=== PATIENT | female | born 1945 ===

== ENCOUNTER 2020-10-16 16:05 | Outpatient (REF) | payer MEDICARE, SELFPAY ==
--- NOTE | ~2020-10-16 | MM_ITS ---
EXAMINATION: MM SCREENING DIGITAL BREAST TOMOSYNTHESIS, BILATERAL CLINICAL INFORMATION: Screening. Asymptomatic. The lifetime risk of breast cancer based on the Tyrer-Cuzick Model is 1%. COMPARISON: Mammography: The 07/13/2019, 06/05/2018, 05/30/2017 TECHNIQUE: Digital breast tomosynthesis is performed in both the craniocaudal and mediolateral oblique views along with computer-aided detection (CAD). Synthesized 2D images are generated from the tomosynthesis. FINDINGS: The breasts are heterogeneously dense, which may obscure small masses (ACR BI-RADS breast composition Category c). Breast tissue composition borders on average fibroglandular. There is no developing density or interval mass or architectural abnormality. There are scattered bilateral predominantly vascular calcifications. The axilla and skin contours are unremarkable. No significant changes. MM/MM tomosynthesis screening BI IMPRESSION: No mammographic evidence of malignancy. ASSESSMENT: BI-RADS 2: Benign RECOMMENDATION: Routine annual mammography screening. This patient's information was entered into a reminder system with a target due date for their next mammogram.
== END 2020-10-16 16:06 | disposition home or self-care (01) ==
LOC: HO.MAMMO 16:05
PROVIDERS: Visit Provider Nurse Practitioner Family
DX: Z12.31 Encounter for screening mammogram for malignant neoplasm of breast (principal)
CPT/HCPCS: 77063; 77067

== ENCOUNTER → 2020-11-07 10:36 | Outpatient (BNVA) | payer MEDICARE, SELFPAY | PROVIDERS: PCP Nurse Practitioner Family; Referring Provider Nurse Practitioner Family; Visit Provider Internal Medicine Endocrinology, Diabetes & Metabolism | DX: Z13.89 Encounter for screening for other disorder (principal) | CPT/HCPCS: Q3014 ==

== ENCOUNTER 2020-11-10 09:46 | Outpatient (REF) | payer MEDICARE, SELFPAY ==
[2020-11-10 12:07] LABS: Thyroid Stimulating Hormone 1.78 uIU/mL (0.32-4.0); Vitamin D 25-OH Total 81.7 ng/mL (>30)
[2020-11-10 12:11] LABS: Alanine Aminotransferase 19 U/L (0-31); Albumin Level 4.2 g/dL (3.5-5.0); Alkaline Phosphatase 113 U/L (39-117); Anion Gap 13 (12-20); Aspartate Amino Transferase 26 U/L (5-31); Bilirubin Total 0.6 mg/dL (0.0-1.0); Blood Urea Nitrogen 7 mg/dL (9-16); Calcium 9.5 mg/dL (8.4-10.2); Carbon Dioxide 30 mmol/L (22-29); Chloride 103 mmol/L (96-108); Estimated Glomerular Filt Rate > 60; Glucose Fasting 91 mg/dL (60-99); Phosphorus 4.1 mg/dL (2.7-4.5); Potassium 4.8 mmol/L (3.3-5.1); Sodium 141 mmol/L (135-145); Total Protein 8.1 g/dL (6.5-8.0)
[2020-11-11 13:57] LABS: Calcium (PTHI) 9.6 mg/dL (8.6-10.4); PTHI 27 pg/mL (14-64)
[2020-11-13 19:36] LABS: VITAMIN D (1,25 OH) D3 61 pg/mL; Vit D (1,25-Dihydroxy) Total 61 pg/mL (18-72); Vitamin D (1,25 OH) D2 <8 pg/mL
== END 2020-11-10 09:47 | disposition home or self-care (01) ==
LOC: HO.LAB 09:46
PROVIDERS: PCP Nurse Practitioner Family; Visit Provider Internal Medicine Endocrinology, Diabetes & Metabolism
DX: E83.52 Hypercalcemia (principal); M81.0 Age-related osteoporosis without current pathological fracture
CPT/HCPCS: 36415; 80053; 82306; 82652; 83970; 84100; 84443

== ENCOUNTER 2020-11-11 | Outpatient (REF) | payer MEDICARE, SELFPAY ==
[2020-11-17 07:09] LABS: N-Telopeptide 27
[2020-11-17 07:10] LABS: NTXCreaRU 69
== END 2020-11-11 00:01 | disposition home or self-care (01) ==
LOC: HO.LNP
PROVIDERS: Visit Provider Internal Medicine Endocrinology, Diabetes & Metabolism
DX: M81.0 Age-related osteoporosis without current pathological fracture (principal)
CPT/HCPCS: 82523

== ENCOUNTER 2020-12-02 10:55 | Outpatient (REF) | payer MEDICARE, SELFPAY | END 2020-12-02 10:56 | disposition home or self-care (01) | LOC: HO.MDS 10:55 | PROVIDERS: Visit Provider Internal Medicine Endocrinology, Diabetes & Metabolism | DX: M81.0 Age-related osteoporosis without current pathological fracture (principal) | CPT/HCPCS: 96365; J3489 ==

== ENCOUNTER → 2021-02-11 11:20 | Outpatient (BNVA) | payer MEDICARE, SELFPAY | PROVIDERS: Visit Provider Internal Medicine Endocrinology, Diabetes & Metabolism | DX: M81.0 Age-related osteoporosis without current pathological fracture (principal) | CPT/HCPCS: 99212 ==

== ENCOUNTER 2021-02-12 09:46 | Outpatient (REF) | payer MEDICARE, SELFPAY ==
[2021-02-12 11:23] LABS: Calcium 8.9 mg/dL (8.4-10.2)
[2021-02-12 11:49] LABS: Vitamin D 25-OH Total 57.9 ng/mL (>30)
[2021-02-13 15:57] LABS: Calcium (PTHI) 9.2 mg/dL (8.6-10.4); PTHI 40 pg/mL (14-64)
== END 2021-02-12 09:47 | disposition home or self-care (01) ==
LOC: HO.LAB 09:46
PROVIDERS: PCP Nurse Practitioner Family; Visit Provider Internal Medicine Endocrinology, Diabetes & Metabolism
DX: M81.0 Age-related osteoporosis without current pathological fracture (principal)
CPT/HCPCS: 36415; 82040; 82306; 82310; 83970

== ENCOUNTER 2021-02-13 13:00 | Outpatient (REF) | payer MEDICARE, SELFPAY ==
[2021-02-18 16:22] LABS: N-Telopeptide 27 (see note); NTXCreaRU 111 mg/dL (20-275)
== END 2021-02-13 13:01 | disposition home or self-care (01) ==
LOC: HO.LNP 13:00
PROVIDERS: Visit Provider Internal Medicine Endocrinology, Diabetes & Metabolism
DX: M81.0 Age-related osteoporosis without current pathological fracture (principal)
CPT/HCPCS: 82523

== ENCOUNTER → 2021-02-24 12:52 | Outpatient (BNV) | payer MEDICARE, SELFPAY | PROVIDERS: Visit Provider Internal Medicine | DX: D47.2 Monoclonal gammopathy (principal) | CPT/HCPCS: 99213; 99214 ==

== ENCOUNTER 2021-03-03 10:44 | Outpatient (REF) | payer MEDICARE, SELFPAY ==
--- NOTE | ~2021-03-03 | MM_ITS ---
EXAMINATION: BONE DENSITOMETRY CLINICAL INDICATION: Age-related osteoporosis without current pathological fracture. COMPARISON: Previous BD dated 04/06/2019 and baseline BD dated 07/19/2006. TECHNIQUE: Using a [employer] DXA System (software version: 13.1) manufactured by [employer], dual-energy x-ray absorptiometry was performed of the lumbar spine and right hip. The images are of good technical quality. Summary results are attached. FINDINGS: AP SPINE L1-L4: Current: BMD 0.835 g/cm2, Z-score -1.3, T-score -2.9, osteoporosis, 2.2% decrease from previous, 34.0% increase from baseline (<5% change is not significant). Prior: BMD 0.854 g/cm2. Baseline: BMD 0.623 g/cm2. RIGHT FEMUR, NECK: Current: BMD 0.672 g/cm2, Z-score -0.7, T-score -2.6, osteoporosis. Prior: BMD 0.673 g/cm2. Baseline: BMD 0.676 g/cm2. RIGHT FEMUR, TOTAL: Current: BMD 0.712 g/cm2, Z-score -0.6, T-score -2.3, osteopenia, 2.1% decrease from previous, 4.4% increase from baseline (<5% change is not significant). Prior: BMD 0.727 g/cm2. Baseline: BMD 0.682 g/cm2. IDENTIFIED RISK FACTORS: Osteoporosis, history of fracture (adult), menopause. HISTORY OF FRACTURE: Femur/hip, wrist. MEDICATIONS: Calcium supplements or multivitamin, vitamin D. MM/XR DEXA axial skeleton IMPRESSION: 1. DIAGNOSIS: Severe osteoporosis based on the lowest T-score value of -2.9 in the lumbar spine and fracture history applying World Health Organization criteria. 2. 10-YEAR FRACTURE RISK PREDICTION, FRAX: Major osteoporotic fracture (clinical spine, forearm, hip or shoulder) 16.5%. Hip fracture 5.2%. 3. Treatment Recommendations: NOF guidelines recommend consideration for treatment in postmenopausal women and men age 50 and older presenting with the following: -A hip or vertebral (clinical or morphometric) fracture. -T-score less than or equal to -2.5 at the femoral neck or spine after appropriate evaluation to exclude secondary causes. -Low bone mass at the hip or spine and a 10-year fracture probability by FRAX of greater than or equal to 3% for hip fracture or greater than or equal to 20% for major osteoporotic fracture based on the [place] adapted WHO algorithm. 4. Other Recommendations: All treatment decisions require clinical judgment and consideration of individual patient factors, including patient preferences, comorbidities, previous drug use, risk factors not captured in the FRAX model (e.g. frailty, falls, vitamin D deficiency, increased bone turnover, interval significant decline in bone density) and possible under or overestimation of fracture risk by FRAX. Additional medical evaluation for secondary cause of low bone mineral density may be appropriate. FUTURE SCAN RECOMMENDATION: People with diagnosed cases of osteoporosis or at high risk for fracture should have regular bone mineral density tests. For patients eligible for Medicare, routine testing is allowed once every 2 years. The testing frequency can be increased to one year for patients who have rapidly progressing disease, those who are receiving or discontinuing medical therapy to restore bone mass, or have additional risk factors.
== END 2021-03-03 10:45 | disposition home or self-care (01) ==
LOC: HO.MAMMO 10:44
PROVIDERS: Visit Provider Internal Medicine Endocrinology, Diabetes & Metabolism
DX: Z13.820 Encounter for screening for osteoporosis (principal); M81.0 Age-related osteoporosis without current pathological fracture; Z78.0 Asymptomatic menopausal state; Z87.81 Personal history of (healed) traumatic fracture; Z79.899 Other long term (current) drug therapy
CPT/HCPCS: 77080

== ENCOUNTER → 2021-05-27 09:00 | Outpatient (BNVA) | payer MEDICARE, SELFPAY | PROVIDERS: PCP Registered Nurse Community Health; Visit Provider Orthopaedic Surgery | DX: M67.432 Ganglion, left wrist (principal) | CPT/HCPCS: 20612; 99202 ==

== ENCOUNTER 2021-06-03 10:42 | Outpatient (REF) | payer MEDICARE, SELFPAY ==
[2021-06-03 12:45] LABS: Alanine Aminotransferase 19 U/L (0-31); Albumin Level 4.2 g/dL (3.5-5.0); Alkaline Phosphatase 113 U/L (39-117); Anion Gap 11 (12-20); Aspartate Amino Transferase 25 U/L (5-31); Bilirubin Total 0.2 mg/dL (0.0-1.0); Blood Urea Nitrogen 5 mg/dL (9-16); Calcium 9.6 mg/dL (8.4-10.2); Carbon Dioxide 28 mmol/L (22-29); Chloride 104 mmol/L (96-108); Estimated Glomerular Filt Rate > 60; Glucose Random 83 mg/dL (60-115); Phosphorus 3.3 mg/dL (2.7-4.5); Potassium 4.3 mmol/L (3.3-5.1); Sodium 139 mmol/L (135-145); Total Protein 7.9 g/dL (6.5-8.0)
[2021-06-03 13:06] LABS: Free T4 (Free Thyroxine) 0.83 ng/dL (0.71-1.85); Thyroid Stimulating Hormone 2.15 uIU/mL (0.32-4.0); Vitamin D 25-OH Total 54.7 ng/mL (>30)
[2021-06-05 12:31] LABS: Calcium (PTHI) 9.4 mg/dL (8.6-10.4); PTHI 29 pg/mL (14-64)
[2021-06-08 10:31] LABS: Alkaline Phosphatase Bone 12.1 mcg/L (see note)
[2021-06-08 16:41] LABS: N-Telopeptide 32 (see note); NTXCreaRU 96 mg/dL (20-275)
== END 2021-06-03 10:43 | disposition home or self-care (01) ==
LOC: HO.LAB 10:42
PROVIDERS: PCP Registered Nurse Community Health; Visit Provider Internal Medicine
DX: M81.0 Age-related osteoporosis without current pathological fracture (principal); E55.9 Vitamin D deficiency, unspecified; E04.9 Nontoxic goiter, unspecified
CPT/HCPCS: 36415; 80053; 82306; 82523; 83970; 84075; 84100; 84439; 84443; 99212

== ENCOUNTER 2021-10-07 13:56 | Outpatient (REF) | payer MEDICARE, SELFPAY ==
--- NOTE | ~2021-10-07 | US_ITS ---
EXAMINATION: US THYROID CLINICAL INFORMATION: Goiter with vitamin D deficiency. COMPARISON: None TECHNIQUE: Linear transducer chapa-scale and color Doppler examination with attention to the region of the thyroid. FINDINGS: Due to the heterogeneous appearance of the gland, it is difficult to differentiate nodules with defined borders. SIZE: Measurements of the thyroid lobes and nodules are given in sagittal, anteroposterior and transverse dimensions respectively. Right Thyroid Lobe: 5.7 x 2.7 x 2.3 cm, volume 18 mL. Parenchyma: The gland echotexture is heterogeneous. Thyroid vascularity is increased. Left Thyroid Lobe: 7.2 x 2.9 x 3.1 cm, volume 34 mL. Parenchyma: The gland echotexture is heterogeneous. Thyroid vascularity is increased. Isthmus: 0.3 cm in maximum AP dimension. Estimated total number of nodules greater than or equal to 1 cm: 5. Ward Supervisor nodules are described as follows: 1. Location: Right upper. Size: 1.5 x 0.9 x 0.9 cm, volume 0.6 mL. Nodule characteristics: Composition: Solid (2). Echogenicity: Isoechoic (1). Shape: Wider than tall (0). Margins: Circumscribed. Echogenic Foci: None (0). ACR TI-RADS total points: 3. ACR TI-RADS category: 3. 2. Location: Right lower. Size: 2.8 x 2.1 x 2.0 cm, volume 6.2 mL. Nodule characteristics: Composition: Solid/almost completely solid (2). Echogenicity: Undetermined (1). Shape: Wider than tall (0). Margins: Extrathyroidal extension (3). Echogenic Foci: None (0). ACR TI-RADS total points: 6. ACR TI-RADS category: 4. 3. Location: Left mid to upper. Size: 3.0 x 2.9 x 2.9 cm, volume 13.4 mL. Nodule characteristics: Composition: Solid (2). Echogenicity: Undetermined (1). Shape: Wider than tall (0). Margins: Extrathyroidal extension (3). Echogenic Foci: None (0). ACR TI-RADS total points: 6. ACR TI-RADS category: 4. 4. Location: Left lower. Size: 3.0 x 2.0 x 3.1 cm, volume 9.9 mL. Nodule characteristics: Composition: Solid (2). Echogenicity: Isoechoic (1). Shape: Wider than tall (0). Margins: Extrathyroidal extension (3). Echogenic Foci: None (0). ACR TI-RADS total points: 6. ACR TI-RADS category: 4. 5. Location: Right lower pole. Size: 1.2 x 0.8 x 0.8 cm, volume 0.4 mL. Composition: Solid (2). Echogenicity: Isoechoic (1). Shape: Wider than tall (0). Margins: Smooth (0). Echogenic Foci: None (0). ACR TI-RADS total points: 3. ACR TI-RADS category: 3. NODES: No lymphadenopathy is seen in the tissue surrounding the thyroid gland. US/US thyroid IMPRESSION: Multinodular goiter with hypervascularity. One right-sided and 2 left-sided TI-RAD category 4 nodules which are greater than 1.5 cm in maximum dimension and for which fine-needle aspiration biopsy is recommended. ACR TI-RADS RECOMMENDATION REFERENCE: Ultrasound-guided fine-needle aspiration, followup ultrasound, no further follow up. * TR1 (0 point) and TR 2 (2 points): No FNA or follow up * TR3 (3 points): FNA if more than or equal to 2.5 cm in maximum dimension, followup ultrasound in 1, 3 and 5 years if 1.5 to 2.4 cm in maximum dimension. * TR4 (4-6 points): FNA if more than or equal to 1.5 cm in maximum dimension, followup ultrasound in 1, 2, 3 and 5 years if 1 to 1.4 cm in maximum dimension. * TR5 (more than or equal to 7 points): FNA if more than or equal to 1 cm in maximum dimension, followup ultrasound every year for 5 years if 0.5 to 0.9 cm in maximum dimension. * TR3, TR4 or TR5 nodules that are below the size threshold for follow up receive no follow up.
== END 2021-10-07 13:57 | disposition home or self-care (01) ==
LOC: HO.US 13:56
PROVIDERS: PCP Registered Nurse Community Health; Visit Provider Internal Medicine
DX: E04.9 Nontoxic goiter, unspecified (principal); E55.9 Vitamin D deficiency, unspecified
CPT/HCPCS: 76536

== ENCOUNTER 2021-10-19 09:30 | Outpatient (REF) | payer MEDICARE, SELFPAY ==
[2021-10-19 11:55] LABS: Alanine Aminotransferase 12 U/L (0-31); Alkaline Phosphatase 98 U/L (39-117); Anion Gap 13 (12-20); Aspartate Amino Transferase 21 U/L (5-31); Bilirubin Total 0.4 mg/dL (0.0-1.0); Blood Urea Nitrogen 9 mg/dL (9-16); Calcium 9.5 mg/dL (8.4-10.2); Carbon Dioxide 23 mmol/L (22-29); Chloride 107 mmol/L (96-108); Estimated Glomerular Filt Rate > 60; Glucose Random 93 mg/dL (60-115); Phosphorus 2.8 mg/dL (2.7-4.5); Potassium 4.3 mmol/L (3.3-5.1); Sodium 139 mmol/L (135-145); Total Protein 7.7 g/dL (6.5-8.0)
[2021-10-19 12:20] LABS: Thyroid Stimulating Hormone 1.07 uIU/mL (0.32-4.0); Vitamin D 25-OH Total 51.5 ng/mL (>30)
[2021-10-20 12:07] LABS: Calcium (PTHI) 9.5 mg/dL (8.6-10.4); PTHI 25 pg/mL (14-64)
== END 2021-10-19 09:31 | disposition home or self-care (01) ==
LOC: HO.LAB 09:30
PROVIDERS: PCP Registered Nurse Community Health; Visit Provider Internal Medicine
DX: M18.0 Bilateral primary osteoarthritis of first carpometacarpal joints (principal); D47.2 Monoclonal gammopathy; E55.9 Vitamin D deficiency, unspecified; E04.2 Nontoxic multinodular goiter; Z79.899 Other long term (current) drug therapy
CPT/HCPCS: 36415; 80053; 82306; 83970; 84100; 84439; 84443; 99212

== ENCOUNTER 2021-11-10 11:10 | Outpatient (REF) | payer MEDICARE, SELFPAY ==
--- NOTE | ~2021-11-10 | MM_ITS ---
EXAMINATION: MM SCREENING DIGITAL BREAST TOMOSYNTHESIS, BILATERAL CLINICAL INFORMATION: Screening. Asymptomatic. The lifetime risk of breast cancer based on the Tyrer-Cuzick Model is 1%. COMPARISON: Mammography: 10/16/2020, 07/13/2019, 06/05/2018 TECHNIQUE: Digital breast tomosynthesis is performed in both the craniocaudal and mediolateral oblique views along with computer-aided detection (CAD). Synthesized 2D images are generated from the tomosynthesis. FINDINGS: The breasts are heterogeneously dense, which may obscure small masses (ACR BI-RADS breast composition Category c). Parenchymal pattern is similar to prior studies and there is no developing density or interval mass or architectural abnormality. Scattered bilateral predominantly vascular calcifications are again seen. There are scattered punctate round calcifications and some digital processing artifact from vascular calcifications anterior right breast. The axilla and skin contours are unremarkable. There are no significant changes. MM/MM tomosynthesis screening BI IMPRESSION: No mammographic evidence of malignancy. ASSESSMENT: BI-RADS 2: Benign RECOMMENDATION: Routine annual mammography screening. This patient's information was entered into a reminder system with a target due date for their next mammogram.
== END 2021-11-10 11:11 | disposition home or self-care (01) ==
LOC: HO.MAMMO 11:10
PROVIDERS: Visit Provider Registered Nurse Community Health
DX: Z12.31 Encounter for screening mammogram for malignant neoplasm of breast (principal)
CPT/HCPCS: 77063; 77067

== ENCOUNTER 2022-04-15 09:53 | Outpatient (REF) | payer MEDICARE, SELFPAY ==
--- NOTE | 2022-04-15 10:38 | PM.OP ---
Brief Operative Note Date of Service: 04/15/22 Pre-op diagnosis: Multinodular Thyroid Procedure: This is doctor Lorna Rose. This is an ultrasound-guided fine-needle aspiration report. Date of Examination: Indication: Multinodular Thyroid Porcedure: Procedure was explained to the patient. Alternatives, the risk and benefits were discussed. Written consent was obtained. A time-out was also obtained. After sterile preparation, fine-needle aspiration of a left mid pole 1.4 cm thyroid nodule was performed using direct ultrasound guidance to confirm accurate needle placement. Three aspirations were made using 27 gauge needles. Samples were submitted for cytology. One pass was dedicated for [employer] sequencing production honing machine operator testing. Our attention was then turned to another nodule. Fine-needle aspiration of a left mid pole 3.4 cm thyroid nodule was performed using direct ultrasound guidance to confirm accurate needle placement. Three aspirations were made using 27 gauge needles. Samples were submitted for cytology. One pass was dedicated for [employer] sequencing production honing machine operator testing. Our attention was then turned to the right lobe. Fine-needle aspiration of a right mid pole 1.7 cm thyroid nodule was performed using direct ultrasound guidance to confirm accurate needle placement. Four aspirations were made using 27 gauge needles. Samples were submitted for cytology. One pass was dedicated for [employer] sequencing production honing machine operator testing. The patient tolerated the procedure well. Aftercare instructions were provided. Impression: Uncomplicated fine needle aspiration biopsy of a left mid pole 1.4 cm thyroid nodule, left mid pole 3.4 cm thyroid nodule and a right mid pole 1.7 cm thyroid nodule under ultrasound guidance. Surgeon: Lorna Rose, DO Was an Automatic Pinsetter Adjuster used for this Procedure?: No Estimated blood loss (mL): 0
== END 2022-04-15 09:54 | disposition home or self-care (01) ==
LOC: HO.US 09:53
PROVIDERS: Visit Provider Internal Medicine
DX: E04.2 Nontoxic multinodular goiter (principal)
CPT/HCPCS: 10005; 10006; 88172; 88173; 88177; 88305

== ENCOUNTER 2022-04-28 10:14 | Outpatient (REF) | payer OTHER, SELFPAY ==
[2022-04-28 12:44] LABS: Alanine Aminotransferase 21 U/L (0-31); Albumin Level 4.1 g/dL (3.5-5.0); Alkaline Phosphatase 124 U/L (39-117); Anion Gap 15 (12-20); Aspartate Amino Transferase 23 U/L (5-31); Bilirubin Total 0.6 mg/dL (0.0-1.0); Blood Urea Nitrogen 6 mg/dL (9-16); Calcium 9.4 mg/dL (8.4-10.2); Carbon Dioxide 25 mmol/L (22-29); Chloride 103 mmol/L (96-108); Estimated Glomerular Filt Rate > 60; Glucose Random 100 mg/dL (60-115); Phosphorus 3.6 mg/dL (2.7-4.5); Sodium 139 mmol/L (135-145); Total Protein 7.9 g/dL (6.5-8.0)
[2022-04-28 12:53] LABS: Free T4 (Free Thyroxine) 0.97 ng/dL (0.71-1.85); Thyroid Stimulating Hormone 1.39 uIU/mL (0.32-4.0); Vitamin D 25-OH Total 49.4 ng/mL (>30)
[2022-04-29 13:26] LABS: Calcium (PTHI) 9.3 mg/dL (8.6-10.4); PTHI 33 pg/mL (16-77)
[2022-05-02 14:02] LABS: Alkaline Phosphatase Bone 14.4 mcg/L (see note)
[2022-05-03 20:32] LABS: N-Telopeptide 24 (see note); NTXCreaRU 131 mg/dL (20-275)
== END 2022-04-28 10:15 | disposition home or self-care (01) ==
LOC: HO.LAB 10:14
PROVIDERS: PCP Registered Nurse Community Health; Visit Provider Internal Medicine
DX: M81.0 Age-related osteoporosis without current pathological fracture (principal); E55.9 Vitamin D deficiency, unspecified
CPT/HCPCS: 36415; 80053; 82306; 82523; 83970; 84075; 84100; 84439; 84443

== ENCOUNTER → 2022-05-03 09:26 | Outpatient (BNVA) | payer OTHER, SELFPAY | PROVIDERS: PCP Registered Nurse Community Health; Visit Provider Internal Medicine | DX: E04.2 Nontoxic multinodular goiter (principal); E55.9 Vitamin D deficiency, unspecified; M81.0 Age-related osteoporosis without current pathological fracture; Z79.899 Other long term (current) drug therapy | CPT/HCPCS: 99212 ==

== ENCOUNTER 2022-05-12 06:56 | Outpatient (REF) | payer OTHER, SELFPAY ==
[2022-05-12 07:40] LABS: Blood Urea Nitrogen 6 mg/dL (9-16); Estimated Glomerular Filt Rate > 60
== END 2022-05-12 06:57 | disposition home or self-care (01) ==
LOC: HO.MDS 06:56
PROVIDERS: Visit Provider Internal Medicine
DX: M81.0 Age-related osteoporosis without current pathological fracture (principal)
CPT/HCPCS: 36415; 82565; 84520; 96365; J3489

== ENCOUNTER 2023-01-19 11:28 | Outpatient (REF) | payer OTHER, SELFPAY ==
--- NOTE | ~2023-01-19 | MM_ITS ---
EXAMINATION: MM SCREENING DIGITAL BREAST TOMOSYNTHESIS, BILATERAL CLINICAL INFORMATION: Screening. Asymptomatic. The lifetime risk of breast cancer based on the Tyrer-Cuzick Model is 2.4%. COMPARISON: Mammography: November 10, 2021 and studies dating back to May 24, 2016 TECHNIQUE: Digital breast tomosynthesis is performed in both the craniocaudal and mediolateral oblique views along with computer-aided detection (CAD). Synthesized 2D images are generated from the tomosynthesis. FINDINGS: The breasts are heterogeneously dense, which may obscure small masses (ACR BI-RADS breast composition Category c). There are no significant masses, abnormal calcifications, or other abnormalities. MM/MM tomosynthesis screening BI IMPRESSION: No significant changes from prior exam. ASSESSMENT: BI-RADS 1: Negative RECOMMENDATION: Routine annual mammography screening. This patient's information was entered into a reminder system with a target due date for their next mammogram.
== END 2023-01-19 11:29 | disposition home or self-care (01) ==
LOC: HO.MAMMO 11:28
PROVIDERS: Visit Provider Registered Nurse
DX: Z12.31 Encounter for screening mammogram for malignant neoplasm of breast (principal)
CPT/HCPCS: 77063; 77067

== ENCOUNTER 2023-03-17 08:43 | Emergency (ER) | payer OTHER, SELFPAY ==
--- NOTE | ~2023-03-17 | XR_ITS ---
EXAMINATION: XR CHEST CLINICAL INFORMATION: Chest pain COMPARISON: June 02, 2012 TECHNIQUE: AP portable view of the chest was obtained. FINDINGS: There is a region of parenchymal disease seen in the left lower lung retrocardiac region which may be on basis of atelectasis or pneumonitis. No pneumothorax or significant pleural effusion. Prominent but without significant change from previous examination. No evidence of pulmonary edema. XR/XR chest 1V IMPRESSION: Left lower lung disease.
--- NOTE | ~2023-03-17 | CT_ITS ---
Examination: CT brain without contrast. CT abdomen and pelvis with IV contrast. CLINICAL INDICATION: AMS. Nausea and vomiting. COMPARISON: CT brain 02/19/2020 TECHNIQUE: 5 mm thin axial and reformatted 2 minutes in sagittal and coronal images of brain were obtained without contrast. Subsequently axial 5 mm thin and reformatted 3 mm thin sagittal and coronal images of abdomen and pelvis were obtained. DLP [id number]. : This CT examination was performed using dose optimization technique as appropriate, variously including the following: Automated exposure control Adjustment of MA and/or KV according to patient size(this includes techniques or standardized protocols for targeted exams where dose is matched to indication/reason for exam; extremities or head. Use of iterative reconstruction techniques. FINDINGS: Brain: There is no acute intra-axial, extra-axial bleed, masses or midline shift. There is no acute infarction in evolution or edema. The chapa to white matter difference is maintained normal. No abnormality seen in the posterior fossa. The lateral ventricles are symmetrical in size but moderately enlarged. There is mild periventricular hypodensity in both several hemispheres without mass effect. There is mild prominence of cortical sulci. Bone windows reveal no calvarial abnormality. There is no scalp soft tissue abnormality. Bilateral paranasal sinuses and mastoid air cells are well-aerated. Abdomen and pelvis: Lung bases: There is bibasilar atelectatic changes and/or scarring. Heart size is normal. There is a small hiatal hernia. Liver, ducts and gallbladder: The liver is normal size, contour and density. There is significant intrahepatic ductal dilatation extending to the head of the pancreas. No focal mass or intraluminal radiopaque calculi seen. The gallbladder is unremarkable. The CBD is dilated proximally and distally. Spleen: Unremarkable. Pancreas: There is mild fatty infiltration of pancreas. The CBD is dilated throughout its length. The distal CBD measures 1 cm. The pancreatic duct is not dilated. There is a cystic lesion in head of of the pancreas measuring 8 x 6 mm on axial slice 29/7. The pancreatic duct is minimally prominent Adrenal glands: Unremarkable. Kidneys and ureter: Both kidney nephrograms are symmetrical in size and configuration without radiopaque renal calculi or hydronephrosis. There is a 1.2 cm cyst upper/mid pole right kidney. No perinephric stranding seen. Lymphovascular structures: The abdominal aorta is normal caliber. No abnormal size retroperitoneal lymph nodes seen. GI tract: There is moderate stool scattered stool seen in the colon. The small bowel loops. No cystic mild mural thickening involving the ascending colon and cecum. The ileocecal junction is unremarkable. Appendix is not seen. The small bowel loops are normal caliber. The stomach is nondistended. There is nonspecific mesenteric haziness in the left mid quadrant without any visible abnormal lymph nodes. No abnormal size lymph nodes seen in the leidy hepatis or the retroperitoneum. Abdominal wall: Unremarkable. Pelvis: The bladder is mildly distended and appears unremarkable. The uterus is anteverted with multiple calcifications vascular or small fibroids no adnexal free fluid seen. Osseous structures: There is old healed fractures involving the pubic bones. There are 3 nails traversing the left femoral neck for an old healed fracture. No aggressive lytic or sclerotic process seen. Degenerative disc changes lumbar spine with sparing of L5-S1 disc level. CT/CT abdomen pelvis w IV con IMPRESSION: Moderate intrahepatic and common bile duct dilatation. There is a cystic lesion in the head of the pancreas. There are is no intraluminal gallstone of CBD stone seen. Recommend MRCP and MR pancreas with and without contrast. Nonspecific mesenteritis midabdomen. No abnormal lymph nodes seen. Nonspecific mural thickening involving ascending colon and the cecum with moderate stool in the descending and sigmoid colon. No acute intracranial process seen.
[2023-03-17 08:59] VITALS: BP 120/72; BP 127/61; PULSE 69; PULSE 72; RESP 14; TEMP 36.5; O2SAT 95; O2SAT 96; BMI 24.7
--- NOTE | 2023-03-17 09:03 | PC.NURSE ---
pt triage completed, able to complete without storage solutions architect present, waiting for storage solutions architect to arrive so able to speak with pt.
--- NOTE | 2023-03-17 09:42 | ED_ITS ---
HPI - Abdominal Pain General Chief Complaint: Abdominal Pain Stated Complaint: nausea, vomiting Time Seen by Provider: 03/17/23 08:49 History of Present Illness HPI narrative: Patient is a 77-year-old female presents today with having nausea vomiting pain diffuse over the entire abdomen. Also has a history having spinning sensation worse with movement. Patient claims that it was very abrupt in onset today it is worse with movement. There is no focal weakness. She is from home. Related Data Home Medications Medication Instructions Recorded Confirmed aspirin 81 mg tablet,delayed 81 mg PO DAILY 11/07/20 01/13/23 release ferrous fumarate 324 mg (106 mg 324 mg PO DAILY 11/07/20 01/13/23 iron) tablet levothyroxine 75 mcg tablet 75 mcg PO DAILY 11/07/20 01/13/23 multivitamin 1 tab PO DAILY 11/07/20 01/13/23 pantoprazole 40 mg tablet,delayed 40 mg PO DAILY 11/07/20 01/13/23 release rosuvastatin 5 mg tablet 5 mg PO DAILY 11/07/20 01/13/23 sennosides 8.6 mg tablet 17.2 mg PO DAILY 11/07/20 07/19/22 polyethylene glycol 3350 17 gram 17 g PO DAILY 02/24/21 01/13/23 oral powder packet (Miralax) Previous Rx's Medication Instructions Recorded calcium citrate 200 mg (950 mg) 400 mg PO DAILY 90 days #180 tabs 08/16/22 tablet meclizine 25 mg chewable tablet 25 mg PO TID spinning #14 tabs 03/17/23 (Antivert) Allergies Allergy/AdvReac Type Severity Reaction Status Date / Time No Known Allergies Allergy Mild NONE Verified 03/17/23 08:59 Review of Systems Review of Systems Positive nausea vomiting. Positive spinning Yes all other systems are reviewed and are negative PMFSH Past Medical History Attestation statement: The following information was validated with the patient. Medical History Goiter Multinodular thyroid Osteoporosis Serum calcium elevated Vitamin D deficiency Surgical History History of surgery on arm Hx of biopsy Hx of fracture of hip Hx of tubal ligation Family History Family History Father No problems noted. Mother No problems noted. Social History Social History Household Members: None Housing: Apartment Alcohol intake: never Patient Tobacco Use Status: Never used Tobacco Smoked in Last 30 Days: No Use of substances other than those prescribed or required for medical reasons: No Advance Directives: No Advance Directives Information Provided: Yes Current occupational status: disabled Physical Exam ED Vital Signs: Vital Signs - 24 hr 03/17/23 08:59 03/17/23 11:08 03/17/23 12:00 Temperature 97.7 F 97.6 F 97.7 F Pulse Rate 69 65 77 Respiratory Rate 14 16 Blood Pressure 127/61 107/42 L 116/57 L Pulse Oximetry 95 93 97 Oxygen Delivery Method Room Air Room Air Room Air 03/17/23 13:24 Temperature Pulse Rate 71 Respiratory Rate 14 Blood Pressure 121/62 Pulse Oximetry 96 Oxygen Delivery Method Room Air BMI result Body Mass Index 24.7 Appearance: Alert. Oriented X3. No acute distress. Eyes: Pupils equal, round and reactive to light. ENT: Pharynx normal. Neck: Normal inspection. Neck supple. No lymph nodes noted. No crepitus CVS: Normal heart rate and rhythm. Pulses normal. Normal S1 and S2 Respiratory: No respiratory distress. Breath sounds normal. No Wheezing. No rales Abdomen: Soft and nontender. No rigidity. No distention. good BS x4 Skin: Skin warm and dry. Normal skin color. Normal skin turgor. Extremities: No lower extremity edema. Neurovascular intact to all extremities. No Lacerations. No Rash Neuro: Oriented X 3. No motor deficit. No sensory deficit. Moving all extermities. No slurred speech Medical Decision Making Medical Decision Making MDM Narrative: Patient has been in station that was very abrupt in onset. Associated with nausea vomiting epigastric pain. CT scan of the head was grossly negative. Symptom with extreme. Symptom improved with Antivert. CT scan of the abdomen pelvis was done for the abdominal pain. It was positive for a possible mass in the pancreas. This finding was relayed to patient through a yard foreman. Patient will need follow-up on an outpatient basis. She states understanding. She was given IV fluid here in the emergency department with good results. Her hemoglobin is 4.7 which is approximately baseline. Her kidney functions are normal. Her troponin is normal. Patient's urine is grossly negative for any acute evidence of infection. Differential Diagnosis Differential Diagnoses: The differential diagnosis associated with the presentation includes Peripheral vertigo, urinary tract infection, electrolyte disturbance, anemia, intracranial mass, Admission/Observation Consideration of admission/observation: Escalation of care including admission/observation considered Lab Data MDM Lab Attestation statement: I reviewed the patient's lab results. 03/17/23 10:04 03/17/23 10:04 Labs: Lab Results 03/17/23 03/17/23 03/17/23 Range/Units 10:04 10:04 10:04 WBC 8.1 (4.8-10.8) X10*3/uL RBC 3.97 L (4.20-5.50) X10*6/uL Hgb 12.7 (12.0-16.0) g/dl Hct 38.1 (37.0-47.0) % MCV 96.0 (80.0-98.0) fL MCH 32.0 (27.0-33.0) pg MCHC 33.3 (31.0-35.0) g/dl RDW 11.9 (11.0-16.0) % Plt Count 284 (160-400) X10*3/uL MPV 9.8 (9.4-12.3) fL Immature Gran % (Auto) 0.2 (0.0-0.4) % Neut % (Auto) 82.1 H (45-73) % Lymph % (Auto) 14.1 L (20-40) % [place] % (Auto) 2.8 (2-11) % Eos % (Auto) 0.4 (0-4) % Baso % (Auto) 0.4 (0-2) % Lymph # (Auto) 1.2 (1.2-4.9) X10*3/uL [place] # (Auto) 0.2 (0.1-1.2) X10*3/uL Eos # (Auto) 0.0 (0.0-0.4) X10*3/uL Baso # (Auto) 0.0 (0.0-0.2) X10*3/uL Abs Immat Gran (auto) 0.02 (0.00-0.03) X10*3/uL Absolute Neuts (auto) 6.7 (2.0-8.3) x10*3/uL Absolute Nucleated RBC 0.000 (0.0-0.012) X10*3/uL Nucleated RBC % (auto) 0.0 (0.0-0.2) /100WBC Sodium 138 (135-145) mmol/L Potassium 3.9 (3.3-5.1) mmol/L Chloride 104 (96-108) mmol/L Carbon Dioxide 25 (22-29) mmol/L Anion Gap 13 (12-20) BUN 7 L (9-16) mg/dL Creatinine 0.65 (0.5-1.4) mg/dL Estim Creat Clear Calc 60.5 Estimated GFR > 60 Random Glucose 133 H (60-115) mg/dL Calcium 9.7 (8.4-10.2) mg/dL Total Bilirubin 0.5 (0.0-1.0) mg/dL Direct Bilirubin 0.2 (0.0-0.5) mg/dL AST 22 (5-31) U/L ALT 13 (0-31) U/L Alkaline Phosphatase 102 (39-117) U/L Troponin I High Sens < 2.7 (<3.5-17.0) ng/L Total Protein 7.7 (6.5-8.0) g/dL Albumin 3.9 (3.5-5.0) g/dL Lipase 27 (8-78) U/L Urine Color Urine Appearance Urine pH (5.0-9.0) Ur Specific [place] (1.005-1.025) Urine Protein (Neg-Trace) mg/dL Urine Glucose (UA) (Negative) mg/dL Urine Ketones (Negative) mg/dL Urine Blood (Negative) Urine Nitrite (Negative) Ur Leukocyte Esterase (Negative) Urine RBC (0-2) /HPF Urine WBC (0-5) /HPF Ur Squamous Epith Cells (0-2) /HPF Urine Bacteria (None Seen) Hyaline Casts (0-2) /LPF 03/17/23 Range/Units 13:55 WBC (4.8-10.8) X10*3/uL RBC (4.20-5.50) X10*6/uL Hgb (12.0-16.0) g/dl Hct (37.0-47.0) % MCV (80.0-98.0) fL MCH (27.0-33.0) pg MCHC (31.0-35.0) g/dl RDW (11.0-16.0) % Plt Count (160-400) X10*3/uL MPV (9.4-12.3) fL Immature Gran % (Auto) (0.0-0.4) % Neut % (Auto) (45-73) % Lymph % (Auto) (20-40) % [place] % (Auto) (2-11) % Eos % (Auto) (0-4) % Baso % (Auto) (0-2) % Lymph # (Auto) (1.2-4.9) X10*3/uL [place] # (Auto) (0.1-1.2) X10*3/uL Eos # (Auto) (0.0-0.4) X10*3/uL Baso # (Auto) (0.0-0.2) X10*3/uL Abs Immat Gran (auto) (0.00-0.03) X10*3/uL Absolute Neuts (auto) (2.0-8.3) x10*3/uL Absolute Nucleated RBC (0.0-0.012) X10*3/uL Nucleated RBC % (auto) (0.0-0.2) /100WBC Sodium (135-145) mmol/L Potassium (3.3-5.1) mmol/L Chloride (96-108) mmol/L Carbon Dioxide (22-29) mmol/L Anion Gap (12-20) BUN (9-16) mg/dL Creatinine (0.5-1.4) mg/dL Estim Creat Clear Calc Estimated GFR Random Glucose (60-115) mg/dL Calcium (8.4-10.2) mg/dL Total Bilirubin (0.0-1.0) mg/dL Direct Bilirubin (0.0-0.5) mg/dL AST (5-31) U/L ALT (0-31) U/L Alkaline Phosphatase (39-117) U/L Troponin I High Sens (<3.5-17.0) ng/L Total Protein (6.5-8.0) g/dL Albumin (3.5-5.0) g/dL Lipase (8-78) U/L Urine Color Yellow Urine Appearance Clear Urine pH 8.0 (5.0-9.0) Ur Specific [place] 1.025 (1.005-1.025) Urine Protein Negative (Neg-Trace) mg/dL Urine Glucose (UA) Negative (Negative) mg/dL Urine Ketones Negative (Negative) mg/dL Urine Blood Negative (Negative) Urine Nitrite Negative (Negative) Ur Leukocyte Esterase Trace H (Negative) Urine RBC 0-2 (0-2) /HPF Urine WBC 0-5 (0-5) /HPF Ur Squamous Epith Cells 0-2 (0-2) /HPF Urine Bacteria None Seen (None Seen) Hyaline Casts 0-2 (0-2) /LPF Independent Interpretation I performed an independent interpretation of an: CT Scan Interpretation: CT scan of the head was grossly negative for any acute evidence of bleeding Radiology Impression Discussion of test interpretation with radiology: I have reviewed the radiologist's reading. Radiologist Impression: In the there is a mass noted in the head of the pancreas. External Record Review External record reviewed: Inpatient record Medications Administered Discontinued Medications Generic Name Dose Route Start Last Admin Trade Name Freq PRN Reason Stop Dose Admin Sodium Chloride 1,000 mls @ 999 mls/hr 03/17/23 09:45 03/17/23 11:31 Ns IV 03/17/23 10:45 Infused .Q1H1M KT Infusion Sodium Chloride 1,000 mls @ 999 mls/hr 03/17/23 09:45 03/17/23 10:45 Ns IV 03/17/23 10:45 999 mls/hr .Q1H1M KT Administration Iohexol 100 ml 03/17/23 12:19 03/17/23 12:20 Iohexol 350 Mg/Ml 100 Ml Infus..Btl IV 03/17/23 12:20 85 ml ONCE ONE Administration Meclizine HCl 25 mg 03/17/23 09:42 03/17/23 10:41 Meclizine Hcl 25 Mg Tablet PO 03/17/23 09:43 25 mg ONCE ONE Administration Ondansetron HCl 4 mg 03/17/23 09:40 03/17/23 10:41 Ondansetron Hcl 4 Mg/2 Ml Vial IVPUSH 03/17/23 09:41 4 mg ONCE ONE Administration Discharge Plan Discharge Clinical Impression: Vertigo Patient Disposition: Home, Self-Care Instructions: Vertigo (DC) Additional Instructions: Moderate intrahepatic and common bile duct dilatation. There is a cystic lesion in the head of the pancreas. There are is no intraluminal gallstone of CBD stone seen. Recommend MRCP and MR pancreas with and without contrast. ? Prescriptions: New meclizine [Antivert] 25 mg tablet,chewable 25 mg PO TID Qty: 14 0RF No Action calcium citrate 200 mg (950 mg) tablet 400 mg PO DAILY 90 Days Qty: 180 11RF polyethylene glycol 3350 [Miralax] 17 gram Powder In Packet 17 g PO DAILY ferrous fumarate 324 mg (106 mg iron) tablet 324 mg PO DAILY rosuvastatin 5 mg tablet 5 mg PO DAILY pantoprazole 40 mg tablet,delayed release (DR/EC) 40 mg PO DAILY levothyroxine 75 mcg tablet 75 mcg PO DAILY sennosides 8.6 mg tablet 17.2 mg PO DAILY aspirin 81 mg tablet,delayed release (DR/EC) 81 mg PO DAILY multivitamin Tablet 1 tab PO DAILY Referrals: [facility] [Provider Group] - 03/21/23
[2023-03-17 10:12] LABS: MANUAL DIFF FLAG NO
[2023-03-17 10:19] LABS: Basophils Percent Auto 0.4 % (0-2); Eosinophils Percent Auto 0.4 % (0-4); Hematocrit 38.1 % (37.0-47.0); Hemoglobin 12.7 g/dl (12.0-16.0); Imm Gran Abs Auto 0.02 X10*3/uL (0.00-0.03); Imm Gran Pct Auto 0.2 % (0.0-0.4); Lymphocytes Absolute Auto 1.2 X10*3/uL (1.2-4.9); Lymphocytes Percent Auto 14.1 % (20-40); Mean Corpuscular HGB Conc 33.3 g/dl (31.0-35.0); Mean Platelet Volume 9.8 fL (9.4-12.3); Monocytes Absolute Auto 0.2 X10*3/uL (0.1-1.2); Monocytes Percent Auto 2.8 % (2-11); Neutrophils Absolute Auto 6.7 x10*3/uL (2.0-8.3); Neutrophils Percent Auto 82.1 % (45-73); Platelet Count 284 X10*3/uL (160-400); Red Blood Count 3.97 X10*6/uL (4.20-5.50); Red Cell Distribution Width 11.9 % (11.0-16.0); White Blood Count 8.1 X10*3/uL (4.8-10.8)
[2023-03-17] MEDS: 0.9 % Sodium Chloride 1,000 ML 999 ML IV ×2 (10:29→10:45)
[2023-03-17] MEDS: ondansetron HCL 4 MG/2 ML VIAL IVPUSH (10:41)
[2023-03-17] MEDS: Meclizine HCl 25 MG TABLET PO (10:41)
--- NOTE | 2023-03-17 10:43 | PC.NURSE ---
medications and IVF administered per provider order.
[2023-03-17 11:08] VITALS: BP 107/42; PULSE 65; RESP 16; TEMP 36.4; O2SAT 93
[2023-03-17 11:12] LABS: Alanine Aminotransferase 13 U/L (0-31); Albumin Level 3.9 g/dL (3.5-5.0); Alkaline Phosphatase 102 U/L (39-117); Aspartate Amino Transferase 22 U/L (5-31); Bilirubin Direct 0.2 mg/dL (0.0-0.5); Bilirubin Total 0.5 mg/dL (0.0-1.0); Blood Urea Nitrogen 7 mg/dL (9-16); Calcium 9.7 mg/dL (8.4-10.2); Carbon Dioxide 25 mmol/L (22-29); Chloride 104 mmol/L (96-108); Creatinine Clr Calc Pharmacy 60.5; Estimated Glomerular Filt Rate > 60; Glucose Random 133 mg/dL (60-115); Lipase 27 U/L (8-78); Potassium 3.9 mmol/L (3.3-5.1); Sodium 138 mmol/L (135-145); Total Protein 7.7 g/dL (6.5-8.0); Troponin-I High Sensitivity < 2.7 ng/L (<3.5-17.0)
--- NOTE | 2023-03-17 11:15 | MHC.EDTECH ---
In to do Pts vitals, and Pt still unable to provide urine sample at this time.
[2023-03-17 11:28] LABS: Anion Gap 13 (12-20)
[2023-03-17 12:00] VITALS: BP 116/57; PULSE 77; TEMP 36.5; O2SAT 97
[2023-03-17] MEDS: iohexoL 350 MG/ML 100 ML INFUS..BTL IV (12:20)
--- NOTE | 2023-03-17 12:25 | PC.NURSE ---
pt just came back from xray, IVF back up and running, pt on the vitals monitor showing stable vitals, pt states the pain in her abdomen is still at a constant 4/10, pt also states that she still feels nauseous but has not thrown up since this morning, still need urine sample to send to lab, let patient know that if she needed to get up to go to the bathroom to use the call glover and we can come in and assist her.
[2023-03-17 13:24] VITALS: BP 121/62; PULSE 71; RESP 14; O2SAT 96
[2023-03-17 14:06] LABS: Appearance Urine Clear; Color Urine Yellow; Glucose Urine UA Negative (Negative); Leukocyte Esterase Urine Trace (Negative); Nitrite Urine Negative (Negative); Specific Gravity - Urine 1.025 (1.005-1.025); UMIC TRIGGER UACC YES; Urine Blood Negative (Negative); Urine Ketones Negative (Negative); Urine Protein Negative (Neg-Trace)
[2023-03-17 14:09] LABS: Bacteria Urine None Seen (None Seen); Hyaline Casts Urine 0-2 /LPF (0-2); RBC Urine 0-2 /HPF (0-2); Squamous Epithelial Cell Urine 0-2 /HPF (0-2); WBC Urine 0-5 /HPF (0-5)
[2023-03-17 15:21] VITALS: BP 129/58; PULSE 67; RESP 16; TEMP 36.8; O2SAT 97
== END 2023-03-17 15:33 | disposition home or self-care (01) ==
PROVIDERS: Emergency Provider Emergency Medicine Emergency Medical Services
DX: R42 Dizziness and giddiness (principal); R11.2 Nausea with vomiting, unspecified; R10.2 Pelvic and perineal pain; R51.9 Headache, unspecified; R07.89 Other chest pain; R41.82 Altered mental status, unspecified; Z79.899 Other long term (current) drug therapy
CPT/HCPCS: 36415; 70450; 71045; 74177; 80048; 80076; 81001; 83690; 84484; 85025; 96361; 96374; 99284; 99285; J2405; Q9967

== ENCOUNTER 2023-03-28 09:32 | Outpatient (REF) | payer OTHER, SELFPAY ==
[2023-03-28 10:46] LABS: Alanine Aminotransferase 14 U/L (0-31); Albumin Level 3.8 g/dL (3.5-5.0); Alkaline Phosphatase 87 U/L (39-117); Anion Gap 11 (12-20); Aspartate Amino Transferase 21 U/L (5-31); Bilirubin Total 0.4 mg/dL (0.0-1.0); Blood Urea Nitrogen 8 mg/dL (9-16); Calcium 9.1 mg/dL (8.4-10.2); Carbon Dioxide 26 mmol/L (22-29); Chloride 108 mmol/L (96-108); Estimated Glomerular Filt Rate > 60; Glucose Random 105 mg/dL (60-115); Phosphorus 2.6 mg/dL (2.7-4.5); Potassium 3.6 mmol/L (3.3-5.1); Sodium 141 mmol/L (135-145); Total Protein 7.7 g/dL (6.5-8.0)
[2023-03-28 11:01] LABS: Free T4 (Free Thyroxine) 0.85 ng/dL (0.71-1.85); Thyroid Stimulating Hormone 1.05 uIU/mL (0.32-4.0); Vitamin D 25-OH Total 40.6 ng/mL (>30)
[2023-03-30 18:58] LABS: PTHI 32 pg/mL (16-77)
== END 2023-03-28 09:33 | disposition home or self-care (01) ==
LOC: HO.LAB 09:32
PROVIDERS: PCP General Practice; Visit Provider Internal Medicine
DX: E04.2 Nontoxic multinodular goiter (principal); M81.0 Age-related osteoporosis without current pathological fracture; E55.9 Vitamin D deficiency, unspecified
CPT/HCPCS: 36415; 80053; 82306; 83970; 84100; 84439; 84443

== ENCOUNTER 2023-03-28 15:45 | Outpatient (REF) | payer OTHER, SELFPAY ==
--- NOTE | ~2023-03-28 | MR_ITS ---
EXAMINATION: MR ABDOMEN WITHOUT AND WITH CONTRAST CLINICAL INFORMATION: Cystic lesion in the pancreas. COMPARISON: CT abdomen pelvis 03/17/2023 TECHNIQUE: MRI of the abdomen before and after the IV administration of 6.5 mL of Gadavist was obtained using routine sequences. FINDINGS: LUNG BASES: The visualized lung bases are unremarkable. KIDNEYS AND URETERS: Bosniak 1 benign-appearing right renal cysts no imaging follow-up recommended. GALLBLADDER: Status post cholecystectomy. LIVER AND BILIARY TREE: Common bile duct is dilated to 1.8 cm in maximal dimension and then focally tapers to 0.8 cm at the level of the cystic pancreatic lesion. There is moderate intrahepatic biliary duct dilatation. PANCREAS: A 1.2 cm cystic lesion in the pancreatic head abutting the focal tapering of the common bile duct. No solid enhancing components or pancreatic duct dilatation. SPLEEN: Unremarkable ADRENAL GLANDS: Unremarkable GASTROINTESTINAL TRACT: Unremarkable. LYMPH NODES: No lymphadenopathy. VASCULAR: Unremarkable ABDOMINAL WALL: Unremarkable. OSSEOUS STRUCTURES: Focus of T2 hyperintensity in the T12 vertebral body which saturates out on fat suppressed sequences suggesting focal fat. MR/MR abdomen wo/w con IMPRESSION: A 1.2 cm cystic lesion in the pancreatic head abutting the common bile duct after which one differential consideration could include IPMN, with moderate proximal extrahepatic and intrahepatic biliary duct dilatation. No solid enhancing components or pancreatic duct dilatation. Given the findings suggestive of biliary obstruction recommend GI referral for consideration of endoscopic ultrasound and fine-needle aspiration and consider surgical consultation. The report will be called to the ordering clinician by a [facility] Butt Trimmer.
== END 2023-03-28 15:46 | disposition home or self-care (01) ==
LOC: HO.MRI 15:45
PROVIDERS: Absent Provider General Practice; PCP General Practice; Visit Provider General Practice
DX: K86.2 Cyst of pancreas (principal)
CPT/HCPCS: 74183; A9585

== ENCOUNTER 2023-03-29 10:38 | Outpatient (REF) | payer OTHER, SELFPAY ==
[2023-04-05 15:28] LABS: N-Telopeptide 28 (see note); NTXCreaRU 71 mg/dL (20-275)
== END 2023-03-29 10:39 | disposition home or self-care (01) ==
LOC: HO.LAB 10:38
PROVIDERS: PCP General Practice; Visit Provider Internal Medicine
DX: M81.0 Age-related osteoporosis without current pathological fracture (principal)
CPT/HCPCS: 36415; 82523; 82565

== ENCOUNTER 2023-04-06 09:54 | Outpatient (AMB) | payer OTHER, SELFPAY ==
--- NOTE | 2023-04-06 09:55 | A.OFFVIS_ITS ---
Intake Intake Visit Reasons: F/U Osteoporosis and thyroid nodules Allergies No Known Allergies Allergy (Mild, Verified 04/06/23 10:19) NONE Medication List - Last Reconciled 04/06/23 by Lorna Rose, DO aspirin 81 mg PO DAILY calcium citrate 400 mg (2 x 200 mg (950 mg)) PO DAILY 90 days ferrous fumarate 324 mg PO DAILY levothyroxine 75 mcg PO DAILY meclizine (Antivert) 25 mg PO TID multivitamin 1 tab PO DAILY pantoprazole 40 mg PO DAILY polyethylene glycol 3350 (Miralax) 17 grams PO DAILY rosuvastatin 5 mg PO DAILY sennosides 17.2 mg PO DAILY HPI HPI Comments History of Present Illness Details 77 YO Female with PMHx Osteoporosis and MGUS who is seen in F/U today. She was previously followed by Dr. Mariscal. 1) Osteoporosis: Received treatment in the past with Reclast, from 06/15/2015 to Present. Tolerated treatment well without complication. She has received 6 doses so far, with her last 12/03/2020. Previous doses were 06/2015, 06/2016, 08/2017, 09/2018, 09/2019 and 11/2020. No history of pathologic fracture or ONJ. Has 1-2 servings of dietary calcium per day. Takes Calcium supplement 200 mg daily. Takes 1000 IU of Vitamin D daily. Uses PPI daily. Denies ever using anticoagulant, antiepileptic or glucocorticoid medication. Does no significant weight bearing exercise. Fracture history: Had a fragility fracture of her L hip in 2010. Also a traumatic fracture of her Wrist in 1989. Height loss: Has lost 2 inches. 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 Menses always regular. . Did not breastfeed. Menopause was age 43. Denies history of Kidney stones: Has a full set of dentures. Has not seen the dentist in many years. 2) Multinodular Thyroid: She underwent FNA biopsy of 3 thyroid nodules 04/15/2022 by me. LMP 1.4 cm thyroid nodule with cytology atypia of undetermined significance (bethesda category III). LMP 3.4 cm thyroid nodule with cytology suspicious for follicular neoplasm (bethesda category IV), and RMP 1.7 cm thyroid nodule which was benign. Affirma benign. She opted for routine surveillance. DXA dated 03/03/2021: FINDINGS: AP SPINE L1-L4: Current: BMD 0.835 g/cm2, Z-score -1.3, T-score -2.9, osteoporosis, 2.2% decrease from previous, 34.0% increase from baseline (<5% change is not significant). Prior: BMD 0.854 g/cm2. Baseline: BMD 0.623 g/cm2. RIGHT FEMUR, NECK: Current: BMD 0.672 g/cm2, Z-score -0.7, T-score -2.6, osteoporosis. Prior: BMD 0.673 g/cm2. Baseline: BMD 0.676 g/cm2. RIGHT FEMUR, TOTAL: Current: BMD 0.712 g/cm2, Z-score -0.6, T-score -2.3, osteopenia, 2.1% decrease from previous, 4.4% increase from baseline (<5% change is not significant). Prior: BMD 0.727 g/cm2. Baseline: BMD 0.682 g/cm2. Thyroid US: 10/07/2021 Right Thyroid Lobe: 5.7 x 2.7 x 2.3 cm, volume 18 mL. Parenchyma: The gland echotexture is heterogeneous. Thyroid vascularity is increased. Left Thyroid Lobe: 7.2 x 2.9 x 3.1 cm, volume 34 mL. Parenchyma: The gland echotexture is heterogeneous. Thyroid vascularity is increased. Isthmus: 0.3 cm in maximum AP dimension. Estimated total number of nodules greater than or equal to 1 cm: 5. Maint Mechanic nodules are described as follows: 1. Location: Right upper. ?? ? Size: 1.5 x 0.9 x 0.9 cm, volume 0.6 mL. ?? ? Nodule characteristics: ?? ? Composition: Solid (2). ?? ? Echogenicity: Isoechoic (1). ?? ? Shape: Wider than tall (0). ?? ? Margins: Circumscribed. ?? ? Echogenic Foci: None (0). ?? ? ACR TI-RADS total points: 3. ?? ? ACR TI-RADS category: 3. 2. Location: Right lower. ?? ? Size: 2.8 x 2.1 x 2.0 cm, volume 6.2 mL. ?? ? Nodule characteristics: ?? ? Composition: Solid/almost completely solid (2). ?? ? Echogenicity: Undetermined (1). ?? ? Shape: Wider than tall (0). ?? ? Margins: Extrathyroidal extension (3). ?? ? Echogenic Foci: None (0). ?? ? ACR TI-RADS total points: 6. ?? ? ACR TI-RADS category: 4. 3. Location: Left mid to upper. ?? ? Size: 3.0 x 2.9 x 2.9 cm, volume 13.4 mL. ?? ? Nodule characteristics: ?? ? Composition: Solid (2). ?? ? Echogenicity: Undetermined (1). ?? ? Shape: Wider than tall (0). ?? ? Margins: Extrathyroidal extension (3). ?? ? Echogenic Foci: None (0). ?? ? ACR TI-RADS total points: 6. ?? ? ACR TI-RADS category: 4. 4. Location: Left lower. ?? ? Size: 3.0 x 2.0 x 3.1 cm, volume 9.9 mL. ?? ? Nodule characteristics: ?? ? Composition: Solid (2). ?? ? Echogenicity: Isoechoic (1). ?? ? Shape: Wider than tall (0). ?? ? Margins: Extrathyroidal extension (3). ?? ? Echogenic Foci: None (0). ?? ? ACR TI-RADS total points: 6. ?? ? ACR TI-RADS category: 4. 5. Location: Right lower pole. ?? ? Size: 1.2 x 0.8 x 0.8 cm, volume 0.4 mL. ?? ? Composition: Solid (2). ?? ? Echogenicity: Isoechoic (1). ?? ? Shape: Wider than tall (0). ?? ? Margins: Smooth (0). ?? ? Echogenic Foci: None (0). ?? ? ACR TI-RADS total points: 3. ?? ? ACR TI-RADS category: 3. NODES: No lymphadenopathy is seen in the tissue surrounding the thyroid gland. Labs: Laboratory Tests 04/28/22 04/28/22 10:36 10:36 Sodium 139 Potassium 4.0 Creatinine 0.68 Estimated GFR > 60 Alkaline Phosphata se 124 H D Alk Phos Bone Spec ific 14.4 Total Protein 7.9 Albumin 4.1 25-OH Vitamin D To fede 49.4 TSH 1.39 Free T4 0.97 PTH Intact 33 Calcium (PTH Intac t) 9.3 PFSH Medical History Goiter Multinodular thyroid Osteoporosis Serum calcium elevated Vitamin D deficiency Surgical History History of surgery on arm Hx of biopsy Hx of fracture of hip Hx of tubal ligation Family History Father No problems noted. Mother No problems noted. Social History Household Members: None Housing: Apartment Alcohol intake: never Patient Tobacco Use Status: Never used Tobacco Current occupational status: disabled Assessment & Plan Assessment & Plan (1) Osteoporosis: Code(s): M81.0 - Age-related osteoporosis without current pathological fracture Qualifiers: Osteoporosis type: age-related Presence of current pathological fracture: without current pathological fracture Qualified Code(s): M81.0 - Age- related osteoporosis without current pathological fracture Plan: Patient with a history of Osteoporosis. She is tolerating Reclast well. Will continue for a full 10 years, until 2015, and then will take drug holiday. I am unsure when her last dose was and have asked my nurse to check on this. She will be due for her next 1 year from her last. Labs normal at this time. Will check DXA now. She will then F/U in 2 months time to review. We have reviewed fall prevention. All of her questions were answered. She is in agreement with this plan of care. I spent 10 minutes in reviewing the record, seeing the patient and documenting in the medical record, including 5 minutes on the phone with the Patient. (2) Vitamin D deficiency: Code(s): E55.9 - Vitamin D deficiency, unspecified Plan: Vitamin D at goal. No changes. (3) Multinodular thyroid: Code(s): E04.2 - Nontoxic multinodular goiter Plan: Patient with a NTMNG. Kendal LMP 1.4 cm nodule cytology was atypia of undetermined significance, with her LMP 3.4 cm thyroid nodule suspicious for a follicular neoplasm. Affirma benign. She opted for routine surveillance and refused thyroidectomy. Plan for now is to repeat her thyroid US. Orders: Orders US thyroid Today E04.2 - Nontoxic multinodular goiter XR DEXA appendicular skeleton Today M81.0 - Age-related osteoporosis without current pathological fracture XR DEXA axial skeleton Today M81.0 - Age-related osteoporosis without current pathological fracture Telehealth Telehealth Location of provider rendering services: practice address Location of patient: address on file Patient Identification confirmed using: Name, : Yes Telehealth method: voice only Patient verbally consented to treatment: Yes Patient verbally consented to billing insurance company: Yes Patient informed of any privacy concerns related to visit: Yes Coding Level of Care Code Tele Est Pt Level 2 (14878) Diagnoses Osteoporosis M81.0 Osteoporosis type: age-related Presence of current pathological fracture: without current pathological fracture Vitamin D deficiency E55.9 Multinodular thyroid E04.2
== END 2023-04-06 10:26 | disposition home or self-care (01) ==
LOC: HO.ENCR 09:54
PROVIDERS: PCP General Practice; Visit Provider Internal Medicine
DX: M81.0 Age-related osteoporosis without current pathological fracture (principal); E55.9 Vitamin D deficiency, unspecified; E04.2 Nontoxic multinodular goiter
CPT/HCPCS: 99442

== ENCOUNTER → 2023-04-06 09:54 | Outpatient (BNVA) | payer OTHER, SELFPAY | PROVIDERS: PCP General Practice; Visit Provider Internal Medicine ==

== ENCOUNTER 2023-04-14 10:16 | Outpatient (REF) | payer OTHER, SELFPAY ==
--- NOTE | ~2023-04-14 | MM_ITS ---
EXAMINATION: BONE DENSITOMETRY CLINICAL INDICATION: Osteoporosis. COMPARISON: Previous BD dated 03/03/2021 and baseline BD dated 07/19/2006. TECHNIQUE: Using a [employer] DXA System (software version: 13.1) manufactured by [employer], dual-energy x-ray absorptiometry was performed of the lumbar spine, right hip, and right forearm radius 33%. The images are of good technical quality. Summary results are attached. FINDINGS: RIGHT FEMUR, NECK: Current: BMD 0.587 g/cm2, Z-score -1.1, T-score -3.2, osteoporosis. Prior: BMD 0.672 g/cm2. Baseline: BMD 0.676 g/cm2. RIGHT FEMUR, TOTAL: Current: BMD 0.533 g/cm2, Z-score -1.8, T-score -3.8, osteoporosis, 25.1% decrease from previous, 21.8% decrease from baseline (<5% change is not significant). Prior: BMD 0.712 g/cm2. Baseline: BMD 0.682 g/cm2. AP SPINE L1-L4: Current: BMD 0.825 g/cm2, Z-score -1.2, T-score -3.0, osteoporosis, 1.2% decrease from previous, 32.4% increase from baseline (<5% change is not significant). Prior: BMD 0.835 g/cm2. Baseline: BMD 0.623 g/cm2. RIGHT FOREARM RADIUS 33%: BMD 0.546 g/cm2, Z-score -1.1, T-score -3.8, osteoporosis. IDENTIFIED RISK FACTORS: Menopause, height loss, history of fracture (adult), osteoporosis, recurrent falls. HISTORY OF FRACTURE: Femur/hip, wrist. MEDICATIONS: Calcium, vitamin D, bisphosphonate. MM/XR DEXA appendicular skeleton IMPRESSION: 1. DIAGNOSIS: Severe osteoporosis based on the lowest T-score value of -3.8 in the total femur and forearm radius 33% and history of fracture of the femur/hip, wrist applying World Health Organization criteria. 2. 10-YEAR FRACTURE RISK PREDICTION, FRAX: According to the guidelines, FRAX calculation should only be performed on patients in the osteopenia bone density category. Therefore, FRAX was not performed on this patient. 3. Treatment Recommendations: NOF guidelines recommend consideration for treatment in postmenopausal women and men age 50 and older presenting with the following: -A hip or vertebral (clinical or morphometric) fracture. -T-score less than or equal to -2.5 at the femoral neck or spine after appropriate evaluation to exclude secondary causes. -Low bone mass at the hip or spine and a 10-year fracture probability by FRAX of greater than or equal to 3% for hip fracture or greater than or equal to 20% for major osteoporotic fracture based on the [place] adapted WHO algorithm. 4. Other Recommendations: All treatment decisions require clinical judgment and consideration of individual patient factors, including patient preferences, comorbidities, previous drug use, risk factors not captured in the FRAX model (e.g. frailty, falls, vitamin D deficiency, increased bone turnover, interval significant decline in bone density) and possible under or overestimation of fracture risk by FRAX. Additional medical evaluation for secondary cause of low bone mineral density may be appropriate. FUTURE SCAN RECOMMENDATION: People with diagnosed cases of osteoporosis or at high risk for fracture should have regular bone mineral density tests. For patients eligible for Medicare, routine testing is allowed once every 2 years. The testing frequency can be increased to one year for patients who have rapidly progressing disease, those who are receiving or discontinuing medical therapy to restore bone mass, or have additional risk factors.
== END 2023-04-14 10:17 | disposition home or self-care (01) ==
LOC: HO.MAMMO 10:16
PROVIDERS: Visit Provider Internal Medicine
DX: Z13.820 Encounter for screening for osteoporosis (principal); Z78.0 Asymptomatic menopausal state; M81.0 Age-related osteoporosis without current pathological fracture
CPT/HCPCS: 77081

== ENCOUNTER → 2023-04-14 10:30 | Outpatient (BNV) | payer OTHER, SELFPAY | PROVIDERS: Visit Provider Radiology Diagnostic Radiology | DX: M81.0 Age-related osteoporosis without current pathological fracture (principal) | CPT/HCPCS: 77080; 77081 ==

== ENCOUNTER 2023-04-19 09:18 | Outpatient (REF) | payer OTHER, SELFPAY ==
--- NOTE | ~2023-04-19 | US_ITS ---
EXAMINATION: US THYROID CLINICAL INFORMATION: Nontoxic multinodular goiter. COMPARISON: Ultrasound soft tissue head/neck thyroid dated 10/07/2021. TECHNIQUE: Linear transducer grayscale and color Doppler examination with attention to the region of the thyroid. FINDINGS: SIZE: Measurements of the thyroid lobes and nodules are given in sagittal, anteroposterior and transverse dimensions respectively. Right Thyroid Lobe: 5.8 x 2.4 x 2.2 cm, volume 16.2 mL. Previously 5.7 x 2.7 x 2.3 cm, volume 18.0 mL. Parenchyma: The gland echotexture is heterogeneous. Thyroid vascularity is increased. Left Thyroid Lobe: 6.7 x 3.2 x 2.8 cm, volume 31.3 mL. Previously 7.2 x 2.9 x 3.1 cm, volume 34.0 mL. Parenchyma: The gland echotexture is heterogeneous. Thyroid vascularity is increased. Isthmus: 0.47 cm in maximum AP dimension. Previously 0.30 cm. Estimated total number of nodules greater than or equal to 1 cm: 4. Compliance Attorney nodules are described as follows: 1. Location: Right mid inferior. Size: 3.3 x 1.9 x 2.3 cm, volume 7.8 mL. Previously: 2.8 x 2.1 x 2.0 cm, volume 6.2 mL. Nodule characteristics: Composition: Solid/almost completely solid (2). Echogenicity: Cannot be determined (1). Shape: Not taller than wide (0). Margins: Smooth (0). Echogenic Foci: None (0). ACR TI-RADS total points: 3 Previous: 6 ACR TI-RADS category: 3 Previous: 4 2. Location: Right superior. Size: 1.4 x 0.80 x 1.1 cm, volume 0.64 mL. Previously: 1.5 x 0.90 x 0.90 cm, volume 0.62 mL. Nodule characteristics: Composition: Solid (2). Echogenicity: Hyperechoic (1). Shape: Not taller than wide (0). Margins: Smooth (0). Echogenic Foci: None (0). ACR TI-RADS total points: 3 Previous: 3 ACR TI-RADS category: 3 Previous: 3 3. Location: Left mid. Size: 1.2 x 1.1 x 1.3 cm, volume 0.84 mL. Previously: 3.0 x 2.9 x 2.9 cm, volume 13.4 mL. Nodule characteristics: Composition: Solid (2). Echogenicity: Hypoechoic (2). Shape: Not taller than wide (0). Margins: Smooth (0). Echogenic Foci: Punctate echogenic foci (3). ACR TI-RADS total points: 7 Previous: 6 ACR TI-RADS category: 5 Previous: 4 4. Location: Left mid. Size: 2.5 x 1.6 x 2.2 cm, volume 4.5 mL. Previously: 2.0 x 2.0 x 3.1 cm, volume 9.9 mL. Nodule characteristics: Composition: Solid (2). Echogenicity: Hyperechoic (1). Shape: Not taller than wide (0). Margins: Smooth (0). Echogenic Foci: None (0). ACR TI-RADS total points: 3 Previous: 6 ACR TI-RADS category: 3 Previous: 4 NODES: No lymphadenopathy is seen in the tissue surrounding the thyroid gland. US/US thyroid IMPRESSION: Multinodular thyroid gland. Evaluation of thyroid nodules was difficult as it was difficult to determine precise margins of thyroid nodules due to extreme heterogeneity of the thyroid gland. Differences in measurements could be related to differences in technical factors. Continued annual surveillance is recommended.. ACR TI-RADS RECOMMENDATION REFERENCE: Ultrasound-guided fine-needle aspiration, follow up ultrasound, no further followup. * TR1 (0 point) and TR2 (2 points): No FNA or followup * TR3 (3 points): FNA if more than or equal to 2.5 cm in maximum dimension, follow up ultrasound in 1, 3 and 5 years if 1.5 to 2.4 cm in maximum dimension. * TR4 (4-6 points): FNA if more than or equal to 1.5 cm in maximum dimension, follow up ultrasound in 1, 2, 3 and 5 years if 1 to 1.4 cm in maximum dimension. * TR5 (more than or equal to 7 points): FNA if more than or equal to 1 cm in maximum dimension, follow up ultrasound every year for 5 years if 0.5 to 0.9 cm in maximum dimension. * TR3, TR4 or TR5 nodules that are below the size threshold for follow up receive no followup.
== END 2023-04-19 09:19 | disposition home or self-care (01) ==
LOC: HO.US 09:18
PROVIDERS: Visit Provider Internal Medicine
DX: E04.2 Nontoxic multinodular goiter (principal)
CPT/HCPCS: 76536

== ENCOUNTER 2023-05-02 10:31 | Outpatient (AMB) | payer OTHER, SELFPAY ==
--- NOTE | 2023-05-02 10:31 | MHC.OFFVIS ---
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: No Allergies No Known Allergies Allergy (Mild, Verified 05/02/23 11:36) NONE Medication List - Last Reconciled 05/02/23 by Lorna Rose, alprazolam (Xanax) 0.5 mg PO BEDTIME PRN aspirin 81 mg PO DAILY calcium citrate 400 mg (2 x 200 mg (950 mg)) PO DAILY 90 days ferrous fumarate 324 mg PO DAILY levothyroxine 75 mcg PO DAILY meclizine (Antivert) 25 mg PO TID multivitamin 1 tab PO DAILY pantoprazole 40 mg PO DAILY polyethylene glycol 3350 (Miralax) 17 grams PO DAILY rosuvastatin 5 mg PO DAILY sennosides 17.2 mg PO DAILY HPI HPI Comments History of Present Illness Details 77 YO Female with PMHx Osteoporosis and MGUS who is seen in F/U today. She was previously followed by Dr. Mariscal. 1) Osteoporosis: Received treatment in the past with Reclast, from 06/15/2015 to Present. Tolerated treatment well without complication. First dose 06/2015. No history of pathologic fracture or ONJ. Has 1-2 servings of dietary calcium per day. Takes Calcium supplement 400 mg daily. Takes 1000 IU of Vitamin D daily. Uses PPI daily. Denies ever using anticoagulant, antiepileptic or glucocorticoid medication. Does no significant weight bearing exercise. Fracture history: Had a fragility fracture of her L hip in 2010. Also a traumatic fracture of her Wrist in 1989. Height loss: Has lost 2 inches. 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 Menses always regular. . Did not breastfeed. Menopause was age 43. Denies history of Kidney stones: Has a full set of dentures. Has not seen the dentist in many years. 2) Multinodular Thyroid: She underwent FNA biopsy of 3 thyroid nodules 04/15/2022 by me. LMP 1.4 cm thyroid nodule with cytology atypia of undetermined significance (bethesda category III). LMP 3.4 cm thyroid nodule with cytology suspicious for follicular neoplasm (bethesda category IV), and RMP 1.7 cm thyroid nodule which was benign. Affirma benign. She opted for routine surveillance. DXA: 04/14/2023 FINDINGS: RIGHT FEMUR, NECK: Current: BMD 0.587 g/cm2, Z-score -1.1, T-score -3.2, osteoporosis. Prior: BMD 0.672 g/cm2. Baseline: BMD 0.676 g/cm2. RIGHT FEMUR, TOTAL: Current: BMD 0.533 g/cm2, Z-score -1.8, T-score -3.8, osteoporosis, 25.1% decrease from previous, 21.8% decrease from baseline (<5% change is not significant). Prior: BMD 0.712 g/cm2. Baseline: BMD 0.682 g/cm2. AP SPINE L1-L4: Current: BMD 0.825 g/cm2, Z-score -1.2, T-score -3.0, osteoporosis, 1.2% decrease from previous, 32.4% increase from baseline (<5% change is not significant). Prior: BMD 0.835 g/cm2. Baseline: BMD 0.623 g/cm2. RIGHT FOREARM RADIUS 33%: BMD 0.546 g/cm2, Z-score -1.1, T-score -3.8, osteoporosis. Thyroid US: 04/19/2023 Right Thyroid Lobe: 5.8 x 2.4 x 2.2 cm, volume 16.2 mL. Previously 5.7 x 2.7 x 2.3 cm, volume 18.0 mL. Parenchyma: The gland echotexture is heterogeneous. Thyroid vascularity is increased. Left Thyroid Lobe: 6.7 x 3.2 x 2.8 cm, volume 31.3 mL. Previously 7.2 x 2.9 x 3.1 cm, volume 34.0 mL. Parenchyma: The gland echotexture is heterogeneous. Thyroid vascularity is increased. Isthmus: 0.47 cm in maximum AP dimension. Previously 0.30 cm. Estimated total number of nodules greater than or equal to 1 cm: 4. Reliability Specialist nodules are described as follows: 1.? Location: Right mid inferior. ?? ? Size: 3.3 x 1.9 x 2.3 cm, volume 7.8 mL. ?? ? Previously: 2.8 x 2.1 x 2.0 cm, volume 6.2 mL. ?? ? Nodule characteristics: ?? ? Composition: Solid/almost completely solid (2). ?? ? Echogenicity: Cannot be determined (1). ?? ? Shape: Not taller than wide (0). ?? ? Margins: Smooth (0). ?? ? Echogenic Foci: None (0).? ACR TI-RADS total points: 3 Previous: 6 ?? ? ACR TI-RADS category: 3 Previous: 4 ? 2.? Location: Right superior. ?? ? Size: 1.4 x 0.80 x 1.1 cm, volume 0.64 mL. ?? ? Previously: 1.5 x 0.90 x 0.90 cm, volume 0.62 mL. ?? ? Nodule characteristics: ?? ? Composition: Solid (2). ?? ? Echogenicity: Hyperechoic (1). ?? ? Shape: Not taller than wide (0). ?? ? Margins: Smooth (0). ?? ? Echogenic Foci: None (0).? ACR TI-RADS total points: 3 Previous: 3 ?? ? ACR TI-RADS category: 3 Previous: 3 ?? ? 3.? Location: Left mid. ?? ? Size: 1.2 x 1.1 x 1.3 cm, volume 0.84 mL. ?? ? Previously: 3.0 x 2.9 x 2.9 cm, volume 13.4 mL. ?? ? Nodule characteristics: ?? ? Composition: Solid (2). ?? ? Echogenicity: Hypoechoic (2). ?? ? Shape: Not taller than wide (0). ?? ? Margins: Smooth (0). ?? ? Echogenic Foci: Punctate echogenic foci (3).? ACR TI-RADS total points: 7 Previous: 6 ?? ? ACR TI-RADS category: 5 Previous: 4 ? 4.? Location: Left mid. ?? ? Size: 2.5 x 1.6 x 2.2 cm, volume 4.5 mL. ?? ? Previously: 2.0 x 2.0 x 3.1 cm, volume 9.9 mL. ?? ? Nodule characteristics: ?? ? Composition: Solid (2). ?? ? Echogenicity: Hyperechoic (1). ?? ? Shape: Not taller than wide (0). ?? ? Margins: Smooth (0). ?? ? Echogenic Foci: None (0).? ACR TI-RADS total points: 3 Previous: 6 ?? ? ACR TI-RADS category: 3 Previous: 4 ? NODES: No lymphadenopathy is seen in the tissue surrounding the thyroid gland. Labs: Laboratory Tests 03/28/23 03/28/23 03/29/23 09:51 09:51 14:11 Creatinine 0.64 Estimated GFR > 60 Albumin 3.8 N-Telopeptide X-li nked 28 25-OH Vitamin D To fede 40.6 TSH 1.05 PTH Intact 32 Calcium (PTH Intac t) 9.0 [facility] Medical History Goiter Multinodular thyroid Osteoporosis Serum calcium elevated Vitamin D deficiency Surgical History History of surgery on arm Hx of biopsy Hx of fracture of hip Hx of tubal ligation Family History Father No problems noted. Mother No problems noted. Social History Household Members: None Housing: Apartment Alcohol intake: never Patient Tobacco Use Status: Never used Tobacco Current occupational status: disabled Assessment & Plan Assessment & Plan (1) Osteoporosis: Code(s): M81.0 - Age-related osteoporosis without current pathological fracture Qualifiers: Osteoporosis type: age-related Presence of current pathological fracture: without current pathological fracture Qualified Code(s): M81.0 - Age-related osteoporosis without current pathological fracture Plan: Patient with a history of Osteoporosis. She is tolerating Reclast well. Will continue for a full 10 years, until 2024, and then will take drug holiday. She is due 05/16/2023 and is scheduled for this. DXA was stable at the spine but showed a significant decline at the hip. I do suspect this is due to placement and was erroneously reported as a decline, as her NTX remains low. Plan for now is to continue to optimize calcium, Vitamin D. We will continue to recommend fall precautions. I do not feel she is a good candidate for evenity given the ASCVD risk. She has only been taking her Calcium once daily. I advised her to increase this to twice daily. Will attempt to repeat a BMD in 1 additional year to reassess. We have reviewed fall prevention. All of her questions were answered. She is in agreement with this plan of care. I spent 20 minutes in reviewing the record, seeing the patient and documenting in the medical record, including 5 minutes on the phone with the Patient. (2) Vitamin D deficiency: Code(s): E55.9 - Vitamin D deficiency, unspecified Plan: Vitamin D at goal. No changes. (3) Multinodular thyroid: Code(s): E04.2 - Nontoxic multinodular goiter Plan: Patient with a NTMNG. Kendal LMP 1.4 cm nodule cytology was atypia of undetermined significance, with her LMP 3.4 cm thyroid nodule suspicious for a follicular neoplasm. Affirma benign. She opted for routine surveillance and refused thyroidectomy. Repeat thyroid US unchanged from prior. Will continue with surveillance yearly. Telehealth Telehealth Location of provider rendering services: practice address Location of patient: address on file Patient Identification confirmed using: Name, : Yes Telehealth method: voice only Patient verbally consented to treatment: Yes Patient verbally consented to billing insurance company: Yes Patient informed of any privacy concerns related to visit: Yes Coding Level of Care Code Tele Est Pt Level 3 (77027) Diagnoses Osteoporosis M81.0 Osteoporosis type: age-related Presence of current pathological fracture: without current pathological fracture Vitamin D deficiency E55.9 Multinodular thyroid E04.2
--- OUTSIDE RECORDS SUMMARY | 2023-05-02 10:32 | XMS_ITS ---
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 Name Role Phone Curtis Ocasio Chaz Unavailable PROBLEMS Type Condition ICD9-CM Code UJR55-PJ Code Onset Dates Condition Status SNOMED Code Problem Gastroesophageal reflux disease without esophagitis K21.9 Active [id number] 5 ALLERGIES No Known Allergies ENCOUNTERS Encounter Location Date Diagnosis [facility] [address] [place] [phone] Apr, [facility] [address] [place] [phone] Apr, [facility] [address] [place] [phone] Jun, [facility] [address] [place] [phone] Jun, Gastroesophageal reflux disease without esophagitis K21.9 [facility] [address] [place] [phone] Jun, Gastroesophageal reflux disease without esophagitis K21.9 [facility] [address] [place] [phone] Nov, Gastroesophageal reflux disease without esophagitis K21.9 [facility] [address] [place] [address] [place] [phone] Jun, [facility] [address] [place] [phone] Jun, Gastroesophageal reflux disease without esophagitis K21.9 [facility] [address] [place] [phone] May, [facility] [address] [place] [phone] Apr, Gastroesophageal reflux disease without esophagitis K21.9 [facility] [address] [place] [id number] January, Gastroesophageal reflux disease without esophagitis K21.9 [facility] [address] [place] [id number] January, [facility] [address] [place] [phone] Oct, Gastroesophageal reflux disease without esophagitis K21.9 IMMUNIZATIONS Vaccine Route Administration Date Status Influenza Unknown Jun 23, 2021 Administered Influenza Unknown Jun 06, 2019 Administered SOCIAL HISTORY Qualifiers Date Never Smoker REASON FOR REFERRAL FUNCTIONAL STATUS PLAN OF CARE Activity Details VITAL SIGNS Weight 146.5 lbs 2022-06-07 Weight 159 lbs 2020-06-20 Weight 148 lbs 2017-10-26 Height 60 in 2022-06-07 Height 60 in 2020-06-20 Height 60 in 2017-10-26 BMI 28.61 kg/m2 2022-06-07 BMI 31.05 kg/m2 2020-06-20 BMI 28.90 kg/m2 2017-10-26 Heart Rate 72 /min 2017-10-26 Temperature 98.0 degrees Fahrenheit Temperature 97.3 degrees Fahrenheit Blood pressure systolic 000 mm Hg Blood pressure diastolic 00 mm Hg 2022-06 MEDICATIONS Medication Instructions Dosage Frequency Start Date End Date Duration Status Aspir-81 81 MG Orally Once a day 1 tablet 24h Active Ranitidine HCl 150 MG Orally Once a day 1 capsule at bedtime 24h Not-Bernabe g Senna 8.6 MG Orally Once a day 2 tablets at bedtime as needed 24h Active Calcium 100 MG Orally Twice a day 1 tablet with meals 12h Active Rosuvastatin Calcium 5 MG Orally Once a day 1 tablet 24h Active Multi Vitamin/Minerals - Orally QD 1 24h Active Levothyroxine Sodium 75 MCG Orally Once a day 1 tablet on an empty stomach in the morning 24h Active Aleve Active Pantoprazole Sodium 40 MG Orally Once a day 1 tablet 24h January, 30 days Active PROCEDURES Procedure Date Ordered Result Body Site TOBACCO NON-USER Jun 20, 2020 BP NOT ASSESS PATIENT NOT ELIGIBLE Jun 20, 2020 DOC RSN FOR NOT SCREEN/REC F/U HBP Jun 07, 2022 Pt scrn tbco id as non user Jun 07, 2022 PRES/ABSN URINE INCON ASSESS Jun 20, 2020 DOC MEDS VERIFIED W/PT OR RE Jun 07, 2022 SUPPLIES, CLINICAL STAFF GARTH Bacon DURING INFECTIOUS DISEASE PANDEMIC Jun 20, 2020 RESULTS Name Result Date Reference Range GI BIOPSY 2018-01-13 G.I. BIOPSY REASON FOR VISIT MRI, [facility] PCP office, ov recall, Patient presents today for gerd, refill request on pantoprazole, Refill: Pantoprazole , ov recall, patient presents today for F/U GERD , Refill , r/frequest pantoprazole, refill request/pantoprazole, GERD, PATIENT PRESENTS TODAY FOR REFLUX Insurance Providers Health Insurance Type Health Plan Insurance Address Health Plan Insurance Phone Health Plan Insurance Name Health Plan Coverage Dates Member ID Patient Relationship to Subscriber Patient Address Patient Phone Patient Name Patient Date of Subscriber ID Subscriber Name Subscriber Date of Group No [employer] [address] [facility] [id number] [employer] self SIVA AYALA [id number]
== END 2023-05-02 12:47 | disposition home or self-care (01) ==
LOC: HO.ENCR 10:31
PROVIDERS: PCP General Practice; Visit Provider Internal Medicine
DX: M81.0 Age-related osteoporosis without current pathological fracture (principal); E55.9 Vitamin D deficiency, unspecified; E04.2 Nontoxic multinodular goiter
CPT/HCPCS: 99441

== ENCOUNTER → 2023-05-02 10:31 | Outpatient (BNVA) | payer OTHER, SELFPAY | PROVIDERS: PCP General Practice; Visit Provider Internal Medicine ==

== ENCOUNTER 2023-05-12 10:13 | Outpatient (REF) | payer OTHER, SELFPAY ==
[2023-05-12 12:14] LABS: Calcium 9.3 mg/dL (8.4-10.2); Estimated Glomerular Filt Rate > 60
[2023-05-12 12:31] LABS: Vitamin D 25-OH Total 52.2 ng/mL (>30)
[2023-05-20 01:33] LABS: N-Telopeptide 24 (see note); NTXCreaRU 106 mg/dL (20-275)
== END 2023-05-12 10:14 | disposition home or self-care (01) ==
LOC: HO.LAB 10:13
PROVIDERS: Visit Provider Internal Medicine
DX: M81.0 Age-related osteoporosis without current pathological fracture (principal)
CPT/HCPCS: 36415; 82306; 82310; 82523; 82565

== ENCOUNTER 2023-05-16 10:10 | Outpatient (REF) | payer OTHER, SELFPAY ==
[2023-05-16 11:25] LABS: Blood Urea Nitrogen 10 mg/dL (9-16); Estimated Glomerular Filt Rate > 60
== END 2023-05-16 10:11 | disposition home or self-care (01) ==
LOC: HO.MDS 10:10
PROVIDERS: Visit Provider Internal Medicine
DX: M81.0 Age-related osteoporosis without current pathological fracture (principal)
CPT/HCPCS: 36415; 82565; 84520; 96374; J3489

== ENCOUNTER 2023-05-30 11:36 | Outpatient (REF) | payer OTHER, SELFPAY ==
--- NOTE | ~2023-05-30 | XR_ITS ---
EXAMINATION: XR ABDOMEN KUB CLINICAL INDICATION: Unexplained weight loss. Symptoms began more history for [place] speaker but she didn't give When she noticed her weight loss. COMPARISON: CT abdomen and pelvis 03/17/2023 TECHNIQUE: 2 AP views of the abdomen. FINDINGS: Nonobstructive bowel gas pattern. Large amount of stool in the colon. Advanced degenerative changes in the imaged thoracolumbar spine. 3 nails traversing the left femoral neck fracture. XR/XR KUB IMPRESSION: Nonobstructive bowel gas pattern. Large amount of stool in the colon.
[2023-05-30 13:01] LABS: MANUAL DIFF FLAG NO
[2023-05-30 13:14] LABS: Basophils Percent Auto 0.3 % (0-2); Eosinophils Absolute Auto 0.1 X10*3/uL (0.0-0.4); Eosinophils Percent Auto 1.2 % (0-4); Hematocrit 38.4 % (37.0-47.0); Hemoglobin 12.7 g/dl (12.0-16.0); Imm Gran Abs Auto 0.02 X10*3/uL (0.00-0.03); Imm Gran Pct Auto 0.3 % (0.0-0.4); Lymphocytes Absolute Auto 2.3 X10*3/uL (1.2-4.9); Lymphocytes Percent Auto 34.5 % (20-40); Mean Corpuscular HGB Conc 33.1 g/dl (31.0-35.0); Mean Corpuscular Hemoglobin 31.5 pg (27.0-33.0); Mean Corpuscular Volume 95.3 fL (80.0-98.0); Monocytes Absolute Auto 0.3 X10*3/uL (0.1-1.2); Monocytes Percent Auto 4.2 % (2-11); Neutrophils Absolute Auto 3.9 x10*3/uL (2.0-8.3); Neutrophils Percent Auto 59.5 % (45-73); Platelet Count 324 X10*3/uL (160-400); Red Blood Count 4.03 X10*6/uL (4.20-5.50); Red Cell Distribution Width 12.2 % (11.0-16.0); White Blood Count 6.6 X10*3/uL (4.8-10.8)
[2023-05-30 13:41] LABS: Lactate Dehydrogenase 272 U/L (122-220); Lipase 40 U/L (8-78)
== END 2023-05-30 11:37 | disposition home or self-care (01) ==
LOC: HO.HHCL 11:36
PROVIDERS: Visit Provider General Practice
DX: R63.4 Abnormal weight loss (principal); Z13.89 Encounter for screening for other disorder
CPT/HCPCS: 36415; 74018; 83615; 83690; 85025

== ENCOUNTER 2023-06-08 09:08 | Outpatient (REF) | payer OTHER, SELFPAY ==
[2023-06-10 11:33] LABS: PES - Abn Protein Band 1 0.5 g/dL (NONE DETECTED); Prot Elec - Albumin 4.1 g/dL (3.8-4.8); Prot Elec - Alpha1 0.3 g/dL (0.2-0.3); Prot Elec - Alpha2 0.7 g/dL (0.5-0.9); Prot Elec - Beta 1 0.4 g/dL (0.4-0.6); Prot Elec - Beta 2 0.5 g/dL (0.2-0.5); Prot Elec - Gamma 1.8 g/dL (0.8-1.7); Prot Elec - Total Protein 7.7 g/dL (6.1-8.1)
[2023-06-13 09:59] LABS: IgA 309 mg/dL (70-320); IgG 2002 mg/dL (600-1540); IgM 186 mg/dL (50-300)
== END 2023-06-08 09:09 | disposition home or self-care (01) ==
LOC: HO.HHCL 09:08
PROVIDERS: Visit Provider General Practice
DX: D47.2 Monoclonal gammopathy (principal)
CPT/HCPCS: 36415; 82784; 84165; 86334

== ENCOUNTER 2023-08-26 09:14 | Outpatient (REF) | payer OTHER, SELFPAY ==
[2023-08-26 10:19] LABS: Hematocrit 39.3 % (37.0-47.0); Hemoglobin 12.8 g/dl (12.0-16.0); Mean Corpuscular HGB Conc 32.6 g/dl (31.0-35.0); Mean Corpuscular Hemoglobin 31.7 pg (27.0-33.0); Mean Corpuscular Volume 97.3 fL (80.0-98.0); Mean Platelet Volume 10.2 fL (9.4-12.3); Platelet Count 279 X10*3/uL (160-400); Red Blood Count 4.04 X10*6/uL (4.20-5.50); Red Cell Distribution Width 12.4 % (11.0-16.0); White Blood Count 6.5 X10*3/uL (4.8-10.8)
[2023-08-26 10:45] LABS: Alanine Aminotransferase 14 U/L (0-31); Albumin Level 4.1 g/dL (3.5-5.0); Alkaline Phosphatase 103 U/L (39-117); Aspartate Amino Transferase 25 U/L (5-31); Bilirubin Direct 0.2 mg/dL (0.0-0.5); Bilirubin Total 0.4 mg/dL (0.0-1.0); Blood Urea Nitrogen 10 mg/dL (9-16); Estimated Glomerular Filt Rate > 60; Lipase 53 U/L (8-78); Total Protein 8.1 g/dL (6.5-8.0)
== END 2023-08-26 09:15 | disposition home or self-care (01) ==
LOC: HO.LAB 09:14
PROVIDERS: PCP General Practice; Visit Provider Internal Medicine Gastroenterology
DX: K86.2 Cyst of pancreas (principal)
CPT/HCPCS: 36415; 80076; 82565; 83690; 84520; 85027

== ENCOUNTER 2023-09-01 09:57 | Outpatient (AMB) | payer OTHER, SELFPAY ==
[2023-09-01 10:01] VITALS: BP 102/60; PULSE 71; BMI 31.0
--- NOTE | 2023-09-01 10:01 | MHC.OFFVIS ---
Intake Vital Signs 09/01/23 10:01 Height 4 ft 9 in Weight 143 lb 1.28 oz BMI 31.0 BP 102/60 Blood Pressure Location Lt brachial Position Sitting Pulse 71 Pulse Source Pulse Oximeter Intake Visit Reasons: Osteoporosis-LVM Intake Note: Patient present today for Osteoporosis follow up visit. 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 Name: [facility] medical staff Information Interpreted: non-clinical & clinical Accompanied by: Grand Child Allergies No Known Allergies Allergy (Mild, Verified 09/01/23 10:06) NONE Medication List - Last Reconciled 09/01/23 by Dat Palacios MD alprazolam (Xanax) 0.5 mg PO BEDTIME PRN aspirin 81 mg PO DAILY ferrous fumarate 324 mg PO DAILY levothyroxine 75 mcg PO DAILY meclizine (Antivert) 25 mg PO TID multivitamin 1 tab PO DAILY pantoprazole 40 mg PO DAILY polyethylene glycol 3350 (Miralax) 17 grams PO DAILY rosuvastatin 5 mg PO DAILY sennosides 17.2 mg PO DAILY HPI HPI Comments History of Present Illness Details 77 YO Female with PMHx Osteoporosis and MGUS who is seen in F/U today. She was previously followed by Dr. Mariscal.. Patient last saw Dr. Moser on 05/02/2023 1) Osteoporosis: Received treatment in the past with Reclast, from 06/15/2015 to Present. Tolerated treatment well without complication. First dose 06/2015.. Last dose 05/2023 No history of pathologic fracture or ONJ. Has 1-2 servings of dietary calcium per day. Takes Calcium supplement 400 mg daily. Takes 1000 IU of Vitamin D daily. Uses PPI daily. Denies ever using anticoagulant, antiepileptic or glucocorticoid medication. Does no significant weight bearing exercise. Fracture history: Had a fragility fracture of her L hip in 2010. Also a traumatic fracture of her Wrist in 1989. Height loss: Has lost 2 inches. 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 Menses always regular. . Did not breastfeed. Menopause was age 43. Denies history of Kidney stones: Has a full set of dentures. Has not seen the dentist in many years. 2) Multinodular Thyroid: She underwent FNA biopsy of 3 thyroid nodules 04/15/2022 by me. LMP 1.4 cm thyroid nodule with cytology atypia of undetermined significance (bethesda category III). LMP 3.4 cm thyroid nodule with cytology suspicious for follicular neoplasm (bethesda category IV), and RMP 1.7 cm thyroid nodule which was benign. Affirma benign. She opted for routine surveillance. DXA: 04/14/2023 FINDINGS: RIGHT FEMUR, NECK: Current: BMD 0.587 g/cm2, Z-score -1.1, T-score -3.2, osteoporosis. Prior: BMD 0.672 g/cm2. Baseline: BMD 0.676 g/cm2. RIGHT FEMUR, TOTAL: Current: BMD 0.533 g/cm2, Z-score -1.8, T-score -3.8, osteoporosis, 25.1% decrease from previous, 21.8% decrease from baseline (<5% change is not significant). Prior: BMD 0.712 g/cm2. Baseline: BMD 0.682 g/cm2. AP SPINE L1-L4: Current: BMD 0.825 g/cm2, Z-score -1.2, T-score -3.0, osteoporosis, 1.2% decrease from previous, 32.4% increase from baseline (<5% change is not significant). Prior: BMD 0.835 g/cm2. Baseline: BMD 0.623 g/cm2. RIGHT FOREARM RADIUS 33%: BMD 0.546 g/cm2, Z-score -1.1, T-score -3.8, osteoporosis. Thyroid US: 04/19/2023 Right Thyroid Lobe: 5.8 x 2.4 x 2.2 cm, volume 16.2 mL. Previously 5.7 x 2.7 x 2.3 cm, volume 18.0 mL. Parenchyma: The gland echotexture is heterogeneous. Thyroid vascularity is increased. Left Thyroid Lobe: 6.7 x 3.2 x 2.8 cm, volume 31.3 mL. Previously 7.2 x 2.9 x 3.1 cm, volume 34.0 mL. Parenchyma: The gland echotexture is heterogeneous. Thyroid vascularity is increased. Isthmus: 0.47 cm in maximum AP dimension. Previously 0.30 cm. Estimated total number of nodules greater than or equal to 1 cm: 4. 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 Location: Right mid inferior. ?? ? Size: 3.3 x 1.9 x 2.3 cm, volume 7.8 mL. ?? ? Previously: 2.8 x 2.1 x 2.0 cm, volume 6.2 mL. ?? ? Nodule characteristics: ?? ? Composition: Solid/almost completely solid (2). ?? ? Echogenicity: Cannot be determined (1). ?? ? Shape: Not taller than wide (0). ?? ? Margins: Smooth (0). ?? ? Echogenic Foci: None (0).? ACR TI-RADS total points: 3 Previous: 6 ?? ? ACR TI-RADS category: 3 Previous: 4 ? 2.? Location: Right superior. ?? ? Size: 1.4 x 0.80 x 1.1 cm, volume 0.64 mL. ?? ? Previously: 1.5 x 0.90 x 0.90 cm, volume 0.62 mL. ?? ? Nodule characteristics: ?? ? Composition: Solid (2). ?? ? Echogenicity: Hyperechoic (1). ?? ? Shape: Not taller than wide (0). ?? ? Margins: Smooth (0). ?? ? Echogenic Foci: None (0).? ACR TI-RADS total points: 3 Previous: 3 ?? ? ACR TI-RADS category: 3 Previous: 3 ?? ? 3.? Location: Left mid. ?? ? Size: 1.2 x 1.1 x 1.3 cm, volume 0.84 mL. ?? ? Previously: 3.0 x 2.9 x 2.9 cm, volume 13.4 mL. ?? ? Nodule characteristics: ?? ? Composition: Solid (2). ?? ? Echogenicity: Hypoechoic (2). ?? ? Shape: Not taller than wide (0). ?? ? Margins: Smooth (0). ?? ? Echogenic Foci: Punctate echogenic foci (3).? ACR TI-RADS total points: 7 Previous: 6 ?? ? ACR TI-RADS category: 5 Previous: 4 ? 4.? Location: Left mid. ?? ? Size: 2.5 x 1.6 x 2.2 cm, volume 4.5 mL. ?? ? Previously: 2.0 x 2.0 x 3.1 cm, volume 9.9 mL. ?? ? Nodule characteristics: ?? ? Composition: Solid (2). ?? ? Echogenicity: Hyperechoic (1). ?? ? Shape: Not taller than wide (0). ?? ? Margins: Smooth (0). ?? ? Echogenic Foci: None (0).? ACR TI-RADS total points: 3 Previous: 6 ?? ? ACR TI-RADS category: 3 Previous: 4 ? NODES: No lymphadenopathy is seen in the tissue surrounding the thyroid gland. Labs: Laboratory Tests 03/28/23 03/28/23 03/29/23 09:51 09:51 14:11 Creatinine 0.64 Estimated GFR > 60 Albumin 3.8 N-Telopeptide X-li nked 28 25-OH Vitamin D To fede 40.6 TSH 1.05 PTH Intact 32 Calcium (PTH Intac t) 9.0 No fx since last visit . No compressive sx PFSH Medical History Goiter Multinodular thyroid Osteoporosis Serum calcium elevated Vitamin D deficiency Surgical History History of surgery on arm Hx of biopsy Hx of fracture of hip Hx of tubal ligation Family History Father No problems noted. Mother No problems noted. Social History Household Members: None Housing: Apartment Alcohol intake: never Patient Tobacco Use Status: Never used Tobacco Current occupational status: disabled Physical Exam Vital Signs: Last Vital Signs Pulse 71 09/01/23 10:01 BP 102/60 09/01/23 10:01 BMI result Body Mass Index 31.0 Const Other: Thyroid gland is normal in size weighs about 15 g . Feels nodular to palpation Assessment & Plan Assessment & Plan (1) Osteoporosis: Code(s): M81.0 - Age-related osteoporosis without current pathological fracture Qualifiers: Osteoporosis type: age-related Presence of current pathological fracture: without current pathological fracture Qualified Code(s): M81.0 - Age-related osteoporosis without current pathological fracture Plan: This 78-year-old female with a history of severe osteoporosis in the setting of MGUS previous fragility fracture of the hip in 2010 received 8 years Reclast therapy. Otherwise secondary workup has been negative for Will discuss with patient possibility of continuing Reclast for another 2 years versus switching to Prolia which may have more of a positive affect on bone density. This can be further discussed at a follow-up appointment in 7 months as decision the transition to Prolia would not be until 05/2024. I will check a urinary NTX and this is elevated, could consider transitioning to Prolia sooner (2) Multinodular thyroid: Code(s): E04.2 - Nontoxic multinodular goiter Plan: She underwent FNA biopsy of 3 thyroid nodules 04/15/2022 by me. LMP 1.4 cm thyroid nodule with cytology atypia of undetermined significance (bethesda category III). LMP 3.4 cm thyroid nodule with cytology suspicious for follicular neoplasm (bethesda category IV), and RMP 1.7 cm thyroid nodule which was benign. Affirma benign.. Recent ultrasound shows stability in the size of the nodule Orders: Orders Collagen Crosslinks NTX Today M81.0 - Age-related osteoporosis without current pathological fracture Coding Level of Care Code Est Pt Level 3 (28574) Diagnoses Age-related osteoporosis without current pathological fracture M81.0 Osteoporosis type: age-related Presence of current pathological fracture: without current pathological fracture Multinodular thyroid E04.2
== END 2023-09-01 10:31 | disposition home or self-care (01) ==
PROVIDERS: PCP General Practice; Visit Provider Internal Medicine Endocrinology, Diabetes & Metabolism
DX: M81.0 Age-related osteoporosis without current pathological fracture (principal); E04.2 Nontoxic multinodular goiter
CPT/HCPCS: 99213

== ENCOUNTER → 2023-09-01 09:57 | Outpatient (BNVA) | payer OTHER, SELFPAY | PROVIDERS: PCP General Practice; Visit Provider Internal Medicine Endocrinology, Diabetes & Metabolism | DX: M81.0 Age-related osteoporosis without current pathological fracture (principal); E04.2 Nontoxic multinodular goiter | CPT/HCPCS: 99212 ==

== ENCOUNTER 2023-09-01 10:35 | Outpatient (REF) | payer OTHER, SELFPAY ==
[2023-09-07 20:09] LABS: N-Telopeptide 17 (see note); NTXCreaRU 132 mg/dL (20-275)
== END 2023-09-01 10:36 | disposition home or self-care (01) ==
LOC: HO.10HDL 10:35
PROVIDERS: Visit Provider Internal Medicine Endocrinology, Diabetes & Metabolism
DX: M81.0 Age-related osteoporosis without current pathological fracture (principal)
CPT/HCPCS: 82523

== ENCOUNTER 2023-09-28 09:20 | Outpatient (REF) | payer OTHER, SELFPAY ==
--- NOTE | ~2023-09-28 | MR_ITS ---
EXAMINATION: MR ABDOMEN WITHOUT AND WITH CONTRAST CLINICAL INFORMATION: Pancreatic cyst. COMPARISON: Abdominal MRI 03/28/2023. TECHNIQUE: MR abdomen was performed without and with use of 6 mL intravenous Gadavist gadolinium contrast. Postcontrast images are performed in multiphase dynamic sequences. Imaging was performed in 3 planes. FINDINGS: LUNG BASES: The visualized lung bases are unremarkable. LIVER, GALLBLADDER, AND BILIARY TREE: The liver is normal in size, morphology and signal. No liver lesion. Cholecystectomy. Unchanged weukqwwp-rb-ipgxrs intrahepatic and extrahepatic biliary ductal dilatation. The common bile duct measures up to 1.8 cm in diameter with focal tapering adjacent to the pancreatic cyst where it measures 0.6 cm in diameter. This is similar to prior. PANCREAS: Redemonstration of lobulated multiseptated T2 bright cystic-appearing lesion in the pancreatic head measuring 1.6 x 1.1 cm (image 26 series 10) previously 1.5 x 1.1 cm on 03/28/2023 when measured in a similar fashion. On postcontrast images, there is no suspicious enhancement. The main pancreatic duct is in close proximity to this observation, though definite connection cannot be established. There is no main pancreatic ductal dilatation. There are no peripancreatic inflammatory changes. SPLEEN: Normal. ADRENAL GLANDS: Normal. KIDNEYS AND URETERS: The kidneys are normal in size, shape, and enhance symmetrically. No hydronephrosis. No perinephric fat stranding. There is a 1.3 cm T2 bright simple-appearing Bosniak 1 cyst in the anterior aspect of the right kidney for which no imaging followup is recommended. GASTROINTESTINAL TRACT: No bowel obstruction or ascites. ABDOMINAL WALL: No significant hernia is appreciated. LYMPH NODES: No lymphadenopathy. VASCULAR: Unremarkable. OSSEOUS STRUCTURES: Again noted vertebral body hemangioma T12. Degenerative changes of the spine. No acute or aggressive-appearing osseous findings. ADDITIONAL FINDINGS: Nonspecific gastric distention. MR/MR abdomen wo/w con IMPRESSION: No significant change compared to 03/28/2023 with redemonstration of a 1.6 cm multiseptated T2 bright cystic-appearing lesion in the head of the pancreas. Unchanged mrnixpqi-oo-iuurgs biliary ductal dilatation with some degree of luminal narrowing of the common bile duct adjacent to the cystic lesion. If not previously obtained, evaluation with EUS is advised. Alternatively, close attention on followup with imaging at 6-12 months is recommended.
[2023-09-28] MEDS: gadobutroL 7.5 ML VIAL IVPUSH (10:43)
== END 2023-09-28 09:21 | disposition home or self-care (01) ==
LOC: HO.MRI 09:20
PROVIDERS: PCP General Practice; Visit Provider Internal Medicine Gastroenterology
DX: K86.2 Cyst of pancreas (principal)
CPT/HCPCS: 74183; A9585

== ENCOUNTER 2024-02-28 09:59 | Outpatient (REF) | payer OTHER, SELFPAY | END 2024-02-28 10:00 | disposition home or self-care (01) | LOC: HO.MAMMO 09:59 | PROVIDERS: PCP General Practice; Visit Provider General Practice | DX: Z12.31 Encounter for screening mammogram for malignant neoplasm of breast (principal) | CPT/HCPCS: 77063; 77067 ==

== ENCOUNTER → 2024-02-28 10:15 | Outpatient (BNV) | payer OTHER, SELFPAY | PROVIDERS: PCP General Practice; Visit Provider Radiology Diagnostic Radiology | DX: Z12.31 Encounter for screening mammogram for malignant neoplasm of breast (principal) | CPT/HCPCS: 77063; 77067 ==

== ENCOUNTER 2024-03-28 08:49 | Outpatient (AMB) | payer OTHER, SELFPAY ==
--- NOTE | 2024-03-28 08:55 | MHC.OFFVIS ---
Vital Signs 03/28/24 08:56 Height 5 ft 1 in Weight 148 lb 5.938 oz BMI 28.0 BP 114/62 Blood Pressure Location Lt brachial Position Sitting Pulse 75 Pulse Source Pulse Oximeter Intake Visit Reasons: Osteoporosis-confirmed Intake Note: Patient present today for Osteoporosis office visit. Traffic Operations Manager Required: Yes Traffic Operations Manager Language: Metal Bending Machine Operator Services: Traffic Operations Manager Present Traffic Operations Manager Name: Kevin Information Interpreted: non-clinical & clinical Accompanied by: Grand Child Allergies No Known Allergies Allergy (Mild, Verified 03/28/24 08:59) NONE HPI Comments Details: 78 YO Female with PMHx Osteoporosis and MGUS who is seen in F/U today. She was previously followed by Dr. Mariscal.. 1) Osteoporosis: Received treatment in the past with Reclast, from 06/15/2015 to Present. Tolerated treatment well without complication. First dose 06/2015.. Last dose 05/2023 No history of pathologic fracture or ONJ. Has 1-2 servings of dietary calcium per day. Takes Calcium supplement 400 mg daily. Takes 1000 IU of Vitamin D daily. Uses PPI daily. Denies ever using anticoagulant, antiepileptic or glucocorticoid medication. Does no significant weight bearing exercise. Fracture history: Had a fragility fracture of her L hip in 2010. Also a traumatic fracture of her Wrist in 1989. Height loss: Has lost 2 inches. PHLEBOTOMY SUPPORT TECH history: Menarche was age 14. Menses always regular. . Did not breastfeed. Menopause was age 43. Denies history of Kidney stones: Has a full set of dentures. Has not seen the dentist in many years. 2) Multinodular Thyroid: She underwent FNA biopsy of 3 thyroid nodules 04/15/2022 by me. LMP 1.4 cm thyroid nodule with cytology atypia of undetermined significance (bethesda category III). LMP 3.4 cm thyroid nodule with cytology suspicious for follicular neoplasm (bethesda category IV), and RMP 1.7 cm thyroid nodule which was benign. Affirma benign. She opted for routine surveillance. DXA: 04/14/2023 FINDINGS: RIGHT FEMUR, NECK: Current: BMD 0.587 g/cm2, Z-score -1.1, T-score -3.2, osteoporosis. Prior: BMD 0.672 g/cm2. Baseline: BMD 0.676 g/cm2. RIGHT FEMUR, TOTAL: Current: BMD 0.533 g/cm2, Z-score -1.8, T-score -3.8, osteoporosis, 25.1% decrease from previous, 21.8% decrease from baseline (<5% change is not significant). Prior: BMD 0.712 g/cm2. Baseline: BMD 0.682 g/cm2. AP SPINE L1-L4: Current: BMD 0.825 g/cm2, Z-score -1.2, T-score -3.0, osteoporosis, 1.2% decrease from previous, 32.4% increase from baseline (<5% change is not significant). Prior: BMD 0.835 g/cm2. Baseline: BMD 0.623 g/cm2. RIGHT FOREARM RADIUS 33%: BMD 0.546 g/cm2, Z-score -1.1, T-score -3.8, osteoporosis. Thyroid US: 04/19/2023 Right Thyroid Lobe: 5.8 x 2.4 x 2.2 cm, volume 16.2 mL. Previously 5.7 x 2.7 x 2.3 cm, volume 18.0 mL. Parenchyma: The gland echotexture is heterogeneous. Thyroid vascularity is increased. Left Thyroid Lobe: 6.7 x 3.2 x 2.8 cm, volume 31.3 mL. Previously 7.2 x 2.9 x 3.1 cm, volume 34.0 mL. Parenchyma: The gland echotexture is heterogeneous. Thyroid vascularity is increased. Isthmus: 0.47 cm in maximum AP dimension. Previously 0.30 cm. Estimated total number of nodules greater than or equal to 1 cm: 4. Bench Boring Machine Operator nodules are described as follows: 1.? Location: Right mid inferior. ?? ? Size: 3.3 x 1.9 x 2.3 cm, volume 7.8 mL. ?? ? Previously: 2.8 x 2.1 x 2.0 cm, volume 6.2 mL. ?? ? Nodule characteristics: ?? ? Composition: Solid/almost completely solid (2). ?? ? Echogenicity: Cannot be determined (1). ?? ? Shape: Not taller than wide (0). ?? ? Margins: Smooth (0). ?? ? Echogenic Foci: None (0).? ACR TI-RADS total points: 3 Previous: 6 ?? ? ACR TI-RADS category: 3 Previous: 4 ? 2.? Location: Right superior. ?? ? Size: 1.4 x 0.80 x 1.1 cm, volume 0.64 mL. ?? ? Previously: 1.5 x 0.90 x 0.90 cm, volume 0.62 mL. ?? ? Nodule characteristics: ?? ? Composition: Solid (2). ?? ? Echogenicity: Hyperechoic (1). ?? ? Shape: Not taller than wide (0). ?? ? Margins: Smooth (0). ?? ? Echogenic Foci: None (0).? ACR TI-RADS total points: 3 Previous: 3 ?? ? ACR TI-RADS category: 3 Previous: 3 ?? ? 3.? Location: Left mid. ?? ? Size: 1.2 x 1.1 x 1.3 cm, volume 0.84 mL. ?? ? Previously: 3.0 x 2.9 x 2.9 cm, volume 13.4 mL. ?? ? Nodule characteristics: ?? ? Composition: Solid (2). ?? ? Echogenicity: Hypoechoic (2). ?? ? Shape: Not taller than wide (0). ?? ? Margins: Smooth (0). ?? ? Echogenic Foci: Punctate echogenic foci (3).? ACR TI-RADS total points: 7 Previous: 6 ?? ? ACR TI-RADS category: 5 Previous: 4 ? 4.? Location: Left mid. ?? ? Size: 2.5 x 1.6 x 2.2 cm, volume 4.5 mL. ?? ? Previously: 2.0 x 2.0 x 3.1 cm, volume 9.9 mL. ?? ? Nodule characteristics: ?? ? Composition: Solid (2). ?? ? Echogenicity: Hyperechoic (1). ?? ? Shape: Not taller than wide (0). ?? ? Margins: Smooth (0). ?? ? Echogenic Foci: None (0).? ACR TI-RADS total points: 3 Previous: 6 ?? ? ACR TI-RADS category: 3 Previous: 4 ? NODES: No lymphadenopathy is seen in the tissue surrounding the thyroid gland. Labs: Laboratory Tests 03/28/23 03/28/23 03/29/23 09:51 09:51 14:11 Creatinine 0.64 Estimated GFR > 60 Albumin 3.8 N-Telopeptide X-linked 28 25-OH Vitamin D Total 40.6 TSH 1.05 PTH Intact 32 Calcium (PTH Intact) 9.0 No fx since last visit . No compressive sx . No back pain PFSH Medical History Goiter Multinodular thyroid Osteoporosis Serum calcium elevated Vitamin D deficiency Surgical History Hx of biopsy History of surgery on arm Hx of fracture of hip Hx of tubal ligation Family History Father No problems noted. Mother No problems noted. Social History Household Members: None Housing: Apartment Alcohol intake: never Patient Tobacco Use Status: Never used Tobacco Current occupational status: disabled Physical Exam Const Other: Thyroid gland is normal in size weighs about 15 g . Feels nodular to palpation Assessment & Plan Assessment & Plan (1) Osteoporosis: Code(s): M81.0 - Age-related osteoporosis without current pathological fracture Category: Medical Qualifiers: Osteoporosis type: age-related Presence of current pathological fracture: without current pathological fracture Qualified Code(s): M81.0 - Age-related osteoporosis without current pathological fracture Plan: This 78-year-old female with a history of severe osteoporosis in the setting of MGUS previous fragility fracture of the hip in 2010 received 8 years Reclast therapy. Otherwise secondary workup has been negative except for MGUS for which she is followed by Hematology. Urine NTX remains suppressed but bone density shows moderate to severe osteoporosis. Will talk to patient about switching to Prolia 60 mg q.6 months in attempt to potentially increase bone density a protect against fracture (2) Multinodular thyroid: Code(s): E04.2 - Nontoxic multinodular goiter Category: Medical Plan: She underwent FNA biopsy of 3 thyroid nodules 04/15/2022 by me. LMP 1.4 cm thyroid nodule with cytology atypia of undetermined significance (bethesda category III). LMP 3.4 cm thyroid nodule with cytology suspicious for follicular neoplasm (bethesda category IV), and RMP 1.7 cm thyroid nodule which was benign. Affirma benign.. Recent ultrasound shows stability in the size of the nodule Coding Level of Care Code Est Pt Level 3 (21458) Diagnoses Age-related osteoporosis without current pathological fracture M81.0 Osteoporosis type: age-related Presence of current pathological fracture: without current pathological fracture Multinodular thyroid E04.2
[2024-03-28 08:56] VITALS: BP 114/62; PULSE 75; BMI 28.0
== END 2024-03-28 09:22 | disposition home or self-care (01) ==
PROVIDERS: PCP General Practice; Visit Provider Internal Medicine Endocrinology, Diabetes & Metabolism
DX: M81.0 Age-related osteoporosis without current pathological fracture (principal); E04.2 Nontoxic multinodular goiter
CPT/HCPCS: 99213

== ENCOUNTER → 2024-03-28 08:49 | Outpatient (BNVA) | payer OTHER, SELFPAY | PROVIDERS: PCP General Practice; Visit Provider Internal Medicine Endocrinology, Diabetes & Metabolism | DX: M81.0 Age-related osteoporosis without current pathological fracture (principal); E04.2 Nontoxic multinodular goiter | CPT/HCPCS: 99212 ==

== ENCOUNTER 2024-05-08 09:36 | Outpatient (REF) | payer OTHER, SELFPAY ==
[2024-05-08 10:58] LABS: Albumin Level 4.1 g/dL (3.5-5.0); Anion Gap 10 (12-20); Blood Urea Nitrogen 8 mg/dL (9-16); Calcium 9.5 mg/dL (8.4-10.2); Carbon Dioxide 28 mmol/L (22-29); Chloride 107 mmol/L (96-108); Estimated Glomerular Filt Rate > 60; Glucose Random 96 mg/dL (60-115); Potassium 4.3 mmol/L (3.3-5.1); Sodium 141 mmol/L (135-145)
== END 2024-05-08 09:37 | disposition home or self-care (01) ==
LOC: HO.LAB 09:36
PROVIDERS: PCP General Practice; Visit Provider Internal Medicine Endocrinology, Diabetes & Metabolism
DX: M81.0 Age-related osteoporosis without current pathological fracture (principal)
CPT/HCPCS: 36415; 80048; 82040

== ENCOUNTER 2024-05-12 13:54 | Emergency (ER) | payer OTHER, SELFPAY ==
--- NOTE | ~2024-05-12 | CT_ITS ---
EXAMINATION: CT HEAD WITHOUT CONTRAST CT CERVICAL SPINE WITHOUT CONTRAST CLINICAL INFORMATION: Fall. Pain. COMPARISON: CT head from 03/17/2023. Thyroid ultrasound from 10/07/2021. TECHNIQUE: Contiguous axial imaging was performed from the skull base to vertex without intravenous administration of contrast. Contiguous axial imaging was performed from the upper chest through the skull base without intravenous administration of contrast. Coronal and sagittal reformats were obtained at the acquisition workstation. This CT examination was performed using dose optimization techniques as appropriate, variously including the following: *Automated exposure control. *Adjustment of mA and/or kV according to patient size (this includes techniques or standardized protocols for targeted exams where dose is matched to indication/reason for exam; i.e. extremities or head). *Use of iterative reconstruction technique. DLP: 882 mGy-cm FINDINGS: Head: There is no evidence of acute intracranial hemorrhage or edematous territorial infarction. Clark-white matter differentiation is preserved. Scattered and partially confluent hypoattenuation in the periventricular and deep white matter are consistent with moderate microangiopathy. Proportional prominence of the ventricles and sulcal spaces without evidence of obstructive hydrocephalus. Moderate expansion of the sella turcica with partial flattening of the pituitary gland. No abnormal mass effect or midline shift. No extra-axial fluid collections. Calcific atherosclerotic disease of the intracranial internal carotid and vertebral arteries. No hyperdense vessel sign. No acute soft tissue or osseous abnormalities. Mild mucosal thickening of the paranasal sinuses. The mastoid air cells and middle ear cavities are clear. Mild to moderate degenerative arthropathy of the temporomandibular joints. Bilateral lens extractions. Cervical Spine: The atlantooccipital and atlantoaxial articulations remain well aligned. Advanced degenerative arthropathy at the atlantodental articulation. Reversal of the normal cervical lordosis. Moderate degenerative step waggoner anterolisthesis of C4-C6. No evidence of acute fracture or subluxation. Degenerative appearing loss of C4-C6 vertebral body heights. The remaining vertebral body heights are maintained. Moderate degenerative disc disease from C4-C7. Facet and uncovertebral joint arthropathy leads to osseous encroachment on the neural foramina from C3-C6. There is no prevertebral soft tissue swelling. Moderate heterogeneous enlargement of the left greater than right thyroid lobes (previously biopsied). The remaining cervical soft tissues are within normal limits. The lung apices demonstrate no abnormalities. CT/CT cervical spine wo IV con IMPRESSION: 1. No evidence of acute intracranial hemorrhage or edematous territorial infarction. Moderate underlying microangiopathy and generalized cerebral volume loss. 2. No evidence of acute fracture or traumatic subluxation of the cervical spine. Advanced multilevel degenerative spondyloarthropathy of the cervical spine. 3. Moderate heterogeneous enlargement of the left greater than right thyroid lobes (previously biopsied). Recommend correlation with findings on prior thyroid ultrasound and biopsy results. Electronically signed by: Fidel Altman DO 05/12/2024 03:29 PM EDT
--- NOTE | ~2024-05-12 | XR_ITS ---
EXAMINATION: XR KNEE, RIGHT CLINICAL INFORMATION: Pain, injury COMPARISON: None available. TECHNIQUE: Four views of the right knee. FINDINGS: Alignment is anatomic. Severe lateral compartment arthritis, joint space loss, sclerosis and cysts. Small marginal spurring in the medial compartment. Patellar marginal spurring. No visible acute fracture or dislocation. Possible small suprapatellar effusion. XR/XR knee RT 4V IMPRESSION: No radiographic evidence of acute fracture. Arthritis. Severe lateral compartment arthritis. Small effusion. Electronically signed by: Felix Alaniz MD 05/12/2024 04:10 PM EDT
[2024-05-12 14:00] VITALS: BP 182/94; PULSE 122; O2SAT 100
[2024-05-12 14:02] VITALS: BP 153/62; PULSE 86; RESP 19; TEMP 36.6; O2SAT 97; BMI 29.3
--- NOTE | 2024-05-12 14:27 | ED.FALL ---
HPI - Fall General Chief Complaint: Fall Stated Complaint: FALL, R KNEE PAIN PER EMS Time Seen by Provider: 05/12/24 14:10 Source: patient, EMS, RN notes reviewed and old records reviewed Mode of arrival: EMS Limitations: no limitations History of Present Illness ED Provider: Fe Glover PA-C HPI Narrative: 78-year-old Chinese-speaking female with a history of osteoporosis, MGUS, history of left hip replacement, vitamin-D deficiency, multinodular thyroid who presents to the ER for evaluation of mechanical fall at home that resulted in right knee injury. Patient reports she went to get up out of her recliner, her legs got tangled and she fell onto the ground, hitting her right knee against the ground and then against the coffee table as she rolled. She denies hitting her head or losing consciousness. She denies being on anticoagulation. She denies any headache or neck pain. She was unable to get up on her own after the fall due to pain in the right knee. She was able to call her daughter to come to the home. Daughter was unable to get her up so they called 911. Patient denies any preceding chest pain, lightheadedness or dizziness. No current chest pain or abdominal pain. No other complaints. MD complaint: fall Onset (ago): minute(s) Fall from: chair Fall witnessed: no Place fall occurred: home Loss of consciousness: none Prolonged down time: no Symptoms prior to fall: none Context: tripped/slipped Location of injury - extremities: right: knee Severity: moderate Severity scale (1-10): 5 Quality: aching Associated symptoms (after fall): unable to walk Related Data Home Medications ?Medication ?Instructions ?Recorded ?Confirmed aspirin 81 mg tablet,delayed 81 mg PO DAILY 11/07/20 05/02/23 release ferrous fumarate 324 mg (106 mg 324 mg PO DAILY 11/07/20 05/02/23 iron) tablet levothyroxine 75 mcg tablet 75 mcg PO DAILY 11/07/20 05/02/23 multivitamin 1 tab PO DAILY 11/07/20 05/02/23 pantoprazole 40 mg tablet,delayed 40 mg PO DAILY 11/07/20 05/02/23 release rosuvastatin 5 mg tablet 5 mg PO DAILY 11/07/20 05/02/23 sennosides 8.6 mg tablet 17.2 mg PO DAILY 11/07/20 05/02/23 polyethylene glycol 3350 17 gram 17 g PO DAILY 02/24/21 05/02/23 oral powder packet (Miralax) alprazolam 0.5 mg tablet (Xanax) 0.5 mg PO BEDTIME PRN prn 05/02/23 05/02/23 calcium citrate 200 mg (950 mg) mg 01/16/24 01/16/24 tablet Previous Rx's ?Medication ?Instructions ?Recorded meclizine 25 mg chewable tablet 25 mg PO TID spinning #14 tabs 03/17/23 (Antivert) denosumab 60 mg/mL subcutaneous 60 mg subcut [id number] #1 mL 03/28/24 syringe (Prolia) walker #1 ea 05/12/24 Allergies Allergy/AdvReac Type Severity Reaction Status Date / Time No Known Allergies Allergy Mild NONE Verified 05/12/24 14:05 Review of Systems Review of Systems: Yes all other systems are reviewed and are negative PMFSH Past Medical History Medical History Goiter Multinodular thyroid Osteoporosis Serum calcium elevated Vitamin D deficiency Surgical History Hx of biopsy History of surgery on arm Hx of fracture of hip Hx of tubal ligation Family History Family History Father No problems noted. Mother No problems noted. Social History Social History Household Members: None Housing: Apartment Alcohol intake: never Patient Tobacco Use Status: Never used Tobacco Current occupational status: disabled Physical Exam Vital Signs: Vital Signs: Last Vital Signs Temp 98 F 05/12/24 17:22 Pulse 76 05/12/24 17:22 Resp 17 05/12/24 17:22 BP 132/71 05/12/24 17:22 Pulse Ox 98 05/12/24 17:22 O2 Del Method Room Air 05/12/24 17:22 BMI result Body Mass Index 29.3 Appearance: Alert elderly female sitting up in the stretcher in no distress. Oriented X3. No acute distress. Head: normocephalic, atraumatic. Eyes: Pupils equal, round and reactive to light. ENT: Normal external inspection Neck: Normal inspection. Neck supple. No midline tenderness or step-off deformity. Full range of motion of the neck. CVS: Normal heart rate and rhythm. Pulses normal. Respiratory: No respiratory distress. Breath sounds normal. Abdomen: Soft and nontender. +BS x4 Skin: Skin warm and dry. Normal skin color. Normal skin turgor. No rashes. Extremities: No lower extremity edema. Right knee has a small area of erythema, mild generalized joint swelling with some generalized tenderness. Able to passively flex to approximately 45 degrees until she has pain. Discomfort with both varus and valgus stress. No tenderness of the tibial plateau. Patellar tendon feels intact. Neuro/psych: Oriented X 3. No motor deficit. No sensory deficit. CN II-XII intact. Normal speech and cognition. Medications Administered Discontinued Medications Generic Name Dose Route Start Last Admin Trade Name Freq PRN Reason Stop Dose Admin Acetaminophen 975 mg 05/12/24 15:02 05/12/24 15:16 Acetaminophen 325 Mg Tablet PO 05/12/24 15:03 975 mg ONCE ONE Administration Medical Decision Making Medical Decision Making MDM Narrative: 78-year-old female presents to the ER for evaluation of right knee after a mechanical fall today at home. She hit her right knee on the ground and again on the table resulting in some swelling and discomfort, inability to walk initially. X-ray of the knee today is showing some arthritis. CT scan of her head and neck are unremarkable for acute injury. Patient placed in Rodriguez wrap for compression and support. She was assisted with staff to try to ambulate, she took 2 steps and stated she could not tolerate it. She was given additional pain medication. Her daughter would like to take her home with a walker, they are not interested in short-term rehab or physical therapy evaluation. Stable for discharge home with outpatient follow-up. Differential Diagnosis Differential Diagnoses: The differential diagnosis associated with the presentation includes Knee sprain, knee strain, knee effusion, tibial plateau fracture, ligamentous injury, concussion Admission/Observation Consideration of admission/observation: Escalation of care including admission/observation considered Independent Interpretation I performed an independent interpretation of an: Plain X-Ray and CT Scan Interpretation: X-ray without any acute fractures CT scan without any acute edema or bleed Radiology Impression Discussion of test interpretation with radiology: I have reviewed the radiologist's reading. Radiologist Impression: CT/CT head/brain wo IV con CT cervical spine IMPRESSION: 1. No evidence of acute intracranial hemorrhage or edematous territorial infarction. Moderate underlying microangiopathy and generalized cerebral volume loss. 2. No evidence of acute fracture or traumatic subluxation of the cervical spine. Advanced multilevel degenerative spondyloarthropathy of the cervical spine. 3. Moderate heterogeneous enlargement of the left greater than right thyroid lobes (previously biopsied). Recommend correlation with findings on prior thyroid ultrasound and biopsy results. Independent Historian Clinical information obtained from an independent historian. History obtained from or confirmed by: EMS and Other (Adult daughter at the bedside) External Record Review External record reviewed: Outpatient record, Prior outpatient labs and Prior outpatient radiology Prescription Management I considered prescription management with: Pain Medication Chronic Conditions Patient?s care impacted by: Other (Osteoporosis) Social Determinants Patient?s care significantly limited by Social Determinants of Health including: Problems related to primary support group (Lives home alone) Critical Care Time Critical Care Time Critical Care Time: No Discharge Plan Discharge Clinical Impression: Contusion of knee, Arthritis of knee Patient Disposition: Home, Self-Care Instructions: Contusion in Adults (ED), Knee Pain (ED) Additional Instructions: Your CT scan and x-ray today did not show any acute injuries. Use the provided walker. Rest your knee, elevated when possible, use ice 3 times per day for 20 minutes at a time. Take [id number] Motrin and Tylenol as needed for pain. Recommend following up with orthopedics for further evaluation and treatment of your knee. Name and number below. Call for an appointment. Follow-up with her primary care doctor. If you develop new or worsening symptoms call 911 or come back to the ER for further evaluation. Prescriptions: New (DME) walker Misc See Rx Instructions .ROUTE Qty: 1 0RF Rx Instructions: As directed No Action Prolia 60 mg/mL syringe 60 mg subcut [id number] Qty: 1 5RF Rx Instructions: To be injected in the office polyethylene glycol 3350 [Miralax] 17 gram Powder In Packet 17 g PO DAILY calcium citrate 200 mg (950 mg) Tablet meclizine [Antivert] 25 mg tablet,chewable 25 mg PO TID Qty: 14 0RF ferrous fumarate 324 mg (106 mg iron) tablet 324 mg PO DAILY rosuvastatin 5 mg tablet 5 mg PO DAILY pantoprazole 40 mg tablet,delayed release (DR/EC) 40 mg PO DAILY levothyroxine 75 mcg tablet 75 mcg PO DAILY sennosides 8.6 mg tablet 17.2 mg PO DAILY aspirin 81 mg tablet,delayed release (DR/EC) 81 mg PO DAILY multivitamin Tablet 1 tab PO DAILY alprazolam [Xanax] 0.5 mg tablet 0.5 mg PO BEDTIME PRN (Reason: prn) [place] [facility] [place] [facility] [place] Group] () Jade Richards MD [Primary Care Provider] - Interventions: ED Discharge Assessment Last Done: 05/12/24 17:22 Discharge Date/Time: 05/12/24 17:23 Print Language: Chinese
--- NOTE | 2024-05-12 15:12 | MHC.EDTECH ---
assisted pt onto bedpan. pt cleaned up and readjusted in bed.
[2024-05-12] MEDS: Acetaminophen 325 MG TABLET 975 MG PO (15:16)
[2024-05-12 16:22] VITALS: BP 122/51; PULSE 69; RESP 17; O2SAT 97
[2024-05-12 17:22] VITALS: BP 132/71; PULSE 76; RESP 17; TEMP 36.6; O2SAT 98
== END 2024-05-12 17:23 | disposition home or self-care (01) ==
PROVIDERS: Emergency Provider Emergency Medicine Emergency Medical Services; PCP General Practice
DX: M17.12 Unilateral primary osteoarthritis, left knee (principal); M25.562 Pain in left knee
CPT/HCPCS: 70450; 72125; 73564; 99284

== ENCOUNTER 2024-05-21 10:00 | Outpatient (AMB) | payer OTHER, SELFPAY ==
--- NOTE | 2024-05-21 10:30 | AM.OFFVISNUR ---
Intake Visit Reasons: Prolia #1 Allergies No Known Allergies Allergy (Mild, Verified 05/12/24 14:05) NONE Office Meds Prolia 60 mg/mL subcutaneous syringe Performing Provider: Dat Palacios MD Performing Location: [facility] – [place] Endocrinology Administered by: Jael Rodgers RN on 05/21/24 10:31 Dose Route Admin Location Dispensed Lot Number Expiration Date ND Siderographist 60 mg subcut Right upper extrem 1 mL [id number] 08/04/26 75457-730-75 AMGEN Comments: Office visit interpreted by Esperanza Oliver LMT. Consent form signed, pt tolerated well. Patient observed for 15 minutes following injection without incident. Assessment & Plan Assessment & Plan Orders: Orders AMB Denosumab Injection Practice Supplied Today M81.0 - Age-related osteoporosis without current pathological fracture Medications: New Prolia (denosumab) 60 mg subcut ONCE 1 mL 0RF NS M81.0 - Age-related osteoporosis without current pathological fracture
== END 2024-05-21 10:30 | disposition home or self-care (01) ==
PROVIDERS: PCP General Practice
DX: M81.0 Age-related osteoporosis without current pathological fracture (principal)

== ENCOUNTER → 2024-05-21 10:00 | Outpatient (BNVA) | payer OTHER, SELFPAY | PROVIDERS: PCP General Practice | DX: M81.0 Age-related osteoporosis without current pathological fracture (principal) | CPT/HCPCS: 96372; J0897 ==

== ENCOUNTER 2024-06-08 09:04 | Outpatient (AMB) | payer OTHER, SELFPAY ==
--- NOTE | 2024-06-08 09:06 | A.OFFVIS_ITS ---
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 Hx of a fall a couple weeks ago. Patient states that she is doing a lot better today. She mentions that she is not having any pain or discomfort at the moment. 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 The patient presented to the E D on 05/12/24 status post a mechanical fall when she attempted to get out of her recliner, got her legs tangled, and fell to the ground, hitting her right knee and then against the coffee table as she rolled. X-rays of the right knee were obtained. She was placed in an RONNI wrap for compression and support and provided with a walker. The patient and her daughter deferred short-term rehab or physica l therapy evaluation at that time. She was recommended to rest, ice, and elevation and was advised to take OTC Motrin and Tylenol PRN for pain. While in the office today, the patient reports she is currently not experiencing any pain or difficulty with ambulation. She states she is doing significantly better today. She confirms the history of fall. [facility] Medical History Goiter Multinodular thyroid Osteoporosis Serum calcium elevated Vitamin D deficiency Surgical History Hx of biopsy History of surgery on arm Hx of fracture of hip Hx of tubal ligation Family History Father No problems noted. Mother No problems noted. Social History Household Members: None Housing: Apartment Alcohol intake: never Patient Tobacco Use Status: Never used Tobacco Current occupational status: disabled Review of Systems Const All systems reviewed & are unremarkable except as noted in HPI and below Physical Exam Const General: cooperative and no acute distress Orientation/consciousness: patient oriented x3 Resp Effort & Inspection: normal respiratory effort and able to speak in complete sentences Cardio Peripheral pulses: Peripheral pulses 2+ throughout Skin General skin exam: no rashes or lesions noted Neuro General: patient oriented x3 Extrem Other: Right knee: Normal to inspection. No ecchymosis, erythema, or joint effusion. No tenderness to palpation along the medial or lateral joint lines. Full knee extension and flexion. Crepitus is felt with ROM. NVI. Assessment & Plan Assessment & Plan (1) Osteoarthritis of right knee: Code(s): M17.11 - Unilateral primary osteoarthritis, right knee Category: Medical Plan Ms. Lyons is an 78-year-old female, who is Malawian speaking, presents in the office today, as a new patient for an evaluation of right knee pain. The patient presented to the ED on 05/12/24 status post a mechanical fall when she attempted to get out of her recliner, got her legs tangled, and fell to the ground, hitting her right knee and then against the coffee table as she rolled. X-rays of the right knee were obtained. She was placed in an RONNI wrap for compression and support and provided with a walker. The patient and her daughter deferred short-term rehab or physical therapy evaluation at that time. She was recommended to rest, ice, and elevation and was advised to take OTC Motrin and Tylenol PRN for pain. While in the office today, the patient reports she is currently not experiencing any pain or difficulty with ambulation. She states she is doing significantly better today. She confirms the history of fall. The patient is currently not experiencing any right knee pain, discomfort or difficulty with ambulation. Therefore, Follow-up will be PRN, or sooner if needed. X-rays of the right knee, obtained on 05/12/24, revealed: No radiographic evidence of acute fracture. Arthritis. Severe lateral compartment arthritis. Small effusion. Patient Instructions: Scribed by Rupinder Black medical affairs director, for Ashley Maria PA-C on 06/08/24 at 9:14 am EST. Coding Level of Care Code New Pt Level 3 (59287) Diagnoses Osteoarthritis of right knee M17.11
== END 2024-06-08 09:18 | disposition home or self-care (01) ==
PROVIDERS: PCP General Practice; Visit Provider Physician Assistant
DX: M17.11 Unilateral primary osteoarthritis, right knee (principal); W01.0XXA Fall on same level from slipping, tripping and stumbling without subsequent striking against object, initial encounter
CPT/HCPCS: 99203

== ENCOUNTER → 2024-06-08 09:04 | Outpatient (BNVA) | payer OTHER, SELFPAY | PROVIDERS: PCP General Practice; Visit Provider Physician Assistant | DX: M17.11 Unilateral primary osteoarthritis, right knee (principal); Z91.81 History of falling | CPT/HCPCS: 99202 ==

== ENCOUNTER 2024-09-26 08:37 | Outpatient (AMB) | payer OTHER, SELFPAY ==
--- NOTE | 2024-09-26 08:47 | A.OFFVIS_ITS ---
Vital Signs 09/26/24 08:49 Height 5 ft Weight 148 lb 5.938 oz BMI 29.0 BP 110/58 L Blood Pressure Location Rt brachial Position Sitting Pulse 80 Pulse Source Pulse Oximeter Intake Visit Reasons: Osteoporosis Intake Note: Patient present today for Osteoporosis office visit. Magnetic Doctor Required: Yes Magnetic Doctor Language: Hand Umbrella Tipper Services: Magnetic Doctor Present Magnetic Doctor Name: Na Information Interpreted: non-clinical & clinical Accompanied by: Grand Child Allergies No Known Allergies Allergy (Mild, Verified 09/26/24 08:50) NONE Medication List - Last Reconciled 09/26/24 by Dat Palacios MD alprazolam (Xanax) 0.5 mg PO BEDTIME PRN aspirin 81 mg PO DAILY calcium citrate mg denosumab (Prolia) 60 mg subcut [id number] ferrous fumarate 324 mg PO DAILY levothyroxine 75 mcg PO DAILY meclizine (Antivert) 25 mg PO TID multivitamin 1 tab PO DAILY pantoprazole 40 mg PO DAILY polyethylene glycol 3350 (Miralax) 17 grams PO DAILY rosuvastatin 5 mg PO DAILY sennosides 17.2 mg PO DAILY walker As directed HPI Comments Details: 79 YO Female with PMHx Osteoporosis and MGUS who is seen in F/U today. .. 1) Osteoporosis: Received treatment in the past with Reclast, from 06/15/2015 to Present. Tolerated treatment well without complication. First dose 06/2015.. Last dose 05/2023 No history of pathologic fracture or ONJ. Has 1-2 servings of dietary calcium per day. Takes Calcium supplement 400 mg daily. Takes 1000 IU of Vitamin D daily. Uses PPI daily. Denies ever using anticoagulant, antiepileptic or glucocorticoid medication. Does no significant weight bearing exercise. Fracture history: Had a fragility fracture of her L hip in 2010. Also a traumatic fracture of her Wrist in 1989. Height loss: Has lost 2 inches. 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 Menses always regular. . Did not breastfeed. Menopause was age 43. Denies history of Kidney stones: Has a full set of dentures. Has not seen the dentist in many years. 2) Multinodular Thyroid: She underwent FNA biopsy of 3 thyroid nodules 04/15/2022 by me. LMP 1.4 cm thyroid nodule with cytology atypia of undetermined significance (bethesda category III). LMP 3.4 cm thyroid nodule with cytology suspicious for follicular neoplasm (bethesda category IV), and RMP 1.7 cm thyroid nodule which was benign. Affirma benign. She opted for routine surveillance. DXA: 04/14/2023 FINDINGS: RIGHT FEMUR, NECK: Current: BMD 0.587 g/cm2, Z-score -1.1, T-score -3.2, osteoporosis. Prior: BMD 0.672 g/cm2. Baseline: BMD 0.676 g/cm2. RIGHT FEMUR, TOTAL: Current: BMD 0.533 g/cm2, Z-score -1.8, T-score -3.8, osteoporosis, 25.1% decrease from previous, 21.8% decrease from baseline (<5% change is not significant). Prior: BMD 0.712 g/cm2. Baseline: BMD 0.682 g/cm2. AP SPINE L1-L4: Current: BMD 0.825 g/cm2, Z-score -1.2, T-score -3.0, osteoporosis, 1.2% decrease from previous, 32.4% increase from baseline (<5% change is not significant). Prior: BMD 0.835 g/cm2. Baseline: BMD 0.623 g/cm2. RIGHT FOREARM RADIUS 33%: BMD 0.546 g/cm2, Z-score -1.1, T-score -3.8, osteoporosis. Thyroid US: 04/19/2023 Right Thyroid Lobe: 5.8 x 2.4 x 2.2 cm, volume 16.2 mL. Previously 5.7 x 2.7 x 2.3 cm, volume 18.0 mL. Parenchyma: The gland echotexture is heterogeneous. Thyroid vascularity is increased. Left Thyroid Lobe: 6.7 x 3.2 x 2.8 cm, volume 31.3 mL. Previously 7.2 x 2.9 x 3.1 cm, volume 34.0 mL. Parenchyma: The gland echotexture is heterogeneous. Thyroid vascularity is increased. Isthmus: 0.47 cm in maximum AP dimension. Previously 0.30 cm. Estimated total number of nodules greater than or equal to 1 cm: 4. Logistics Officer nodules are described as follows: 1.? Location: Right mid inferior. ?? ? Size: 3.3 x 1.9 x 2.3 cm, volume 7.8 mL. ?? ? Previously: 2.8 x 2.1 x 2.0 cm, volume 6.2 mL. ?? ? Nodule characteristics: ?? ? Composition: Solid/almost completely solid (2). ?? ? Echogenicity: Cannot be determined (1). ?? ? Shape: Not taller than wide (0). ?? ? Margins: Smooth (0). ?? ? Echogenic Foci: None (0).? ACR TI-RADS total points: 3 Previous: 6 ?? ? ACR TI-RADS category: 3 Previous: 4 ? 2.? Location: Right superior. ?? ? Size: 1.4 x 0.80 x 1.1 cm, volume 0.64 mL. ?? ? Previously: 1.5 x 0.90 x 0.90 cm, volume 0.62 mL. ?? ? Nodule characteristics: ?? ? Composition: Solid (2). ?? ? Echogenicity: Hyperechoic (1). ?? ? Shape: Not taller than wide (0). ?? ? Margins: Smooth (0). ?? ? Echogenic Foci: None (0).? ACR TI-RADS total points: 3 Previous: 3 ?? ? ACR TI-RADS category: 3 Previous: 3 ?? ? 3.? Location: Left mid. ?? ? Size: 1.2 x 1.1 x 1.3 cm, volume 0.84 mL. ?? ? Previously: 3.0 x 2.9 x 2.9 cm, volume 13.4 mL. ?? ? Nodule characteristics: ?? ? Composition: Solid (2). ?? ? Echogenicity: Hypoechoic (2). ?? ? Shape: Not taller than wide (0). ?? ? Margins: Smooth (0). ?? ? Echogenic Foci: Punctate echogenic foci (3).? ACR TI-RADS total points: 7 Previous: 6 ?? ? ACR TI-RADS category: 5 Previous: 4 ? 4.? Location: Left mid. ?? ? Size: 2.5 x 1.6 x 2.2 cm, volume 4.5 mL. ?? ? Previously: 2.0 x 2.0 x 3.1 cm, volume 9.9 mL. ?? ? Nodule characteristics: ?? ? Composition: Solid (2). ?? ? Echogenicity: Hyperechoic (1). ?? ? Shape: Not taller than wide (0). ?? ? Margins: Smooth (0). ?? ? Echogenic Foci: None (0).? ACR TI-RADS total points: 3 Previous: 6 ?? ? ACR TI-RADS category: 3 Previous: 4 ? NODES: No lymphadenopathy is seen in the tissue surrounding the thyroid gland. Labs: Laboratory Tests 03/28/23 03/28/23 03/29/23 09:51 09:51 14:11 Creatinine 0.64 Estimated GFR > 60 Albumin 3.8 N-Telopeptide X-linked 28 25-OH Vitamin D Total 40.6 TSH 1.05 PTH Intact 32 Calcium (PTH Intact) 9.0 No fx since last visit . No compressive sx . No back pain . C/o body aches and no appetite not present before Prolia Currently on Prolia 60 mg q.6 months. Received 1 dose of Prolia so far [facility] Medical History Goiter Multinodular thyroid Osteoporosis Serum calcium elevated Vitamin D deficiency Surgical History Hx of biopsy History of surgery on arm Hx of fracture of hip Hx of tubal ligation Family History Father No problems noted. Mother No problems noted. Social History Household Members: None Housing: Apartment Alcohol intake: never Patient Tobacco Use Status: Never used Tobacco Current occupational status: disabled Physical Exam Vital Signs: Last Vital Signs Pulse 80 09/26/24 08:49 BP 110/58 L 09/26/24 08:49 BMI result Body Mass Index 29.0 Assessment & Plan Assessment & Plan (1) Osteoporosis: Code(s): M81.0 - Age-related osteoporosis without current pathological fracture Category: Medical Qualifiers: Osteoporosis type: age-related Presence of current pathological fracture: without current pathological fracture Qualified Code(s): M81.0 - Age- related osteoporosis without current pathological fracture Plan: This 78-year-old female with a history of severe osteoporosis in the setting of MGUS previous fragility fracture of the hip in 2010 received 8 years Reclast therapy. Otherwise secondary workup has been negative except for MGUS for which she is followed by Hematology. Urine NTX remains suppressed but bone density shows moderate to severe osteoporosis. Currently on Prolia and received 1 dose with complaints of muscle aches and decreased appetite after Prolia injection Plan is to transition the Prolia to Reclast when patient is due for next Prolia injection in 2 months (2) Multinodular thyroid: Code(s): E04.2 - Nontoxic multinodular goiter Category: Medical Plan: She underwent FNA biopsy of 3 thyroid nodules 04/15/2022 by me. LMP 1.4 cm thyroid nodule with cytology atypia of undetermined significance (bethesda category III). LMP 3.4 cm thyroid nodule with cytology suspicious for follicular neoplasm (bethesda category IV), and RMP 1.7 cm thyroid nodule which was benign. Affirma benign.. ultrasound shows stability in the size of the nodule Plan is to check TSH and free T4. Will have patient follow up with Dr. Murray an principal archaeologist in our practice with expertise in thyroid ultrasound Orders: Orders Thyroid Stimulating Hormone Today E04.2 - Nontoxic multinodular goiter Free T4 (Free Thyroxine) Today E04.2 - Nontoxic multinodular goiter Referrals Infusion Center Notification M81.0 - Age-related osteoporosis without current pathological fracture Medications: Discontinued denosumab (Prolia) To be injected in the office Discontinued Reason: Doctor's Order 60 mg subcut [id number] 1 mL 5RF Coding Level of Care Code Est Pt Level 3 (07905) Diagnoses Age-related osteoporosis without current pathological fracture M81.0 Osteoporosis type: age-related Presence of current pathological fracture: without current pathological fracture Multinodular thyroid E04.2
[2024-09-26 08:49] VITALS: BP 110/58; PULSE 80; BMI 29.0
--- OUTSIDE RECORDS SUMMARY | 2024-09-26 08:53 | XMS_ITS | Encounter Summary ---
Author Organization [employer] Address [address] [place] [address] Care Team Providers Care Market Research Lead Name Role Phone Jade Richards MD Primary Care Provider [phone] Reason for Referral * Imaging (STAT) - Closed Specialty Diagnoses / Procedures Referred By Contac t Referred To Contact Radiology Diagnoses Pancreas cyst Procedures MR Abdomen w/ and w/o Contrast MRCP Jade Richards MD [address] [place] [address] Phone: tel: fax: [address] Phone: tel: fax: Referral ID Status Reason Start Date Expiration Date Visits Re quested Visits Authorized [id number] Closed 03/25/2023 03/24/2024 1 1 Encounter Details Date Type Department Care Team (Late st Contact Info) Description 03/25/2023 Orders Only [facility] MEDICINE [address] [place], [place] [phone] Jade Richards MD [address] [place], [place] [phone] Pancreas cyst (Primary Dx) Social History Tobacco Use Types Packs/Day Years Used Date Smoking Tobacco: Never Smokeless Tobacco: Never Alcohol Use Standard Drinks/Week Comments Never 0 (1 standard drink = 0.6 oz pur e alcohol) Depression Answer Date Recorded Patient Health Questionnaire-9 Score 9 02/14/2023 Depression Answer Date Recorded Patient Health Questionnaire-2 Score 4 02/14/2023 Comments Unknown Sex and Gender Information Value Date Recorded Sex Assigned at Female 07/05/2022 10:18 AM EDT Legal Sex Female 10:18 AM EDT Gender Identity Female 07/05/2022 10:18 AM EDT Sexual Orientation Straight 07/05/2022 10 :18 AM EDT documented as of this encounter Plan of Treatment Scheduled Orders Name Type Priority Associated Diagnoses Orde r Schedule MR Abdomen w/ and w/o Contrast MRCP Imaging STAT Pancreas cyst Expected: 03/25/2023, Expires: 03/25/2024 documented as of this encounter Visit Diagnoses Diagnosis Pancreas cyst- Primary Cyst and pseudocyst of pancreas documented in this encounter Additional Health Concerns Assessment Noted Time PHQ-9 Depression Total Score: 9 02/15/20 23 10:23 AM EDT documented as of this encounter Care Teams Market Research Lead Relationship Specialty Start Date End Date Jade Richards MD [address] [place] [id number] PCP - General Family Medicine 05/04/22 documented as of this encounter
--- OUTSIDE RECORDS SUMMARY | 2024-09-26 08:53 | XMS_ITS | Encounter Summary ---
Author Organization [employer] Address [address] [place] [address] Care Team Providers Care Wharf Attendant Name Role Phone Jade Richards MD Primary Care Provider [phone] Reason for Visit * Reason Onset Date Comments Letter Request 08/31/2022 The pt requested a letter for housing, because she would like to have the rugs removed from her apartment. She developed fluid filled bumps on her body, and believes that they are caused by the rugs. I spoke with Nadine, her emergency contact, and asked if the pt has been seen by the accounts receivable executive, and she stated that yes she has. I asked if she could contact the accounts receivable executive, and ask to have the office notes faxed to the [facility] HIM Dept at [phone], and she agreed to do so. Encounter Details Date Type Department Care Team ([facility] Contact Info) Description 08/31/2022 Telephone [facility] MEDICINE [address] [place] [address] Jade Richards MD [address] [place], [place] [phone] Letter Request (The pt requested a letter for housing, because she would like to have the rugs removed from her apartment. She developed fluid filled bumps on her body, and believes that they are caused by the rugs. I spoke with Nadine, her emergency contact, and asked if the pt has been seen by the accounts receivable executive, and she stated that yes she has. I asked if she could contact the accounts receivable executive, and ask to have the office notes faxed to the [facility] HIM Dept at [phone], and she agreed to do so. ) Social History Tobacco Use Types Packs/Day Years Used Date Smoking Tobacco: Never Smokeless Tobacco: Never Alcohol Use Standard Drinks/Week Comments Never 0 (1 standard drink = 0.6 oz pur e alcohol) PHQ-2 Answer Date Recorded Patient Health Questionnaire-2 Score 0 08/27/2022 Comments Unknown Sex and Gender Information Value Date Recorded Sex Assigned at Female 07/05/2022 10:18 AM EDT Legal Sex Female 10:18 AM EDT Gender Identity Female 07/05/2022 10:18 AM EDT Sexual Orientation Straight 07/05/2022 10 :18 AM EDT COVID-19 Exposure Response Date Recorded In the last 10 days, have yo u been in contact with someone who was confirmed or suspected to have Coronavirus/COVID-19? No / Unsure 08/27/2022 1:39 PM EST documented as of this encounter Plan of Treatment Not on file documented as of this encounter Visit Diagnoses Not on filedocumented in this encounter Care Teams Wharf Attendant Relationship Specialty Start Date End Date Jade Richards MD [address] [place] [id number] PCP - General Family Medicine 05/04/22 documented as of this encounter
--- OUTSIDE RECORDS SUMMARY | 2024-09-26 08:53 | XMS_ITS | Encounter Summary ---
Author Organization [employer] Address [address] [place] [address] Care Team Providers Care Infrastructure Design Engineer Name Role Phone Jade Richards MD Primary Care Provider [phone] Encounter Details Date Type Department Care Team (Late st Contact Info) Description 06/20/2023 Abstract [facility] MEDICINE [address] [place], [place] [phone] Jade Richards MD [address] [place] [address] Social History Tobacco Use Types Packs/Day Years Used Date Smoking Tobacco: Never Smokeless Tobacco: Never Alcohol Use Standard Drinks/Week Comments Never 0 (1 standard drink = 0.6 oz pur e alcohol) Depression Answer Date Recorded Patient Health Questionnaire-9 Score 9 02/14/2023 Housing Stability Answer Date Recorded What is your housing situation today? I have allegrazachary carrasco 06/20/[address] you li ve. Do you have problems with any of the following? None of the above 06/20/2023 Food Insecurity Answer Date Recorded Within the past 12 months, y ou worried that your food would run out before you got money to buy more: Never True 06/20/2023 Within the past 12 months,th e food you bought just didn't last and you didn't have enough money to get more: Never True Transportation Answer Date Recorded In the past 12 months, has l ack of transportation kept you from medical appts, meetings, work or from getting things needed for daily living? Yes, it has kept me from medical appointments or getting medications. 06/13/2023 Utilities Answer Date Recorded In the past 12 months, has t he electric, gas, oil or water company threatened to shut off services in your home? No 06/20/2023 Depression Answer Date Recorded Patient Health Questionnaire-2 [...] Diagnoses Not on filedocumented in this encounter Additional Health Concerns Assessment Noted Time PHQ-9 Depression Total Score: 9 02/15/20 23 10:23 AM EDT documented as of this encounter Care Teams Infrastructure Design Engineer Relationship Specialty Start Date End Date Jade Richards MD [address] [place] [address] PCP - General Family Medicine 05/04/22 documented as of this encounter
--- OUTSIDE RECORDS SUMMARY | 2024-09-26 08:53 | XMS_ITS | Encounter Summary ---
Author Organization [employer] Address [address] [place] [address] Care Team Providers Care Police Chief Deputy Name Role Phone Jade Richards MD Primary Care Provider [phone] Encounter Details Date Type Department Care Team (Late st Contact Info) Description 04/08/2023 Orders Only [facility] MEDICINE [address] [place], [place] [phone] Jade Richards MD [address] [place], [place] [phone] Pancreas cyst (Primary Dx) Social History Tobacco [...] documented as of this encounter Care Teams Police Chief Deputy Relationship Specialty Start Date End Date Jade Richards MD [address] [place] [address] PCP - General Family Medicine 05/04/22 documented as of this encounter
--- OUTSIDE RECORDS SUMMARY | 2024-09-26 08:53 | XMS_ITS | Encounter Summary ---
Author Organization [employer] Address [address] [place] [address] Care Team Providers Care Admiralty Lawyer Name Role Phone Jade Richards MD Primary Care Provider [phone] Reason for Visit * Reason Onset Date Comments Letter For Housing 11/23/2022 Encounter Details Date Type Department Care Team ([facility] Contact Info) Description 11/23/2022 Telephone [facility] MEDICINE [address] [place] [address] Jade Richards MD [address] [place] [address] Letter For Housing Social History Tobacco Use Types Packs/Day Years [...] AM EDT documented as of this encounter Miscellaneous Notes * Telephone Encounter - Adam Patrick - 12/23/2022 11:53 AM EDT Tc from pt daughter returning call regarding letter requested on 11/22/2022. Please contact daughter at [phone] * Telephone Encounter - Adam Patrick - 11/23/2022 10:53 AM EDT Tc from Pt requesting status on Letter that was requesting to remove rug from apartment floors. Spinner Iron sees discussion regarding matter on 08/31/2023. Please contact pt at [phone] documented in this encounter Plan of Treatment Not on file documented as of this encounter Visit Diagnoses Not on filedocumented in this encounter Care Teams Admiralty Lawyer Relationship Specialty Start Date End Date Jade Richards MD [address] [place] [id number] PCP - General Family Medicine 05/04/22 documented as of this encounter
--- OUTSIDE RECORDS SUMMARY | 2024-09-26 08:53 | XMS_ITS | Clinical Summary ---
Author Organization [employer] Address [address] [place] [address] Care Team Providers Care Wildland Fire Fighter Specialist Name Role Phone Jade Richards MD Primary Care Provider [phone] Allergies No known active allergies Medications lidocaine (Xylocaine) 5 % ointment APPLY TOPICALLY TO AFFECTED AREA(S) 1-4 TIMES DAILY NEEDED 04/27/20 22 Active pantoprazole (ProtoNix) 40 MG EC tablet TAKE 1 TABLET BY MOUTH EVERY MORNING Active cholecalciferol (Vitamin D-3) 25 MCG tablet TAKE 1 TABLET BY MOUTH EVERYDAY AT NOON 10/02/19 22 Active raNITIdine (Zantac) 150 MG tablet daily. Active fluocinonide (Lidex) 0.05 % ointment 02/08/20 23 Active Meclizine HCl 25 MG chewable tablet 03/17/20 23 Active sucralfate (Carafate) 1 GM/10ML suspension TAKE 10 ML BY MOUTH FOUR TIMES DAILY BEFORE MEALS AND AT BEDTIME 02/29/20 23 Active Ferrous Fumarate 324 (106 Fe) MG tablet TAKE 1 TABLET EVERYDAY AT NOON Active triamcinolone (Kenalog) 0.1 % cream Apply topically if needed in the morning and at bedtime (pain and swelling). 30 g 2 03/22/20 23 Active lidocaine (Lidoderm) 5 % patch Apply 1 patch topically in the morning. Remove & discard patch within 12 hours or as directed by . 30 patch 11 05/30/20 23 Active Multiple Vitamin (Multivitamin) tabletIndications:Healt hcare maintenance TAKE 1 TABLET BY MOUTH EVERYDAY AT NOON 90 tablet 3 09/21/19 24 Active zkykofpu-ruvgjukov-[id number] METHasone (Polydex) 3.5-52355-2.1 ointment ophthalmic ointment A[place] [address] [facility] 4 VECES AL JUSTINO, DESPUES EMPAQUE CALIENTE Y MASAJEAR. LLAME SI LOS SINTOMAS CONTINUAN O EMPEORAN 07/14/20 23 Active calcium citrate (Calcitrate) 950 (200 Ca) MG tabletIndications:Age-r elated osteoporosis without current pathological fracture TAKE 2 TABLETS BY MOUTH ONCE DAILY AT NOON 180 tablet 3 10/26/19 24 Active levothyroxine (Synthroid, Levoxyl) 75 MCG tabletIndications:Acqui red hypothyroidism TAKE 1 TABLET BY MOUTH EVERY MORNING EXCEPTO LOS BELLO 90 tablet 3 12/30/19 24 Active Aspirin Adult Low Strength 81 MG EC tabletIndications:Throm bocytosis, unspecified TAKE 1 TABLET BY MOUTH EVERYDAY AT NOON 90 tablet 3 01/12/20 24 Active rosuvastatin (Crestor) 5 MG tabletIndications:Pure hypercholesterolemia TAKE 1 TABLET BY MOUTH AT BEDTIME 90 tablet 3 01/17/20 24 Active senna (Senokot) 8.6 MG tablet Take 2 tablets (17.2 mg) by mouth at bedtime. 180 tablet 3 06/01/20 24 Active polyethylene glycol, PEG, 3350 (Glycolax) 17 GM/SCOOP powder TAKE 17 GM MIXED IN 8 OUNCES OF WATER ONCE DAILY NEEDED 510 g 08/16/20 24 Active Active Problems Problem Noted Date Diagnosed Date Low back pain of over 3 months duration 06/24/20 23 MGUS (monoclonal gammopathy of unknown significa nce) 06/01/2023 Assessment & Plan (06/01/2023 10:08 AM EDT): Last saw Dr Garduno 01/2023 Plan was to get immunofixation, but this was not done, will re-order SPEP and immunofixation now LDH elevated, rasing possibility of Waldenstrom macroglobulinemia No bone marrow biopsy ever Elevated LDH 06/01/2023 Pancreas cyst 03/19/2023 Assessment & Plan (09/28/2023 7:12 AM EST): MR with possible mucous containing cyst [facility] declined to schedule endoscopic biopsy Plan to obtain Dr Acevedo's notes ([facility]) to coordinate/assess need for further followup Assessment & Plan (04/18/2023 10:00 AM EDT): MR with possible mucous containing cyst She should expect a call from [facility] to schedule endoscopic biopsy Assessment & Plan (03/19/2023 10:57 AM EDT): Seen at ER [facility] visit 03/17/23 Will order MR pancreas with and without Coordinate with GI, Dr Acevedo, for MRCP Current mild episode of jessica r depressive disorder without prior episode 02/15/2023 Assessment & Plan (02/15/2023 11:02 AM EDT): PHQ9 score of 9 without SI/HI Starting Mirtazipine 15mg for mood and appetite stimulation followup in 3 months or sooner as needed Weight loss 02/14/2023 Assessment & Plan (05/31/2023 3:04 PM EDT): Will obtain labs today LDH, CBC, TSH, CMP Continue eating small healthful meals Patient is overweight, not cachectic Assessment & Plan (02/14/2023 1:10 PM EDT): Patient appears to be mildly depressed in clinic. She is dealing with a lot of stressors in her personal life that may be affecting her mood. She is not eating due to lack of appetite. We will try mirtazapine to see if that improves her mood and apetite then follow up in 2 months. Gastroesophageal reflux disease without esophagi tis 03/14/2018 Assessment & Plan (04/18/2023 9:59 AM EDT): Continue Protonix Lifestyle measures to include elevating head of bed, not eating 2 hours before bedtime Continue followup with [facility] Assessment & Plan (03/19/2023 10:58 AM EDT): PPI daily Lifestyle measures to include elevating head of bed, not eating 2 hours before bedtime Continue followup with [facility] Assessment & Plan (08/30/2022 6:20 PM EST): Continue followup with [facility] Acquired hypothyroidism 08/21/2015 Assessment & Plan (08/30/2022 6:21 PM EST): Continue Synthroid 75mcg daily Constipation 08/21/2015 Assessment & Plan (05/31/2023 3:05 PM EDT): Obtain KUB Bowel regimen Assessment & Plan (08/30/2022 6:20 PM EST): Continue Miralax and Senna daily as needed Reports multiple BMs per day Dementia 08/21/2015 Osteoporosis 08/21/2015 Assessment & Plan (09/28/2023 7:12 AM EST): Sees Dr Palacios at [facility] endo Currently on drug holiday from Reclast, will either restart Reclast or start Prolia later in the year Continue Ca/Cit D supplement Assessment & Plan (08/30/2022 6:20 PM EST): Continue annual Reclast infusions per endo Overweight 08/21/2015 Pure hypercholesterolemia 08/21/2015 Thrombocytosis 08/21/2015 Encounters Date Type Department Care Team Description 08/15/2024 Refill [facility] [address] [place] [address] Jade Richards MD from Last 3 Months Immunizations Name Administration Dates Next Due Influenza injectable quadriv alent IIV4 with preservative 08/05/2016 Influenza injectable quadriv alent preservative free 08/27/2022,10/26/2018,06/28/2017 Influenza, High Dose Seasona l, Preservative Free 07/26/2019 Influenza, IIV3, injectable 06/23/2021,1 ,08/19/2014,05/06,05/25/2010 Influenza, Split (incl. festus fied surface antigen) 08/21/2015,07/10/2013,05/18/2012 Pneumococcal Conjugate PCV 13 03/05/2016 Pneumococcal Polysaccharide PPSV23 07/19/2016,,11/19/2008 TD (adult), 2 Lf tetanus tox oid, preservative free, adsorbed 05/18/2006 Tdap 11/15/2012 Zoster, Recombinant 10/08/2019,07/26/2019 Zoster, live 09/17/2013 Social History Tobacco Use Types Packs/Day Years Used Date Smoking Tobacco: Never Smokeless Tobacco: Never Tobacco Cessation:Counseling Given: Not Answered Alcohol Use Standard Drinks/Week Comments Never 0 (1 standard drink = 0.6 oz pur e alcohol) Depression Answer Date Recorded Patient Health Questionnaire-9 Score 9 02/14/2023 Housing Stability Answer Date Recorded What is your housing situation today? I have allegra luna 01/13/[address] you li ve. Do you have problems with any of the following? None of the above 01/13/2024 Food Insecurity Answer Date Recorded Within the past 12 months, y ou worried that your food would run out before you got money to buy more: Never True 01/13/2024 Within the past 12 months,th e food you bought just didn't last and you didn't have enough money to get more: Never True 06/2024 Transportation Answer Date Recorded In the past 12 months, has l ack of transportation kept you from medical appts, meetings, work or from getting things needed for daily living? No 01/13/2024 Utilities Answer Date Recorded In the past 12 months, has t he electric, gas, oil or water company threatened to shut off services in your home? No 01/13/2024 Depression Answer Date Recorded Patient Health Questionnaire-2 Score 4 02/14/2023 Comments Unknown Sex and Gender Information Value Date Recorded Sex Assigned at Female 07/05/2022 10:18 AM EDT Legal Sex Female 10:18 AM EDT Gender Identity Female 07/05/2022 10:18 AM EDT Sexual Orientation Straight 07/05/2022 10 :18 AM EDT Last Filed Vital Signs Vital Sign Reading Time Taken Comments Blood Pressure 121/60 09/26/2023 9:37 AM EST Pulse 65 09/26/2023 9:37 AM EST Temperature 36.1 ??C (97 ??F) 09/26/2023 9:37 AM EST Respiratory Rate 20 09/26/2023 9:37 AM EST Oxygen Saturation 99% 05/30/2023 10:57 AM EDT Inhaled Oxygen Concentration - - Weight 63.5 kg (140 lb) 11/24/2023 1:16 PM EDT Height 144.8 cm (4' 9 ) 11/24/2023 1:16 PM EDT Body Mass Index 30.3 11/24/2023 1:16 PM EDT Plan of Treatment Health Maintenance Due Date Last Done Comments Alcohol/Substance Use Screening 1957 RSV Patients and Patients Aged 60 years or older (1 - 1-dose 75+ series) 2018 DTaP/Tdap/Td Vaccines (2 - Td or Tdap) 11/15/2022 11/15/2012, 05/18/2006 Depression Monitoring (PHQ-9) 08/16/2023 02/14/2023, 02/14/2023 Depression Screening 02/15/2024 02/14/2023, 02/15/20 COVID-19 Vaccine ( season) 2024 Influenza Vaccine (#1) 2024 , 06/23/2021, 07/26/2019, Additional history exists Tobacco Screening 09/26/2024 09/26/2023 SDOH Screening 01/12/2025 01/13/2024 Mammogram 02/27/2025 02/28/2024, 01/03, 01/19/2023, Additional history exists Pneumococcal Vaccine: 65+ Years Completed 07/19/2016, 03/05/2016, 12/13/2009, Additional history exists Zoster Vaccines Completed 10/08/2019, 07/07, 09/17/2013 HIB Vaccines Aged Out No longer eligi ble based on patient's age to complete this topic HPV Vaccines Aged Out No longer eligi ble based on patient's age to complete this topic Hepatitis A Vaccines Aged Out No long er eligible based on patient's age to complete this topic Hepatitis B Vaccines Aged Out No long er eligible based on patient's age to complete this topic IPV Vaccines Aged Out No longer eligi ble based on patient's age to complete this topic Meningococcal Vaccine Aged Out No elfego jordan eligible based on patient's age to complete this topic RSV under 20 months Aged Out No longe r eligible based on patient's age to complete this topic Rotavirus Vaccines Aged Out No longer eligible based on patient's age to complete this topic Procedures Procedure Name Priority Date/Time Associated Diagnosis Comments BI MAMMOGRAM SCREENING TOMOSYNTHESIS BILATERAL Routine 02/28/2024 10:45 AM EDT from Last 3 Months or Most Recently Relevant to Health Maintenance Results * BI Mammogram Screening Tomosynthesis Bilateral (02/28/2024 10:45 AM EDT) Anatomical Region Laterality Modality Breast Bilateral Mammography 02/28/2024 10:4 5 AM EDT Narrative 03/28/2024 11:34 PM EDT ? [facility] ? [address] ?[place] [id number] ? Mammography Report ? Signed ? Patient: Mendrel,Isidra ?MR#: [id number] ?? 198 ? : 1945 ?Acct:[id number] ? Age/Sex: 78 / F ?ADM Date: 02/28/24 ? Loc: HO.MAMMO ? Attending Dr: Jade Richards MD ? Ordering Physician: Jade Richards ?Results: 1Negative ? Date of Service: 02/28/24 ?Follow Up: 1 Year From Orig ?? inal Mammogram ? Procedure(s): MM tomosynthesis screening BI ?? Accession Number(s): [id number] ? cc: Jade Richards ? EXAMINATION: ?? MM SCREENING DIGITAL BREAST TOMOSYNTHESIS, BILATERAL ? CLINICAL INFORMATION: ? Screening. Asymptomatic. ? COMPARISON: ?? Mammography: This study is compared with prior exams dating back to ?? 2018. ? TECHNIQUE: ?? Digital breast tomosynthesis is performed in both the craniocaudal and ?? mediolateral oblique views along with computer-aided detection (CAD). ?? Synthesized 2D images are generated from the tomosynthesis. ? FINDINGS: ?? The breasts are heterogeneously dense, which may obscure small masses ?? (ACR BI-RADS breast composition Category c). ? There are no significant masses, abnormal calcifications, or other ?? abnormalities. ? MM/MM tomosynthesis screening BI ?? IMPRESSION: ?? No mammographic evidence of malignancy. ? ASSESSMENT: ? BI-RADS BI-RADS 1 - Negative ? RECOMMENDATION: ?? Routine annual mammography screening. ? 1 year F/U ? This examination should not preclude the clinical evaluation of a ?? suspicious palpable abnormality. ? This patient's information was entered into a reminder system with a ?? target due date for their next mammogram. ? Dictated By: ?Erin Kohli MD ? Signed By: ?<Electronically signed by Erin Moskos, MD in [place]> ? 03/28/24 2330 ? DD/ 1045 ? TD/TT: ? Insurance Claims Analyst: ? Procedure Note Cristobal, Janet - 03/28/2024 [facility] [address] [place] [address] [place] [address] Mammography Report Signed Patient: Kerri Srinivasan#: [id number] : 3Acct:[id number] Age/Sex: 78 / FADM Date: 02/28/24 Loc: [facility] Attending Dr: Jade Richards MD Ordering Physician: Lida Richardsults: 1Negative Date of Service: 02/28/24Follow Up: 1 Year From Orig inal Mammogram Procedure(s): MM tomosynthesis screening BI Accession Number(s): [id number] cc: Jade Richards EXAMINATION: MM SCREENING DIGITAL BREAST TOMOSYNTHESIS, BILATERAL CLINICAL INFORMATION: Screening. Asymptomatic. COMPARISON: Mammography: This study is compared with prior exams dating back to 2018. TECHNIQUE: Digital breast tomosynthesis is performed in both the craniocaudal and mediolateral oblique views along with computer-aided detection (CAD). Synthesized 2D images are generated from the tomosynthesis. FINDINGS: The breasts are heterogeneously dense, which may obscure small masses (ACR BI-RADS breast composition Category c). There are no significant masses, abnormal calcifications, or other abnormalities. MM/MM tomosynthesis screening BI IMPRESSION: No mammographic evidence of malignancy. ASSESSMENT: BI-RADS BI-RADS 1 - Negative RECOMMENDATION: Routine annual mammography screening. 1 year F/U This examination should not preclude the clinical evaluation of a suspicious palpable abnormality. This patient's information was entered into a reminder system with a target due date for their next mammogram. Dictated By: Erin Kohli MD Signed By: <Electronically signed by Erin Kohli MD in [place]> 03/28/24 2330 DD/ 1045 TD/TT: Insurance Claims Analyst: Jade Richards MD IMG BI PROCEDURES Edited Resul t - Final from Last 3 Months or Most Recently Relevant to Health Maintenance Insurance [address] [place] [address] [facility] Care Teams Wildland Fire Fighter Specialist Relationship Specialty Start Date End Date Jade Richards MD [address] [place] [id number] PCP - General Family Medicine 05/04/22
--- OUTSIDE RECORDS SUMMARY | 2024-09-26 08:53 | XMS_ITS | Encounter Summary ---
Author Organization [email or web address] Address [address] [place] [address] Care Team Providers Care Guillotine Trimmer Name Role Phone Jade Richards MD Primary Care Provider [phone] Encounter Details Date Type Department Care Team (Late st Contact Info) Description 06/28/2023 Abstract [facility] [address] [place], [place] [phone] Jade Richards MD [address] [place] [address] Social History Tobacco Use Types Packs/Day Years [...] documented as of this encounter Care Teams Guillotine Trimmer Relationship Specialty Start Date End Date Jade Richards MD [address] [place] [address] PCP - General Family Medicine 05/04/22 documented as of this encounter
--- OUTSIDE RECORDS SUMMARY | 2024-09-26 08:53 | XMS_ITS | Encounter Summary ---
Author Organization [email or web address] Address [address] [place] [address] Care Team Providers Care Hr Administrative Assistant Name Role Phone Jade Richards MD Primary Care Provider [phone] Reason for Visit * Reason Comments Med Refill Encounter Details Date Type Department Care Team ([facility] st Contact Info) Description 06/01/2024 Refill [facility] [address] [place], [place] [phone] Jade Richards MD [address] [place], [place] [phone] Social History Tobacco Use Types Packs/Day Years Used Date Smoking Tobacco: Never Smokeless Tobacco: Never Alcohol Use Standard Drinks/Week Comments Never 0 (1 standard drink = 0.6 oz pur e alcohol) Depression Answer Date Recorded Patient Health Questionnaire-9 Score 9 02/14/2023 Housing Stability Answer Date Recorded What is your housing situation today? I have allegrazachary carrasco 01/13/[address] you li [...] documented as of this encounter Care Teams Hr Administrative Assistant Relationship Specialty Start Date End Date Jade Richards MD [address] [place] [address] PCP - General Family Medicine 05/04/22 documented as of this encounter
--- OUTSIDE RECORDS SUMMARY | 2024-09-26 08:54 | XMS_ITS | Data Portability ---
Author Organization [employer] [facility] - [facility] Address [address] [place] [phone] Care Team Providers Care Rn Liaison Name Role Phone [facility] Referring Provider [facility] Referring Provider Assessment Encounter Date Assessment Date Assessment LastModified by Organization Details LastModified Time 10/20/2021 10/20/2021 Pat stated had same rash last March resolved with 10 pills of prednisone./co ntinue Benadryl 50 mg qhs- may aLSO TAKE 25 MG every 6 Hrs prn itch- Fever/ SOB/ Facial sts advised to go to the ER- F>u w/ pcp this week [email or web address] Not available 10/21/2021 12:45:56 02/28/2023 02/28/2023 I provided real -time medical direction via phone for this encounter, and was available for additional phone based assistance as needed. I have reviewed and agree with the Assessment and Plan as documented by the Porcelain Enameling Supervisor. Patient given the opportunity to ask questions. [email or web address] Not available 02/28/2023 13:49:00 Plan of Treatment Reminders Order Date Submit Date Provider Last Modified By Organization Details Last Modified Time Details Appointments None recorded. Lab rapid strep group A, throat 2022 023 [email or web address] 0 [facility], [address] [place] [address], [phone], 3 13:47:11 Referral None recorded. Procedures None recorded. Surgeries None recorded. Imaging None recorded. Medication Orders prednisone 20 mg tablet 2021 022 [email or web address] 0 [facility], [address] [facility], [place], [place], [phone], 2 12:46:02 prednisone 10 mg tablet 2021 022 [email or web address] Not available 18:25:22 Carafate 100 mg/mL oral suspension 2022 023 [facility], [address] [facility], [place], [place], [phone], 13:51:27 Patient TargetsNo targets recorded. Patient InstructionsNo instructions recorded. Reason for Referral None Reported. Results Created Date Observation Date Name Description Value Unit Range Abnormal Flag Note LastModifiedBy Organization Detail LastModifiedTime 02/29/2002/28/2023 rapid strep group A, throa t Strep negati ve Not Available Main - [facility] ed [address] [place] [address], [place], [phone], 02/28/2023 13:46:53 Result Notes None recorded. Medical Equipment None Reported. Allergies No known drug allergies Medications Name Sig Start Date Stop Date Status Note LastModified by Organization Details LastModified Time medbox status USE DIRECTED active Not Available Not Available No t Available prednisone 10 mg tablet Take 4 tablets by oral route. 2021 active given to patient- to fill rx tomorrow since evening visit Not Available Not Available Not Available senna 8.6 mg tablet TAKE 2 TABLETS BY MOUTH EVERY DAY AT BEDTIME (TAKE 1 TO 2 TABLETS BY MOUTH AT BEDTIME) active Not Available Not Available No t Available sucralfate 100 mg/mL oral suspension TAKE 10 ML BY MOUTH FOUR TIMES DAILY BEFORE MEALS AND AT BEDTIME active Not Available Not Available No t Available prednisone 20 mg tablet TAKE 2 TABLETS BY MOUTH EVERY DAY WITH MEALS active Not Available Not Available No t Available fluocinoni de 0.05 % topical ointment APPLY TO LEGS TWICE DAILY NEEDED FOR FLARES active Not Available Not Available No t Available aspirin 81 mg tablet,del ayed release TAKE 1 TABLET BY MOUTH EVERYDAY AT NOON active Not Available Not Available No t Available levothyrox ine 75 mcg tablet TAKE 1 TABLET BY MOUTH EVERY MORNING EXCEPTO LOS BELLO active Not Available Not Available No t Available pantoprazo le 40 mg tablet,del ayed release TAKE 1 TABLET BY MOUTH EVERY MORNING active Not Available Not Available No t Available polyethyle ne glycol 3350 17 gram/dose oral powder TAKE 17 GM MIXED IN 8 OUNCES OF WATER ONCE DAILY NEEDED active Not Available Not Available No t Available mirtazapin e 15 mg disintegra ting tablet DISSOLVE 1 TABLET BY MOUTH UNDER THE TONGUE AT BEDTIME active Not Available Not Available No t Available meclizine 25 mg chewable tablet CHEW 1 TABLET THREE TIMES DAILY FOR DIZZINESS active Not Available Not Available No t Available One Daily Multivitam in tablet TAKE 1 TABLET BY MOUTH EVERYDAY AT NOON active Not Available Not Available No t Available calcium 200 mg (as calcium citrate 950 mg) tablet TAKE 2 TABLETS BY MOUTH ONCE DAILY AT NOON active Not Available Not Available No t Available rosuvastat in 5 mg tablet TAKE 1 TABLET BY MOUTH AT BEDTIME active Not Available Not Available No t Available Ferrocite 324 mg (106 mg iron) tablet TAKE 1 TABLET EVERYDAY AT NOON active Not Available Not Available No t Available fluocinoni de 0.1 % topical cream APPLY TWICE A DAY TO ARMS AND LEGS, REDUCE USE SYMPTOMS IMPROVE, STOP WHEN CLEAR active Not Available Not Available No t Available cholecalci ferol (vitamin D3) 25 mcg (1,000 unit) tablet TAKE 1 TABLET BY MOUTH EVERYDAY AT NOON active Not Available Not Available No t Available lidocaine 5 % topical ointment APPLY TOPICALLY TO AFFECTED AREA(S) 1 TO 4 TIMES PER DAY NEEDED active Not Available Not Available No t Available Vitals Date Recorded Body weight Heart rate Respiratory rate Oxygen saturation Oxygen saturation in Arterial blood by Pulse oximetry Body temperature Systolic blood pressure Diastolic blood pressure Provider Name and Address Organization Details Last Updated DateTime 2 07668.8 2 g 92 /min 18 /min 98 % 98 % 98.3 [degF] 143 mm[Hg] 72 mm[Hg] Isabel Valverde MD [address] [place] [address],[address] [place], [phone], [place] - [facility] 2 12:43:07 Date Recorded Respiratory rate Body temperature Oxygen saturation Oxygen saturation in Arterial blood by Pulse oximetry Heart rate Systolic blood pressure Diastolic blood pressure Provider Name and Address Organization Details Last Updated DateTime 3 16 /min 98.5 [degF] 99 % 99 % 65 /min 130 mm[Hg] 70 mm[Hg] Not Available [facility] 3 13:38:53 Social History None recorded. Functional Status None recorded. Mental Status None recorded. Family History Nothing Reported. Medical History No medical history recorded. Gynecological HistoryNo gynecological history recorded. Obstetrics History GPAL:G 0 P 0 0 0 0 Past Encounters Encounter ID Performer Location Encounter Start Date Encounter Closed Date Diagnosis/Indication Diagnosis SNOMED-CT Code Diagnosis ICD10 Code Diagnosis Note [id number] Isabel Valverde MD [facility] - [facility] [address] [place] [phone] 10/20/2021 17:55:44 10/28/2021 16:19:16 Pruritic rash 53809346 L28.2 [id number] Isabel Valverde MD Main - [facility] [address] [place] [id number] 02/28/2023 13:38:51 03/01/2023 11:33:44 Dysphagia 73798407 R13.10 Likely GERD aggravatio n-advised need to take meds as directed- Pantoprazo le(Protoni x) 40 mg EVERY night at bedtime/ Advised need to sleep with upper body elevated/ will trial carafate to coat esophagus/ stomach( am concerned with compliance - Medic reviewed dietary restrictio ns via interprete r- no caffeine/ chocolate/ spicey acidic foods etc note sent to [facility]- to reach out to care team: Pat. needs help from care team/ better medication supervisio n. Advised if develops CP/severe SOB/turnin g blue/uncon trolled n/v or black/bloo dy emesis or stool/ syncope/ hi fever to call 911- she verbalized understand ing of instructio ns to medic with interprete r Health Concerns Section Related Observation LastModified by Organization Detai ls LastModified Time None Recorded Concern Status LastModified by Organization Details LastModified Time None Recorded Advance Directives Directive None Recorded Payers Encounter Date Sequence Insurance Name Policy Number Policy Hernandez Covered Member ID Hernandez Member ID Guarantor Name 10/20/2021 1 [facility] - DOS PRIOR TO 2022 - DUAL ELIGIBLE (MEDICARE REPLACEMENT/ADV ANTAGE - HMO) Isidra Srinivasan [id number] Isidra Srinivasan 02/28/2023 1 [facility] [employer] - DOS ON OR AFTER 2022 - DUAL ELIGIBLE - ASSISTED OPTIONS AND ONE CARE (MEDICARE REPLACEMENT/ADV ANTAGE - HMO) Isidra Srinivasan [id number] Isidra Srinivasan Notes Date Note Type Note Provider Name and Address Organization Details Recorded Time 10/20/2021 text/html per [facility]: Paramed ic Visit SummaryPATIENT IS A 76 YEAR OLD FEMALE WITH A BILATERAL ARM RASH X5 DAYS. PATIENT ALERT, CONFUSED AT BASELINE AND AMBULATORY. PATIENT IN NO ACUTE DISTRESS, AIRWAY PATENT, BREATHING NORMALLY. PATIENT GRAND DAUGHTER STATES THIS IS THE SECOND TIME SHES HAD A RASH LIKE THIS. FIRST TIME WAS BACK IN MARCH. SHE WENT TO THE ER FOR THE RASH, SHE WAS PERSCRIBED PREDNISONE WHICH CLEARED HER RASH. PATIENT HAS BEEN TAKING 25MG OF BENADRYL BEFORE BED TIME X2 NIGHTS NOW WITH NO EFFECT. PATIENT HAS NO KNOWN ALLERGIES. PATIENT ONLY COMPLAINS OF THE RASH BEING ITCHY, PATIENT DOES NO COMPLAIN OF PAIN. SKIN IS NOT BROKEN ON RASH SITES. CONSULTED WITH DR. VALVERDE. PATIENT WAS PERSCRIBED TWO 20 MG OF PREDNISONE ONCE A DAY FOR 5 DAYS. ALONG WITH BENADRYL 25MG EVERY 6 HOURS, AND 50 MG OF BENADRYL RIGHT BEFORE BEDTIME. PATIENT IS TO FOLLOW UP WITH PCP IN 48 HOURS REGARDING RASH S/S. PATIENT TO ALSO FOLLOW UP WITH CARE TEAM AND OR CONTACT 911 FOR ANY RED FLAGS OR EMERGENCIES.?SEG MD: no known cause- no recent new meds/detergents/ skin care products - is localized to arms Isabel Valverde MD [address] [facility], [place], [address], [employer] - [facility] 10/21/2021 12:46:29 02/28/2023 text/html HPI: Patient with history of Dementia and GERD. Recently started on Remeron Solutab at for increased depression and weight loss. Patient now with sore throat and reports burning all the way down to stomach that she is relating to medication. Patient is taking solutab and then going to bed with no fluid intake after tab dissolves. Patient with out fever of earache at time of call. .................... .................... .................... .................... .................... .................... .................... . [facility] Nursing Assessment: Comments: Review request no further information needed to process visit .................... .................... .................... .................... .................... .................... .................... . Porcelain Enameling Supervisor Note From Harsha Jensen: Dispatched to the call address for Patient with history of Dementia and GERD. Recently started on Remeron Solutab at for increased depression and weight loss. Patient now with sore throat and reports burning all the way down to stomach that she is relating to medication. Patient is taking solutab and then going to bed with no fluid intake after tab dissolves. Patient with out fever of earache at time of call. . Pt states it feels like a lump that she can feel go down in her stomach when she eats and causing her pain for several minutes after shes done eating. Pt also compliant of burning sensation from her stomach up to her throat. She states she sleeps laying flat. She states these symptoms started 3 days ago. Pt was found standing in door way, CAOx4, airway open and patent, breathing on labored, able to speak in full sentences, -JVD, -HEENT, skin PWD with good turgor, pupils SAULO, abd soft non tender/distended, inside of mouth normal appearing with wet mucous membranes, Afebrile, -n/v/d, Pt denies CP or SoB. Rapid strept negative. [facility] consulted. Pt advised of foods to avoid that are known to exacerbate GERD, Pt advised to sleep in the seated position. Script called into preferred pharmacy. Red flags discussed. ALL times are approx. .................... .................... .................... .................... .................... .................... .................... . Disposition: Fulfilled [facility] Nursing Assessment: Comments: Review request no further information needed to process visit SEGMD: moe is prescribed Protonix 40 mg qhs- med minder shows patient taking in the am and has only had 2 doses this past week- not taking her statin- is taking her remeron immediately before sleep but then lies flat. Only gets pain with swallowing when eating and at night and it gets better after a few min.( see above) Denied fever/chills/ sweats/ CP/SOB/n/v/d- black or bloody stool via telegraph lineman Isabel Valverde MD [address] [facility],[address], [place], [address], [employer] [facility] 02/28/2023 14:16:16 OBGyn Episode No OBEpisode recorded.
--- OUTSIDE RECORDS SUMMARY | 2024-09-26 08:54 | XMS_ITS | Encounter Summary ---
Author Organization [employer] [facility] Address [address] [place] [address] Care Team Providers Care Dog Groomer Name Role Phone Jade Richards MD Primary Care Provider [phone] Encounter Details Date Type Department Care Team (Late st Contact Info) Description 08/26/2022 Orders Only [facility] [address] [place] [address] Luis F Hyde PharmD ERRONEOUS ENCOUNTER--DISREGARD (Primary Dx) Social History Tobacco Use Types Packs/Day Years Used Date Smoking Tobacco: Never Assessed PHQ-2 Answer Date Recorded Patient Health Questionnaire-2 [...] PM EST documented as of this encounter Progress Notes * Luis F Hyde PharmD - 08/26/2022 2:30 PM EST This encounter was created in error - please disregard. documented in this encounter Plan of Treatment Not on file documented as of this encounter Visit Diagnoses Diagnosis ERRONEOUS ENCOUNTER--DISREGARD- Primary documented in this encounter Care Teams Dog Groomer Relationship Specialty Start Date End Date Jade Richards MD [address] [place] [address] PCP - General Family Medicine 05/04/22 documented as of this encounter
== END 2024-09-26 09:08 | disposition home or self-care (01) ==
PROVIDERS: PCP General Practice; Visit Provider Internal Medicine Endocrinology, Diabetes & Metabolism
DX: M81.0 Age-related osteoporosis without current pathological fracture (principal); E04.2 Nontoxic multinodular goiter
CPT/HCPCS: 99213

== ENCOUNTER 2024-09-26 09:12 | Outpatient (REF) | payer OTHER, SELFPAY ==
--- OUTSIDE RECORDS SUMMARY | 2024-09-26 09:42 | XMS_ITS | Patient Health Record ---
Author Organization [facility] Address [address] [place] [address] Care Team Providers Care Commercial Or Institutional Cleaner Name Role Phone Jade Richards M.D. Primary Care Provider Chaz Godoy Jr Unavailable [phone] ALLERGIES No Known Allergies RESULTS Component Value Reference Range Notes MR abdomen wo/w con Reviewed date:10/06/2023 08:51:38 AM Interpretation: Performing Lab: Notes/Report: [address] [address] Magnetic Resonance Report Signed with Addenda Patient: Isidra Ayala MR#: [id number] : 1945 Acct:[id number] Age/Sex: 78 / F ADM Date: 09/28/23 Loc: HO.MRI Attending Dr: Chaz Acevedo MD Ordering Physician: Chaz Acevedo MD Date of Service: 09/28/23 Procedure(s): MR abdomen wo/w con Accession Number(s): [id number] cc: Chaz Acevedo MD; Jade Richards ADDENDUM As stated in the original report, there is nonspecific gastric distention that could be related with postprandial state, however clinical correlation for gastroparesis and gastric outlet obstruction is recommended. Addendum Dictated By: Korin Manriquez Addendum Signed By: <Electronically signed by Korin Manriquez in OV> 09/29/23 1740 Addendum Cosigned By: DD/ TD/TT: / EXAMINATION: MR ABDOMEN WITHOUT AND WITH CONTRAST CLINICAL INFORMATION: Pancreatic cyst. COMPARISON: Abdominal MRI 03/28/2023. TECHNIQUE: MR abdomen was performed without and with use of 6 mL intravenous Gadavist gadolinium contrast. Postcontrast images are performed in multiphase dynamic sequences. Imaging was performed in 3 planes. FINDINGS: LUNG BASES: The visualized lung bases are unremarkable. LIVER, GALLBLADDER, AND BILIARY TREE: The liver is normal in size, morphology and signal. No liver lesion. Cholecystectomy. Unchanged [id number] intrahepatic and extrahepatic biliary ductal dilatation. The common bile duct measures up to 1.8 cm in diameter with focal tapering adjacent to the pancreatic cyst where it measures 0.6 cm in diameter. This is similar to prior. PANCREAS: Redemonstration of lobulated multiseptated T2 bright cystic-appearing lesion in the pancreatic head measuring 1.6 x 1.1 cm (image 26 series 10) previously 1.5 x 1.1 cm on 03/28/2023 when measured in a similar fashion. On postcontrast images, there is no suspicious enhancement. The main pancreatic duct is in close proximity to this observation, though definite connection cannot be established. There is no main pancreatic ductal dilatation. There are no peripancreatic inflammatory changes. SPLEEN: Normal. ADRENAL GLANDS: Normal. KIDNEYS AND URETERS: The kidneys are normal in size, shape, and enhance symmetrically. No hydronephrosis. No perinephric fat stranding. There is a 1.3 cm T2 bright simple-appearing Bosniak 1 cyst in the anterior aspect of the right kidney for which no imaging followup is recommended. GASTROINTESTINAL TRACT: No bowel obstruction or ascites. ABDOMINAL WALL: No significant hernia is appreciated. LYMPH NODES: No lymphadenopathy. VASCULAR: Unremarkable. OSSEOUS STRUCTURES: Again noted vertebral body hemangioma T12. Degenerative changes of the spine. No acute or aggressive-appearing osseous findings. ADDITIONAL FINDINGS: Nonspecific gastric distention. MR/MR abdomen wo/w con IMPRESSION: No significant change compared to 03/28/2023 with redemonstration of a 1.6 cm multiseptated T2 bright cystic-appearing lesion in the head of the pancreas. Unchanged [id number] biliary ductal dilatation with some degree of luminal narrowing of the common bile duct adjacent to the cystic lesion. If not previously obtained, evaluation with EUS is advised. Alternatively, close attention on followup with imaging at 6-12 months is recommended. Dictated By: Korin Manriquez Signed By: <Electronically signed by Korin Manriquez in OV> 09/29/23 1021 DD/ 1023 TD/TT: Floor Coverer: REASON FOR REFERRAL No Information MEDICATIONS Medication SIG (Take, Route, Frequency, Duration) Notes Start Date End Date Status Levothyroxine Sodium 75 MCG 1 tablet on an empty stomach in the morning Orally Once a day Active Multi Vitamin/Minerals - 1 Orally QD Active Senna 8.6 MG 2 tablets at bedtime as needed Orally Once a day Active Ranitidine HCl 150 MG 1 capsule at bedti me Orally Once a day Not-Taking Rosuvastatin Calcium 5 MG 1 tablet Orall y Once a day Active Aspir-81 81 MG 1 tablet Orally Once a day Active Aleve PRN Active Pantoprazole Sodium 40 MG 1 tablet Orall y Once a day for 30 days 01/19/2018 Active IMMUNIZATIONS Vaccine Route Administration Date Status Comme nts Influenza Unknown 06/06/2019 Administered Influenza Unknown 06/23/2021 Administered Influenza Unknown 07/26/2023 Administered SOCIAL HISTORY Tobacco Use: Social History Observation Description Date Details (start date - stop date) Never Smoker NA - NA Sex Assigned At : Social History Observation Description Sex Assigned At Unknown Tobacco Use/Smoking Question Answer Notes Patient is a nonsmoker Alcohol Screen Question Answer Notes Did you have a drink containing alcohol in the p ast year? No Points 0 Interpretation Negative PROBLEMS Problem Type ICD Code Onset Dates Problem Status W/U Status Risk SNOMED Code Notes Problem Gastroesophageal reflux disease without esophagitis (K21.9) Active confirmed 224829553 Problem Pancreatic cyst (K86.2) Active confirmed 45808251 Encounters Encounter Location Date Provider Diagnosis [facility] [address] [place] [phone] 10/06/2023 Chaz Acevedo Jr PLAN OF TREATMENT Pending Test Test Name Order Date BUN 08/10/2023 CREATININE 08/10/2023 LIVER PROFILE 08/10/2023 LIPASE 08/10/2023 CBC w/o DIFF 08/10/2023 MRI ABD W&WO CONTRAST 08/10/2023 Future Test Test Name Order Date UPPER GI ENDOSCOPY 10/26/2017 Insurance Providers Payer Name Payer Address Payer Phone Subscriber Number Group Number Insured Name Patient Relationship to Insured Coverage Start Date Coverage End Date [facility] [address] Attn Claims [place] [id number] ISIDRA AYALA Self - patient is the insured MEDICAL (GENERAL) HISTORY Medical History History ICD Code elevated cholesterol hypothyroidism thrombocytosis dementia osteoporosis elevated BMI constipation Gastroesophageal reflux dise ase, EGD 01/20, no H. pylori or Dobbs's esophagus Colonoscopy 07/05/11 normal Surgical History Surgery Date(Month/Year) left hip replacement 2010 hand surgery kidney surgery
--- OUTSIDE RECORDS SUMMARY | 2024-09-26 09:42 | XMS_ITS | Clinical Summary ---
Author Organization [employer] Address [address] 7t [place] [address] Care Team Providers Care Clinical Training Specialist Name Role Phone Jade Richards MD Primary Care Provider [phone] Allergies No known active allergies Medications lidocaine [...] NOON 90 tablet 3 09/21/19 24 Active fvxwbhbx-uhqyfzjor-adxZ METHasone (Polydex) 3.5-16447-1.1 ointment ophthalmic ointment APLICA 14 EN EL [...] EST): MR with possible mucous containing cyst [facility] declined to schedule endoscopic biopsy Plan to obtain Dr Acevedo's notes ([facility]) to coordinate/assess need for further followup Assessment & Plan (04/18/2023 10:00 AM EDT): MR with possible mucous containing cyst She should expect a call from [facility] to schedule endoscopic biopsy Assessment & Plan (03/19/2023 10:57 AM EDT): Seen at ER [facility] visit 03/17/23 Will order MR pancreas with [...] 2 hours before bedtime Continue followup with [facility] Assessment & Plan (03/19/2023 10:58 AM EDT): PPI daily Lifestyle measures to include elevating head of bed, not eating 2 hours before bedtime Continue followup with [facility] Assessment & Plan (08/30/2022 6:20 PM EST): Continue followup with [facility] Acquired hypothyroidism 08/21/2015 Assessment & Plan (08/30/2022 6:21 PM EST): Continue Synthroid 75mcg daily Constipation 08/21/2015 Assessment & Plan (05/31/2023 3:05 PM EDT): Obtain KUB Bowel regimen Assessment & Plan (08/30/2022 6:20 PM EST): Continue Miralax and Senna daily as needed Reports multiple BMs per day Dementia 08/21/2015 Osteoporosis 08/21/2015 Assessment & Plan (09/28/2023 7:12 AM EST): Sees Dr Palacios at [facility] endo Currently on drug holiday from Reclast, will either restart Reclast or start Prolia later in the year Continue Ca/Cit D supplement Assessment & Plan (08/30/2022 6:20 PM EST): Continue annual Reclast infusions per endo Overweight 08/21/2015 Pure hypercholesterolemia 08/21/2015 Thrombocytosis 08/21/2015 Encounters Date Type Department Care Team Description 08/15/[address] [facility] [address] [place] [address] Jade Richards MD from Last 3 Months [...] EDT Narrative 03/28/2024 11:34 PM EDT ? [facility] [place] ? [address] ?[place] [address] ? Mammography Report ? Signed ? Patient: Mendrel,Isidra ?MR#: [id number] ?? 198 ? : 1945 ?Acct:[id number] ? Age/Sex: 78 / F ?ADM Date: 02/28/24 ? Loc: HO.MAMMO ? Attending Dr: Jade Richards MD ? Ordering Physician: Jade Richards ?Results: 1Negative ? Date of Service: 02/28/24 ?Follow Up: 1 Year From Orig ?? inal Mammogram ? Procedure(s): MM tomosynthesis screening BI ?? Accession Number(s): [id number] ? cc: Jade Richards ? EXAMINATION: ?? [...] 2330 ? DD/ 1045 ? TD/TT: ? Set Key Driver: ? Procedure Note Cristobal, Janet - 03/28/2024 [facility] [address] [place] [address] [place] [address] Mammography Report Signed Patient: Kerri Sriniavsan#: [id number] : 3Acct:[id number] Age/Sex: 78 / FADM Date: 02/28/24 Loc: CHICHOO Attending Dr: Jade Richards MD Ordering Physician: Lida Richardsults: 1Negative Date of Service: 02/28/24Follow Up: 1 Year From Orig inal Mammogram Procedure(s): MM tomosynthesis screening BI Accession Number(s): [id number] cc: Jade Richards EXAMINATION: MM SCREENING DIGITAL [...] in OV> 03/28/24 2330 DD/ 1045 TD/TT: Set Key Driver: Jade Richards MD IMG BI PROCEDURES Edited Resul t - Final from Last 3 Months or Most Recently Relevant to Health Maintenance Insurance [address] [place] [address] [facility] Care Teams Clinical Training Specialist Relationship Specialty Start Date End Date Jade Richards MD [address] [place] [address] PCP - General Family Medicine 05/04/22
--- OUTSIDE RECORDS SUMMARY | 2024-09-26 09:42 | XMS_ITS ---
Author Organization [facility] Address [address] [place] [address] Care Team Providers Care Drawing Kiln Supervisor Name Role Phone Jade Richards M.D. Primary Care Provider Unava Chaz Browning Jr [phone] Encounters Encounter Location Date Provider Diagnosis [facility] [address] [place] [address] 08/22/2023 Chaz Acevedo Jr PLAN OF TREATMENT No Information
--- OUTSIDE RECORDS SUMMARY | 2024-09-26 09:42 | XMS_ITS | Encounter Summary ---
Author Organization [employer] Address [address] 7[address] [place] [address] Care Team Providers Care Validation Engineer Name Role Phone Jade Richards MD Primary Care Provider [phone] Encounter Details Date Type Department Care Team (Late st Contact Info) Description 06/28/2023 Abstract [facility] [address] [place], [place] [phone] Jade Richards MD [address] [place] [address] Social History Tobacco Use Types Packs/Day Years [...] documented as of this encounter Care Teams Validation Engineer Relationship Specialty Start Date End Date Jade Richards MD [address] [place] [address] PCP - General Family Medicine 05/04/22 documented as of this encounter
--- OUTSIDE RECORDS SUMMARY | 2024-09-26 09:42 | XMS_ITS | Encounter Summary ---
Author Organization [employer] Address [address] [place] [address] Care Team Providers Care Flow Trader Name Role Phone Jade Richards MD Primary Care Provider Reason for Visit * Reason Comments Med Refill Encounter Details Date Type Department Care Team ([facility] st Contact Info) Description 06/01/2024 Refill [facility]INE [address] [place], [place] [phone] Jade Richards MD [address] [place], [place] [phone] Social History Tobacco Use Types Packs/Day Years [...] documented as of this encounter Care Teams Flow Trader Relationship Specialty Start Date End Date Jade Richards MD [address] [place] [address] PCP - General Family Medicine 05/04/22 documented as of this encounter
--- OUTSIDE RECORDS SUMMARY | 2024-09-26 09:42 | XMS_ITS | Encounter Summary ---
Author Organization [employer] Address [address] 7t [place] [address] Care Team Providers Care Exploitation Analyst Name Role Phone Jade Richards MD Primary Care Provider [phone] Encounter Details Date Type Department Care Team (Late st Contact Info) Description 06/20/2023 Abstract [facility] MEDICINE [address] [place], [place] [phone] Jade Richards MD [address] [place] [address] Social History Tobacco Use Types Packs/Day Years [...] documented as of this encounter Care Teams Exploitation Analyst Relationship Specialty Start Date End Date Jade Richards MD [address] [place] [address] PCP - General Family Medicine 05/04/22 documented as of this encounter
--- OUTSIDE RECORDS SUMMARY | 2024-09-26 09:42 | XMS_ITS ---
Author Organization [facility] Address [address] [place] [address] Care Team Providers Care Correctional Manager Name Role Phone Jade Richards M.D. Primary Care Provider Unava Chaz Browning Jr REASON FOR VISIT labs Encounters Encounter Location Date Provider Diagnosis [facility] [address] [place] [address] 09/08/2023 Chaz Acevedo Jr PLAN OF TREATMENT No Information
--- OUTSIDE RECORDS SUMMARY | 2024-09-26 09:42 | XMS_ITS | Encounter Summary ---
Author Organization [employer] Address [address] 7t [place] [address] Care Team Providers Care Assembler For Puller Over Hand Name Role Phone Jade Richards MD Primary Care Provider [phone] Encounter Details Date Type Department Care Team (Late st Contact Info) Description 04/08/2023 Orders Only [facility] MEDICINE [address] [place], [place] [phone] Jade Richards MD [address] [place], [place] [phone] Pancreas cyst (Primary Dx) Social History Tobacco [...] documented as of this encounter Care Teams Assembler For Puller Over Hand Relationship Specialty Start Date End Date Jade Richards MD [address] [place] [address] PCP - General Family Medicine 05/04/22 documented as of this encounter
--- OUTSIDE RECORDS SUMMARY | 2024-09-26 09:42 | XMS_ITS ---
Author Organization [facility] Address [address] [place] [address] Care Team Providers Care Lens Marker Name Role Phone Jade Richards M.D. Primary Care Provider Unava Chaz Browning Jr [phone] REASON FOR VISIT MRI Encounters Encounter Location Date Provider Diagnosis [facility] [address] [place] [address] 10/06/2023 Chaz Acevedo Jr PLAN OF TREATMENT No Information
--- OUTSIDE RECORDS SUMMARY | 2024-09-26 09:43 | XMS_ITS | Encounter Summary ---
Author Organization [employer] Address [address] 7t [place] [address] Care Team Providers Care Credit Front Office Developer Name Role Phone Jade Richards MD Primary Care Provider [phone] Reason for Referral * Imaging (STAT) - Closed Specialty Diagnoses / Procedures Referred By Contac t Referred To Contact Radiology Diagnoses Pancreas cyst Procedures MR Abdomen w/ and w/o Contrast MRCP Jade Richards MD [address] [place] [address] Phone: tel: fax: [address] Phone: tel: fax: Referral ID Status Reason Start Date Expiration Date Visits Re quested Visits Authorized [id number] Closed 03/25/2023 03/24/2024 1 1 Encounter Details Date Type Department Care Team (Late st Contact Info) Description 03/25/2023 Orders Only [facility] [address] [place], [place] [phone] Jade Richards MD [address] [place], [place] [phone] Pancreas cyst (Primary Dx) Social History Tobacco [...] documented as of this encounter Care Teams Credit Front Office Developer Relationship Specialty Start Date End Date Jade Richards MD [address] [place] [address] PCP - General Family Medicine 05/04/22 documented as of this encounter
--- OUTSIDE RECORDS SUMMARY | 2024-09-26 09:43 | XMS_ITS | Encounter Summary ---
Author Organization [employer] Address [address] 7t [place] [address] Care Team Providers Care Relationship Executive Name Role Phone Jade Richards MD Primary Care Provider [phone] Reason for Visit * Reason Onset Date [...] the pt has been seen by the roller helper, and she stated that yes she has. I asked if she could contact the roller helper, and ask to have the office notes faxed to the [facility] HIM Dept at [phone], and she agreed to do so. Encounter Details Date Type Department Care Team ([facility] Contact Info) Description 08/31/2022 Telephone [facility] MEDICINE [address] [place] [address] Jade Richards MD [address] [place], [place] [phone] Letter Request (The pt requested a letter for housing, because she would like to have the rugs removed from her apartment. She developed fluid filled bumps on her body, and believes that they are caused by the rugs. I spoke with Nadine, her emergency contact, and asked if the pt has been seen by the roller helper, and she stated that yes she has. I asked if she could contact the roller helper, and ask to have the office notes faxed to the [facility] HIM Dept at [phone], and she agreed to do so. ) [...] on filedocumented in this encounter Care Teams Relationship Executive Relationship Specialty Start Date End Date Jade Richards MD [address] [place] [address] PCP - General Family Medicine 05/04/22 documented as of this encounter
--- OUTSIDE RECORDS SUMMARY | 2024-09-26 09:43 | XMS_ITS | Encounter Summary ---
Author Organization [employer] [facility] Address [address] 7t [place] [address] Care Team Providers Care Front Desk Auxiliary Name Role Phone Jade Richards MD Primary Care Provider [phone] Encounter Details Date Type Department Care Team (Late st Contact Info) Description 08/26/2022 Orders Only [facility] MEDICINE [address] [place] [address] Luis F Hyde PharmD ERRONEOUS ENCOUNTER--DISREGARD (Primary [...] Primary documented in this encounter Care Teams Front Desk Auxiliary Relationship Specialty Start Date End Date Jade Richards MD [address] [place] [address] PCP - General Family Medicine 05/04/22 documented as of this encounter
--- OUTSIDE RECORDS SUMMARY | 2024-09-26 09:43 | XMS_ITS | Encounter Summary ---
Author Organization [employer] Address [address] 7t [place] [address] Care Team Providers Care Cpr Instructor Name Role Phone Jade Richards MD Primary Care Provider [phone] Reason for Visit * Reason Onset Date Comments Letter For Housing 11/23/2022 Encounter Details Date Type Department Care Team ([facility] Contact Info) Description 11/23/2022 Telephone [facility] MEDICINE 230 [place] [address] Jade Richards MD [address] [place] [address] Letter For Housing Social History Tobacco Use [...] requested on 11/22/2022. Please contact daughter at [phone] * Telephone Encounter - Adam Patrick - 11/23/2022 10:53 AM EDT Tc from Pt requesting status on Letter that was requesting to remove rug from apartment floors. Painter Decorator sees discussion regarding matter on 08/31/2023. Please contact pt at [phone] documented in this encounter Plan of Treatment Not on file documented as of this encounter Visit Diagnoses Not on filedocumented in this encounter Care Teams Cpr Instructor Relationship Specialty Start Date End Date Jade Richards MD [address] [place] [address] PCP - General Family Medicine 05/04/22 documented as of this encounter
[2024-09-26 11:04] LABS: Thyroid Stimulating Hormone 1.92 uIU/mL (0.32-4.0)
== END 2024-09-26 09:13 | disposition home or self-care (01) ==
LOC: HO.10HDL 09:12
PROVIDERS: Visit Provider Internal Medicine Endocrinology, Diabetes & Metabolism
DX: E04.2 Nontoxic multinodular goiter (principal); M81.0 Age-related osteoporosis without current pathological fracture
CPT/HCPCS: 36415; 84439; 84443; 99212

== ENCOUNTER 2024-11-15 09:54 | Outpatient (REF) | payer OTHER, SELFPAY ==
[2024-11-15 11:19] LABS: Anion Gap 10 (12-20); Blood Urea Nitrogen 7 mg/dL (9-16); Calcium 9.3 mg/dL (8.4-10.2); Carbon Dioxide 28 mmol/L (22-29); Chloride 108 mmol/L (96-108); Estimated Glomerular Filt Rate > 60; Glucose Random 100 mg/dL (60-115); Potassium 4.1 mmol/L (3.3-5.1); Sodium 142 mmol/L (135-145)
--- OUTSIDE RECORDS SUMMARY | 2024-11-15 12:12 | XMS_ITS | Encounter Summary ---
Author Organization [employer] Address [address] 7t [place] [address] Care Team Providers Care Bilingual Trainer Name Role Phone Jade Richards MD Primary Care Provider [phone] Reason for Visit * Reason Onset Date Comments Letter For Housing 11/23/2022 Encounter Details Date Type Department Care Team ([facility] Contact Info) Description 11/23/2022 Telephone [facility] MEDICINE 230 [place] [address] Jade Richards MD 230 [place] [address] Letter For Housing Social History Tobacco Use [...] requested on 11/22/2022. Please contact daughter at [phone] * Telephone Encounter - Adam Patrick - 11/23/2022 10:53 AM EDT Tc from Pt requesting status on Letter that was requesting to remove rug from apartment floors. Clay Dry Press Helper sees discussion regarding matter on 08/31/2023. Please contact pt at [phone] documented in this encounter Plan of Treatment Not on file documented as of this encounter Visit Diagnoses Not on filedocumented in this encounter Care Teams Bilingual Trainer Relationship Specialty Start Date End Date Jade Richards MD [address] [place] [address] PCP - General Family Medicine 05/04/22 documented as of this encounter
--- OUTSIDE RECORDS SUMMARY | 2024-11-15 12:12 | XMS_ITS | Encounter Summary ---
Author Organization [employer] [facility] Address [address] 7t [place] [address] Care Team Providers Care High Climber Name Role Phone Jade Richards MD Primary Care Provider [phone] Encounter Details Date Type Department Care Team (Late st Contact Info) Description 08/26/2022 Orders Only [facility] MEDICINE [address] [place] [address] Luis F Hyde PharmD ERRONEOUS ENCOUNTER--DISREGARD (Primary [...] Primary documented in this encounter Care Teams High Climber Relationship Specialty Start Date End Date Jade Richards MD [address] [place] [address] PCP - General Family Medicine 05/04/22 documented as of this encounter
--- OUTSIDE RECORDS SUMMARY | 2024-11-15 12:12 | XMS_ITS ---
Author Organization [facility] Address [address] [place] [address] Care Team Providers Care Ed Teacher Name Role Phone Maurice Serrano, Jade Primary Care Provider Chaz Godoy Jr [phone] Encounters Encounter Location Date Provider Diagnosis [facility] [address] [place] [address] 08/22/2023 Chaz Acevedo Jr Plan Of Treatment No Information Progress Notes * ELISABETH AYALAADOB:[birth year] (79 yo F)Acc No.[id number]:08/22/2023 Progress Notes Patient:?SIVA AYALA Provider:?Chaz Acevedo MD :1945???Age:78 Y???Sex:Female D ate:08/22/2023 Address:[address] [place], [place] [address] Pcp:Jade Richards M.D. Subjective: * Chief Complaints: * ??? * Medical History:? Objective: * Vitals:? Assessment: Plan: * Treatment: * * The named appointment provid er may or may not be the originator of this progress note, and it is not deemed complete until electronically signed by the appointment provider. Sign off status: Pending * Provider:?Chaz Acevedo MD Date:?1 10/23/2022 Generated for Brian johnson/Greg/eTransmitting on:?11/15/2024 12:12 PM EDT
--- OUTSIDE RECORDS SUMMARY | 2024-11-15 12:12 | XMS_ITS | Encounter Summary ---
Author Organization [employer] Address [address] 7t [place] [address] Care Team Providers Care Information Systems Coordinator Name Role Phone Jade Richards MD Primary Care Provider [phone] Reason for Visit * Reason Onset Date [...] the pt has been seen by the anesthesiologists' assistant, and she stated that yes she has. I asked if she could contact the anesthesiologists' assistant, and ask to have the office notes faxed to the [facility] HIM Dept at [phone], and she agreed to do so. Encounter Details Date Type Department Care Team ([facility] Contact Info) Description 08/31/2022 Telephone [facility] MEDICINE 230 [place] [address] Jade Richards MD [address] [place], [place] [phone] Letter Request (The pt requested a letter for housing, because she would like to have the rugs removed from her apartment. She developed fluid filled bumps on her body, and believes that they are caused by the rugs. I spoke with Nadine, her emergency contact, and asked if the pt has been seen by the anesthesiologists' assistant, and she stated that yes she has. I asked if she could contact the anesthesiologists' assistant, and ask to have the office notes faxed to the [facility] HIM Dept at [phone], and she agreed to do so. ) [...] on filedocumented in this encounter Care Teams Information Systems Coordinator Relationship Specialty Start Date End Date Jade Richards MD [address] [place] [address] PCP - General Family Medicine 05/04/22 documented as of this encounter
--- OUTSIDE RECORDS SUMMARY | 2024-11-15 12:13 | XMS_ITS ---
Author Organization [facility] Address [address] [place] [address] Care Team Providers Care [employer] Business Intelligence Developer Name Role Phone Jade Richards M.D. Primary Care Provider Chaz Godoy Jr REASON FOR VISIT labs Encounters Encounter Location Date Provider Diagnosis [facility] [address] [place] [address] 09/08/2023 Chaz Acevedo Jr Plan Of Treatment No Information Progress Notes * ELISABETH AYALACINDYB:[birth year] (78 yo F)Acc No.[id number]:09/08/2023 Patient:?SIVA AYALA :1945???Age:78 Y???Sex:Female Address:[address] [place] [address], [place], [address] * true * Date:? Generated for Yusefi elizabeth/Greg/eTransmitting on:?11/15/2024 12:13 PM EDT
--- OUTSIDE RECORDS SUMMARY | 2024-11-15 12:13 | XMS_ITS ---
Author Organization [facility] Address [address] [place] [address] Care Team Providers Care Polymerization Helper Name Role Phone Jade Richards M.D. Primary Care Provider Chaz Godoy Jr REASON FOR VISIT MRI Encounters Encounter Location Date Provider Diagnosis [facility] [address] [place] [address] 10/06/2023 Chaz Acevedo Jr Plan Of Treatment No Information Progress Notes * ELISABETH AYALACINDYB:[birth year] (78 yo F)Acc No.[id number]:10/06/2023 Patient:?SIVA AYALA :1945???Age:78 Y???Sex:Female Address:[address] [place] [address], [place], [address] * true * Date:? Generated for Yusefi elizabeth/Greg/eTransmitting on:?11/15/2024 12:13 PM EDT
--- OUTSIDE RECORDS SUMMARY | 2024-11-15 12:13 | XMS_ITS | Encounter Summary ---
Author Organization [employer] Address [address] 7t [place] [address] Care Team Providers Care Digital Printer Operator Name Role Phone Jade Richards MD Primary Care Provider [phone] Encounter Details Date Type Department Care Team (Late st Contact Info) Description 11/15/2024 Orders Only GENERIC EXTERNAL DATA DEPARTMENT Provider, Generic External Data Social History Tobacco Use Types Packs/Day Years Used Date Smoking Tobacco: Never Smokeless Tobacco: Never Alcohol Use Standard Drinks/Week Comments Never 0 (1 standard drink = 0.6 oz pur e alcohol) Depression Answer Date Recorded Patient Health Questionnaire-9 Score 9 02/14/2023 Housing Stability Answer Date Recorded What is your housing situation today? I have allegra carrasco 01/13/[address] you [...] on file documented as of this encounter Procedures Procedure Name Priority Date/Time Associated Diagnosis Comments ALBUMIN Routine 11/15/2024 10:16 AM EDT BASIC METABOLIC PANEL Routine 11/15/2024 10:16 AM EDT documented in this encounter Results * Albumin (11/15/2024 10:16 AM EDT) Albumin Level 4.0 3.5 - 5.0 g/dL [facility] 11/15/2024 10:1 6 AM EDT 11/15/2024 10:16 AM EDT us Generic External Data Provider LAB BLOOD ORDERAB LES Final Result [facility] [address] [place] [phone] * (ABNORMAL) Basic Metabolic Panel (11/15/2024 10:16 AM EDT) Sodium 142 135 - 145 mmol/L [facility] Potassium 4.1 3.3 - 5.1 mmol/L [facility] Chloride 108 96 - 108 mmol/L [facility] Carbon Dioxide 28 22 - 29 mmol/L [facility] Anion Gap 10(L) 12 - 20 [facility] Urea Nitrogen (BUN) 7(L) 9 - 16 mg/dL [facility] Creatinine, Serum 0.65 0.5 - 1.4 mg/dL [facility] Estimated Glomerular Filt Rate >60 [facility] Comment:Chronic Kidney Disea se: Estimated GFR < 60 mL/min/1.48g9Ydtxwh Kidney Disease: Estimated GFR < 15 mL/min/1.73m2 Glucose 100 60 - 115 mg/dL [facility] Calcium 9.3 8.4 - 10.2 mg/dL [facility] 11/15/2024 10:1 6 AM EDT 11/15/2024 10:16 AM EDT us Generic External Data Provider LAB BLOOD ORDERAB LES Final Result [facility] [address] [place] [address] [phone] documented in this encounter Visit Diagnoses Not on filedocumented in this encounter Additional Health Concerns Assessment Noted Time PHQ-9 Depression Total Score: 9 02/15/20 23 10:23 AM EDT documented as of this encounter Care Teams Digital Printer Operator Relationship Specialty Start Date End Date Jade Richards MD [address] [place] [address] PCP - General Family Medicine 05/04/22 documented as of this encounter
--- OUTSIDE RECORDS SUMMARY | 2024-11-15 12:13 | XMS_ITS | Encounter Summary ---
Author Organization [employer] Address [address] [facility] [address] [place] [address] Care Team Providers Care Product Owner Name Role Phone Jade Richards MD Primary Care Provider [phone] Reason for Visit * Reason Comments Med Refill Encounter Details Date Type Department Care Team ([facility] st Contact Info) Description 06/01/2024 Refill [facility] MED[facility]INE [address] [place], [place] [phone] Jade Richards MD [address] [place], [place] [phone] Social History Tobacco Use Types Packs/Day Years [...] documented as of this encounter Care Teams Product Owner Relationship Specialty Start Date End Date Jade Richards MD [address] [place] [address] PCP - General Family Medicine 05/04/22 documented as of this encounter
--- OUTSIDE RECORDS SUMMARY | 2024-11-15 12:13 | XMS_ITS | Patient Health Record ---
Author Organization [facility] Address [address] [place] [address] Care Team Providers Care Knife Edger Name Role Phone Jade Richards M.D. Primary Care Provider Chaz Godoy Jr Allergies No Known Allergies Reason For Referral No Information Medications Medication SIG (Take, Route, Frequency, Duration) Notes [...] a day for 30 days 01/19/2018 Active Immunizations Vaccine Route Administration Date Status Comme nts Influenza Unknown 06/06/2019 Administered Influenza Unknown 06/23/2021 Administered Influenza Unknown 07/26/2023 Administered Social History Tobacco Use: Social History Observation Description Date Details (start date - stop date) Never Smoker NA - NA Tobacco Use/Smoking Question Answer Notes Patient is a nonsmoker Alcohol Screen Question Answer Notes Did you have a drink containing alcohol in the p ast year? No Points 0 Interpretation Negative Problems Problem Type SNOMED Code ICD Code Onset Dates Problem Status W/U Status Risk Notes Problem 538923018 Gastroesophageal reflux disease without esophagitis (K21.9) Active confirmed Problem 30428136 Pancreatic cyst (K86.2) Active confirmed Plan Of Treatment Pending Test Test Name Order Date BUN 08/10/2023 CREATININE 08/10/2023 LIVER PROFILE 08/10/2023 LIPASE 08/10/2023 CBC w/o DIFF 08/10/2023 MRI ABD W&WO CONTRAST 08/10/2023 Future Test Test Name Order Date UPPER GI ENDOSCOPY 10/26/2017 Insurance Providers Payer Name Payer Address Payer Phone Subscriber Number Group Number Insured Name Patient Relationship to Insured Coverage Start Date Coverage End Date [facility] [address] Attn Claims RAD[place] [id number] SIVA AYALA Self - patient is the insured Medical (General) History Medical History History ICD Code elevated cholesterol hypothyroidism thrombocytosis dementia osteoporosis elevated BMI constipation Gastroesophageal reflux dise ase, EGD 01/20, no H. pylori or Dobbs's esophagus Colonoscopy 07/05/11 normal Surgical History Surgery Date(Month/Year) left hip replacement 2010 hand surgery kidney surgery
--- OUTSIDE RECORDS SUMMARY | 2024-11-15 12:13 | XMS_ITS | Clinical Summary ---
Author Organization [employer] Address [address] [facility] [address] [place] [address] Care Team Providers Care Caramel Coloring Operator Name Role Phone Jade Richards MD Primary Care Provider [phone] Allergies No known active allergies Medications lidocaine [...] NOON 90 tablet 3 09/21/19 24 Active adaylzaf-xgyifqmeh-btvE METHasone (Polydex) 3.5-31143-9.1 ointment ophthalmic ointment APLICA 14 EN EL [...] EST): MR with possible mucous containing cyst [facility] declined to schedule endoscopic biopsy Plan to obtain Dr Acevedo's notes ([facility]) to coordinate/assess need for further followup Assessment & Plan (04/18/2023 10:00 AM EDT): MR with possible mucous containing cyst She should expect a call from [facility] to schedule endoscopic biopsy Assessment & Plan (03/19/2023 10:57 AM EDT): Seen at ER [facility] visit 03/17/23 Will order MR pancreas with [...] 2 hours before bedtime Continue followup with [facility] Assessment & Plan (03/19/2023 10:58 AM EDT): PPI daily Lifestyle measures to include elevating head of bed, not eating 2 hours before bedtime Continue followup with [facility] Assessment & Plan (08/30/2022 6:20 PM EST): Continue followup with [facility] Acquired hypothyroidism 08/21/2015 Assessment & Plan (08/30/2022 6:21 PM EST): Continue Synthroid 75mcg daily Constipation 08/21/2015 Assessment & Plan (05/31/2023 3:05 PM EDT): Obtain KUB Bowel regimen Assessment & Plan (08/30/2022 6:20 PM EST): Continue Miralax and Senna daily as needed Reports multiple BMs per day Dementia 08/21/2015 Osteoporosis 08/21/2015 Assessment & Plan (09/28/2023 7:12 AM EST): Sees Dr Palacios at [facility] endo Currently on drug holiday from Reclast, will either restart Reclast or start Prolia later in the year Continue Ca/Cit D supplement Assessment & Plan (08/30/2022 6:20 PM EST): Continue annual Reclast infusions per endo Overweight 08/21/2015 Pure hypercholesterolemia 08/21/2015 Thrombocytosis 08/21/2015 Encounters Date Type Department Care Team Description 11/15/2024 Orders Only GENERIC EXTERNAL DATA DEPARTMENT Provider, Generic External Data from Last 3 Months Immunizations Name Administration [...] 2024 , 06/23/2021, 07/26/2019, Additional history exists SDOH Screening 01/12/2025 01/13/2024 Tobacco Screening 01/12/2025 01/13/2024 Mammogram 02/27/2025 02/28/2024, 01/03, 01/19/2023, Additional history exists Pneumococcal Vaccine: 50+ Years Completed 07/19/2016, 03/05/2016, 12/13/2009, Additional history [...] METABOLIC PANEL Routine 11/15/2024 10:16 AM EDT BI MAMMOGRAM SCREENING TOMOSYNTHESIS BILATERAL Routine 02/28/2024 10:45 AM EDT from Last 3 Months or Most Recently Relevant to Health Maintenance Results * Albumin (11/15/2024 10:16 AM EDT) Albumin Level 4.0 3.5 - 5.0 g/dL [facility] 11/15/2024 10:1 6 AM EDT 11/15/2024 10:16 AM EDT us Generic External Data Provider LAB BLOOD ORDERAB LES Final Result Performing Organization Address City/State/[facility] Co de Phone Number [facility] [address] [place] [phone] * (ABNORMAL) Basic Metabolic Panel (11/15/2024 10:16 AM EDT) Sodium 142 135 - 145 mmol/L [facility] Potassium 4.1 3.3 - 5.1 mmol/L [facility] Chloride 108 96 - 108 mmol/L [facility] Carbon Dioxide 28 22 - 29 mmol/L [facility] Anion Gap 10(L) 12 - 20 [facility] Urea Nitrogen (BUN) 7(L) 9 - 16 mg/dL [facility] Creatinine, Serum 0.65 0.5 - 1.4 mg/dL [facility] Estimated Glomerular Filt Rate >60 [facility] Comment:Chronic Kidney Disea se: Estimated GFR < 60 mL/min/1.54h8Hgijuu Kidney Disease: Estimated GFR < 15 mL/min/1.73m2 Glucose 100 60 - 115 mg/dL [facility] Calcium 9.3 8.4 - 10.2 mg/dL [facility] 11/15/2024 10:1 6 AM EDT 11/15/2024 10:16 AM EDT us Generic External Data Provider LAB BLOOD ORDERAB LES Final Result [facility] [address] [place] [address] [phone] * BI Mammogram Screening Tomosynthesis Bilateral (02/28/2024 10:45 AM EDT) Anatomical Region Laterality Modality Breast Bilateral Mammography 02/28/2024 10:4 5 AM EDT Narrative 03/28/2024 11:34 PM EDT ? [facility] [place] ? [address] ?[place] [address] ? Mammography Report ? Signed ? Patient: Mendrel,Isidra ?MR#: [id number] ?? 198 ? : 1945 ?Acct:[id number] ? Age/Sex: 78 / F ?ADM Date: 02/27/ ? Loc: HO.MAMMO ? Attending Dr: Jade Richards MD ? Ordering Physician: Jade Richards ?Results: 1Negative ? Date of Service: 02/27/ ?Follow Up: 1 Year From Orig ?? inal Mammogram ? Procedure(s): MM tomosynthesis screening BI ?? Accession Number(s): [id number] ? cc: Jade Richards ? EXAMINATION: ?? [...] ? Signed By: ?<Electronically signed by Erin Kohli MD in OV> ? 03/28/24 2330 ? DD/ 1045 ? TD/TT: ? Bilingual Operator: ? Procedure Note Cristobal, Image - 03/28/2024 [facility] [address] [place] [address] Dr. Danielle, [place] [address] Mammography Report Signed Patient: Kerri Srinivasan#: [id number] : 3Acct:[id number] Age/Sex: 78 / FADM Date: 02/28/24 Loc: AMIR[facility] Attending Dr: Jade Richards MD Ordering Physician: Lida Richardsults: 1Negative Date of Service: 02/28/24Follow Up: 1 Year From Orig ina Mammogram Procedure(s): MM tomosynthesis screening BI Accession Number(s): [id number] cc: Jade Richards EXAMINATION: MM SCREENING DIGITAL [...] in OV> 03/28/24 2330 DD/ 1045 TD/TT: Bilingual Operator: Jade Richards MD IMG BI PROCEDURES Edited Resul t - Final from Last 3 Months or Most Recently Relevant to Health Maintenance Insurance [facility] Care Teams Caramel Coloring Operator Relationship Specialty Start Date End Date Jade Richards MD [address] [place] [address] [place] [address] PCP - General Family Medicine 05/04/22
--- OUTSIDE RECORDS SUMMARY | 2024-11-15 12:13 | XMS_ITS | Encounter Summary ---
Author Organization [employer] Address [address] [facility] [facility] [address] [place] [address] Care Team Providers Care Cancer Program Consultant Name Role Phone Jade Richards MD Primary Care Provider [phone] Reason for Referral * Imaging (STAT) - Closed Specialty Diagnoses / Procedures Referred By Contac t Referred To Contact Radiology Diagnoses Pancreas cyst Procedures MR Abdomen w/ and w/o Contrast MRCP Jade Richards MD [address] [place] [address] Phone: tel: fax: [address] Phone: tel: fax: Referral ID Status Reason Start Date Expiration Date Visits Re quested Visits Authorized [id number] Closed 03/25/2023 03/24/2024 1 1 Encounter Details Date Type Department Care Team (Late st Contact Info) Description 03/25/2023 Orders Only [facility] MEDICINE [address] [place], [place] [phone] Jade Richards MD [address] [place], [place] [phone] Pancreas cyst (Primary Dx) Social History Tobacco [...] documented as of this encounter Care Teams Cancer Program Consultant Relationship Specialty Start Date End Date Jade Richards MD [address] [place] [address] PCP - General Family Medicine 05/04/22 documented as of this encounter
--- OUTSIDE RECORDS SUMMARY | 2024-11-15 12:13 | XMS_ITS | Encounter Summary ---
Author Organization [employer] Address [address] [facility] [address] [place] [address] Care Team Providers Care Universal Grinder Tool Name Role Phone Jade Richards MD Primary Care Provider [phone] Encounter Details Date Type Department Care Team (Late st Contact Info) Description 06/28/2023 Abstract [facility] MEDICINE 230 [place], [place] [phone] Jade Richards MD [address] [place], [place] [phone] Social History Tobacco Use Types Packs/Day Years [...] documented as of this encounter Care Teams Universal Grinder Tool Relationship Specialty Start Date End Date Jade Richards MD [address] [place] [address] PCP - General Family Medicine 05/04/22 documented as of this encounter
--- OUTSIDE RECORDS SUMMARY | 2024-11-15 12:13 | XMS_ITS | Data Portability ---
Author Organization [employer] [facility] Address [address] [place] [phone] Care Team Providers Care Customizer Name Role Phone [facility] Referring Provider [facility] Referring Provider Assessment Encounter Date Assessment Date Assessment LastModified by Organization Details LastModified Time 10/20/2021 10/20/2021 Pat stated had same rash last March resolved with 10 pills of prednisone./co ntinue Benadryl 50 mg qhs- may aLSO TAKE 25 MG every 6 Hrs prn itch- Fever/ SOB/ Facial sts advised to go to the ER- F>u w/ pcp this week [email or web address] Not available 10/21/2021 12:45:56 02/28/2023 02/28/2023 I provided real -time medical direction via phone for this encounter, and was available for additional phone based assistance as needed. I have reviewed and agree with the Assessment and Plan as documented by the Insurance Examining Clerk. Patient given the opportunity to ask questions. [email or web address] Not available 02/28/2023 13:49:00 Plan of Treatment Reminders Order Date Submit Date Provider Last Modified By Organization Details Last Modified Time Details Appointments None recorded. Lab rapid strep group A, throat 2022 023 [email or web address] 0 [facility] [place], [address] [place] [address], [phone], 3 13:47:11 Referral None recorded. Procedures None recorded. Surgeries None recorded. Imaging None recorded. Medication Orders Carafate 100 mg/mL oral suspension 2022 023 [facility], [address] [facility] , [place], [place], [phone], 3 13:51:27 prednisone 20 mg tablet 2021 022 [email or web address] 0 [facility], [address] [facility], [place], [place], [phone], 12:46:02 prednisone 10 mg tablet 2021 022 [email or web address] Not available 18:25:22 Patient TargetsNo targets recorded. Patient InstructionsNo instructions recorded. Reason for Referral None Reported. Results Created Date Observation Date Name Description Value Unit Range Abnormal Flag Note LastModifiedBy Organization Detail LastModifiedTime 02/29/2002/28/2023 rapid strep group A, throa t Strep negati ve Not Available Main - [facility] ed [address] [place] [address], [phone], 02/28/2023 13:46:53 Result Notes None recorded. Medical [...] Address Organization Details Last Updated DateTime 2 62993.8 2 g 92 /min 18 /min 98 % 98 % 98.3 [degF] 143 mm[Hg] 72 mm[Hg] Isabel Valverde MD [address] [place] [address],[address] [place], [phone], [place] - [employer] 2 12:43:07 Date Recorded Respiratory rate Body temperature Oxygen saturation Oxygen saturation in Arterial blood by Pulse oximetry Heart rate Systolic blood pressure Diastolic blood pressure Provider Name and Address Organization Details Last Updated DateTime 3 16 /min 98.5 [degF] 99 % 99 % 65 /min 130 mm[Hg] 70 mm[Hg] Not Available [email or web address] 3 13:38:53 Social History None recorded. Functional [...] 73 Isabel Valverde MD Main - [facility] [address] [place] [phone] 10/20/2021 17:55:44 10/28/2021 16:19:16 Pruritic rash 68881359 L28.2 [id number] Isabel Valverde MD Main - [facility] [address] [place] [phone] 02/28/2023 13:38:51 03/01/2023 11:33:44 Dysphagia 98504128 R13.10 Likely GERD aggravatio n-advised need to [...] Hernandez Member ID Guarantor Name 10/20/2021 1 [facility] - DOS PRIOR TO 2022 - DUAL ELIGIBLE (MEDICARE REPLACEMENT/ADV ANTAGE - HMO) Isidra Srinivasan [id number] Isidra Srinivasan 02/28/[address] [facility] [employer] - DOS ON OR AFTER 2022 - DUAL ELIGIBLE - CARE HOME OPTIONS AND ONE CARE (MEDICARE REPLACEMENT/ADV ANTAGE - HMO) Isidra Srinivasan [id number] Isidra Srinivasan Notes Date Note Type Note Provider Name and Address Organization Details Recorded Time 10/20/2021 text/html per [facility]: Paramed ic Visit SummaryPATIENT IS A 76 [...] localized to arms Isabel Valverde MD [address] [facility], [place], [phone], [employer] - [employer] 10/21/2021 12:46:29 02/28/2023 text/html HPI: Patient with [...] .................... .................... .................... .................... .................... .................... . Insurance Examining Clerk Note From Harsha Jensen: Dispatched to the [...] sweats/ CP/SOB/n/v/d- black or bloody stool via hot punch press operator Isabel Valverde MD [address] [facility], [place], [phone], [employer] [facility] [employer] 02/28/2023 14:16:16 OBGyn Episode No OBEpisode recorded.
--- OUTSIDE RECORDS SUMMARY | 2024-11-15 12:13 | XMS_ITS | Encounter Summary ---
Author Organization [employer] Address [address] [facility] [address] [place] [address] Care Team Providers Care Combat Engineer Name Role Phone Jade Richards MD Primary Care Provider [phone] Encounter Details Date Type Department Care Team (Late st Contact Info) Description 06/20/2023 Abstract [facility] MEDICINE [address] [place], [place] [phone] Jade Richards MD [address] [place] [address] Social History Tobacco Use Types Packs/Day Years [...] documented as of this encounter Care Teams Combat Engineer Relationship Specialty Start Date End Date Jade Richards MD [address] [place] [address] PCP - General Family Medicine 05/04/22 documented as of this encounter
--- OUTSIDE RECORDS SUMMARY | 2024-11-15 12:13 | XMS_ITS | Encounter Summary ---
Author Organization [employer] Address [address] [facility] [facility] [address] [place] [address] Care Team Providers Care Assembler Dc Field Ring Name Role Phone Jade Richards MD Primary Care Provider Encounter Details Date Type Department Care Team (Late st Contact Info) Description 04/08/2023 Orders Only [facility] MED[facility]INE 230 [place], [place] [phone] Jade Richards MD 230 [place], [place] [phone] Pancreas cyst (Primary Dx) Social History Tobacco [...] as of this encounter Care Teams Assembler Dc Field Ring Relationship Specialty Start Date End Date Jade Richards MD [address] [place] [address] PCP - General Family Medicine 05/04/22 documented as of this encounter
== END 2024-11-15 09:55 | disposition home or self-care (01) ==
LOC: HO.LAB 09:54
PROVIDERS: PCP General Practice; Visit Provider Internal Medicine Endocrinology, Diabetes & Metabolism
DX: M81.0 Age-related osteoporosis without current pathological fracture (principal)
CPT/HCPCS: 36415; 80048; 82040

== ENCOUNTER 2024-11-22 10:16 | Outpatient (RCR) | payer OTHER, SELFPAY ==
[2024-11-22 10:21] VITALS: BP 124/50; PULSE 64; RESP 16; TEMP 36.6; O2SAT 98
[2024-11-22] MEDS: Zoledronic Acid/Mannitol-Water 5 MG/100 ML PGGYBK.BTL IV (10:31)
== END 2024-11-22 10:46 | disposition home or self-care (01) ==
LOC: HO.INF 10:16
PROVIDERS: Visit Provider Internal Medicine Endocrinology, Diabetes & Metabolism
DX: M81.0 Age-related osteoporosis without current pathological fracture (principal)
CPT/HCPCS: 96374; J3489

== ENCOUNTER 2024-12-25 09:14 | Outpatient (AMB) | payer OTHER, SELFPAY ==
[2024-12-25 09:17] VITALS: BP 114/62; PULSE 77; O2SAT 95; BMI 28.5
--- NOTE | 2024-12-25 09:17 | MHC.OFFVIS ---
Vital Signs 12/25/24 09:17 Height 5 ft Weight 145 lb 11.609 oz BMI 28.5 BP 114/62 Blood Pressure Location Lt brachial Position Sitting Pulse 77 Pulse Source Pulse Oximeter Pulse Oximetry (%) 95 Oxygen Delivery Method Room Air Intake Visit Reasons: MNG Intake Note: Patient present today for MNG office visit. [employer] Floorperson Required: Yes [employer] Floorperson Language: Power Engineer Services: [employer] Floorperson Present [employer] Floorperson Name: Srinivas [id number] Information Interpreted: non-clinical & clinical Accompanied by: Grand Child Allergies No Known Allergies Allergy (Mild, Verified 12/25/24 09:22) NONE HPI Comments Details: 79 YO Female seen today for follow up of nontoxic multinodular goiter. Here today with granddaughter. She also has a history significant for osteoporosis for which she sees Dr. Palacios in our practice, has a upcoming appointment in January 2025. This was not addressed today. Multinodular Thyroid and hypothyroidism MNG Diagnosed in 2021 Also has history of hypothyroidism on levothyroxine 75 mcg daily She thinks she takes for many years She takes it with breakfast , she has never taken it on an empty stomach She underwent FNA biopsy of 3 thyroid nodules 04/15/2022 LMP 1.4 cm thyroid nodule with cytology atypia of undetermined significance (bethesda category III)., Afirma benign LMP 3.4 cm thyroid nodule with cytology suspicious for follicular neoplasm (bethesda category IV), Afirma benign and RMP 1.7 cm thyroid nodule which was benign. She opted for routine surveillance. Most recent thyroid ultrasound from April 2023 showed smaller/stable size of the nodules. However difficult to distinguish exact boundaries due to increased heterogenous D of the thyroid gland. She denies any compressive symptoms. No symptoms of hypo or hyperthyroidism Normal TFTs from September 2024 No family history of thyroid cancer or thyroid disease No history of head or neck radiation. Physical exam General: sitting comfortably in no acute distress HEENT: normocephalic/atraumatic, moist oral mucosa Neck: supple, palpable 2 cm left-sided nodule, palpable 1 cm right-sided nodule Cardiac: normal heart sounds Pulm: normal breath sounds B/L, no added breath sounds Abd: not distended, no tenderness Extremities: no edema, no signs of myxedema Neuro: AAO x3, Speech: normal, no facial droop, moving all 4 extremities Laboratory Tests 09/26/24 09:16 TSH 1.92 Free T4 0.90 Thyroid US: 04/19/2023 Right Thyroid Lobe: 5.8 x 2.4 x 2.2 cm, volume 16.2 mL. Previously 5.7 x 2.7 x 2.3 cm, volume 18.0 mL. Parenchyma: The gland echotexture is heterogeneous. Thyroid vascularity is increased. Left Thyroid Lobe: 6.7 x 3.2 x 2.8 cm, volume 31.3 mL. Previously 7.2 x 2.9 x 3.1 cm, volume 34.0 mL. Parenchyma: The gland echotexture is heterogeneous. Thyroid vascularity is increased. Isthmus: 0.47 cm in maximum AP dimension. Previously 0.30 cm. Estimated total number of nodules greater than or equal to 1 cm: 4. Carpenter And Joiner nodules are described as follows: 1.? Location: Right mid inferior. ?? ? Size: 3.3 x 1.9 x 2.3 cm, volume 7.8 mL. ?? ? Previously: 2.8 x 2.1 x 2.0 cm, volume 6.2 mL. ?? ? Nodule characteristics: ?? ? Composition: Solid/almost completely solid (2). ?? ? Echogenicity: Cannot be determined (1). ?? ? Shape: Not taller than wide (0). ?? ? Margins: Smooth (0). ?? ? Echogenic Foci: None (0).? ACR TI-RADS total points: 3 Previous: 6 ?? ? ACR TI-RADS category: 3 Previous: 4 ? 2.? Location: Right superior. ?? ? Size: 1.4 x 0.80 x 1.1 cm, volume 0.64 mL. ?? ? Previously: 1.5 x 0.90 x 0.90 cm, volume 0.62 mL. ?? ? Nodule characteristics: ?? ? Composition: Solid (2). ?? ? Echogenicity: Hyperechoic (1). ?? ? Shape: Not taller than wide (0). ?? ? Margins: Smooth (0). ?? ? Echogenic Foci: None (0).? ACR TI-RADS total points: 3 Previous: 3 ?? ? ACR TI-RADS category: 3 Previous: 3 ?? ? 3.? Location: Left mid. ?? ? Size: 1.2 x 1.1 x 1.3 cm, volume 0.84 mL. ?? ? Previously: 3.0 x 2.9 x 2.9 cm, volume 13.4 mL. ?? ? Nodule characteristics: ?? ? Composition: Solid (2). ?? ? Echogenicity: Hypoechoic (2). ?? ? Shape: Not taller than wide (0). ?? ? Margins: Smooth (0). ?? ? Echogenic Foci: Punctate echogenic foci (3).? ACR TI-RADS total points: 7 Previous: 6 ?? ? ACR TI-RADS category: 5 Previous: 4 ? 4.? Location: Left mid. ?? ? Size: 2.5 x 1.6 x 2.2 cm, volume 4.5 mL. ?? ? Previously: 2.0 x 2.0 x 3.1 cm, volume 9.9 mL. ?? ? Nodule characteristics: ?? ? Composition: Solid (2). ?? ? Echogenicity: Hyperechoic (1). ?? ? Shape: Not taller than wide (0). ?? ? Margins: Smooth (0). ?? ? Echogenic Foci: None (0).? ACR TI-RADS total points: 3 Previous: 6 ?? ? ACR TI-RADS category: 3 Previous: 4 ? NODES: No lymphadenopathy is seen in the tissue surrounding the thyroid gland. [facility] Medical History (Updated 12/25/24 @ 09:51 by Yasmeen Murray MD) Hypothyroidism Multinodular thyroid Goiter Vitamin D deficiency Serum calcium elevated Osteoporosis Surgical History Hx of biopsy History of surgery on arm Hx of fracture of hip Hx of tubal ligation Family History Father No problems noted. Mother No problems noted. Social History Household Members: None Housing: Apartment Alcohol intake: never Patient Tobacco Use Status: Never used Tobacco Current occupational status: disabled Physical Exam Vital Signs: Last Vital Signs Pulse 77 12/25/24 09:17 BP 114/62 12/25/24 09:17 Pulse Ox 95 12/25/24 09:17 Oxygen Delivery Method Room Air 12/25/24 09:17 BMI result Body Mass Index 28.5 Assessment & Plan Assessment & Plan (1) Multinodular thyroid: Code(s): E04.2 - Nontoxic multinodular goiter Category: Medical Plan: 79-year-old female here today for follow up of nontoxic multinodular goiter. She also has a history significant for hypothyroidism for which she is on levothyroxine 75 mcg daily, most recent TFTs from September 2024 shows she is biochemically euthyroid. Looks like she was diagnosed with multinodular goiter in 2021, she underwent FNA biopsy of 3 nodules in April 2022 the left midpole 1.4 cm nodule which came back as AUS, Oldhams category 3 for which Afirma was benign, the left midpole 3.4 cm thyroid nodule which came back as suspicious for follicular neoplasm, for which Afirma was benign, and a right midpole 1.7 cm thyroid nodule which was benign. Subsequently she opted for routine surveillance. Her last thyroid ultrasound is from April 2023 which shows smaller/stable size of the nodules. It is hard to distinguish in compare from previous ultrasound because of the heterogeneity of the gland making it difficult to distinguish the exact boundaries of the nodules. However she does not have any compressive symptoms, no personal history of head or neck radiation, no family history of thyroid cancer. At this time we will have her repeat a thyroid ultrasound. 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 Plan: -continue levothyroxine 75 mcg daily Plan I spent 30 minutes in reviewing the record, seeing the patient and documenting in the medical record. 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
--- OUTSIDE RECORDS SUMMARY | 2024-12-25 09:58 | XMS_ITS | Encounter Summary ---
Author Organization [employer] Address [address] [facility] [address] [address] [place] [address] Care Team Providers Care Cat Breeder Name Role Phone Jade Richards MD Primary Care Provider [phone] Reason for Visit * Reason Comments Med Refill Encounter Details Date Type Department Care Team (Late st Contact Info) Description 12/19/2024 Refill [facility] [address] [place], [place] [phone] Casandra Washington, [address] [place] [address] Social History Tobacco Use Types Packs/Day Years [...] documented as of this encounter Care Teams Cat Breeder Relationship Specialty Start Date End Date Jade Richards MD [address] [place] [address] PCP - General Family Medicine 05/04/22 documented as of this encounter
--- OUTSIDE RECORDS SUMMARY | 2024-12-25 09:58 | XMS_ITS ---
Author Organization [facility] Address [address] [place] [address] Care Team Providers Care Assessment Specialist Name Role Phone Jade Richards M.D. Primary Care Provider Chaz Godoy Jr [phone] REASON FOR VISIT MRI Encounters Encounter Location Date Provider Diagnosis [facility] [address] [place] [address] 10/06/2023 Chaz Acevedo Jr Plan Of Treatment No Information Progress Notes * ELISABETH AYALACINDYB:[birth year] (78 yo F)Acc No.[id number]:10/06/2023 Patient:?SIVA AYALA :1945???Age:78 Y???Sex:Female Address:[address] [place] [address] [address], [place], [address] * true * Date:? Generated for Yusefi elizabeth/Greg/eTransmitting on:?12/25/2024 09:58 AM EDT
--- OUTSIDE RECORDS SUMMARY | 2024-12-25 09:58 | XMS_ITS | Encounter Summary ---
Author Organization [employer] Address [address] [facility] [address] [place] [address] Care Team Providers Care Software Packaging Engineer Name Role Phone Jade Richards MD Primary Care Provider [phone] Encounter Details Date Type Department Care Team (Late st Contact Info) Description 06/28/2023 Abstract [facility] MEDICINE [address] [place], [place] [phone] Jade Richards MD [address] [place], [place] [phone] Social History Tobacco Use Types Packs/Day Years [...] documented as of this encounter Care Teams Software Packaging Engineer Relationship Specialty Start Date End Date Jade Richards MD [address] [place] [address] PCP - General Family Medicine 05/04/22 documented as of this encounter
--- OUTSIDE RECORDS SUMMARY | 2024-12-25 09:58 | XMS_ITS | Encounter Summary ---
Author Organization [employer] Address [address] [facility] [address] [place] [address] Care Team Providers Care Civil Clerk Name Role Phone Jade Richards MD Primary Care Provider [phone] Encounter Details Date Type Department Care Team (Late st Contact Info) Description 06/20/2023 Abstract [facility] MEDICINE [address] [place], [place] [phone] Jade Richards MD [address] [place] [address] Social History Tobacco Use Types Packs/Day Years [...] documented as of this encounter Care Teams Civil Clerk Relationship Specialty Start Date End Date Jade Richards MD [address] [place] [address] PCP - General Family Medicine 05/04/22 documented as of this encounter
--- OUTSIDE RECORDS SUMMARY | 2024-12-25 09:58 | XMS_ITS | Patient Health Record ---
Author Organization [facility] Address [address] [place] [address] Care Team Providers Care Color Checker Roving Or Yarn Name Role Phone Jade Richards M.D. Primary [...] Problem Status W/U Status Risk Notes Problem [id number] Gastroesophageal reflux disease without esophagitis (K21.9) Active confirmed Problem [id number] Pancreatic cyst (K86.2) Active confirmed Plan Of [...] Insured Coverage Start Date Coverage End Date [facility] [address] Attn Claims [place] [id number] SIVA AYALA Self - patient is the insured Medical (General) History Medical History History ICD Code elevated cholesterol hypothyroidism thrombocytosis dementia osteoporosis elevated BMI constipation Gastroesophageal reflux dise ase, EGD 01/20, no H. pylori or Dobbs's esophagus Colonoscopy 07/05/11 normal Surgical History Surgery Date(Month/Year) left hip replacement 2010 hand surgery kidney surgery
--- OUTSIDE RECORDS SUMMARY | 2024-12-25 09:58 | XMS_ITS | Encounter Summary ---
Author Organization [employer] Address [address] [facility] [address] [place] [address] Care Team Providers Care Benefits Specialist Name Role Phone Jade Richards MD Primary Care Provider Encounter Details Date Type Department Care Team (Late st Contact Info) Description 04/08/2023 Orders Only [facility] MEDICINE [address] [place], [place] [phone] Jade Richards MD [address] [place], [place] [phone] Pancreas cyst (Primary Dx) Social History Tobacco [...] documented as of this encounter Care Teams Benefits Specialist Relationship Specialty Start Date End Date Jade Richards MD [address] [place] [address] PCP - General Family Medicine 05/04/22 documented as of this encounter
--- OUTSIDE RECORDS SUMMARY | 2024-12-25 09:58 | XMS_ITS | Encounter Summary ---
Author Organization [employer] [facility] Address [address] [facility] [address] [place] [address] Care Team Providers Care Claims Account Manager Name Role Phone Jade Richards MD Primary Care Provider [phone] Encounter Details Date Type Department Care Team (Late st Contact Info) Description 08/26/2022 Orders Only [facility] MEDICINE [address] [place] [address] Luis F Hyde PharmD ERRONEOUS ENCOUNTER--DISREGARD (Primary [...] Primary documented in this encounter Care Teams Claims Account Manager Relationship Specialty Start Date End Date Jade Richards MD [address] [place] [address] PCP - General Family Medicine 05/04/22 documented as of this encounter
--- OUTSIDE RECORDS SUMMARY | 2024-12-25 09:58 | XMS_ITS ---
Author Organization [facility] Address [address] [place] [address] Care Team Providers Care Student Success Advisor Name Role Phone Maurice Serrano, Jade Primary Care Provider Chaz Godoy Jr [phone] Encounters Encounter Location Date Provider Diagnosis [facility] [address] [place] [address] 08/22/2023 Chaz Acevedo Jr Plan Of Treatment No Information Progress Notes * ELISABETH AYALAADOB:[birth year] (79 yo F)Acc No.[id number]:08/22/2023 Progress Notes Patient:?SIVA AYALA Provider:?Chaz Acevedo MD :1945???Age:78 Y???Sex:Female D ate:08/22/2023 Address:[address] [place], [place] [id number] Pcp:Jade Richards M.D. Subjective: * Chief Complaints: [...] MD Date:?1 10/23/2022 Generated for Brian johnson/Greg/eTransmitting on:?12/25/2024 09:58 AM EDT
--- OUTSIDE RECORDS SUMMARY | 2024-12-25 09:58 | XMS_ITS | Encounter Summary ---
Author Organization [employer] Address [address] [place] [address] Care Team Providers Care Gambling Cashier Name Role Phone Jade Richards MD Primary Care Provider [phone] Reason for Visit * Reason Onset Date Comments Letter For Housing 11/23/2022 Encounter Details Date Type Department Care Team ([facility] Contact Info) Description 11/23/2022 Telephone [facility] MEDICINE [address] [place] [address] Jade Richards MD [address] [place] [address] Letter For Housing Social History Tobacco Use [...] requested on 11/22/2022. Please contact daughter at [phone] * Telephone Encounter - Adam Patrick - 11/23/2022 10:53 AM EDT Tc from Pt requesting status on Letter that was requesting to remove rug from apartment floors. Computer Operations Specialist sees discussion regarding matter on 08/31/2023. Please contact pt at [phone] documented in this encounter Plan of Treatment Not on file documented as of this encounter Visit Diagnoses Not on filedocumented in this encounter Care Teams Gambling Cashier Relationship Specialty Start Date End Date Jade Richards MD [address] [place] [address] PCP - General Family Medicine 05/04/22 documented as of this encounter
--- OUTSIDE RECORDS SUMMARY | 2024-12-25 09:58 | XMS_ITS | Encounter Summary ---
Author Organization [employer] Address [address] [facility] [address] [place] [address] Care Team Providers Care Microgrinder Operator Name Role Phone Jade Richards MD Primary Care Provider [phone] Reason for Visit * Reason Onset Date [...] the pt has been seen by the deputy director of public works, and she stated that yes she has. I asked if she could contact the deputy director of public works, and ask to have the office notes faxed to the [facility] HIM Dept at [phone], and she agreed to do so. Encounter Details Date Type Department Care Team ([facility] Contact Info) Description 08/31/2022 Telephone [facility] MEDICINE [address] [place] [address] Jade Richards MD [address] [place], [place] [phone] Letter Request (The pt requested a letter for housing, because she would like to have the rugs removed from her apartment. She developed fluid filled bumps on her body, and believes that they are caused by the rugs. I spoke with Nadine, her emergency contact, and asked if the pt has been seen by the deputy director of public works, and she stated that yes she has. I asked if she could contact the deputy director of public works, and ask to have the office notes faxed to the [facility] HIM Dept at [phone], and she agreed to do so. ) [...] on filedocumented in this encounter Care Teams Microgrinder Operator Relationship Specialty Start Date End Date Jade Richards MD [address] [place] [address] PCP - General Family Medicine 05/04/22 documented as of this encounter
--- OUTSIDE RECORDS SUMMARY | 2024-12-25 09:59 | XMS_ITS | Clinical Summary ---
Author Organization [employer] Address [address] [place] [address] Care Team Providers Care Employee Welfare Manager Name Role Phone Jade Richards MD Primary Care Provider [phone] Allergies No known active allergies Medications lidocaine (Xylocaine) 5 % ointment APPLY TOPICALLY TO AFFECTED AREA(S) 1-4 TIMES DAILY NEEDED 022 Active pantoprazole (ProtoNix) 40 MG EC tablet TAKE 1 TABLET BY MOUTH EVERY MORNING Active cholecalciferol (Vitamin D-3) 25 MCG tablet TAKE 1 TABLET BY MOUTH EVERYDAY AT NOON 022 Active raNITIdine (Zantac) 150 MG tablet daily. Active fluocinonide (Lidex) 0.05 % ointment 023 Active Meclizine HCl 25 MG chewable tablet 023 Active sucralfate (Carafate) 1 GM/10ML suspension TAKE 10 ML BY MOUTH FOUR TIMES DAILY BEFORE MEALS AND AT BEDTIME 023 Active Ferrous Fumarate 324 (106 Fe) MG tablet TAKE 1 TABLET EVERYDAY AT NOON Active triamcinolone (Kenalog) 0.1 % cream Apply topically if needed in the morning and at bedtime (pain and swelling). 30 g 2 023 Active lidocaine (Lidoderm) 5 % patch Apply 1 patch topically in the morning. Remove & discard patch within 12 hours or as directed by MD. 30 patch 11 023 Active hmecsscs-rhwxcsivx-pqd AMETHasone (Polydex) 3.5-62750-0.1 ointment ophthalmic ointment APLICA 14 EN [facility] 4 VECES AL JUSTINO, DESPUES EMPAQUE CALIENTE Y MASAJEAR. LLAME SI LOS SINTOMAS CONTINUAN O EMPEORAN 023 Active levothyroxine (Synthroid, Levoxyl) 75 MCG tabletIndications:Acqu ired hypothyroidism TAKE 1 TABLET BY MOUTH EVERY MORNING EXCEPTO LOS BELLO 90 tablet 3 024 Active Aspirin Adult Low Strength 81 MG EC tabletIndications:Thro mbocytosis, unspecified TAKE 1 TABLET BY MOUTH EVERYDAY AT NOON 90 tablet 3 024 Active rosuvastatin (Crestor) 5 MG tabletIndications:Pure hypercholesterolemia TAKE 1 TABLET BY MOUTH AT BEDTIME 90 tablet 3 024 Active senna (Senokot) 8.6 MG tablet Take 2 tablets (17.2 mg) by mouth at bedtime. 180 tablet 3 024 Active Multiple Vitamin (Multivitamin) tabletIndications:Heal thcare maintenance TAKE 1 TABLET BY MOUTH EVERYDAY AT NOON 90 tablet 025 Active calcium citrate (Calcitrate) 950 (200 Ca) MG tabletIndications:Age- related osteoporosis without current pathological fracture Take 1 tablet (950 mg) by mouth Once per day. TAKE 2 TABLETS BY MOUTH ONCE DAILY AT NOON 90 tablet 3 025 Active polyethylene glycol, PEG, 3350 (GaviLAX) 17 GM/SCOOP powder TAKE 17 GM MIXED IN 8 OUNCES OF WATER ONCE DAILY NEEDED 510 g 025 Active Multiple Vitamin (Multivitamin) tabletIndications:Heal thcare maintenance TAKE 1 TABLET BY MOUTH EVERYDAY AT NOON 90 tablet 3 024 2024 Discontinued calcium citrate (Calcitrate) 950 (200 Ca) MG tabletIndications:Age- related osteoporosis without current pathological fracture TAKE 2 TABLETS BY MOUTH ONCE DAILY AT NOON 180 tablet 3 024 2024 Discontinued( Reorder (will not trigger notification to Pharmacy)) polyethylene glycol, PEG, 3350 (Glycolax) 17 GM/SCOOP powder TAKE 17 GM MIXED IN 8 OUNCES OF WATER ONCE DAILY NEEDED 510 g 024 2024 Discontinued Active Problems Problem Noted Date Diagnosed Date [...] EST): MR with possible mucous containing cyst [facility] declined to schedule endoscopic biopsy Plan to obtain Dr Acevedo's notes ([facility]) to coordinate/assess need for further followup Assessment & Plan (04/18/2023 10:00 AM EDT): MR with possible mucous containing cyst She should expect a call from [facility] to schedule endoscopic biopsy Assessment & Plan (03/19/2023 10:57 AM EDT): Seen at ER [facility] visit 03/17/23 Will order MR pancreas with [...] 2 hours before bedtime Continue followup with [facility] Assessment & Plan (03/19/2023 10:58 AM EDT): PPI daily Lifestyle measures to include elevating head of bed, not eating 2 hours before bedtime Continue followup with [facility] Assessment & Plan (08/30/2022 6:20 PM EST): Continue followup with [facility] Acquired hypothyroidism 08/21/2015 Assessment & Plan (08/30/2022 6:21 PM EST): Continue Synthroid 75mcg daily Constipation 08/21/2015 Assessment & Plan (05/31/2023 3:05 PM EDT): Obtain KUB Bowel regimen Assessment & Plan (08/30/2022 6:20 PM EST): Continue Miralax and Senna daily as needed Reports multiple BMs per day Dementia 08/21/2015 Osteoporosis 08/21/2015 Assessment & Plan (09/28/2023 7:12 AM EST): Sees Dr Palacios at [facility] endo Currently on drug holiday from Reclast, will either restart Reclast or start Prolia later in the year Continue Ca/Cit D supplement Assessment & Plan (08/30/2022 6:20 PM EST): Continue annual Reclast infusions per endo Overweight 08/21/2015 Pure hypercholesterolemia 08/21/2015 Thrombocytosis 08/21/2015 Encounters Date Type Department Care Team Description 12/19/2024 Refill [facility] [address] [place] [address] Casandra Washington DO 12/02/2024 Refill [facility] MEDIC[facility] [address] [place] [address] Dianne Espinal MD Age-related osteoporosis without current pathological fracture 12/02/2024 Refill [facility] [address] [place] [address] Jade Richards MD Healthcare maintenance; Age-related osteoporosis without current pathological fracture 11/15/2024 Orders Only GENERIC EXTERNAL DATA DEPARTMENT [...] or Tdap) 11/15/2022 11/15/2012, 05/18/2006 Depression Monitoring 08/16/2023 02/14/2023, 023 Depression Screening 02/15/2024 02/14/2023, 02/15/20 23 COVID-19 Vaccine ( season) 2024 Influenza Vaccine (#1) 2024 2, 06/23/2021, 07/26/2019, Additional history exists SDOH Screening [...] Albumin Level 4.0 3.5 - 5.0 g/dL [facility] 11/15/2024 10:1 6 AM EDT 11/15/2024 10:16 AM EDT us Generic External Data Provider LAB BLOOD ORDERAB LES Final Result Performing Organization Address [facility] de Phone Number [facility] [address] [place] [phone] * (ABNORMAL) Basic Metabolic Panel (11/15/2024 10:16 AM EDT) Sodium 142 135 - 145 mmol/L [facility] Potassium 4.1 3.3 - 5.1 mmol/L [facility] Chloride 108 96 - 108 mmol/L [facility] Carbon Dioxide 28 22 - 29 mmol/L [facility] Anion Gap 10(L) 12 - 20 [facility] Urea Nitrogen (BUN) 7(L) 9 - 16 mg/dL [facility] Creatinine, Serum 0.65 0.5 - 1.4 mg/dL [facility] Estimated Glomerular Filt Rate >60 [facility] Comment:Chronic Kidney Disea se: Estimated GFR < 60 mL/min/1.33b1Xyxprw Kidney Disease: Estimated GFR < 15 mL/min/1.73m2 Glucose 100 60 - 115 mg/dL [facility] Calcium 9.3 8.4 - 10.2 mg/dL [facility] 11/15/2024 10:1 6 AM EDT 11/15/2024 10:16 AM EDT Generic External Data Provider LAB BLOOD ORDERAB LES Final Result Performing Organization Address [facility] de Phone Number [facility] [address] [place] [phone] * BI Mammogram Screening Tomosynthesis Bilateral (02/28/2024 10:45 AM EDT) Anatomical Region Laterality Modality Breast Bilateral Mammography 02/28/2024 10:4 5 AM EDT Narrative 03/28/2024 11:34 PM EDT ? [facility] ? [address] ?[place] [address] ? Mammography Report ? Signed ? Patient: Mendrel,Isidra ?MR#: [id number] ?? 198 ? : 1945 ?Acct:[id number] ? Age/Sex: 78 / F ?ADM Date: 02/28/24 ? Loc: HO.MAMMO ? Attending Dr: Jade Richards MD ? Ordering Physician: Jade Richards ?Results: 1Negative ? Date of Service: 02/28/24 ?Follow Up: 1 Year From Orig ?? inal Mammogram ? Procedure(s): MM tomosynthesis screening BI ?? Accession Number(s): [id number] ? cc: Jade Richards ? EXAMINATION: ?? [...] by Erin Kohli MD in OV> ? 03/28/240 ? DD/ 1045 ? TD/TT: ? Senior Product Engineer: ? Procedure Note Donvickie, Image - 03/28/2024 [facility] [address] [place], [place] [address] Mammography Report Signed Patient: Kerri Srinivasan#: [id number] : 3Acct:[id number] Age/Sex: 78 / FADM Date: 02/28/24 Loc: HO.MAMMO Attending Dr: Jade Richards MD Ordering Physician: Lida Richardsults: 1Negative Date of Service: 02/28/24Follow Up: 1 Year From Orig inal Mammogram Procedure(s): MM tomosynthesis screening BI Accession Number(s): [id number] cc: Jade Richards EXAMINATION: MM SCREENING DIGITAL [...] in OV> 03/28/24 2330 DD/ 1045 TD/TT: Senior Product Engineer: Jade Richards MD IMG BI PROCEDURES Edited Resul t - Final from Last 3 Months or Most Recently Relevant to Health Maintenance Insurance [facility] Care Teams Employee Welfare Manager Relationship Specialty Start Date End Date Jade Richards MD [address] [place] [address] PCP - General Family Medicine 05/04/22
--- OUTSIDE RECORDS SUMMARY | 2024-12-25 09:59 | XMS_ITS | Encounter Summary ---
Author Organization [employer] Address [address] [place] [address] Care Team Providers Care Repairer Pump Name Role Phone Jade Richards MD Primary Care Provider [phone] Reason for Visit * Reason Comments Med Refill Encounter Details Date Type Department Care Team ([facility] st Contact Info) Description 06/01/2024 Refill [facility] MED[facility] [address] [place], [place] [phone] Jade Richards MD [address] [place], [place] [phone] Social History Tobacco Use Types Packs/Day Years [...] documented as of this encounter Care Teams Repairer Pump Relationship Specialty Start Date End Date aJde Richards MD [address] [place] [address] PCP - General Family Medicine 05/04/22 documented as of this encounter
--- OUTSIDE RECORDS SUMMARY | 2024-12-25 09:59 | XMS_ITS | Data Portability ---
Author Organization [employer] [facility] Address [address] [place] [phone] Care Team Providers Care Last Sawyer Name Role Phone [facility] Referring Provider [facility] Referring Provider Assessment Encounter Date Assessment Date Assessment LastModified by Organization Details LastModified Time 10/20/2021 10/20/2021 Pat stated had same rash last March resolved with 10 pills of prednisone./co ntinue Benadryl 50 mg qhs- may aLSO TAKE 25 MG every 6 Hrs prn itch- Fever/ SOB/ Facial sts advised to go to the ER- F>u w/ pcp this week [email or web address] Not available 10/21/2021 12:45:56 02/28/2023 02/28/2023 I provided real -time medical direction via phone for this encounter, and was available for additional phone based assistance as needed. I have reviewed and agree with the Assessment and Plan as documented by the Pc Technician. Patient given the opportunity to ask questions. Not available 02/28/2023 13:49:00 Plan of Treatment Reminders Order Date Submit Date Provider Last Modified By Organization Details Last Modified Time Details Appointments None recorded. Lab rapid strep group A, throat 2022 023 [email or web address] 0 [facility], [address] [place] [address], [phone] 3 13:47:11 Referral None recorded. Procedures None recorded. Surgeries None recorded. Imaging None recorded. Medication Orders Carafate 100 mg/mL oral suspension 2022 023 [facility], [address] [facility], [place], [place], [phone], 13:51:27 prednisone 20 mg tablet 2021 022 [email or web address] 0 [facility], [address] [place] [address], [place], [place], [phone], 12:46:02 prednisone 10 mg tablet 2021 022 [email or web address] Not available 18:25:22 Patient TargetsNo targets recorded. Patient InstructionsNo instructions recorded. Reason for Referral None Reported. Results Created Date Observation Date Name Description Value Unit Range Abnormal Flag Note LastModifiedBy Organization Detail LastModifiedTime 02/29/2002/28/2023 rapid strep group A, throa t Strep negati ve Not Available Main - [facility] ed [address] [facility], [place], [phone] 02/28/2023 13:46:53 Result Notes None recorded. Medical [...] Address Organization Details Last Updated DateTime 2 510[address].8 2 g 92 /min 18 /min 98 % 98 % 98.3 [degF] 143 mm[Hg] 72 mm[Hg] Isabel Valverde MD [address] [place] [address],[address], [place], [phone], [place] - [facility] 2 12:43:07 Date Recorded Respiratory rate Body temperature Oxygen saturation Oxygen saturation in Arterial blood by Pulse oximetry Heart rate Systolic blood pressure Diastolic blood pressure Provider Name and Address Organization Details Last Updated DateTime 3 16 /min 98.5 [degF] 99 % 99 % 65 /min 130 mm[Hg] 70 mm[Hg] Not Available [facility] 3 13:38:53 Social History None recorded. Functional [...] 73 Isabel Valverde MD Main - [facility] [address] [place] [phone] 10/20/2021 17:55:44 10/28/2021 16:19:16 Pruritic rash 72371599 L28.2 [id number] Isabel Valverde MD Main - [facility] [address] [place] [phone] 02/28/2023 13:38:51 03/01/2023 11:33:44 Dysphagia [id number] R13.10 Likely GERD aggravatio n-advised need to [...] Hernandez Member ID Guarantor Name 10/20/2021 1 [facility] Secrette - DOS PRIOR TO 2022 - DUAL ELIGIBLE (MEDICARE REPLACEMENT/ADV ANTAGE - HMO) Isidra Srinivasan [id number] Isidra Srinivasan 02/28/2023 1 [facility] [employer] - DOS ON OR AFTER 2022 - DUAL ELIGIBLE - HALFWAY OPTIONS AND ONE CARE (MEDICARE REPLACEMENT/ADV ANTAGE - HMO) Isidra Srinivasan [id number] Isidra Srinivasan Notes Date Note Type Note Provider Name and Address Organization Details Recorded Time 10/20/2021 text/html per [facility]: Paramed ic Visit SummaryPATIENT IS A [...] localized to arms Isabel Valverde MD [address] [facility],[address], [place], [phone], [place] - [employer] 10/21/2021 12:46:29 02/28/2023 text/html HPI: Patient with [...] .................... .................... .................... .................... .................... .................... . Pc Technician Note From Harsha Jensen: Dispatched to the [...] further information needed to process visit SEGMD: pat is prescribed Protonix 40 mg qhs- med [...] sweats/ CP/SOB/n/v/d- black or bloody stool via touch up carver Isabel Valverde MD [address] [facility],[address], [place], [phone], [employer] - [employer] 02/28/2023 14:16:16 OBGyn Episode No OBEpisode recorded.
--- OUTSIDE RECORDS SUMMARY | 2024-12-25 09:59 | XMS_ITS | Encounter Summary ---
Author Organization [employer] Address [address] [place] [address] Care Team Providers Care Equipment Detailer Name Role Phone Jade Richards MD Primary Care Provider [phone] Reason for Referral * Imaging (STAT) - Closed Specialty Diagnoses / Procedures Referred By Contac t Referred To Contact Radiology Diagnoses Pancreas cyst Procedures MR Abdomen w/ and w/o Contrast MRCP Jade Richards MD [address] [place] [address] Phone: tel: fax: [address] Phone: tel: fax: Referral ID Status Reason Start Date Expiration Date Visits Re quested Visits Authorized [id number] Closed 03/25/2023 03/24/2024 1 1 Encounter Details Date Type Department Care Team (Late st Contact Info) Description 03/25/2023 Orders Only [facility] MEDICINE [address] [place], [place] [phone] Jade Richards MD [address] [place], [place] [phone] Pancreas cyst (Primary Dx) Social History Tobacco [...] documented as of this encounter Care Teams Equipment Detailer Relationship Specialty Start Date End Date Jade Richards MD [address] [place] [phone] PCP - General Family Medicine 05/04/22 documented as of this encounter
--- OUTSIDE RECORDS SUMMARY | 2024-12-25 09:59 | XMS_ITS ---
Author Organization [facility] Address [address] [place] [address] Care Team Providers Care Recycling Manager Name Role Phone Jade Richards M.D. Primary Care Provider Chaz Godoy Jr [phone] REASON FOR VISIT labs Encounters Encounter Location Date Provider Diagnosis [facility] [address] [place] [address] 09/08/2023 Chaz Acevdeo Jr Plan Of Treatment No Information Progress Notes * ELISABETH AYALACINDYB:[birth year] (78 yo F)Acc No.[id number]:09/08/2023 Patient:?SIVA AYALA :1945???Age:78 Y???Sex:Female Address:[address] [place] [address] [address], [place], [address] * true * Date:? Generated for Yusefi elizabeth/Greg/eTransmitting on:?12/25/2024 09:58 AM EDT
== END 2024-12-25 09:49 | disposition home or self-care (01) ==
LOC: HO.ENCR 09:15
PROVIDERS: PCP General Practice; Visit Provider Student in an Organized Health Care Education/Training Program
DX: E04.2 Nontoxic multinodular goiter (principal); E06.3 Autoimmune thyroiditis
CPT/HCPCS: 99214

== ENCOUNTER → 2024-12-25 09:14 | Outpatient (BNVA) | payer OTHER, SELFPAY | PROVIDERS: PCP General Practice; Visit Provider Student in an Organized Health Care Education/Training Program | DX: E04.2 Nontoxic multinodular goiter (principal); E06.3 Autoimmune thyroiditis | CPT/HCPCS: 99212 ==

== ENCOUNTER 2025-01-24 08:41 | Outpatient (AMB) | payer OTHER, SELFPAY ==
--- NOTE | 2025-01-24 08:46 | A.OFFVIS_ITS ---
Vital Signs 01/24/25 08:49 Height 4 ft 10.74 in Weight 145 lb 4.554 oz BMI 29.6 BP 110/62 Blood Pressure Location Lt brachial Position Sitting Pulse 77 Pulse Source Pulse Oximeter Pulse Oximetry (%) 98 Oxygen Delivery Method Room Air Intake Visit Reasons: Osteoporosis Intake Note: Patient present today for Osteoporosis office visit. Worm Farmer Required: Yes Worm Farmer Language: Pumper Gager Apprentice Services: Worm Farmer Present Worm Farmer Name: Jovanna CMI Information Interpreted: non-clinical & clinical Accompanied by: Grandchild Allergies No Known Allergies Allergy (Mild, Verified 01/24/25 08:49) NONE Medication List - Last Reconciled 01/24/25 by Dat Palacios MD alprazolam (Xanax) 0.5 mg PO BEDTIME PRN aspirin 81 mg PO DAILY calcium citrate mg ferrous fumarate 324 mg PO DAILY levothyroxine 75 mcg PO DAILY meclizine (Antivert) 25 mg PO TID multivitamin 1 tab PO DAILY pantoprazole 40 mg PO DAILY polyethylene glycol 3350 (Miralax) 17 grams PO DAILY rosuvastatin 5 mg PO DAILY sennosides 17.2 mg PO DAILY walker As directed HPI Comments Details: 79 YO Female with PMHx Osteoporosis and MGUS who is seen in F/U today. .. 1) Osteoporosis: Received treatment in the past with Reclast, from 06/15/2015 to Present. Tolerated treatment well without complication. First dose 06/2015.. Last dose 05/2023 No history of pathologic fracture or ONJ. Has 1-2 servings of dietary calcium per day. Takes Calcium supplement 400 mg daily. Takes 1000 IU of Vitamin D daily. Uses PPI daily. Denies ever using anticoagulant, antiepileptic or glucocorticoid medication. Does no significant weight bearing exercise. Fracture history: Had a fragility fracture of her L hip in 2010. Also a traumatic fracture of her Wrist in 1989. Height loss: Has lost 2 inches. 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 Menses always regular. . Did not breastfeed. Menopause was age 43. Denies history of Kidney stones: Has a full set of dentures. Has not seen the dentist in many years. 2) Multinodular Thyroid: She underwent FNA biopsy of 3 thyroid nodules 04/15/2022 by me. LMP 1.4 cm thyroid nodule with cytology atypia of undetermined significance (bethesda category III). LMP 3.4 cm thyroid nodule with cytology suspicious for follicular neoplasm (bethesda category IV), and RMP 1.7 cm thyroid nodule which was benign. Affirma benign. She opted for routine surveillance. DXA: 04/14/2023 FINDINGS: RIGHT FEMUR, NECK: Current: BMD 0.587 g/cm2, Z-score -1.1, T-score -3.2, osteoporosis. Prior: BMD 0.672 g/cm2. Baseline: BMD 0.676 g/cm2. RIGHT FEMUR, TOTAL: Current: BMD 0.533 g/cm2, Z-score -1.8, T-score -3.8, osteoporosis, 25.1% decrease from previous, 21.8% decrease from baseline (<5% change is not significant). Prior: BMD 0.712 g/cm2. Baseline: BMD 0.682 g/cm2. AP SPINE L1-L4: Current: BMD 0.825 g/cm2, Z-score -1.2, T-score -3.0, osteoporosis, 1.2% decrease from previous, 32.4% increase from baseline (<5% change is not significant). Prior: BMD 0.835 g/cm2. Baseline: BMD 0.623 g/cm2. RIGHT FOREARM RADIUS 33%: BMD 0.546 g/cm2, Z-score -1.1, T-score -3.8, osteoporosis. Thyroid US: 04/19/2023 Right Thyroid Lobe: 5.8 x 2.4 x 2.2 cm, volume 16.2 mL. Previously 5.7 x 2.7 x 2.3 cm, volume 18.0 mL. Parenchyma: The gland echotexture is heterogeneous. Thyroid vascularity is increased. Left Thyroid Lobe: 6.7 x 3.2 x 2.8 cm, volume 31.3 mL. Previously 7.2 x 2.9 x 3.1 cm, volume 34.0 mL. Parenchyma: The gland echotexture is heterogeneous. Thyroid vascularity is increased. Isthmus: 0.47 cm in maximum AP dimension. Previously 0.30 cm. Estimated total number of nodules greater than or equal to 1 cm: 4. Interior Horticulturist nodules are described as follows: 1.? Location: Right mid inferior. ?? ? Size: 3.3 x 1.9 x 2.3 cm, volume 7.8 mL. ?? ? Previously: 2.8 x 2.1 x 2.0 cm, volume 6.2 mL. ?? ? Nodule characteristics: ?? ? Composition: Solid/almost completely solid (2). ?? ? Echogenicity: Cannot be determined (1). ?? ? Shape: Not taller than wide (0). ?? ? Margins: Smooth (0). ?? ? Echogenic Foci: None (0).? ACR TI-RADS total points: 3 Previous: 6 ?? ? ACR TI-RADS category: 3 Previous: 4 ? 2.? Location: Right superior. ?? ? Size: 1.4 x 0.80 x 1.1 cm, volume 0.64 mL. ?? ? Previously: 1.5 x 0.90 x 0.90 cm, volume 0.62 mL. ?? ? Nodule characteristics: ?? ? Composition: Solid (2). ?? ? Echogenicity: Hyperechoic (1). ?? ? Shape: Not taller than wide (0). ?? ? Margins: Smooth (0). ?? ? Echogenic Foci: None (0).? ACR TI-RADS total points: 3 Previous: 3 ?? ? ACR TI-RADS category: 3 Previous: 3 ?? ? 3.? Location: Left mid. ?? ? Size: 1.2 x 1.1 x 1.3 cm, volume 0.84 mL. ?? ? Previously: 3.0 x 2.9 x 2.9 cm, volume 13.4 mL. ?? ? Nodule characteristics: ?? ? Composition: Solid (2). ?? ? Echogenicity: Hypoechoic (2). ?? ? Shape: Not taller than wide (0). ?? ? Margins: Smooth (0). ?? ? Echogenic Foci: Punctate echogenic foci (3).? ACR TI-RADS total points: 7 Previous: 6 ?? ? ACR TI-RADS category: 5 Previous: 4 ? 4.? Location: Left mid. ?? ? Size: 2.5 x 1.6 x 2.2 cm, volume 4.5 mL. ?? ? Previously: 2.0 x 2.0 x 3.1 cm, volume 9.9 mL. ?? ? Nodule characteristics: ?? ? Composition: Solid (2). ?? ? Echogenicity: Hyperechoic (1). ?? ? Shape: Not taller than wide (0). ?? ? Margins: Smooth (0). ?? ? Echogenic Foci: None (0).? ACR TI-RADS total points: 3 Previous: 6 ?? ? ACR TI-RADS category: 3 Previous: 4 ? NODES: No lymphadenopathy is seen in the tissue surrounding the thyroid gland. Labs: Laboratory Tests 03/28/23 03/28/23 03/29/23 09:51 09:51 14:11 Creatinine 0.64 Estimated GFR > 60 Albumin 3.8 N-Telopeptide X-linked 28 25-OH Vitamin D Total 40.6 TSH 1.05 PTH Intact 32 Calcium (PTH Intact) 9.0 No fx since last visit . No compressive sx . No back pain . C/o body aches and no appetite not present before Prolia Prolia was discontinued after 1 dose and another dose of Reclast was given in 11/2024 The patient is an 79-year-old female presenting with osteoporosis. Her osteoporosis management has included multiple Reclast infusions. Following difficulties with Prolia, Reclast was resumed in November. The primary concern is the low bone density despite treatment, as no fractures have been reported since the last visit. Plans involve a urine test for bone turnover and a bone density test in three months. The patient is advised to maintain safety measures to prevent falls and continue with calcium and vitamin D supplementation. [facility] Medical History (Updated 12/25/24 @ 09:51 by Yasmeen Murray MD) Hypothyroidism Multinodular thyroid Goiter Vitamin D deficiency Serum calcium elevated Osteoporosis Surgical History Hx of biopsy History of surgery on arm Hx of fracture of hip Hx of tubal ligation Family History Father No problems noted. Mother No problems noted. Social History Household Members: None Housing: Apartment Alcohol intake: never Patient Tobacco Use Status: Never used Tobacco Current occupational status: disabled Physical Exam Vital Signs: BMI result Body Mass Index 29.6 Assessment & Plan Assessment & Plan (1) Osteoporosis: Code(s): M81.0 - Age-related osteoporosis without current pathological fracture Category: Medical Qualifiers: Osteoporosis type: age-related Presence of current pathological fracture: without current pathological fracture Qualified Code(s): M81.0 - Age- related osteoporosis without current pathological fracture Plan: This 78-year-old female with a history of severe osteoporosis in the setting of MGUS previous fragility fracture of the hip in 2010 received 8 years Reclast therapy. Otherwise secondary workup has been negative except for MGUS for which she is followed by Hematology. Received a dose of Prolia and received 1 dose with complaints of muscle aches and decreased appetite after Prolia injection and then received another dose of Reclast in 11/2024 Plan is to check urine NTX if it continues to be suppressed we will continue calcium and vitamin-D. We will repeat DEXA bone density in 04/2025. May consider transitioning to anabolic agent in 11/2025 1. Osteoporosis The ongoing management of osteoporosis with Reclast will continue to be monitore d. The absence of new fractures is positive, but low bone density necessitates further investigation via urine analysis for bone turnover and a scheduled bone density test in three months. The patient will continue calcium and vitamin D supplementation and implement safety measures to prevent falls. Re-evaluation is planned after receiving upcoming test results. During the visit, I discussed the management of osteoporosis with the patient and her family. The current use of Reclast was explained, along with plans to continue monitoring its effectiveness through urine and bone density tests. The significance of supplementing with calcium and vitamin D, as well as maintaining fall prevention strategies, was emphasized. I suggested options for improving bone health through exercise programs like Better Bones and Balance. The potential for future treatment modifications was communicated, noting that the plan could change in November depending on test outcomes. - Take calcium and vitamin D as advised. - Be extra cautious to avoid falls. - Consider joining a Better Bones and Balance class. - Obtain the urine test for bone turnover as instructed. - Stay aware of bone density test scheduling. - Return for a follow-up appointment in six months. The patient had an opportunity to ask questions regarding treatment plan. The patient expressed understanding and agreement with the above treatment plan. Patient was informed and verbally consented to the use of an ambient scribe for clinic note documentation during this visit. Orders: Orders XR DEXA axial skeleton 3 Months M81.0 - Age-related osteoporosis without current pathological fracture Collagen Crosslinks NTX Today M81.0 - Age-related osteoporosis without current pathological fracture Coding Level of Care Code Est Pt Level 3 (92047) Diagnoses Age-related osteoporosis without current pathological fracture M81.0 Osteoporosis type: age-related Presence of current pathological fracture: without current pathological fracture
[2025-01-24 08:49] VITALS: BP 110/62; PULSE 77; O2SAT 98; BMI 29.6
--- OUTSIDE RECORDS SUMMARY | 2025-01-24 08:52 | XMS_ITS | Encounter Summary ---
Author Organization [employer] Address [address] [place] [address] Care Team Providers Care Drywall Professional Name Role Phone Jade Richards MD Primary Care Provider [phone] Encounter Details Date Type Department Care Team ([facility] st Contact Info) Description 06/28/2023 Abstract [facility] MEDICINE [address] [place], [place] [phone] Jade Richards MD [address] [place], [place] [phone] Social History Tobacco Use Types Packs/Day Years [...] documented as of this encounter Care Teams Drywall Professional Relationship Specialty Start Date End Date Jade Richards MD [address] [place] [address] PCP - General Family Medicine 05/04/22 documented as of this encounter
--- OUTSIDE RECORDS SUMMARY | 2025-01-24 08:52 | XMS_ITS | Encounter Summary ---
Author Organization [facility] [facility] Address [address] [place] [address] [address]t [place] [address] Care Team Providers Care Online Marketing Manager Name Role Phone Jade Richards MD Primary Care Provider [phone] Reason for Referral * Imaging (STAT) - Closed Specialty Diagnoses / Procedures Referred By Contac t Referred To Contact Radiology Diagnoses Pancreas cyst Procedures MR Abdomen w/ and w/o Contrast MRCP Jade Richards MD [address] [place] [address] Phone: tel: fax: [address] Phone: tel: fax: Referral ID Status Reason Start Date Expiration Date Visits Re quested Visits Authorized [id number] Closed 03/25/2023 03/24/2024 1 1 Encounter Details Date Type Department Care Team (Late st Contact Info) Description 03/25/2023 Orders Only [facility] MEDICINE [address] [place], [place] [phone] Jade Richards MD [address] [place] [address] Pancreas cyst (Primary Dx) Social History Tobacco [...] documented as of this encounter Care Teams Online Marketing Manager Relationship Specialty Start Date End Date Jade Richards MD [address] [place] [address] PCP - General Family Medicine 05/04/22 documented as of this encounter
--- OUTSIDE RECORDS SUMMARY | 2025-01-24 08:52 | XMS_ITS | Patient Health Record ---
Author Organization [facility] Address [address] [place] [address] Care Team Providers Care Servicenow Administrator Name Role Phone Jade Richards M.D. Primary Care Provider Chaz Godoy Jr [phone] Allergies No Known Allergies Reason For Referral [...] Problem Status W/U Status Risk Notes Problem [id number] Gastroesophageal reflux disease without esophagitis (K21.9) Active confirmed Problem [id number] Pancreatic cyst (K86.2) Active confirmed Plan Of [...] Insured Coverage Start Date Coverage End Date [facility] [address] Attn Claims RADHA [place] [id number] SIVA AYALA Self - patient is the insured Medical (General) History Medical History History ICD Code elevated cholesterol hypothyroidism thrombocytosis dementia osteoporosis elevated BMI constipation Gastroesophageal reflux dise ase, EGD 01/20, no H. pylori or Dobbs's esophagus Colonoscopy 07/05/11 normal Surgical History Surgery Date(Month/Year) left hip replacement 2010 hand surgery kidney surgery
--- OUTSIDE RECORDS SUMMARY | 2025-01-24 08:52 | XMS_ITS ---
Author Organization [facility] Address [address] [place] [address] Care Team Providers Care Control Technician Name Role Phone Maurice Serrano, Jade Primary Care Provider Chaz Godoy Jr [phone] Encounters Encounter Location Date Provider Diagnosis [facility] [address] [place] [address] 08/22/2023 Chaz Acevedo Jr Plan Of Treatment No Information Progress Notes * ELISABETH AYALAADOB:[birth year] (79 yo F)Acc No.[id number]:08/22/2023 Progress Notes Patient:?SIVA AYALA Provider:?Chaz Acevedo MD :1945???Age:78 Y???Sex:Female D ate:08/22/2023 Address:[address] [place], [place] [id number] Pcp:Jade Richards M.D. Subjective: * Chief Complaints: [...] MD Date:?1 10/23/2022 Generated for Brian johnson/Greg/eTransmitting on:?01/24/2025 08:51 AM EDT
--- OUTSIDE RECORDS SUMMARY | 2025-01-24 08:52 | XMS_ITS | Encounter Summary ---
Author Organization [employer] Address [address] [place] [address] Care Team Providers Care Bibliographic Services Specialist Name Role Phone Jade Richards MD Primary Care Provider [phone] Encounter Details Date Type Department Care Team ([facility] st Contact Info) Description 06/20/2023 Abstract [facility] MEDICINE [address] [place], [place] [phone] Jade Richards MD [address] [place], [place] [phone] Social History Tobacco Use Types Packs/Day Years [...] documented as of this encounter Care Teams Bibliographic Services Specialist Relationship Specialty Start Date End Date Jade Richards MD [address] [place] [address] PCP - General Family Medicine 05/04/22 documented as of this encounter
--- OUTSIDE RECORDS SUMMARY | 2025-01-24 08:52 | XMS_ITS | Data Portability ---
Author Organization [employer] [facility] Address [address] [place] [address] Care Team Providers Care Doctor Podiatric Medicine Name Role Phone [facility] Referring Provider [facility] Referring Provider Assessment Encounter Date Assessment Date Assessment LastModified by Organization Details LastModified Time 10/20/2021 10/20/2021 Pat stated had same rash last March resolved with 10 pills of prednisone./co ntinue Benadryl 50 mg qhs- may aLSO TAKE 25 MG every 6 Hrs prn itch- Fever/ SOB/ Facial sts advised to go to the ER- F>u w/ pcp this week [email or web address] Not available 10/21/2021 12:45:56 02/28/2023 02/28/2023 I provided real -time medical direction via phone for this encounter, and was available for additional phone based assistance as needed. I have reviewed and agree with the Assessment and Plan as documented by the Soil Technician. Patient given the opportunity to ask questions. [email or web address] Not available 02/28/2023 13:49:00 Plan of Treatment Reminders Order Date Submit Date Provider Last Modified By Organization Details Last Modified Time Details Appointments None recorded. Lab rapid strep group A, throat 2022 023 [email or web address] 0 [facility], [address] [place] [address], [id number] 3 13:47:11 Referral None recorded. Procedures None recorded. Surgeries None recorded. Imaging None recorded. Medication Orders Carafate 100 mg/mL oral suspension 2022 023 [facility], [address] [facility], [place], [place], [id number], 13:51:27 prednisone 20 mg tablet 2021 022 [email or web address] 0 [facility], [address] [place] [address], [place], [place], [id number], 12:46:02 prednisone 10 mg tablet 2021 022 [email or web address] Not available 18:25:22 Patient TargetsNo targets recorded. Patient InstructionsNo instructions recorded. Reason for Referral None Reported. Results Created Date Observation Date Name Description Value Unit Range Abnormal Flag Note LastModifiedBy Organization Detail LastModifiedTime 02/29/2002/28/2023 rapid strep group A, throa t Strep negati ve Not Available Main - [facility] ed [address] [facility], [place], [address] 02/28/2023 13:46:53 Result Notes None recorded. Medical [...] Address Organization Details Last Updated DateTime 2 58379.8 2 g 92 /min 18 /min 98 % 98 % 98.3 [degF] 143 mm[Hg] 72 mm[Hg] Isabel Valverde MD [address] [place] [address],[address], [place], [address], [place] - [employer] 2 12:43:07 Date Recorded Respiratory rate Body temperature Oxygen saturation Oxygen saturation in Arterial blood by Pulse oximetry Heart rate Systolic blood pressure Diastolic blood pressure Provider Name and Address Organization Details Last Updated DateTime 3 16 /min 98.5 [degF] 99 % 99 % 65 /min 130 mm[Hg] 70 mm[Hg] Not Available [employer] 3 13:38:53 Social History None recorded. Functional [...] 73 Isabel Valverde MD Main - [facility] [address] [place] [phone] 10/20/2021 17:55:44 10/28/2021 16:19:16 Pruritic rash 00334497 L28.2 [id number] Isabel Valverde MD Main - [facility] [address] [place] [phone] 02/28/2023 13:38:51 03/01/2023 11:33:44 Dysphagia 26993480 R13.10 Likely GERD aggravatio n-advised need to [...] Recorded Advance Directives Directive None Recorded Payers Insurance Date Sequence Insurance Name Policy Number Policy Hernandez Covered Member ID Hernandez Member ID Guarantor Name 02/28/2023 1 [facility] [employer] - DOS PRIOR TO 2022 - DUAL ELIGIBLE (MEDICARE REPLACEMENT/ADV ANTAGE - HMO) Isidra Srinivasan [id number] Isidra Srinivasan 10/30/2023 1 [facility] [employer] - DOS ON OR AFTER 2022 - DUAL ELIGIBLE - SNF OPTIONS AND ONE CARE (MEDICARE REPLACEMENT/ADV ANTAGE - HMO) Isidra Srinivasan [id number] Isidra Srinivasan Notes Date Note Type Note Provider Name and Address Organization Details Recorded Time 10/20/2021 text/html per [facility]: Paramed ic Visit SummaryPATIENT IS A 76 [...] localized to arms Isabel Valverde MD [address] [facility], [place], [address], [employer] - [employer] 10/21/2021 12:46:29 02/28/2023 text/html HPI: Patient with [...] .................... .................... .................... .................... .................... .................... . Soil Technician Note From Harsha Jensen: Dispatched to [...] sweats/ CP/SOB/n/v/d- black or bloody stool via technical service engineer Isabel Valverde MD [address] [facility], [place], [address], [employer] - [employer] 02/28/2023 14:16:16 OBGyn Episode No OBEpisode recorded.
--- OUTSIDE RECORDS SUMMARY | 2025-01-24 08:52 | XMS_ITS | Encounter Summary ---
Author Organization [employer] Address [address] [facility] [address] [place] [address] Care Team Providers Care Pocket Builder Name Role Phone Jade Richards MD Primary Care Provider [phone] Encounter Details Date Type Department Care Team ([facility] st Contact Info) Description 04/08/2023 Orders Only [facility] MEDICINE [address] [place] [address] Jade Richards MD [address] [place], [place] [phone] Pancreas cyst (Primary Dx) Social History Tobacco [...] documented as of this encounter Care Teams Pocket Builder Relationship Specialty Start Date End Date Jade Richards MD [address] [place] [address] PCP - General Family Medicine 05/04/22 documented as of this encounter
--- OUTSIDE RECORDS SUMMARY | 2025-01-24 08:52 | XMS_ITS ---
Author Organization [facility] Address [address] [place] [address] Care Team Providers Care Healthcare Consultant Name Role Phone Jade Richards M.D. Primary Care Provider Chaz Godoy Jr REASON FOR VISIT labs Encounters Encounter Location Date Provider Diagnosis [facility] [address] [place] [address] 09/08/2023 Chaz Acevedo Jr Plan Of Treatment No Information Progress Notes * ELISABETH AYALACINDYB:[birth year] (78 yo F)Acc No.[id number]:09/08/2023 Patient:?SIVA AYALA :1945???Age:78 Y???Sex:Female Address:[address] [place] [address] [address], [place], [address] * true * Date:? Generated for Yusefi elizabeth/Greg/eTransmitting on:?01/24/2025 08:52 AM EDT
--- OUTSIDE RECORDS SUMMARY | 2025-01-24 08:52 | XMS_ITS | Encounter Summary ---
Author Organization [employer] Address [address] [facility] [address]t [place] [address] Care Team Providers Care Blue Line Trimmer Name Role Phone Jade Richards MD Primary Care Provider [phone] Reason for Visit * Reason Onset Date Comments Letter For Housing 11/23/2022 Encounter Details Date Type Department Care Team ([facility] Contact Info) Description 11/23/2022 Telephone [facility] MEDICINE [address] [place] [address] Jade Richards MD [address] [place] [address] Letter For Housing Social History Tobacco Use [...] requested on 11/22/2022. Please contact daughter at [phone] * Telephone Encounter - Adam Patrick - 11/23/2022 10:53 AM EDT Tc from Pt requesting status on Letter that was requesting to remove rug from apartment floors. Chief [employer] sees discussion regarding matter on 08/31/2023. Please contact pt at [phone] documented in this encounter Plan of Treatment Not on file documented as of this encounter Visit Diagnoses Not on filedocumented in this encounter Care Teams Blue Line Trimmer Relationship Specialty Start Date End Date Jade Richards MD [address] [place] [address] PCP - General Family Medicine 05/04/22 documented as of this encounter
--- OUTSIDE RECORDS SUMMARY | 2025-01-24 08:53 | XMS_ITS ---
Author Organization [facility] Address [address] [place] [address] Care Team Providers Care Saw Edge Fuser Circular Name Role Phone Jade Richards M.D. Primary Care Provider Chaz Godoy Jr [phone] REASON FOR VISIT MRI Encounters Encounter Location Date Provider Diagnosis [facility] [address] [place] [address] 10/06/2023 Chaz Acevedo Jr Plan Of Treatment No Information Progress Notes * ELISABETH AYALACIDNYB:[birth year] (78 yo F)Acc No.[id number]:10/06/2023 Patient:?SIVA AYALA :1945???Age:78 Y???Sex:Female Address:[address] [place] [address] [address], [place], [address] * true * Date:? Generated for Yusefi elizabeth/Greg/eTransmitting on:?01/24/2025 08:52 AM EDT
--- OUTSIDE RECORDS SUMMARY | 2025-01-24 08:53 | XMS_ITS | Encounter Summary ---
Author Organization [employer] Address [address] 7t [place] [address] Care Team Providers Care Batch Unloader Name Role Phone Jade Richards MD Primary Care Provider [phone] Encounter Details Date Type Department Care Team (Late st Contact Info) Description 08/26/2022 Orders Only [facility] [address] [place] [address] Luis F Hyde PharmD ERRONEOUS ENCOUNTER--DISREGARD (Primary [...] PM EST documented as of this encounter Functional Status * Over the past 2 weeks, how often have you been bothered by any of the following problems? Question Answer Date of Assessment Author Little interest or pleasure in doing things Not at all 08/27/2022 2:00 PM EST Tobias Torrez MA Feeling down, depressed, or hopeless Not at all 08/27/2022 2:00 PM EST Tobias Torrez MA Patient Health Questionnaire-2 Score 0 08/27/2022 2:00 PM EST Montrell Torrez MA documented as of this encounter Progress Notes * Luis F Hyde PharmD - 08/26/2022 2:30 PM EST This encounter was created in error - please disregard. documented in this encounter Plan of Treatment Not on file documented as of this encounter Visit Diagnoses Diagnosis ERRONEOUS ENCOUNTER--DISREGARD- Primary documented in this encounter Care Teams Batch Unloader Relationship Specialty Start Date End Date Jade Richards MD [address] [place] [address] PCP - General Family Medicine 05/04/22 documented as of this encounter
--- OUTSIDE RECORDS SUMMARY | 2025-01-24 08:53 | XMS_ITS | Clinical Summary ---
Author Organization [employer] Address [address] [facility] [address] [place] [address] Care Team Providers Care Warehouse Shipping Receiving Clerk Name Role Phone Jade Richards MD Primary Care Provider [phone] Allergies No known active allergies Medications lidocaine (Xylocaine) 5 % ointment APPLY TOPICALLY TO AFFECTED AREA(S) 1-4 TIMES DAILY NEEDED 2021 Active pantoprazole (ProtoNix) 40 MG EC tablet TAKE 1 TABLET BY MOUTH EVERY MORNING Active cholecalciferol (Vitamin D-3) 25 MCG tablet TAKE 1 TABLET BY MOUTH EVERYDAY AT NOON 2021 Active raNITIdine (Zantac) 150 MG tablet daily. Active fluocinonide (Lidex) 0.05 % ointment 2022 Active Meclizine HCl 25 MG chewable tablet 2022 Active sucralfate (Carafate) 1 GM/10ML suspension TAKE 10 ML BY MOUTH FOUR TIMES DAILY BEFORE MEALS AND AT BEDTIME 2022 Active Ferrous Fumarate 324 (106 Fe) MG tablet TAKE 1 TABLET EVERYDAY AT NOON Active triamcinolone (Kenalog) 0.1 % cream Apply topically if needed in the morning and at bedtime (pain and swelling). 30 g 2 2022 Active lidocaine (Lidoderm) 5 % patch Apply 1 patch topically in the morning. Remove & discard patch within 12 hours or as directed by . 30 patch 11 2022 Active idbbbacy-lpzogyvsi-izv AMETHasone (Polydex) 3.5-36116-9.1 ointment ophthalmic ointment APLICA 14 EN [facility] 4 VECES AL JUSTINO, DESPUES EMPAQUE CALIENTE Y MASAJEAR. LLAME SI LOS SINTOMAS CONTINUAN O EMPEORAN 2022 Active rosuvastatin (Crestor) 5 MG tabletIndications:Pure hypercholesterolemia TAKE 1 TABLET BY MOUTH AT BEDTIME 90 tablet 3 2023 Active senna (Senokot) 8.6 MG tablet Take 2 tablets (17.2 mg) by mouth at bedtime. 180 tablet 3 2023 Active Multiple Vitamin (Multivitamin) tabletIndications:Heal thcare maintenance TAKE 1 TABLET BY MOUTH EVERYDAY AT NOON 90 tablet 2024 Active calcium citrate (Calcitrate) 950 (200 Ca) MG tabletIndications:Age- related osteoporosis without current pathological fracture Take 1 tablet (950 mg) by mouth Once per day. TAKE 2 TABLETS BY MOUTH ONCE DAILY AT NOON 90 tablet 3 2024 Active polyethylene glycol, PEG, 3350 (GaviLAX) 17 GM/SCOOP powder TAKE 17 GM MIXED IN 8 OUNCES OF WATER ONCE DAILY NEEDED 510 g 2024 Active Aspirin Low Dose 81 MG EC tabletIndications:Thro mbocytosis, unspecified TAKE 1 TABLET BY MOUTH EVERYDAY AT NOON 90 tablet 3 2024 Active levothyroxine (Synthroid, Levoxyl) 75 MCG tabletIndications:Acqu ired hypothyroidism TAKE 1 TABLET BY MOUTH EVERY MORNING EXCEPTO LOS BELLO 90 tablet 3 2024 Active levothyroxine (Synthroid, Levoxyl) 75 MCG tabletIndications:Acqu ired hypothyroidism TAKE 1 TABLET BY MOUTH EVERY MORNING EXCEPTO LOS BELLO 90 tablet 3 01/15 Discontinued Aspirin Adult Low Strength 81 MG EC tabletIndications:Thro mbocytosis, unspecified TAKE 1 TABLET BY MOUTH EVERYDAY AT NOON 90 tablet 3 01/15 Discontinued Diclofenac Sodium 1 % gelIndications:Mass of soft tissue of wrist Apply 1 Application topically if needed in the morning and at bedtime (pain) for up to 7 days. 20 g 01/01 Active Problems Problem Noted Date Diagnosed Date Mass of soft tissue of wrist 12/25/2024 Assessment & Plan (12/25/2024 1:45 PM EDT): Suspect ganglion, referral to surgery for possible drainage per pt preference Low back pain of over 3 months duration 06/24/20 MGUS (monoclonal gammopathy of unknown significa nce) [...] EST): MR with possible mucous containing cyst [facility] declined to schedule endoscopic biopsy Plan to obtain Dr Acevedo's notes ([facility]) to coordinate/assess need for further followup Assessment & Plan (04/18/2023 10:00 AM EDT): MR with possible mucous containing cyst She should expect a call from [facility] to schedule endoscopic biopsy Assessment & Plan (03/19/2023 10:57 AM EDT): Seen at ER [facility] visit 03/17/23 Will order MR pancreas with [...] 2 hours before bedtime Continue followup with [facility] Assessment & Plan (03/19/2023 10:58 AM EDT): PPI daily Lifestyle measures to include elevating head of bed, not eating 2 hours before bedtime Continue followup with [facility] Assessment & Plan (08/30/2022 6:20 PM EST): Continue followup with [facility] Acquired hypothyroidism 08/21/2015 Assessment & Plan (08/30/2022 6:21 PM EST): Continue Synthroid 75mcg daily Constipation 08/21/2015 Assessment & Plan (05/31/2023 3:05 PM EDT): Obtain KUB Bowel regimen Assessment & Plan (08/30/2022 6:20 PM EST): Continue Miralax and Senna daily as needed Reports multiple BMs per day Dementia 08/21/2015 Osteoporosis 08/21/2015 Assessment & Plan (09/28/2023 7:12 AM EST): Sees Dr Palacios at [facility] endo Currently on drug holiday from Reclast, will either restart Reclast or start Prolia later in the year Continue Ca/Cit D supplement Assessment & Plan (08/30/2022 6:20 PM EST): Continue annual Reclast infusions per endo Overweight 08/21/2015 Pure hypercholesterolemia 08/21/2015 Thrombocytosis 08/21/2015 Encounters Date Type Department Care Team Description 01/14/2025 Refill [facility] [address] [place] [address] Jade Richards MD Thrombocytosis, unspecified; Acquired hypothyroidism 12/25/2024 1:40 PM EDT Office Visit [facility] [address] [place] [address] Syl Mccall NP Mass of soft tissue of wrist (Primary Dx) 12/19/2024 Refill [facility] [address] [place] [address] Casandra [place], 12/02/2024 Refill [facility] [address] [place] [address] Dianne Espinal MD Age-related osteoporosis without current pathological fracture 12/02/2024 Refill [facility] [address] [place] [address] Jade Richards MD Healthcare maintenance; Age-related osteoporosis without current pathological fracture 11/15/2024 Orders Only GENERIC EXTERNAL DATA DEPARTMENT Provider, Generic External Data from Last 3 Months Immunizations Immunization Administration Dates Next Due Influenza injectable quadriv [...] Sign Reading Time Taken Comments Blood Pressure 137/78 12/25/2024 1:14 PM EDT Pulse 75 12/25/2024 1:14 PM EDT Temperature 36.6 ??C (97.8 ??F) 12/25/2024 1:14 PM ED T Respiratory Rate 16 12/25/2024 1:14 PM EDT Oxygen Saturation 97% 12/25/2024 1:14 PM EDT Inhaled Oxygen Concentration - - Weight 66 kg (145 lb 6.4 oz) 12/25/2024 1:14 PM EDT Height 144.8 cm (4' 9 ) 11/24/2023 1:16 PM EDT Body Mass Index 31.46 11/24/2023 1:16 PM EDT Plan of Treatment Health Maintenance Due Date Last Done Comments Alcohol/Substance Use Screening 1955 RSV Patients and Patients Aged 60 years or older (1 - 1-dose 75+ series) 2018 DTaP/Tdap/Td Vaccines (2 - Td or Tdap) 11/15/2022 11/15/2012, 05/18/2006 Depression Screening 02/15/2024 02/14/2023, 02/15/20 23 COVID-19 Vaccine ( - season) 2024 Influenza Vaccine (#1) 2024 , [...] patient's age to complete this topic Meningococcal B Vaccine Aged Out No l onger eligible based on patient's age to complete [...] Albumin Level 4.0 3.5 - 5.0 g/dL [facility] 11/15/2024 10:1 6 AM EDT 11/15/2024 10:16 AM EDT us Generic External Data Provider LAB BLOOD ORDERAB LES Final Result [facility] [address] [place] [phone] * (ABNORMAL) Basic Metabolic Panel (11/15/2024 10:16 AM EDT) Sodium 142 135 - 145 mmol/L [facility] Potassium 4.1 3.3 - 5.1 mmol/L [facility] Chloride 108 96 - 108 mmol/L [facility] Carbon Dioxide 28 22 - 29 mmol/L [facility] Anion Gap 10(L) 12 - 20 [facility] Urea Nitrogen (BUN) 7(L) 9 - 16 mg/dL [facility] Creatinine, Serum 0.65 0.5 - 1.4 mg/dL [facility] Estimated Glomerular Filt Rate >60 [facility] Comment:Chronic Kidney Disea se: Estimated GFR < 60 mL/min/[id number] Kidney Disease: Estimated GFR < 15 mL/min/1.73m2 Glucose 100 60 - 115 mg/dL [facility] Calcium 9.3 8.4 - 10.2 mg/dL [facility] 11/15/2024 10:1 6 AM EDT 11/15/2024 10:16 AM EDT us Generic External Data Provider LAB BLOOD ORDERAB LES Final Result [facility] [address] [place] [phone] * BI Mammogram Screening Tomosynthesis Bilateral (02/28/2024 10:45 AM EDT) Anatomical Region Laterality Modality Breast Bilateral Mammography 02/28/2024 10:4 5 AM EDT Narrative 03/28/2024 11:34 PM EDT ? [facility] [place] ? [address] ?[place] [address] ? Mammography Report ? Signed ? Patient: Isidra Srinivasan ?MR#: [id number] ?? 198 ? : 1945 ?Acct:[id number] ? Age/Sex: 78 / F ?ADM Date: 02/28/24 ? Loc: HO.MAMMO ? Attending Dr: Jade Richards MD ? Ordering Physician: Jade Richards ?Results: 1Negative ? Date of Service: 02/28/24 ?Follow Up: 1 Year From Orig ?? inal Mammogram ? Procedure(s): MM tomosynthesis screening BI ?? Accession Number(s): [id number] ? cc: Jade Richards ? EXAMINATION: ?? [...] 2330 ? DD/ 1045 ? TD/TT: ? Preparing Box Tender: ? Procedure Note Cristobal, Image - [facility]/28/[facility] [address] [place] [address] Mammography Report Signed Patient: Kerri Srinivasan#: [id number] : 3Acct:[id number] Age/Sex: 78 / FADM Date: 02/28/24 Loc: [facility] Attending Dr: Jade Richards MD Ordering Physician: Lida Richardsults: 1Negative Date of Service: 02/28/24Follow Up: 1 Year From Orig inal Mammogram Procedure(s): MM tomosynthesis screening BI Accession Number(s): [id number] cc: Jade Richards EXAMINATION: MM SCREENING DIGITAL [...] in OV> 03/28/24 2330 DD/ 1045 TD/TT: Preparing Box Tender: Jade Richards MD IMG BI PROCEDURES Edited Resul t - Final from Last 3 Months or Most Recently Relevant to Health Maintenance Insurance [facility] (O D-SNP) [facility] (O D-SNP) [place] M[place] [id number] Care Teams Warehouse Shipping Receiving Clerk Relationship Specialty Start Date End Date Jade Richards MD [address] [place] [address] [place] [address] PCP - General Family Medicine 05/04/22
--- OUTSIDE RECORDS SUMMARY | 2025-01-24 08:53 | XMS_ITS | Encounter Summary ---
Author Organization [employer] Address [address] [place] [address] Care Team Providers Care Delivery Manager Name Role Phone Jade Richards MD Primary Care Provider [phone] Reason for Visit * Reason Comments Med Refill Encounter Details Date Type Department Care Team ([facility] st Contact Info) Description 06/01/2024 Refill [facility] [address] [place], [place] [phone] Jade Richards MD [address] [place], [place] [phone] Social History Tobacco Use Types Packs/Day Years [...] documented as of this encounter Care Teams Delivery Manager Relationship Specialty Start Date End Date Jade Richards MD [address] [place] [address] PCP - General Family Medicine 05/04/22 documented as of this encounter
--- OUTSIDE RECORDS SUMMARY | 2025-01-24 08:53 | XMS_ITS | Encounter Summary ---
Author Organization [employer] Address [address] [place] [address] Care Team Providers Care Furnace Utility Operator Name Role Phone Jade Richards MD Primary Care Provider [phone] Reason for Visit * Reason Onset Date [...] the pt has been seen by the fountain dispenser, and she stated that yes she has. I asked if she could contact the fountain dispenser, and ask to have the office notes faxed to the [facility] at [phone], and she agreed to do so. Encounter Details Date Type Department Care Team ([facility] Contact Info) Description 08/31/2022 Telephone [facility] [address] [place], [place] [phone] Jade Richards MD [address] [place], [place] [phone] Letter Request (The pt requested a letter for housing, because she would like to have the rugs removed from her apartment. She developed fluid filled bumps on her body, and believes that they are caused by the rugs. I spoke with Nadine, her emergency contact, and asked if the pt has been seen by the fountain dispenser, and she stated that yes she has. I asked if she could contact the fountain dispenser, and ask to have the office notes faxed to the [facility] Dept at [phone], and she agreed to do so. ) [...] on filedocumented in this encounter Care Teams Furnace Utility Operator Relationship Specialty Start Date End Date Jade Richards MD [address] [place] [phone] PCP - General Family Medicine 05/04/22 documented as of this encounter
== END 2025-01-24 09:05 | disposition home or self-care (01) ==
LOC: HO.ENCR 08:42
PROVIDERS: PCP General Practice; Visit Provider Internal Medicine Endocrinology, Diabetes & Metabolism
DX: M81.0 Age-related osteoporosis without current pathological fracture (principal)
CPT/HCPCS: 99213

== ENCOUNTER → 2025-01-24 08:41 | Outpatient (BNVA) | payer OTHER, SELFPAY | PROVIDERS: PCP General Practice; Visit Provider Internal Medicine Endocrinology, Diabetes & Metabolism | DX: M81.0 Age-related osteoporosis without current pathological fracture (principal) | CPT/HCPCS: 99212 ==

== ENCOUNTER 2025-01-29 12:00 | Outpatient (REF) | payer OTHER, SELFPAY ==
--- OUTSIDE RECORDS SUMMARY | 2025-01-29 12:26 | XMS_ITS ---
Author Organization [facility] Address [address] [place] [address] Care Team Providers Care Business Intern Name Role Phone Maurice Serrano, Jade Primary Care Provider Chaz Godoy Jr [phone] Encounters Encounter Location Date Provider Diagnosis [facility] [address] [place] [address] 08/22/2023 Chaz Acevedo Jr Plan Of Treatment No Information Progress Notes * ELISABETH AYALAADOB:[birth year] (79 yo F)Acc No.[id number]:08/22/2023 Progress Notes Patient:?SIVA AYALA Provider:?Chaz Acevedo MD :1945???Age:78 Y???Sex:Female D ate:08/22/2023 Address:[address] [place], [place] [phone] Pcp:Jade Richards M.D. Subjective: * Chief Complaints: [...] MD Date:?1 10/23/2022 Generated for Brian johnson/Greg/eTransmitting on:?01/29/2025 12:26 PM EDT
[2025-02-01 11:08] LABS: N-Telopeptide 50 (see note); NTXCreaRU 130 mg/dL (20-275)
== END 2025-01-29 12:01 | disposition home or self-care (01) ==
LOC: HO.10HDLNP 12:00
PROVIDERS: Visit Provider Internal Medicine Endocrinology, Diabetes & Metabolism
DX: M81.0 Age-related osteoporosis without current pathological fracture (principal)
CPT/HCPCS: 82523

== ENCOUNTER 2025-02-05 09:02 | Outpatient (AMB) | payer OTHER, SELFPAY ==
[2025-02-05 09:07] VITALS: BP 110/62; PULSE 70; O2SAT 96; BMI 28.5
--- NOTE | 2025-02-05 09:07 | MHC.OFFVIS ---
Vital Signs 02/05/25 09:07 Height 5 ft Weight 146 lb 2.664 oz BMI 28.5 BP 110/62 Blood Pressure Location Lt brachial Position Sitting Pulse 70 Pulse Source Pulse Oximeter Pulse Oximetry (%) 96 Oxygen Delivery Method Room Air Intake Visit Reasons: MNG Intake Note: Patient present today for MNG office visit. Learning And Development Officer Required: Yes Learning And Development Officer Language: Pearl Fisherman Services: Learning And Development Officer Offered & Declined Accompanied by: Grand Child Allergies No Known Allergies Allergy (Mild, Verified 02/05/25 09:11) NONE Medication List - Last Reconciled 02/05/25 by Yasmeen Murray MD alprazolam (Xanax) 0.5 mg PO BEDTIME PRN aspirin 81 mg PO DAILY calcium citrate mg ferrous fumarate 324 mg PO DAILY levothyroxine 75 mcg PO DAILY meclizine (Antivert) 25 mg PO TID multivitamin 1 tab PO DAILY pantoprazole 40 mg PO DAILY polyethylene glycol 3350 (Miralax) 17 grams PO DAILY rosuvastatin 5 mg PO DAILY sennosides 17.2 mg PO DAILY walker As directed HPI Comments Details: 79 YO Female seen today for follow up of nontoxic multinodular goiter. Here today with granddaughter. She also has a history significant for osteoporosis for which she sees Dr. Palacios in our practice. This was not addressed today. Multinodular Thyroid and hypothyroidism MNG Diagnosed in 2021 Also has history of hypothyroidism on levothyroxine 75 mcg daily She thinks she takes for many years She takes it with breakfast , she has never taken it on an empty stomach She underwent FNA biopsy of 3 thyroid nodules 04/15/2022 LMP 1.4 cm thyroid nodule with cytology atypia of undetermined significance (bethesda category III)., Afirma benign LMP 3.4 cm thyroid nodule with cytology suspicious for follicular neoplasm (bethesda category IV), Afirma benign and RMP 1.7 cm thyroid nodule which was benign. She opted for routine surveillance. Most recent thyroid ultrasound from April 2023 showed smaller/stable size of the nodules. However difficult to distinguish exact boundaries due to increased heterogenous D of the thyroid gland. Interval history Continues on levothyroxine 75 mcg daily, she is getting the prescription through her PCP, I called the pharmacy during the visit and confirmed this., last picked up 01/21/2025, has 90 pills, 3 refills She forgot to do the thyroid ultrasound that she was supposed to get before this appointment She denies any compressive symptoms. No symptoms of hypo or hyperthyroidism Normal TFTs from September 2024 No family history of thyroid cancer or thyroid disease No history of head or neck radiation. Physical exam General: sitting comfortably in no acute distress HEENT: normocephalic/atraumatic, moist oral mucosa Neck: supple, palpable 2 cm left-sided nodule, palpable 1 cm right-sided nodule Cardiac: normal heart sounds Pulm: normal breath sounds B/L, no added breath sounds Abd: not distended, no tenderness Extremities: no edema, no signs of myxedema Neuro: AAO x3, Speech: normal, no facial droop, moving all 4 extremities Laboratory Tests 09/26/24 09:16 TSH 1.92 Free T4 0.90 Thyroid US: 04/19/2023 Right Thyroid Lobe: 5.8 x 2.4 x 2.2 cm, volume 16.2 mL. Previously 5.7 x 2.7 x 2.3 cm, volume 18.0 mL. Parenchyma: The gland echotexture is heterogeneous. Thyroid vascularity is increased. Left Thyroid Lobe: 6.7 x 3.2 x 2.8 cm, volume 31.3 mL. Previously 7.2 x 2.9 x 3.1 cm, volume 34.0 mL. Parenchyma: The gland echotexture is heterogeneous. Thyroid vascularity is increased. Isthmus: 0.47 cm in maximum AP dimension. Previously 0.30 cm. Estimated total number of nodules greater than or equal to 1 cm: 4. Healthcare Consulting Manager nodules are described as follows: 1.? Location: Right mid inferior. ?? ? Size: 3.3 x 1.9 x 2.3 cm, volume 7.8 mL. ?? ? Previously: 2.8 x 2.1 x 2.0 cm, volume 6.2 mL. ?? ? Nodule characteristics: ?? ? Composition: Solid/almost completely solid (2). ?? ? Echogenicity: Cannot be determined (1). ?? ? Shape: Not taller than wide (0). ?? ? Margins: Smooth (0). ?? ? Echogenic Foci: None (0).? ACR TI-RADS total points: 3 Previous: 6 ?? ? ACR TI-RADS category: 3 Previous: 4 ? 2.? Location: Right superior. ?? ? Size: 1.4 x 0.80 x 1.1 cm, volume 0.64 mL. ?? ? Previously: 1.5 x 0.90 x 0.90 cm, volume 0.62 mL. ?? ? Nodule characteristics: ?? ? Composition: Solid (2). ?? ? Echogenicity: Hyperechoic (1). ?? ? Shape: Not taller than wide (0). ?? ? Margins: Smooth (0). ?? ? Echogenic Foci: None (0).? ACR TI-RADS total points: 3 Previous: 3 ?? ? ACR TI-RADS category: 3 Previous: 3 ?? ? 3.? Location: Left mid. ?? ? Size: 1.2 x 1.1 x 1.3 cm, volume 0.84 mL. ?? ? Previously: 3.0 x 2.9 x 2.9 cm, volume 13.4 mL. ?? ? Nodule characteristics: ?? ? Composition: Solid (2). ?? ? Echogenicity: Hypoechoic (2). ?? ? Shape: Not taller than wide (0). ?? ? Margins: Smooth (0). ?? ? Echogenic Foci: Punctate echogenic foci (3).? ACR TI-RADS total points: 7 Previous: 6 ?? ? ACR TI-RADS category: 5 Previous: 4 ? 4.? Location: Left mid. ?? ? Size: 2.5 x 1.6 x 2.2 cm, volume 4.5 mL. ?? ? Previously: 2.0 x 2.0 x 3.1 cm, volume 9.9 mL. ?? ? Nodule characteristics: ?? ? Composition: Solid (2). ?? ? Echogenicity: Hyperechoic (1). ?? ? Shape: Not taller than wide (0). ?? ? Margins: Smooth (0). ?? ? Echogenic Foci: None (0).? ACR TI-RADS total points: 3 Previous: 6 ?? ? ACR TI-RADS category: 3 Previous: 4 ? NODES: No lymphadenopathy is seen in the tissue surrounding the thyroid gland. [facility], [facility] Medical History (Updated 12/25/24 @ 09:51 by Yasmeen Murray MD) Hypothyroidism Multinodular thyroid Goiter Vitamin D deficiency Serum calcium elevated Osteoporosis Surgical History Hx of biopsy History of surgery on arm Hx of fracture of hip Hx of tubal ligation Family History Father No problems noted. Mother No problems noted. Social History Household Members: None Housing: Apartment Alcohol intake: never Patient Tobacco Use Status: Never used Tobacco Current occupational status: disabled Assessment & Plan Assessment & Plan (1) Multinodular thyroid: Code(s): E04.2 - Nontoxic multinodular goiter Category: Medical Plan: 79-year-old female here today for follow up of nontoxic multinodular goiter. She also has a history significant for hypothyroidism for which she is on levothyroxine 75 mcg daily, most recent TFTs from September 2024 shows she is biochemically euthyroid. Looks like she was diagnosed with multinodular goiter in 2021, she underwent FNA biopsy of 3 nodules in April 2022 the left midpole 1.4 cm nodule which came back as AUS, [place] category 3 for which Afirma was benign, the left midpole 3.4 cm thyroid nodule which came back as suspicious for follicular neoplasm, for which Afirma was benign, and a right midpole 1.7 cm thyroid nodule which was benign. Subsequently she opted for routine surveillance. Her last thyroid ultrasound is from April 2023 which shows smaller/stable size of the nodules. It is hard to distinguish in compare from previous ultrasound because of the heterogeneity of the gland making it difficult to distinguish the exact boundaries of the nodules. However she does not have any compressive symptoms, no personal history of head or neck radiation, no family history of thyroid cancer. At this time we will have her repeat a thyroid ultrasound. We ordered this last visit but patient forgot to get it. 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 She has not had recent TFTs. 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
--- OUTSIDE RECORDS SUMMARY | 2025-02-05 09:50 | XMS_ITS ---
Author Organization [facility] Address [address] [place] [address] Care Team Providers Care Vacuum Form Operator Name Role Phone Jade Richards M.D. Primary Care Provider Chaz Godoy Jr REASON FOR VISIT labs Encounters Encounter Location Date Provider Diagnosis [facility] [address] [place] [address] 09/08/2023 Chaz Acevedo Jr Plan Of Treatment No Information Progress Notes * ELISABETH AYALACINDYB:[birth year] (78 yo F)Acc No.[id number]:09/08/2023 Patient:?SIVA AYALA :1945???Age:78 Y???Sex:Female Address:[address] [place] [address] [address], [place], [address] * true * Date:? Generated for Yusefi elizabeth/Greg/eTransmitting on:?02/05/2025 09:49 AM EDT
== END 2025-02-05 09:21 | disposition home or self-care (01) ==
LOC: HO.ENCR 09:03
PROVIDERS: PCP General Practice; Visit Provider Student in an Organized Health Care Education/Training Program
DX: E04.2 Nontoxic multinodular goiter (principal); E06.3 Autoimmune thyroiditis
CPT/HCPCS: 99213

== ENCOUNTER 2025-02-05 09:26 | Outpatient (REF) | payer OTHER, SELFPAY ==
[2025-02-05 12:02] LABS: Free T4 (Free Thyroxine) 1.03 ng/dL (0.71-1.85)
== END 2025-02-05 09:27 | disposition home or self-care (01) ==
LOC: HO.10HDL 09:26
PROVIDERS: Visit Provider Student in an Organized Health Care Education/Training Program
DX: E04.2 Nontoxic multinodular goiter (principal); E06.3 Autoimmune thyroiditis; Z79.890 Hormone replacement therapy
CPT/HCPCS: 36415; 84439; 84443; 99212

== ENCOUNTER 2025-02-07 13:11 | Outpatient (REF) | payer OTHER, SELFPAY ==
--- NOTE | ~2025-02-07 | US_ITS ---
EXAMINATION: US THYROID HISTORY: E04.2 - Nontoxic multinodular goiter TECHNIQUE: Real-time grayscale ultrasound imaging was performed and images were reviewed. COMPARISON: Comparison is made with the prior examination dated 1522. FINDINGS: SIZE: The right thyroid lobe measures 4.8 x 2.2 x 1.8 cm. The left thyroid lobe measures 6.6 x 2.8 x 2.9 cm. The isthmus measures 10 mm. FLOW: Flow to the gland is increased. ECHOGENICITY: The echotexture of the gland is heterogeneous. NODULES: Multiple bilateral thyroid nodules are again noted as described below: Nodule #: 1 Location: Right lower pole measuring 1.4 x 0.9 x 0.8 cm (previously included with nodule #2 below). Shape: Wider than tall (0 points) Margins: Smooth (0 points) Echotexture: Isoechoic (1 point) Composition: Mixed (1 point) Calcifications: None (0 points) Total points: 2 TIRADS: TR2: Not suspicious Nodule #: 2 Location: Right lower pole measuring 2.1 x 1.3 x 1.6 cm (previously included with nodule #1 above). Shape: Wider than tall (0 points) Margins: Smooth (0 points) Echotexture: Hyperechoic (1 point) Composition: Solid (2 points) Calcifications: None (0 points) Total points: 3 TIRADS: TR3: Mildly suspicious. Nodule #: 3 Location: Midportion of the left thyroid lobe measuring 1.2 x 1.0 x 1.2 cm (previously 1.2 x 1.1 x 1.3 cm). Shape: Wider than tall (0 points) Margins: Smooth (0 points) Echotexture: Very hypoechoic (3 points) Composition: Solid (2 points) Calcifications: None (0 points) Total points: 5 TIRADS: TR4: Moderately suspicious. Nodule #: 4 Location: Lower pole of the left thyroid lobe measuring 2.8 x 2.1 x 2.9 cm (previously 2.5 x 1.6 x 2.2 cm). Shape: Wider than tall (0 points) Margins: Smooth (0 points) Echotexture: Hyperechoic (1 point) Composition: Solid (2 points) Calcifications: None (0 points) Total points: 3 TIRADS: TR3: Mildly suspicious. US/US thyroid IMPRESSION: Multinodular thyroid gland with a similar appearance to the prior study. Please note that the 2 right-sided nodules on today's examination were previously measured as a single nodule. ACR TI-RADS Guidelines TR1 (0 points): Benign, No follow-up or biopsy required TR2 (2 points): Not Suspicious, No biopsy or follow up indicated TR3 (3 points): Mildly Suspicious, FNA if >= 2.5 cm, Follow if >= 1.5 cm TR4 (4-6 points): Moderately Suspicious, FNA if >= 1.5 cm, Follow if >= 1.0 cm TR5 (>=7 points): Highly Suspicious, FNA if >= 1.0 cm, Follow if >= 0.5 cm Electronically signed by: Dat Toussaint MD 02/07/2025 03:22 PM EDT
--- OUTSIDE RECORDS SUMMARY | 2025-02-07 15:26 | XMS_ITS ---
Author Organization [facility] Address [address] [place] [address] Care Team Providers Care Freight Loader Name Role Phone Maurice Serrano, Jade Primary Care Provider Chaz Godoy Jr Encounters Encounter Location Date Provider Diagnosis [facility] [address] [place] [address] 08/22/2023 Chaz Acevedo Jr Plan Of Treatment No Information Progress Notes * ELISABETH AYALAADOB:[birth year] (79 yo F)Acc No.[id number]:08/22/2023 Progress Notes Patient:?SIVA AYALA Provider:?Chaz Acevedo MD :1945???Age:78 Y???Sex:Female D ate:08/22/2023 Address:[address] [place], [place] [id number] Pcp:Jade Richards M.D. Subjective: * Chief Complaints: [...] MD Date:?1 10/23/2022 Generated for Brian johnson/Greg/eTransmitting on:?02/07/2025 03:25 PM EDT
== END 2025-02-07 13:12 | disposition home or self-care (01) ==
LOC: HO.US 13:11
PROVIDERS: PCP General Practice; Visit Provider Student in an Organized Health Care Education/Training Program
DX: E04.2 Nontoxic multinodular goiter (principal)
CPT/HCPCS: 76536

== ENCOUNTER → 2025-02-07 13:12 | Outpatient (BNV) | payer OTHER, SELFPAY | PROVIDERS: PCP General Practice; Visit Provider Radiology Diagnostic Radiology | DX: E04.2 Nontoxic multinodular goiter (principal) | CPT/HCPCS: 76536 ==

== ENCOUNTER 2025-03-12 08:44 | Outpatient (REF) | payer OTHER, SELFPAY ==
--- OUTSIDE RECORDS SUMMARY | 2025-03-12 09:00 | XMS_ITS | Patient Health Record ---
Author Organization [facility] Address [address] [place] [address] Care Team Providers Care Fruit Peeler Name Role Phone Jade Richards M.D. Primary Care Provider Chaz Godoy Jr [phone] Allergies No Known Allergies Reason For Referral [...] Problem Status W/U Status Risk Notes Problem [id number] Gastroesophageal reflux disease without esophagitis (K21.9) Active confirmed Problem [id number] Pancreatic cyst (K86.2) Active confirmed Plan Of [...] Insured Coverage Start Date Coverage End Date [facility] [address] Attn Claims RADHA [place] [id number] SIVA AYALA Self - patient is the insured Medical (General) History Medical History History ICD Code elevated cholesterol hypothyroidism thrombocytosis dementia osteoporosis elevated BMI constipation Gastroesophageal reflux dise ase, EGD 01/20, no H. pylori or Dobbs's esophagus Colonoscopy 07/05/11 normal Surgical History Surgery Date(Month/Year) left hip replacement 2010 hand surgery kidney surgery
--- OUTSIDE RECORDS SUMMARY | 2025-03-12 09:00 | XMS_ITS | Encounter Summary ---
Author Organization [employer] Address [address] [place] [address] Care Team Providers Care Marine Specialist Name Role Phone Jade Richards MD Primary Care Provider [phone] Reason for Visit * Reason Onset Date Comments Letter For Housing 11/23/2022 Encounter Details Date Type Department Care Team ([facility] Contact Info) Description 11/23/2022 Telephone [facility] [address] [place] [address] Jade Richards MD [address] [place] [address] Letter For Housing Social History Tobacco Use [...] requested on 11/22/2022. Please contact daughter at [phone] * Telephone Encounter - Adam Patrick - 11/23/2022 10:53 AM EDT Tc from Pt requesting status on Letter that was requesting to remove rug from apartment floors. Puppy Walker sees discussion regarding matter on 08/31/2023. Please contact pt at [phone] documented in this encounter Plan of Treatment Not on file documented as of this encounter Visit Diagnoses Not on filedocumented in this encounter Care Teams Marine Specialist Relationship Specialty Start Date End Date Jade Richards MD [address] [place] [id number] PCP - General Family Medicine 05/04/22 documented as of this encounter
--- OUTSIDE RECORDS SUMMARY | 2025-03-12 09:01 | XMS_ITS | Data Portability ---
Author Organization [facility], [facility] Address [address] [place] [address] Care Team Providers Care Client Server Programmer Name Role Phone [facility] Referring Provider [facility] Referring Provider Assessment Encounter Date Assessment Date Assessment LastModified by Organization Details LastModified Time 10/20/2021 10/20/2021 Pat stated had same rash last March resolved with 10 pills of prednisone./co ntinue Benadryl 50 mg qhs- may aLSO TAKE 25 MG every 6 Hrs prn itch- Fever/ SOB/ Facial sts advised to go to the ER- F>u w/ pcp this week [email or web address] Not available 10/21/2021 12:45:56 02/28/2023 02/28/2023 I provided real -time medical direction via phone for this encounter, and was available for additional phone based assistance as needed. I have reviewed and agree with the Assessment and Plan as documented by the Project Management Analyst. Patient given the opportunity to ask questions. [email or web address] Not available 02/28/2023 13:49:00 Plan of Treatment Reminders Order Date Submit Date Provider Last Modified By Organization Details Last Modified Time Details Appointments None recorded. Lab rapid strep group A, throat 2022 023 [email or web address] 0 [facility], [address] [place] [address], [phone] 13:47:11 Referral None recorded. Procedures None recorded. Surgeries None recorded. Imaging None recorded. Medication Orders Carafate 100 mg/mL oral suspension 2022 023 [facility], [address] [facility], [place], [place], [phone], 13:51:27 prednisone 20 mg tablet 2021 022 [email or web address] 0 [facility], [address] [place] [address], [place], [place], [phone], 12:46:02 prednisone 10 mg tablet 2021 022 [email or web address] Not available 18:25:22 Patient TargetsNo targets recorded. Patient InstructionsNo instructions recorded. Reason for Referral None Reported. Results Created Date Observation Date Name Description Value Unit Range Abnormal Flag Note LastModifiedBy Organization Detail LastModifiedTime 02/29/2002/28/2023 rapid strep group A, throa t Strep negati ve Not Available Main - [facility] ed [address] [facility], [place], [phone] 02/28/2023 13:46:53 Result Notes None recorded. Medical [...] blood by Pulse oximetry Body temperature Systolic And Diastolic Provider Name and Address Organization Details Last Updated DateTime 2 10664.8 2 g 92 /min 18 /min 98 % 98 % 98.3 [degF] 143/72 mm[Hg] Isabel Valverde MD [address] [place] [address],[address], [place], [address], [place] - [employer] 2 12:43:07 Date Recorded Respiratory rate Body temperature Oxygen saturation Oxygen saturation in Arterial blood by Pulse oximetry Heart rate Systolic And Diastolic Provider Name and Address Organization Details Last Updated DateTime 3 16 /min 98.5 [degF] 99 % 99 % 65 /min 130/70 mm[Hg] Not Available [employer] 3 13:38:53 Social History None recorded. Functional [...] 73 Isabel Valverde MD Main - [facility] [address] [place] [phone] 10/20/2021 17:55:44 10/28/2021 16:19:16 Pruritic rash [id number] L28.2 [id number] Isabel Valverde MD Main - [facility] [address] [place] [phone] 02/28/2023 13:38:51 03/01/2023 11:33:44 Dysphagia [id number] R13.10 Likely GERD aggravatio n-advised need to [...] Hernandez Member ID Guarantor Name 02/28/2023 1 [facility] [employer] - DOS PRIOR TO 2022 - DUAL ELIGIBLE (MEDICARE REPLACEMENT/ADV ANTAGE - HMO) Isidra Srinivasan [id number] Isidra Srinivasan 10/30/2023 1 [facility] [employer] - DOS ON OR AFTER 2022 - DUAL ELIGIBLE - PENITENTIARY OPTIONS AND ONE CARE (MEDICARE REPLACEMENT/ADV ANTAGE - HMO) Isidra Srinivasan [id number] Isidra Srinivasan Notes Date Note Type Note Provider Name and Address Organization Details Recorded Time 10/20/2021 text/html per [facility]: Paramed ic Visit SummaryPATIENT IS A 76 [...] localized to arms Isabel Valverde MD [address] [facility],[address], [place], [address], [employer] - [employer] 10/21/2021 12:46:29 02/28/2023 text/html HPI: Patient with [...] .................... .................... .................... .................... .................... .................... . Project Management Analyst Note From Harsha Jensen: Dispatched to the [...] sweats/ CP/SOB/n/v/d- black or bloody stool via spanish interpreter/translator Isabel Valverde MD [address] [facility],[address], [place], [address], [place] [employer] - [employer] 02/28/2023 14:16:16 OBGyn Episode No OBEpisode recorded.
== END 2025-03-12 08:45 | disposition home or self-care (01) ==
LOC: HO.MAMMO 08:44
PROVIDERS: PCP General Practice; Visit Provider General Practice
DX: Z12.31 Encounter for screening mammogram for malignant neoplasm of breast (principal)
CPT/HCPCS: 77063; 77067

== ENCOUNTER → 2025-03-12 09:00 | Outpatient (BNV) | payer OTHER, SELFPAY | PROVIDERS: PCP General Practice; Visit Provider Internal Medicine | DX: Z12.31 Encounter for screening mammogram for malignant neoplasm of breast (principal) | CPT/HCPCS: 77063; 77067 ==

== ENCOUNTER 2025-04-02 09:12 | Outpatient (AMB) | payer OTHER, SELFPAY ==
[2025-04-02 09:15] VITALS: BMI 28.5
--- NOTE | 2025-04-02 09:15 | MHC.OFFVIS ---
Vital Signs 04/02/25 09:15 Height 5 ft Weight 146 lb BMI 28.5 Intake Visit Reasons: OV Left dorsal wrist ganglion Intake Note: Isidra 79 yr old right hand dominant female presents today for a a follow up visit for her left dorsal wrist ganglion s/p aspiration with Dr Giron on 05/27/21. States her cyst has grown back and would like to discuss surgical intervention. Allergies No Known Allergies Allergy (Mild, Verified 04/02/25 09:23) NONE HPI HPI OV Left dorsal wrist ganglion: Details: Isidra is an 79 year old right hand dominant Kyrgyz speaking woman who returns with complaints of a recurrent left wrist ganglion. She was last seen, and aspiration, on 05/27/21. She says this mass has returned and she would like this dealt with. She says it took some time after her previous aspiration before it returned. [facility] Medical History (Updated 12/25/24 @ 09:51 by Yasmeen Murray MD) Hypothyroidism Multinodular thyroid Goiter Vitamin D deficiency Serum calcium elevated Osteoporosis Surgical History Hx of biopsy History of surgery on arm Hx of fracture of hip Hx of tubal ligation Family History Father No problems noted. Mother No problems noted. Social History Household Members: None Housing: Apartment Alcohol intake: never Patient Tobacco Use Status: Never used Tobacco Current occupational status: disabled Review of Systems Const All systems reviewed & are unremarkable except as noted in HPI and below Physical Exam Vital Signs: BMI result Body Mass Index 28.5 Const General: no acute distress and alert Orientation/consciousness: patient oriented x3 Neuro General: patient oriented x3 Extrem Other: Evaluation of Left Upper Extremity: The patient is alert, oriented, and in no acute distress Neuro: Median, Ulnar, Radial nerves motor and sensory intact Vascular: Cap refill brisk ROM: She can make a fist and extend all her digits No locking or catching She has an ~3-4cm diameter multilobular dorsal wrist ganglion over the dorsal radial aspect of her left wrist, going from the snuffbox ulnar to the EPL tendon. It is not particularly tender to palpation. It is fluid filled and soft. It is not particularly mobile, and there are no overlying skin changes. Psych Appearance: grossly normal Affect: normal affect Attitude: cooperative Office Procedures AMB Fracture Care Details: No fracture, aspiration of ganglion Fracture Billing Code: Fracture Billing Code Assessment & Plan Assessment & Plan (1) Ganglion cyst of dorsum of left wrist: Code(s): M67.432 - Ganglion, left wrist Category: Medical Plan Assessment and plan: 1. Left dorsal wrist ganglion, recurrent S/P aspiration Date of Procedure: 05/27/21 Measuring ~3cm dorsal wrist ganglion over the dorsal central aspect of her left wrist I educated her about this condition I discussed operative and non-operative treatment options. Again this is a fairly large ganglion that extends from the snuffbox across to the ulnar side of the EPL tendon. In my experience these fairly large ganglion with a have a greater chance of recurrence even after they are removed operatively. As this is not painful, I recommended an aspiration, or perhaps leaving it alone. The patient would like to proceed with a repeat aspiration Aspiration #1: The risks and benefits of aspiration, including but not limited to risk of damage to blood vessels, nerves, tendons, infection, failure to improve symptoms, increased pain, and possible need for further aspirations or surgical intervention. After obtaining written consent, I sterilely prepped the area over the Left wrist. I then injected subcutaneously with a small amount 1% lidocaine. I then passed an 18 gauge needle into the ganglion and aspirated some bloody viscous fluid consistent with a ganglion. Some remaining viscous fluid was then pushed out of the ganglion. The patient tolerated this well and with no complications. At this point she may follow up PRN. Scribed for Jennifer Giron MD by Lewis Farfan, medical practitioners, on 04/02/25 at 9:35 AM, EST. Coding Level of Care Code Est Pt Level 4 (37945) Diagnoses Ganglion cyst of dorsum of left wrist M67.432 CPT Codes Fracture Care - Fracture Billing Code: Fracture Billing Code ([id number])
--- OUTSIDE RECORDS SUMMARY | 2025-04-02 09:39 | XMS_ITS | Encounter Summary ---
Author Organization [employer] Address [address] [facility] 7t [place] [address] Care Team Providers Care Orthodontic Treatment Coordinator Name Role Phone Jade Richards MD Primary Care Provider [phone] Reason for Visit * Reason Onset Date Comments Letter For Housing 11/23/2022 Encounter Details Date Type Department Care Team ([facility] Contact Info) Description 11/23/2022 Telephone [facility] MEDICINE [address] [place] [address] Jade Richards MD [address] [place] [address] Letter For Housing Social History Tobacco Use [...] requested on 11/22/2022. Please contact daughter at [phone] * Telephone Encounter - Adam Patrick - 11/23/2022 10:53 AM EDT Tc from Pt requesting status on Letter that was requesting to remove rug from apartment floors. Sales Account Manager sees discussion regarding matter on 08/31/2023. Please contact pt at [phone] documented in this encounter Plan of Treatment Not on file documented as of this encounter Visit Diagnoses Not on filedocumented in this encounter Care Teams Orthodontic Treatment Coordinator Relationship Specialty Start Date End Date Jade Richards MD [address] [place] [address] PCP - General Family Medicine 05/04/22 documented as of this encounter
--- OUTSIDE RECORDS SUMMARY | 2025-04-02 09:40 | XMS_ITS | Data Portability ---
Author Organization [facility] [employer] [facility], [facility] Address [address] [place] [address] Care Team Providers Care Six Sigma Black Belt Engineer Name Role Phone [facility] Referring Provider [facility] Referring Provider [phone] Assessment Encounter Date Assessment Date Assessment LastModified by Organization Details LastModified Time 10/20/2021 10/20/2021 Pat stated had same rash last March resolved with 10 pills of prednisone./co ntinue Benadryl 50 mg qhs- may aLSO TAKE 25 MG every 6 Hrs prn itch- Fever/ SOB/ Facial sts advised to go to the ER- F>u w/ pcp this week [email or web address] Not available 10/21/2021 12:45:56 02/28/2023 02/28/2023 I provided real -time medical direction via phone for this encounter, and was available for additional phone based assistance as needed. I have reviewed and agree with the Assessment and Plan as documented by the Informatics Manager. Patient given the opportunity to ask questions. [email or web address] Not available 02/28/2023 13:49:00 Plan of Treatment Reminders Order Date Submit Date Provider Last Modified By Organization Details Last Modified Time Details Appointments None recorded. Lab rapid strep group A, throat 2022 023 [email or web address] 0 [facility], [address] [place] [address], [id number] 13:47:11 Referral None recorded. Procedures None recorded. Surgeries None recorded. Imaging None recorded. Medication Orders Carafate 100 mg/mL oral suspension 2022 023 [facility], [address] [facility], [place], [place], [phone], 13:51:27 prednisone 20 mg tablet 2021 022 [email or web address] 0 [facility], [address] [place] [address], [place], [place], [id number], 12:46:02 prednisone 10 mg tablet 2021 022 [email or web address] Not available 18:25:22 Patient TargetsNo targets recorded. Patient InstructionsNo instructions recorded. Reason for Referral None Reported. Results Created Date Observation Date Name Description Value Unit Range Abnormal Flag Note LastModifiedBy Organization Detail LastModifiedTime 02/29/2002/28/2023 rapid strep group A, throa t Strep negati ve Not Available Main - [facility] ed [address] [facility], [place], [address] 02/28/2023 13:46:53 Result Notes None recorded. Medical [...] Address Organization Details Last Updated DateTime 2 69836.8 2 g 92 /min 18 /min 98 % 98 % 98.3 [degF] 143/72 mm[Hg] Isabel Pollard MD [address] [place] [address],[address], [place], [address], [place] - [email or web address] 2 12:43:07 Date Recorded Respiratory rate Body temperature Oxygen saturation Oxygen saturation in Arterial blood by Pulse oximetry Heart rate Systolic And Diastolic Provider Name and Address Organization Details Last Updated DateTime 3 16 /min 98.5 [degF] 99 % 99 % 65 /min 130/70 mm[Hg] Not Available [employer] 3 13:38:53 Social History None recorded. Functional Status None recorded. Mental Status None recorded. Family History Nothing Reported. Medical History No medical history recorded. Gynecological HistoryNo gynecological history recorded. Obstetrics History GPAL:G 0 P 0 0 0 0 Past Encounters Encounter ID Performer Location Encounter Start Date Encounter Closed Date Diagnosis/Indication Diagnosis SNOMED-CT Code Diagnosis ICD10 Code Diagnosis Note [id number] Isabel Pollard MD Main - [facility] [address] [place] [phone] 10/20/2021 17:55:44 10/28/2021 16:19:16 Pruritic rash 22499859 L28.2 [id number] Isabel Pollard MD Main - [facility] [address] [place] [phone] 02/28/2023 13:38:51 03/01/2023 11:33:44 Dysphagia 39165226 R13.10 Likely GERD aggravatio n-advised need to [...] Hernandez Member ID Guarantor Name 02/28/2023 1 [employer] - DOS PRIOR TO 2022 - DUAL ELIGIBLE (MEDICARE REPLACEMENT/ADV ANTAGE - HMO) Isidra Srinivasan [id number] Isidra Srinivasan 10/30/2023 1 [employer] - DOS ON OR AFTER 2022 - DUAL ELIGIBLE - HALFWAY OPTIONS AND ONE CARE (MEDICARE REPLACEMENT/ADV ANTAGE - HMO) Isidra Srinivasan [id number] Isidra Srinivasan OBGyn Episode No OBEpisode recorded.
--- OUTSIDE RECORDS SUMMARY | 2025-04-02 09:40 | XMS_ITS | Patient Health Record ---
Author Organization [facility] Address [address] [place] [address] Care Team Providers Care Office Sweeper Name Role Phone Jade Richards M.D. Primary [...] Problem Status W/U Status Risk Notes Problem [id number] Gastroesophageal reflux disease without esophagitis (K21.9) Active confirmed Problem 51072281 Pancreatic cyst (K86.2) Active confirmed Plan Of [...] Insured Coverage Start Date Coverage End Date [facility] [address] Attn Claims RADHA [place] [address] [id number] SIVA AYALA Self - patient is the insured Medical (General) History Medical History History ICD Code elevated cholesterol hypothyroidism thrombocytosis dementia osteoporosis elevated BMI constipation Gastroesophageal reflux dise ase, EGD 01/20, no H. pylori or Dobbs's esophagus Colonoscopy 07/05/11 normal Surgical History Surgery Date(Month/Year) left hip replacement 2010 hand surgery kidney surgery
== END 2025-04-02 10:08 | disposition home or self-care (01) ==
LOC: HO.HOS 09:13
PROVIDERS: PCP General Practice; Visit Provider Orthopaedic Surgery
DX: M67.432 Ganglion, left wrist (principal)
CPT/HCPCS: 20612; 99214

== ENCOUNTER → 2025-04-02 09:12 | Outpatient (BNVA) | payer OTHER, SELFPAY | PROVIDERS: PCP General Practice; Visit Provider Orthopaedic Surgery | DX: M67.432 Ganglion, left wrist (principal) | CPT/HCPCS: 20612; 99212; J2003 ==

== ENCOUNTER 2025-06-25 10:21 | Outpatient (REF) | payer OTHER, SELFPAY ==
--- NOTE | ~2025-06-25 | MM_ITS ---
EXAMINATION: DXA BONE DENSITY AXIAL HISTORY: M81.0 - Age-related osteoporosis without current pathological fracture TECHNIQUE: [employer] Dual energy absorptiometry (DEXA) of the lumbar spine, total right hip, and femoral neck was performed. COMPARISON: Comparison is made with the prior examination dated 04/14/2023. FINDINGS: The bone mineral density of the lumbar spine is 0.859 g/cm2, corresponding to a T-score of -2.7, and a Z-score of -0.9. This is indicative of osteoporosis. This represents a BMD change of 4.1% compared to the prior exam. This is statistically significant. The bone mineral density of the right total hip is 0.726 g/cm2, corresponding to a T-score of -2.2, and a Z-score of -0.2. This is indicative of osteopenia. This represents a BMD change of 36.2% compared to the prior exam. This is statistically significant. The bone mineral density of the right femoral neck is 0.709 g/cm2, corresponding to a T-score of -2.4, and a Z-score of -0.2. This is indicative of osteopenia. This represents a BMD change of 20.8% compared to the prior exam. MM/XR DEXA axial skeleton IMPRESSION: Based on bone mineral density, and according to World Health Organization (WHO) criteria, the diagnosis is consistent with osteoporosis. Statistically, 68% of repeat scans fall within 1 SD (+/- 0.010 g/cm2 for AP spine L1-L4) and 1 SD (+/- 0.012 g/cm2 for femur total) [employer] is a trademark of the [employer] [place] for Metabolic Bone Disease, a World Health Organization (WHO) Collaborating Center. Electronically signed by: Dat Toussaint MD 06/25/2025 10:50 AM EDT
--- OUTSIDE RECORDS SUMMARY | 2025-06-25 12:16 | XMS_ITS | Encounter Summary ---
Author Organization [employer] Address [address] [facility] 7t [place] [address] Care Team Providers Care Plumber'S Helper Name Role Phone Jade Richards MD Primary Care Provider [phone] Encounter Details Date Type Department Care Team (Late st Contact Info) Description 08/26/2022 Orders Only [facility] MEDICINE [address] [place] [address] Luis F Hyde PharmD ERRONEOUS ENCOUNTER--DISREGARD (Primary [...] Primary documented in this encounter Care Teams Plumber'S Helper Relationship Specialty Start Date End Date Jade Richards MD [address] [place] [address] PCP - General Family Medicine 05/04/22 documented as of this encounter
--- OUTSIDE RECORDS SUMMARY | 2025-06-25 12:16 | XMS_ITS | Patient Health Record ---
Author Organization [facility] Address [address] [place] [address] Care Team Providers Care Manager Respiratory Care Name Role Phone Jade Richards M.D. Primary Care Provider Chaz Godoy Jr [phone] Allergies No Known Allergies Reason For Referral [...] MG 1 tablet Orall y Once a day; Duration: 30 days 01/19/2018 Active Immunizations Vaccine Route [...] Problem Status W/U Status Risk Notes Problem Gastroesophageal reflux disease without esophagitis (602278208) Gastroesophageal reflux disease without esophagitis (K21.9) Active confirmed Problem Pancreatic cyst (31147961) Pancreatic cyst (K86.2) Active confirmed Plan Of [...] Coverage Start Date Coverage End Date [facility] [address] Attn Claims RADHA [place] [address] [id number] SIVA AYALA Self - patient is the insured Medical (General) History Medical History History ICD Code elevated cholesterol hypothyroidism thrombocytosis dementia osteoporosis elevated BMI constipation Gastroesophageal reflux dise ase, EGD 01/20, no H. pylori or Dobbs's esophagus Colonoscopy 07/05/11 normal Surgical History Surgery Date(Month/Year) left hip replacement 2010 hand surgery kidney surgery
--- OUTSIDE RECORDS SUMMARY | 2025-06-25 12:16 | XMS_ITS | Encounter Summary ---
Author Organization [employer] Address [address] 7[address] [place] [address] Care Team Providers Care Production Maintenance Technician Name Role Phone Jade Richards MD Primary Care Provider [phone] Encounter Details Date Type Department Care Team ([facility] st Contact Info) Description 06/28/2023 Abstract [facility] MEDICINE [address] [place], [place] [phone] Jade Richards MD [address] [place], [place] [phone] Social History Tobacco Use Types Packs/Day Years [...] documented as of this encounter Care Teams Production Maintenance Technician Relationship Specialty Start Date End Date Jade Richards MD [address] [place] [address] PCP - General Family Medicine 05/04/22 documented as of this encounter
--- OUTSIDE RECORDS SUMMARY | 2025-06-25 12:16 | XMS_ITS | Encounter Summary ---
Author Organization [employer] Address [address] [facility] 7t [place] [address] Care Team Providers Care Medical Reimbursement Specialist Name Role Phone Jade Richards MD Primary Care Provider [phone] Reason for Visit * Reason Comments Med Refill Encounter Details Date Type Department Care Team ([facility] st Contact Info) Description 06/23/2025 Refill [facility] MEDICINE [address] [place], [place] [phone] Jade Richards MD [address] [place], [place] [phone] Social History Tobacco Use Types Packs/Day Years [...] documented as of this encounter Care Teams Medical Reimbursement Specialist Relationship Specialty Start Date End Date Jade Richards MD [address] [place] [address] PCP - General Family Medicine 05/04/22 documented as of this encounter
--- OUTSIDE RECORDS SUMMARY | 2025-06-25 12:16 | XMS_ITS | Encounter Summary ---
Author Organization [employer] Address [address] [place] [address] Care Team Providers Care Closet Builder Name Role Phone Jade Richards MD Primary Care Provider [phone] Encounter Details Date Type Department Care Team (Late st Contact Info) Description 06/25/2025 Orders Only [facility] External Provider, [facility] Social History Tobacco Use Types Packs/Day Years Used Date Smoking Tobacco: Never Smokeless Tobacco: Never Alcohol Use Standard Drinks/Week Comments Never 0 (1 standard drink = 0.6 oz pur e alcohol) Depression Answer Date Recorded Patient Health Questionnaire-9 Score 9 02/14/2023 Housing Stability Answer Date Recorded What is your housing situation today? I have allegra carrasoc 01/13/[address] you li [...] Procedure Name Priority Date/Time Associated Diagnosis Comments BD DEXA AXIAL Routine 06/25/2025 10:42 AM EDT documented in this encounter Results * BD DEXA Axial (06/25/2025 10:42 AM EDT) Anatomical Region Laterality Modality Body Radiographic Naya ging 06/25/2025 10:4 2 AM EDT Narrative 06/25/2025 10:53 AM EDT [facility] [place], [place] [address] Mammography Report Signed Patient: Isidra Srinivasan MR#: [id number] : 1945 Acct:[id number] Age/Sex: 79 / F ADM Date: 06/25/25 Loc: HO.MAMMO Attending Dr: Dat Palacios MD Ordering Physician: Dat Palacios MD Results: Date of Service: 06/25/25 Follow Up: Procedure(s): XR DEXA axial skeleton Accession Number(s): [id number] cc: Dat Palacios MD; Jade Richards Reason For Exam: M81.0 - Age-related osteoporosis without current pathological fracture EXAMINATION: DXA BONE DENSITY AXIAL HISTORY: M81.0 - Age-related osteoporosis without current pathological fracture TECHNIQUE: youbeQ - Maps With Life Dual energy absorptiometry (DEXA) of the lumbar spine, total right hip, and femoral neck was performed. COMPARISON: Comparison is made with the prior examination dated 04/14/2023. FINDINGS: The bone mineral density of the lumbar spine is 0.859 g/cm2, corresponding to a T-score of -2.7, and a Z-score of -0.9. This is indicative of osteoporosis. This represents a BMD change of 4.1% compared to the prior exam. This is statistically significant. The bone mineral density of the right total hip is 0.726 g/cm2, corresponding to a T-score of -2.2, and a Z-score of -0.2. This is indicative of osteopenia. This represents a BMD change of 36.2% compared to the prior exam. This is statistically significant. The bone mineral density of the right femoral neck is 0.709 g/cm2, corresponding to a T-score of -2.4, and a Z-score of -0.2. This is indicative of osteopenia. This represents a BMD change of 20.8% compared to the prior exam. MM/XR DEXA axial skeleton IMPRESSION: Based on bone mineral density, and according to World Health Organization (WHO) criteria, the diagnosis is consistent with osteoporosis. Statistically, 68% of repeat scans fall within 1 SD (+/- 0.010 g/cm2 for AP spine L1-L4) and 1 SD (+/- 0.012 g/cm2 for femur total) FRAX is a trademark of the [employer]'s [employer] for Metabolic Bone Disease, a World Health Organization (WHO) Collaborating Center. Electronically signed by: Dat Toussaint MD 06/25/2025 10:50 AM EDT Dictated By: Dat Toussaint MD Signed By: <Electronically signed by Dat Toussaint MD in OV> 06/25/25 1050 DD/ 1042 TD/TT: 06/25/25 1045 Operating Manager: Procedure Note Donotuseinterpreter, Image - 06/25/2025 [facility] [address] [place], [place] [address] Mammography Report Signed Patient: Kerri Srinivasan#: [id number] : 3Acct:[id number] Age/Sex: 79 / FADM Date: 06/25/25 Loc: HO.MAMMO Attending Dr: Dat Palacios MD Ordering Physician: Dat Palacios MDResults: Date of Service: 06/25/25Follow Up: Procedure(s): XR DEXA axial skeleton Accession Number(s): [id number] cc: Dat Palacios MD; Jade Richards Reason For Exam: M81.0 - Age-related osteoporosis without currentpathological fracture EXAMINATION: DXA BONE DENSITY AXIAL HISTORY: M81.0 - Age-related osteoporosis without current pathological fracture TECHNIQUE: youbeQ - [employer] Dual energy absorptiometry (DEXA) of the lumbar spine, total right hip, and femoral neck was performed. COMPARISON: Comparison is made with the prior examination dated 04/14/2023. FINDINGS: The bone mineral density of the lumbar spine is 0.859 g/cm2, corresponding to a T-score of -2.7, and a Z-score of -0.9. This is indicative of osteoporosis. This represents a BMD change of 4.1% compared to the prior exam. This is statistically significant. The bone mineral density of the right total hip is 0.726 g/cm2, corresponding to a T-score of -2.2, and a Z-score of -0.2. This is indicative of osteopenia. This represents a BMD change of 36.2% compared to the prior exam. This is statistically significant. The bone mineral density of the right femoral neck is 0.709 g/cm2, corresponding to a T-score of -2.4, and a Z-score of -0.2. This is indicative of osteopenia. This represents a BMD change of 20.8% compared to the prior exam. MM/XR DEXA axial skeleton IMPRESSION: Based on bone mineral density, and according to World Health Organization (WHO) criteria, the diagnosis is consistent with osteoporosis. Statistically, 68% of repeat scans fall within 1 SD (+/- 0.010 g/cm2 for AP spine L1-L4) and 1 SD (+/- 0.012 g/cm2 for femur total) FRAX is a trademark of the [employer] for Metabolic Bone Disease, a World Health Organization (WHO) Collaborating Center. Electronically signed by: Dat Toussaint MD 06/25/2025 10:50 AM EDT Dictated By: Dat Toussaint MD Signed By: <Electronically signed by Dat Toussaint MD in OV> 06/25/25 1050 DD/ 1042 TD/TT: 06/25/25 1045 Operating Manager: [facility] External Provider IMG DXA PROCEDURES Edited Result - Final documented in this encounter Visit Diagnoses Not on filedocumented in this encounter Additional Health Concerns Assessment Noted Time PHQ-9 Depression Total Score: 9 02/15/20 23 10:23 AM EDT documented as of this encounter Care Teams Closet Builder Relationship Specialty Start Date End Date Jade Richards MD [address] [place] [address] PCP - General Family Medicine 05/04/22 documented as of this encounter
--- OUTSIDE RECORDS SUMMARY | 2025-06-25 12:16 | XMS_ITS | Encounter Summary ---
Author Organization [employer] Address [address] [place] [address] Care Team Providers Care Roll Coating Machine Operator Name Role Phone Jade Richards MD Primary Care Provider Encounter Details Date Type Department Care Team ([facility] st Contact Info) Description 06/20/2023 Abstract [facility] MEDICINE [address] [place], [place] [phone] Jade Richards MD [address] [place], [place] [phone] Social History Tobacco Use Types Packs/Day Years [...] documented as of this encounter Care Teams Roll Coating Machine Operator Relationship Specialty Start Date End Date Jade Richards MD [address] [place] [address] PCP - General Family Medicine 05/04/22 documented as of this encounter
--- OUTSIDE RECORDS SUMMARY | 2025-06-25 12:16 | XMS_ITS | Encounter Summary ---
Author Organization [employer] Address [address] [place] [address] Care Team Providers Care Pan Dumper Name Role Phone Jade Richards MD Primary Care Provider [phone] Reason for Visit * Reason Onset Date [...] the pt has been seen by the firmware test engineer, and she stated that yes she has. I asked if she could contact the firmware test engineer, and ask to have the office notes faxed to the [facility] HIM Dept at [phone], and she agreed to do so. Encounter Details Date Type Department Care Team ([facility] Contact Info) Description 08/31/[address] [facility] MEDICINE [address] [place], [place] [phone] Jade Richards MD [address] [place], [place] [phone] Letter Request (The pt requested a letter for housing, because she would like to have the rugs removed from her apartment. She developed fluid filled bumps on her body, and believes that they are caused by the rugs. I spoke with Nadine, her emergency contact, and asked if the pt has been seen by the firmware test engineer, and she stated that yes she has. I asked if she could contact the firmware test engineer, and ask to have the office notes faxed to the [facility] HIM Dept at [phone], and she agreed to do so. ) [...] on filedocumented in this encounter Care Teams Pan Dumper Relationship Specialty Start Date End Date Jade Richards MD [address] [place] [address] PCP - General Family Medicine 05/04/22 documented as of this encounter
--- OUTSIDE RECORDS SUMMARY | 2025-06-25 12:16 | XMS_ITS | Encounter Summary ---
Author Organization [employer] Address [address] [facility] 7t [place] [address] Care Team Providers Care Delicatessen Store Manager Name Role Phone Jade Richards MD Primary Care Provider [phone] Encounter Details Date Type Department Care Team ([facility] st Contact Info) Description 04/08/2023 Orders Only [facility] MEDICINE [address] [place] [address] Jade Richards MD [address] [place] [address] Pancreas cyst (Primary Dx) Social History Tobacco [...] documented as of this encounter Care Teams Delicatessen Store Manager Relationship Specialty Start Date End Date Jade Richards MD [address] [place] [id number] PCP - General Family Medicine 05/04/22 documented as of this encounter
--- OUTSIDE RECORDS SUMMARY | 2025-06-25 12:16 | XMS_ITS | Encounter Summary ---
Author Organization [employer] Address [address] [facility] 7t [place] [address] Care Team Providers Care Lump Receiver Name Role Phone Jade Richards MD Primary Care Provider [phone] Reason for Visit * Reason Onset Date Comments Letter For Housing 11/23/2022 Encounter Details Date Type Department Care Team ([facility] Contact Info) Description 11/23/2022 Telephone [facility] MEDICINE [address] [place] [address] Jade Richards MD [address] [place] [address] Letter For Housing Social History Tobacco Use [...] requested on 11/22/2022. Please contact daughter at [phone] * Telephone Encounter - Adam Patrick - 11/23/2022 10:53 AM EDT Tc from Pt requesting status on Letter that was requesting to remove rug from apartment floors. Cuff Setter Lockstitch sees discussion regarding matter on 08/31/2023. Please contact pt at [phone] documented in this encounter Plan of Treatment Not on file documented as of this encounter Visit Diagnoses Not on filedocumented in this encounter Care Teams Lump Receiver Relationship Specialty Start Date End Date Jade Richards MD [address] [place] [id number] PCP - General Family Medicine 05/04/22 documented as of this encounter
--- OUTSIDE RECORDS SUMMARY | 2025-06-25 12:16 | XMS_ITS | Encounter Summary ---
Author Organization [employer] Address [address] [place] [address] 7t [place] [address] Care Team Providers Care Reel Slitter Name Role Phone Jade Richards MD Primary Care Provider [phone] Reason for Referral * Imaging (STAT) - Closed Specialty Diagnoses / Procedures Referred By Contac t Referred To Contact Radiology Diagnoses Pancreas cyst Procedures MR Abdomen w/ and w/o Contrast MRCP Jade Richards MD [address] [place] [address] Phone: tel: fax: [address] Phone: tel: fax: Referral ID Status Reason Start Date Expiration Date Visits Re quested Visits Authorized [id number] Closed 03/25/2023 03/24/2024 1 1 Encounter Details Date Type Department Care Team (Late st Contact Info) Description 03/25/2023 Orders Only [facility] MEDICINE [address] [place], [place] [phone] Jade Richards MD [address] [place] [address] Pancreas cyst (Primary Dx) Social [...] documented as of this encounter Care Teams Reel Slitter Relationship Specialty Start Date End Date Jade Richards MD [address] [place] [address] PCP - General Family Medicine 05/04/22 documented as of this encounter
--- OUTSIDE RECORDS SUMMARY | 2025-06-25 12:17 | XMS_ITS | Encounter Summary ---
Author Organization [employer] Address [address] [facility] 7t [place] [address] Care Team Providers Care Operating Cost Clerk Name Role Phone Jade Richards MD Primary Care Provider [phone] Reason for Visit * Reason Comments Med Refill Encounter Details Date Type Department Care Team ([facility] st Contact Info) Description 06/01/2024 Refill [facility] MEDICINE [address] [place], [place] [phone] Jade Richards MD [address] [place], [place] [phone] Social History Tobacco Use Types Packs/Day Years [...] documented as of this encounter Care Teams Operating Cost Clerk Relationship Specialty Start Date End Date Jade Richards MD [address] [place] [address] PCP - General Family Medicine 05/04/22 documented as of this encounter
--- OUTSIDE RECORDS SUMMARY | 2025-06-25 12:17 | XMS_ITS | Clinical Summary ---
Author Organization [employer] Address [address] [facility] 7t [place] [address] Care Team Providers Care Academic Advisement Director Name Role Phone Jade Richards MD Primary Care Provider [phone] Allergies No known active allergies Medications lidocaine [...] by MD. 30 patch 11 023 Active efxpbtjy-walhekzsx-ifk AMETHasone (Polydex) [id number] ointment ophthalmic ointment [place] 14 EN [facility] 4 VECES AL JUSTINO, DESPUES EMPAQUE CALIENTE Y MASAJEAR. LLAME SI [place] S[place]OM[place] CONTINUAN O EMPEORAN 023 Active calcium citrate (Calcitrate) 950 (200 Ca) MG tabletIndications:Age- related osteoporosis without current pathological fracture Take 1 tablet (950 mg) by mouth Once per day. TAKE 2 TABLETS BY MOUTH ONCE DAILY AT NOON 90 tablet 3 025 Active polyethylene glycol, PEG, 3350 (GaviLAX) 17 GM/SCOOP powder TAKE 17 GM MIXED IN 8 OUNCES OF WATER ONCE DAILY NEEDED 510 g 025 Active Aspirin Low Dose 81 MG EC tabletIndications:Thro mbocytosis, unspecified TAKE 1 TABLET BY MOUTH EVERYDAY AT NOON 90 tablet 3 025 Active levothyroxine (Synthroid, Levoxyl) 75 MCG tabletIndications:Acqu ired hypothyroidism TAKE 1 TABLET BY MOUTH EVERY MORNING EXCEPTO LOS BELLO 90 tablet 3 025 Active rosuvastatin (Crestor) 5 MG tabletIndications:Pure hypercholesterolemia TAKE 1 TABLET BY MOUTH AT BEDTIME 90 tablet 3 025 Active Multiple Vitamin (Multivitamin) tabletIndications:Heal thcare maintenance TAKE 1 TABLET BY MOUTH EVERYDAY AT NOON 90 tablet 3 025 Active senna (Senokot) 8.6 MG tablet TAKE 2 TABLETS BY MOUTH EVERY DAY AT BEDTIME 180 tablet 3 025 Active senna (Senokot) 8.6 MG tablet Take 2 tablets (17.2 mg) by mouth at bedtime. 180 tablet 3 024 2024 Discontinued Active Problems Problem Noted [...] biopsy Plan to obtain Dr Acevedo's notes ([facility]) to coordinate/assess need for further followup Assessment & Plan (04/18/2023 10:00 AM EDT): MR with possible mucous containing cyst She should expect a call from [facility] to schedule endoscopic biopsy Assessment & Plan (03/19/2023 10:57 AM EDT): Seen at ER [facility] visit 03/17/23 Will order MR pancreas with [...] 2 hours before bedtime Continue followup with [facility] GI Assessment & Plan (03/19/2023 10:58 AM EDT): PPI daily Lifestyle measures to include elevating head of bed, not eating 2 hours before bedtime Continue followup with [facility] GI Assessment & Plan (08/30/2022 6:20 PM EST): Continue followup with [facility] GI Acquired hypothyroidism 08/21/2015 Assessment & Plan (08/30/2022 6:21 PM EST): Continue Synthroid 75mcg daily Constipation 08/21/2015 Assessment & Plan (05/31/2023 3:05 PM EDT): Obtain KUB Bowel regimen Assessment & Plan (08/30/2022 6:20 PM EST): Continue Miralax and Senna daily as needed Reports multiple BMs per day Dementia (CMS/HCC) 08/21/2015 Osteoporosis 08/21/2015 Assessment & Plan (09/28/2023 7:12 AM EST): Sees Dr Palacios at [facility] endo Currently on drug holiday from Reclast, will either restart Reclast or start Prolia later in the year Continue Ca/Cit D supplement Assessment & Plan (08/30/2022 6:20 PM EST): Continue annual Reclast infusions per endo Overweight 08/21/2015 Pure hypercholesterolemia 08/21/2015 Thrombocytosis 08/21/2015 Encounters Date Type Department Care Team Description 06/25/2025 Orders Only [facility] External Provider, [facility] 06/23/2025 Refill [facility] [address] [place] [address] Jade Richards MD 04/07/2025 Refill [facility] [address] [place] [address] Jade Richards MD Pure hypercholesterolemia; Healthcare maintenance from Last 3 Months Immunizations Immunization Administration [...] 75 12/25/2024 1:14 PM EDT Temperature 36.6 C (97.8 F) 12/25/2024 1:14 PM EDT Respiratory Rate 16 12/25/2024 1:14 PM EDT [...] 11/15/2012, 05/18/2006 Depression Monitoring 08/16/2023 02/14/2023, 023 Tobacco Screening 09/26/2024 09/26/2023 SDOH Screening 01/12/2025 01/13/2024 COVID-19 Vaccine ( season) 2025 Influenza Vaccine (#1) 2025 , 08/27/2022, 06/23/2021, Additional history exists Mammogram 03/12/2026 03/12/2025, 02/04, 01/19/2023, Additional history exists Pneumococcal Vaccine: 50+ [...] DEXA AXIAL Routine 06/25/2025 10:42 AM EDT BI MAMMOGRAM SCREENING TOMOSYNTHESIS BILATERAL Routine 03/12/2025 8:50 AM EDT from Last 3 Months or Most Recently Relevant to Health Maintenance Results * BD DEXA Axial (06/25/2025 10:42 AM EDT) Anatomical Region Laterality Modality Body Radiographic Naya ging 06/25/2025 10:4 2 AM EDT Narrative 06/25/2025 10:53 AM EDT [facility] [address] [place] [address] Mammography Report Signed Patient: Isidra Srinivasan MR#: [id number] : 1945 Acct:[id number] Age/Sex: 79 / F ADM Date: 06/25/25 Loc: HO.MAMMO Attending Dr: Dat Palacios MD Ordering Physician: Dat Palacios MD Results: Date of Service: 06/25/25 Follow Up: Procedure(s): XR DEXA axial skeleton Accession Number(s): [id number] cc: Dat Palacios MD; Jade Richards Reason For Exam: M81.0 - Age-related osteoporosis without current pathological fracture EXAMINATION: DXA BONE DENSITY AXIAL HISTORY: M81.0 - Age-related osteoporosis without current pathological fracture TECHNIQUE: [employer] Dual energy absorptiometry (DEXA) of the lumbar [...] is a trademark of the [employer] for Metabolic Bone Disease, a World Health Organization (WHO) Collaborating Center. Electronically signed by: Dat Toussaint MD 06/25/2025 10:50 AM EDT Dictated By: Dat Toussaint MD Signed By: <Electronically signed by Dat Toussaint MD in OV> 06/25/25 1050 DD/ 1042 TD/TT: 06/25/25 1045 Director Shopper Marketing: Procedure Note Donotuseinterpreter, Image - 06/25/2025 [facility] [address] [place], [place] [address] Mammography Report Signed Patient: Kerri Srinivasan#: [id number] : 1945cct:[id number] Age/Sex: 79 / FADM Date: 06/25/25 Loc: HO.MAMMO Attending Dr: Dat Palacios MD Ordering Physician: Dat Palacios MDResults: Date of Service: 06/25/25Follow Up: Procedure(s): XR DEXA axial skeleton Accession Number(s): [id number] cc: Dat Palacios MD; Jade Richards Reason For Exam: M81.0 - Age-related osteoporosis without currentpathological fracture EXAMINATION: DXA BONE DENSITY AXIAL HISTORY: M81.0 - Age-related osteoporosis without current pathological fracture TECHNIQUE: [employer] Dual energy absorptiometry (DEXA) of the lumbar [...] is a trademark of the [employer] for Metabolic Bone Disease, a World Health Organization (WHO) Collaborating Center. Electronically signed by: Dat Toussaint MD 06/25/2025 10:50 AM EDT Dictated By: Dat Toussaint MD Signed By: <Electronically signed by Dat Toussaint MD in OV> 06/25/25 1050 DD/ 1042 TD/TT: 06/25/25 1045 Director Shopper Marketing: [facility] External Provider IMG DXA PROCEDURES Edited Result - Final * BI Mammogram Screening Tomosynthesis Bilateral (03/12/2025 8:50 AM EDT) Anatomical Region Laterality Modality Breast Bilateral Mammography 03/12/2025 8:50 AM EDT Narrative 04/03/2025 8:56 AM EDT [address] [place] [address] Mammography Report Signed Patient: Isidra Srinivasan MR#: [id number] : 1945 Acct:[id number] Age/Sex: 79 / F ADM Date: 03/12/25 Loc: HO.MAMMO Attending Dr: Jade Richards MD Ordering Physician: Jade Richards Results: 1Negative Date of Service: 03/12/25 Follow Up: 1 Year From Orig ina Mammogram Procedure(s): MM tomosynthesis screening BI Accession Number(s): [id number] cc: Jade Richards EXAMINATION: MM SCREENING DIGITAL BREAST TOMOSYNTHESIS, BILATERAL CLINICAL INFORMATION: Screening. Asymptomatic. COMPARISON: Mammography: Comparison is made with available priors TECHNIQUE: Digital breast mammography with tomosynthesis is performed in both the craniocaudal and mediolateral oblique views along with computer-aided detection (CAD). FINDINGS: The breasts are heterogeneously dense, which [...] target due date for their next mammogram. Electronically signed by: Merna Quinones DO 04/03/2025 08:54 AM EDT RP Dictated By: Merna Quinones DO Signed By: <Electronically signed by Merna Quinones DO in OV> 04/03/25 0854 DD/ 0850 TD/TT: 03/12/25 0905 Director Shopper Marketing: Procedure Note Donotuseinterpreter, Image - 04/04/2025 [facility] [address] [place], [place] [address] Mammography Report Signed Patient: Kerri Srinivasan#: [id number] : 3Acct:[id number] Age/Sex: 79 / FADM Date: 03/12/25 Loc: [facility] Attending Dr: Jade Richards MD Ordering Physician: Lida Richardsults: 1Negative Date of Service: 03/12/25Follow Up: 1 Year From Orig inal Mammogram Procedure(s): MM tomosynthesis screening BI Accession Number(s): [id number] cc: Jade Richards EXAMINATION: MM SCREENING DIGITAL BREAST TOMOSYNTHESIS, BILATERAL CLINICAL INFORMATION: Screening. Asymptomatic. COMPARISON: Mammography: Comparison is made with available priors TECHNIQUE: Digital breast mammography with tomosynthesis is performed in both the craniocaudal and mediolateral oblique views along with computer-aided detection (CAD). FINDINGS: The breasts are heterogeneously dense, which [...] target due date for their next mammogram. Electronically signed by: Merna Quinones DO 04/03/2025 08:54 AM EDT RP Workstation: [employer] Dictated By: Merna Quinones DO Signed By: <Electronically signed by Merna Quinones DO in OV> 04/03/25 0854 DD/ 0850 TD/TT: 03/12/25 0905 Director Shopper Marketing: Jade Richards MD IMG BI PROCEDURES Edited Resul t - Final from Last 3 Months or Most Recently Relevant to Health Maintenance Insurance [facility] ALF OPTIONS (O D-SNP) RADHA MULLER [id number] [facility] ALF OPTIONS (O D-SNP) Care Teams Academic Advisement Director Relationship Specialty Start Date End Date Jade Richards MD [address] [place] [address] PCP - General Family Medicine 05/04/22
== END 2025-06-25 10:22 | disposition home or self-care (01) ==
LOC: HO.MAMMO 10:21
PROVIDERS: PCP General Practice; Visit Provider Internal Medicine Endocrinology, Diabetes & Metabolism
DX: M81.0 Age-related osteoporosis without current pathological fracture (principal)
CPT/HCPCS: 77080

== ENCOUNTER → 2025-06-25 10:30 | Outpatient (BNV) | payer OTHER, SELFPAY | PROVIDERS: PCP General Practice; Visit Provider Radiology Diagnostic Radiology | DX: E28.39 Other primary ovarian failure (principal) | CPT/HCPCS: 77080 ==

== ENCOUNTER 2025-08-12 11:53 | Emergency (ER) | payer OTHER, SELFPAY ==
--- NOTE | ~2025-08-12 | XR_ITS ---
EXAMINATION: XR WRIST, LEFT CLINICAL INFORMATION: fall, left-upper extremity injury COMPARISON: None available. TECHNIQUE: PA, lateral, oblique, and scaphoid views of the left wrist. FINDINGS: Ulnar variance measures +5 mm. No cystic or sclerotic changes are evident in the adjacent lunate. Lunotriquetral joint space is not widened. Scapholunate joint is also intact. There is a large fragmented ulnar styloid. Atherosclerotic ossifications are visible in the radial artery. XR/XR wrist LT min 3V IMPRESSION: Ulnar plus variance. Correlate for signs symptoms of ulnolunate impaction. 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 The ulnar styloid is enlarged and fragmented. Electronically signed by: Peter Schmidt MD 08/12/2025 01:36 PM [facility]
--- NOTE | ~2025-08-12 | XR_ITS ---
EXAMINATION: XR HAND, LEFT CLINICAL INFORMATION: fall with left-sided injury COMPARISON: None available. TECHNIQUE: PA, lateral, and oblique views of the left hand. FINDINGS: There is diffuse osteopenia. Ulnar plus variance is again noted. On lateral, there is mild buckling of the dorsal distal radial cortex. XR/XR hand LT 2V IMPRESSION: Osteopenia. There is buckling of the dorsal cortex of the distal radius, age indeterminate insufficiency fracture is not ruled out. Correlate for focal pain. Ulnar plus variance. Ulnar styloid fracture, chronic nonunion. Electronically signed by: Peter Schmidt MD 08/12/2025 01:42 PM EST
--- NOTE | ~2025-08-12 | CT_ITS ---
EXAMINATION: CT FACIAL BONES WITHOUT CONTRAST CLINICAL INFORMATION: Fall, facial trauma COMPARISON: CT head dated 05/12/2024. TECHNIQUE: Spiral CT imaging of the maxillofacial bones performed in axial plane without contrast. Multiplanar reformatted images were constructed from the axial data set. This CT examination was performed using dose optimization techniques as appropriate, variously including the following: *Automated exposure control *Adjustment of mA and/or kV according to patient size (this includes techniques or standardized protocols for targeted exams where dose is matched to indication/reason for exam; i.e. extremities or head) *Use of iterative reconstruction technique FINDINGS: CT MAXILLOFACIAL BONES: The mandible is intact without fracture. The TM joints are normally oriented. There are bilateral lens replacements. Globes and orbital contents otherwise appear normal. There are findings suspicious for a nondisplaced fracture of the left maxillary spine and left nasal bones. The nasal process, maxilla, orbits, zygomatic arches, pterygoid plates, and sphenoid bone are intact without fracture. There is mild right nasal septal deviation without spurring. There is no septal fracture. Paranasal sinuses demonstrate patchy mucosal thickening in the left sphenoid sinus. No paranasal sinus fractures. The mastoids and tympanic cavities are normally aerated. There are degenerative changes in the right greater than left TM joints. Imaged maxillofacial/neck soft tissues appear normal. There is mild left supraorbital scalp soft tissue swelling. CT/CT facial bones wo IV con IMPRESSION: 1. Suspect nondisplaced fractures of the left maxillary spine and left nasal bones. No additional maxillofacial fracture. 2. Mild soft tissue swelling of the left supraorbital scalp. Electronically signed by: Mingo Constantino MD 08/12/2025 02:16 PM [facility]
--- NOTE | ~2025-08-12 | CT_ITS ---
EXAMINATION: CT CERVICAL SPINE WITHOUT CONTRAST CLINICAL INFORMATION: fall COMPARISON: None available. TECHNIQUE: Axial imaging was performed from the base of the skull through T2 without IV contrast. Coronal and sagittal reformatted images were generated from the original axial data set. ALARA: The examination used one or more of the following radiation dose reduction techniques: Automated exposure control, iterative reconstruction, and/or adjustment of mA and/or KV. FINDINGS: There is calcification of the cruciate ligament around dens most consistent with pyrophosphate deposition. There is no prevertebral soft tissue edema. There is moderate to severe facet degeneration with joint space narrowing, subchondral sclerosis, cystic change, and osteophytes most advanced between C2-C6. There is grade 1 anterolisthesis C4-5 and C5-6. No fracture is identified. CT/CT cervical spine wo IV con IMPRESSION: No acute bony abnormality. Multilevel degenerative disc disease and facet osteoarthritis. 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 Electronically signed by: Peter Schmidt MD 08/12/2025 02:03 PM [facility]
--- NOTE | ~2025-08-12 | CT_ITS ---
EXAMINATION: CT CHEST WITHOUT CONTRAST CLINICAL INFORMATION: Fall, trauma COMPARISON: MRI abdomen September 28, 2023 TECHNIQUE: Multidetector volumetric CT imaging of the chest was done. Axial MIP volume rendering provided. Sagittal and coronal reformatted images were obtained. This CT examination was performed using dose optimization techniques as appropriate, variously including the following: *Automated exposure control *Adjustment of mA and/or kV according to patient size (this includes techniques or standardized protocols for targeted exams where dose is matched to indication/reason for exam; i.e. extremities or head) *Use of iterative reconstruction technique FINDINGS: LUNGS: Mild dependent atelectasis is present in the lungs. MEDIASTINUM: The mediastinum is normal. CORONARY ARTERY CALCIFICATION: Present PLEURA: There is no pleural effusion. No pleural mass or thickening. AXILLA: No lymphadenopathy. UPPER ABDOMEN: Moderate to severe intrahepatic biliary duct dilation is stable to mildly increased. OSSEOUS STRUCTURES: There is focal 1 cm sclerotic area involving the anterior left fourth rib There is a deformity related to a healed chronic posterior left sixth rib fracture. There are more subtle changes above and below this level suggesting other healed left rib fractures. No definite acute fracture line are evident. CT/CT chest wo IV con IMPRESSION: There is an indeterminate 1 cm focal sclerotic region in the anterior left fourth rib. While this could be chronic posttraumatic, metastatic disease is not entirely ruled out.. There are chronic healed rib fractures on the left. No definite acute fracture is identified. Moderate to severe intrahepatic biliary duct dilation is stable to mildly increased. Fleischner guidelines were followed. Electronically signed by: Peter Schmidt MD 08/12/2025 02:15 PM [facility] [place]
--- NOTE | ~2025-08-12 | CT_ITS ---
EXAMINATION: CT HEAD WITHOUT CONTRAST CLINICAL INFORMATION: Fall COMPARISON: CT head 05/12/2024 TECHNIQUE: Contiguous axial imaging was performed from the skull base to vertex without intravenous administration of contrast. This CT examination was performed using dose optimization techniques as appropriate, variously including the following: *Automated exposure control *Adjustment of mA and/or kV according to patient size (this includes techniques or standardized protocols for targeted exams where dose is matched to indication/reason for exam; i.e. extremities or head) *Use of iterative reconstruction technique FINDINGS: There is no evidence of acute intracranial hemorrhage or edematous large vessel territorial infarction. No abnormal mass effect or midline shift is seen. Clark to white matter differentiation is well preserved. No abnormal extra-axial fluid collections are identified. Commensurate prominence of the ventricles and sulci is compatible with generalized parenchymal volume loss. There is patchy periventricular and subcortical white matter hypoattenuation, most likely representing microangiopathic disease . Globes are intact. No acute calvarial fracture.. Paranasal sinuses and mastoid air cells are well-aerated. CT/CT head/brain wo IV con IMPRESSION: No CT evidence of acute intracranial hemorrhage or edematous territorial infarction.. Electronically signed by: Felix Alaniz MD 08/12/2025 02:05 PM [facility]
--- NOTE | ~2025-08-12 | CT_ITS ---
EXAMINATION: CT ABDOMEN AND PELVIS WITHOUT CONTRAST CLINICAL INFORMATION: Status post fall. COMPARISON: March 17 2023. TECHNIQUE: Multidetector volumetric imaging was performed from the superior aspect of the liver through the pubic symphysis. Sagittal and coronal reformatted images were obtained on the technologist's workstation. This CT examination was performed using dose optimization techniques as appropriate, variously including the following: *Automated exposure control *Adjustment of mA and/or kV according to patient size (this includes techniques or standardized protocols for targeted exams where dose is matched to indication/reason for exam; i.e. extremities or head) *Use of iterative reconstruction technique DLP: 833.30 mGy-cm FINDINGS: Inadequate evaluation of the intra-abdominal solid organs and vascular structures due to lack of IV contrast. LUNG BASES: Pulmonary patchy groundglass. LIVER, GALLBLADDER, AND BILIARY TREE: No perihepatic fluid. Intrahepatic and extrahepatic biliary ductal dilatation with an abrupt cut off near the junction with the duodenum. PANCREAS: Fatty density. No peripancreatic fluid collection. No main pancreatic ductal dilatation. SPLEEN: No perisplenic fluid. ADRENAL GLANDS: No nodular lesion. KIDNEYS AND URETERS: No hydronephrosis or nephrolithiasis. No perinephric edema pattern or fluid collections. BLADDER: Fluid-filled. GASTROINTESTINAL TRACT: Abundant stool, right hemicolon and transverse colon. No intestinal obstruction pattern. No pneumatosis intestinalis.. Mesenteric edema pattern. Collapsed appearance of the distal ileal loops. I cannot clearly identify the appendix. No pneumoperitoneum. No ascites. No fluid collections in the peritoneal cavity. ABDOMINAL WALL: Small fat-containing umbilical hernia. Fatty replaced/atrophy of the abdominal rectus muscle. LYMPH NODES: No specific prominent mesenteric lymph nodes. VASCULAR: 6 mm calcification in the splenic hilum. Calcified plaques abdominal aorta wall and iliac arteries without gross aneurysm. Calcified plaque at the origin of the celiac trunk and superior mesenteric artery. Calcified plaque thoracic aorta and likely coronary arteries. PELVIC VISCERA: Calcifications in the myometrium/subserosal region. OSSEOUS STRUCTURES: Cortical disruption inferior pubic rami, bilaterally. Degenerative changes and traumatic deformities in the symphysis pubis.. No acute fracture or trauma-related listhesis. Multilevel thoracolumbar spondylosis. Metallic screws through the left femoral head neck and old traumatic deformity in the left subcapital/left femoral neck junction. 5 mm blastic lesion right hemisacrum, nonspecific. CT/CT abdomen pelvis wo IV con IMPRESSION: Inadequate evaluation demonstrated no intraabdominal pelvic injury or acute fracture. Persistent biliary ductal dilatation. 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 Old traumatic deformities, bony pelvis and left femur. Fleischner guidelines were followed. Electronically signed by: Thai Lizarraga MD 08/12/2025 02:06 PM EST
[2025-08-12 12:31] VITALS: BP 166/70; PULSE 89; RESP 18; TEMP 36.2; O2SAT 94; BMI 31.6
--- NOTE | 2025-08-12 12:42 | ED.GENADULT ---
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 Jose HPI narrative: 80-year-old female brought in with her granddaughter for evaluation after she sustained a mechanical fall this morning, patient was walking on the sidewalk tripped on a raised bump causing her to fall forward patient landed on her face and both hands and wrists and both knees, no LOC, no AC therapy patient only take aspirin. There is a deformity on her left wrist that patient claimed it was old fracture, there is pain on the left side face with no swelling. Related Data Home Medications ?Medication ?Instructions ?Recorded ?Confirmed aspirin 81 mg tablet,delayed 81 mg PO DAILY 11/07/20 02/05/25 release ferrous fumarate 324 mg (106 mg 324 mg PO DAILY 11/07/20 02/05/25 iron) tablet levothyroxine 75 mcg tablet 75 mcg PO DAILY 11/07/20 02/05/25 multivitamin 1 tab PO DAILY 11/07/20 02/05/25 pantoprazole 40 mg tablet,delayed 40 mg PO DAILY 11/07/20 02/05/25 release rosuvastatin 5 mg tablet 5 mg PO DAILY 11/07/20 02/05/25 sennosides 8.6 mg tablet 17.2 mg PO DAILY 11/07/20 02/05/25 polyethylene glycol 3350 17 gram 17 g PO DAILY 02/24/21 02/05/25 oral powder packet (Miralax) alprazolam 0.5 mg tablet (Xanax) 0.5 mg PO BEDTIME PRN prn 05/02/23 02/05/25 calcium citrate mg 01/16/24 02/05/25 Previous Rx's ?Medication ?Instructions ?Recorded meclizine 25 mg chewable tablet 25 mg PO TID spinning #14 tabs 03/17/23 (Antivert) walker #1 ea 05/12/24 amoxicillin 500 mg-potassium 1 tab PO BID #14 tabs 08/12/25 clavulanate 125 mg tablet (Augmentin) Allergies Allergy/AdvReac Type Severity Reaction Status Date / Time No Known Allergies Allergy Mild NONE Verified 08/12/25 12:32 Review of Systems Review of Systems: All other systems are reviewed and are negative Constitutional: Reports as per HPI and Reports no additional constitutional complaints Eyes: Reports as per HPI and Reports no additional eye complaints Reports system reviewed and no additional complaints, except as documented Cardiovascular: Reports as per HPI and Reports no additional cardiovascular complaints Respiratory: Reports as per HPI and Reports no additional respiratory complaints Gastrointestinal: Reports as per HPI and Reports no additional gastrointestinal complaints Genitourinary: Reports no additional female genitourinary complaints Musculoskeletal: Reports no additional musculoskeletal complaints Skin/Breast: Reports system reviewed and no additional complaints, except as docu Psychiatric: Reports no additional psychiatric complaints Endocrine: Reports no additional endocrine complaints Hematologic/Lymphatic: Reports no additional hematologic/lymphatic complaints Allergic/Immunologic: Reports no additional allergic/immunologic complaints Reports system reviewed and no additional complaints, except as documented and Reports Abnormal speech present [facility] Past Medical History Medical History Hypothyroidism Multinodular thyroid Goiter Vitamin D deficiency Serum calcium elevated Osteoporosis Surgical History Hx of biopsy History of surgery on arm Hx of fracture of hip Hx of tubal ligation Family History Family History Father No problems noted. Mother No problems noted. Social History Social History Household Members: None Housing: Apartment Alcohol intake: never Patient Tobacco Use Status: Never used Tobacco Advance Directives: No Advance Directives Information Provided: Yes Do you have a plan to hurt others: No Plan Current occupational status: disabled Physical Exam ED Vital Signs: Vital Signs - 24 hr 08/12/25 12:31 Temperature 97.1 F Pulse Rate 89 Respiratory Rate 18 Blood Pressure 166/70 H Pulse Oximetry 94 Oxygen Delivery Method Room Air BMI result Body Mass Index 31.6 Vital signs have been reviewed and appear to be correct. Blood pressure elevated. Heart rate normal. Respiratory rate normal. Temperature normal. Oxygen saturation normal. Appearance: Alert. Oriented X3. No acute distress. Head: Normal external exam. Normocephalic. Left maxillary facial tenderness with no step-off, no deformity.No Mckeon signs noted. No raccoon eyes noted Eyes: PERRLA. EOMI. Conjunctiva and sclera normal. Eyelids normal. ENT: TM's Normal. Pharynx normal. Uvula midline. Moist mucous membranes. No trismus noted. No drooling noted. No muffled voice noted. Neck: Normal inspection. Neck supple. FROM. No adenopathy. Thyroid Normal. No meningeal signs. No neck mass noted. CVS: Normal heart rate and rhythm. Heart sound normal. No murmurs noted. Pulses normal throughout. Respiratory: No respiratory distress. Painless inspiration. Breath sounds normal. No wheezes/rales/rhonchi noted. Chest nontender. No accessory muscle usage noted or decreased air movement noted. Abdomen: Soft and nontender. Bowel sounds normal in all 4 quadrants. No distention noted. No organomegaly noted. No visible injury noted. Back: No CVA tenderness. Full range of motion noted. Skin: Skin warm and dry. Normal skin color. Normal skin turgor. No rashes/lesions/lacerations noted. Extremities: Left wrist deformity with no tenderness patient stated this is a pre-existing old fracture. Left wrist/ hand exam is neurovascularly intact. Neuro: Mental status: Normal attention, orientation, memory, and affect. Cranial nerves: Pupils are equal, round and reactive to light, EOMI, visual crespo are fall, face is symmetric, facial sensations are normal. Motor examination normal muscle tone, strength to 4 extremities. DTR are +2, planter's are flexor. Sensory exam; normal coordination, no ataxia, gait stable. Cerebellar exam: [id number]-[id number] and [id number] is normal. Extrapyramidal system: No tremors, no rigidity with normal facial expressions. Pronator drift not present Course Course Course Narrative: RME; 80 year old female presents to ED for mechanical fall. Patient went with granddaughter who saw her tripped and fallen the sidewalk face forward and hit her head and left arm. Patient has left facial tenderness on palpation and left wrist ecchymosis. Patient has history of hip fracture was sent for images of chest and abdomen check for rib fractures and hip fracture. Reevaluation(s) Reevaluation #1: DR. Jose's Progress note: 80-year-old female sustained a mechanical fall no chest pain, no abdominal pain, no LOC, no intracranial pathology. 1. Left maxillary fracture with left nasal fracture will start on Augmentin. 2. Old left wrist fracture. 3. GCS of 15 with normal neuro exam and negative head CT. Time: 16:42 Medications Administered Discontinued Medications Generic Name Dose Route Start Last Admin Trade Name Radha PRN Reason Stop Dose Admin Acetaminophen 975 mg 08/12/25 13:33 08/12/25 13:37 Acetaminophen 325 Mg Tablet PO 08/12/25 13:34 975 mg ONCE ONE Administration Amoxicillin/Clavulanate Potassium 500 mg 08/12/25 16:37 08/12/25 16:41 Amoxicillin/Potassium Clav 500 Mg Tablet PO 08/12/25 16:38 500 mg ONCE ONE Administration Ibuprofen 200 mg 08/12/25 16:37 08/12/25 16:41 Ibuprofen 200 Mg Tablet PO 08/12/25 16:38 200 mg ONCE ONE Administration Medical Decision Making Differential Diagnosis Differential Diagnoses: The differential diagnosis associated with the presentation includes ( Closed head injury, facial injury, cervical spine injury, chest injury, abdominal injury, back injury, extremities injury.) Admission/Observation Consideration of admission/observation: Escalation of care including admission/observation considered Independent Interpretation I performed an independent interpretation of an: Plain X-Ray ( Left wrist/ hand x-ray:There is buckling of the dorsal cortex of the distal radius, age indeterminate insufficiency fracture is not ruled out. Correlate for focal pain.) and CT Scan Interpretation: Chest CT:There is an indeterminate 1 cm focal sclerotic region in the anterior left fourth rib. While this could be chronic posttraumatic, metastatic disease is not entirely ruled out.. There are chronic healed rib fractures on the left. No definite acute fracture is identified. Moderate to severe intrahepatic biliary duct dilation is stable to mildly increased. Abdomen and pelvis CT:Inadequate evaluation demonstrated no intraabdominal pelvic injury or acute fracture. Persistent biliary ductal dilatation. 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 Old traumatic deformities, bony pelvis and left femur. Head CT:No CT evidence of acute intracranial hemorrhage or edematous territorial infarction.. Facial CT:1. Suspect nondisplaced fractures of the left maxillary spine and left nasal bones. No additional maxillofacial fracture. 2. Mild soft tissue swelling of the left supraorbital scalp. Cervical CT:No acute bony abnormality. Multilevel degenerative disc disease and facet osteoarthritis. 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 Radiology Impression Discussion of test interpretation with radiology: I have reviewed the radiologist's reading. Discharge Plan Discharge Clinical Impression: Accidental mechanical suffocation by falling material, Closed fracture of left maxillary sinus Patient Disposition: Home, Self-Care Instructions: Facial Fracture (ED) Prescriptions: New amoxicillin-pot clavulanate [Augmentin] 500-125 mg tablet 1 tab PO BID Qty: 14 0RF No Action polyethylene glycol 3350 [Miralax] 17 gram Powder In Packet 17 g PO DAILY calcium citrate 200 mg (950 mg) Tablet meclizine [Antivert] 25 mg tablet,chewable 25 mg PO TID Qty: 14 0RF (DME) walker Misc See Rx Instructions .Route Qty: 1 0RF Rx Instructions: As directed ferrous fumarate 324 mg (106 mg iron) tablet 324 mg PO DAILY rosuvastatin 5 mg tablet 5 mg PO DAILY pantoprazole 40 mg tablet,delayed release (DR/EC) 40 mg PO DAILY levothyroxine 75 mcg tablet 75 mcg PO DAILY sennosides 8.6 mg tablet 17.2 mg PO DAILY aspirin 81 mg tablet,delayed release (DR/EC) 81 mg PO DAILY multivitamin Tablet 1 tab PO DAILY alprazolam [Xanax] 0.5 mg tablet 0.5 mg PO BEDTIME PRN (Reason: prn) Referrals: Jade Richards MD [Primary Care Provider, Internal Medicine] Interventions: ED Discharge Assessment Last Done: 08/12/25 17:07 Discharge Date/Time: 08/12/25 17:07 Print Language: Sammarinese
--- NOTE | 2025-08-12 15:46 | PC.NURSE ---
Patient presents to the ED post fall on the sidewalk. Scans show + fracture of left maxilla. Indonesian speaking. Daughter at bedside.
[2025-08-12 16:43] VITALS: BP 123/59; PULSE 65; RESP 16; TEMP 36.2; O2SAT 94
[2025-08-12 17:07] VITALS: BP 123/59; PULSE 65; RESP 16; TEMP 36.2; O2SAT 94
--- OUTSIDE RECORDS SUMMARY | 2025-08-13 01:36 | XMS_ITS | Patient Health Record ---
Author Organization [facility] Address [address] [place] [address] Care Team Providers Care Instructional Technology Instructor Name Role Phone Jade Richards M.D. Primary Care Provider Chaz Godoy Jr [phone] Allergies No Known Allergies Reason For Referral No Information Medications Medication SIG (Take, Route, Frequency, Duration) Notes Start Date End Date Status Levothyroxine Sodium 75 MCG Tablet 1 tablet on an empty stomach in the morning Orally Once a day Active Multi Vitamin/Minerals - Tablet 1 Orally QD Active Senna 8.6 MG Tablet 2 tablets at bedtime as needed Orally Once a day Active Ranitidine HCl 150 MG Capsule 1 capsule at bedtime Orally Once a day Not-Taking/PRN Rosuvastatin Calcium 5 MG Tablet 1 tablet Orally Once a day Active Aspir-81 81 MG Tablet Delayed Release 1 tablet Orally Once a day Active Aleve PRN Active Pantoprazole Sodium 40 MG Tablet Delayed Release 1 tablet Orally Once a day; Duration: 30 days 01/19/2018 Active Immunizations Vaccine Route Administration Date Status Comme nts Influenza Unknown 06/06/2019 Administered Influenza Unknown 06/23/2021 Administered Influenza Unknown 07/26/2023 Administered Social History Tobacco Use: Social History Observation Description Date Details (start date - stop date) Never Smoker NA - NA Social History Drugs/Alcohol: Social Info Question Answer Notes Alcohol Screen Did you have a drink containing alcohol in the past year? No Points 0 Interpretation Negative Tobacco Use: Social Info Question Answer Notes Tobacco Use/Smoking Patient is a nonsmoker Additional Details Category Social Info Options Details Miscellaneous: Marital status: single Occupation: retired Problems Problem Type SNOMED Code ICD Code Onset Dates Problem Status W/U Status Risk Notes Problem Gastroesophageal reflux disease without esophagitis (602901306) Gastroesophageal reflux disease without esophagitis (K21.9) Active confirmed Problem Pancreatic cyst (99880477) Pancreatic cyst (K86.2) Active confirmed Plan Of [...] Insured Coverage Start Date Coverage End Date [facility] [place] [address] Attn Claims [place] [id number] SIVA AYALA Self - patient is the insured Medical (General) History Medical History History ICD Code elevated cholesterol hypothyroidism thrombocytosis dementia osteoporosis elevated BMI constipation Gastroesophageal reflux dise ase, EGD 01/20, no H. pylori or Dobbs's esophagus Colonoscopy 07/05/11 normal Surgical History Surgery Date(Month/Year) left hip replacement 2010 hand surgery kidney surgery
--- OUTSIDE RECORDS SUMMARY | 2025-08-13 01:36 | XMS_ITS | Encounter Summary ---
Author Organization [employer] [facility] Address [address] [place] [address] [address] [place] [address] Care Team Providers Care Aligning Inspector Name Role Phone Jade Richards MD Primary Care Provider [phone] Reason for Referral * Imaging (STAT) - Closed Specialty Diagnoses / Procedures Referred By Contac t Referred To Contact Radiology Diagnoses Pancreas cyst Procedures MR Abdomen w/ and w/o Contrast MRCP Jade Richards MD [address] [place] [address] Phone: tel: fax: [facility] [address] [place] [phone] Phone: tel: fax: Referral ID Status Reason Start Date Expiration Date Visits Re quested Visits Authorized [id number] Closed 03/25/2023 03/24/2024 1 1 Encounter Details Date Type Department Care Team (Late st Contact Info) Description 03/25/2023 Orders Only [facility] [address] [place], [place] [phone] Jade Richards MD [address] [place], [place] [phone] Pancreas cyst (Primary Dx) Social History Tobacco [...] documented as of this encounter Care Teams Aligning Inspector Relationship Specialty Start Date End Date Jade Richards MD [address] [place] [id number] PCP - General Family Medicine 05/04/22 documented as of this encounter
--- OUTSIDE RECORDS SUMMARY | 2025-08-13 01:36 | XMS_ITS | Encounter Summary ---
Author Organization [employer] Address [address] [place] [address] Care Team Providers Care Windows Software Developer Name Role Phone Jade Richards MD Primary Care Provider [phone] Reason for Visit * Reason Onset Date [...] the pt has been seen by the hydroelectric production manager, and she stated that yes she has. I asked if she could contact the hydroelectric production manager, and ask to have the office notes faxed to the [facility] HIM Dept at [phone], and she agreed to do so. Encounter Details Date Type Department Care Team ([facility] Contact Info) Description 08/31/2022 Telephone [facility] [address] [place], [place] [phone] Jade Richards MD [address] [place], [place] [phone] Letter Request (The pt requested a letter for housing, because she would like to have the rugs removed from her apartment. She developed fluid filled bumps on her body, and believes that they are caused by the rugs. I spoke with Nadine, her emergency contact, and asked if the pt has been seen by the hydroelectric production manager, and she stated that yes she has. I asked if she could contact the hydroelectric production manager, and ask to have the office notes faxed to the [facility] HIM Dept at [phone], and she agreed to do so. ) [...] on filedocumented in this encounter Care Teams Windows Software Developer Relationship Specialty Start Date End Date Jade Richards MD [address] [place] [phone] PCP - General Family Medicine 05/04/22 documented as of this encounter
--- OUTSIDE RECORDS SUMMARY | 2025-08-13 01:36 | XMS_ITS | Encounter Summary ---
Author Organization [employer] Address [address] [place] [address] Care Team Providers Care Card Stripper Name Role Phone Jade Richards MD Primary Care Provider Encounter Details Date Type Department Care Team ([facility] st Contact Info) Description 06/20/2023 Abstract [facility] [address] [place], [place] [phone] Jade Richards MD [address] [place], [place] [phone] Social History Tobacco Use Types Packs/Day Years [...] documented as of this encounter Care Teams Card Stripper Relationship Specialty Start Date End Date Jade Richards MD [address] [place] [address] PCP - General Family Medicine 05/04/22 documented as of this encounter
--- OUTSIDE RECORDS SUMMARY | 2025-08-13 01:36 | XMS_ITS | Encounter Summary ---
Author Organization [employer] Address [address] [facility] [place] [address] Care Team Providers Care Electronic Prepress Technician Name Role Phone Jade Richards MD Primary Care Provider [phone] Encounter Details Date Type Department Care Team (Late st Contact Info) Description 08/12/2025 Orders Only [facility] External Provider, [facility] Social History Tobacco Use Types Packs/Day Years [...] Procedure Name Priority Date/Time Associated Diagnosis Comments XR WRIST 3+ VIEWS LEFT Routine 08/12/2025 1:24 PM EST XR HAND 1-2 VIEWS LEFT Routine 08/12/2025 1:[address] CHEST WO CONTRAST Routine 08/12/2025 1:[address] ABDOMEN PELVIS WO CONTRAST Routine 08/12/2025 1:[address] SINUS FACIAL BONES WO CONTRAST Routine 08/12/2025 1:[address] CERVICAL SPINE WO CONTRAST Routine 08/12/2025 1:[address] HEAD WO CONTRAST Routine 08/12/2025 1 :10 PM EST documented in this encounter Results * XR Wrist 3+ Views Left (08/12/2025 1:24 PM EST) Anatomical Region Laterality Modality Upper Extremities, Wrist Left Radiogr aphic Imaging 08/12/2025 1:24 PM EST Narrative 08/12/2025 1:39 PM EST [place] [address] XRay Report Signed with Hussain Patient: Isidra Srinivasan MR#: [id number] 198 : 1945 Acct:[id number] Age/Sex: 80 / F ADM Date: 08/12/25 Loc: HO.ED Attending Dr: Ordering Physician: Archie Harris Date of Service: 08/12/25 Procedure(s): XR wrist LT min 3V Accession Number(s): [id number] cc: Archie Harris; Jade Richards Reason for Exam: left ADDENDUM ADDENDUM #1 Addendum: There is buckling of the dorsal cortex of the distal radius, age indeterminate insufficiency fracture is not ruled out. Correlate for focal pain. Electronically signed by: Peter Schmidt MD 08/12/2025 01:43 PM EST RP Addendum Dictated By: Peter Schmidt MD Addendum Signed By: <Electronically signed by Peter Schmidt MD in OV> 08/12/25 1343 Addendum Cosigned By: DD/ /29/1324 TD/TT: 08/12/2504/29/1325 EXAMINATION: XR WRIST, LEFT CLINICAL INFORMATION: fall, left-upper extremity injury COMPARISON: None available. TECHNIQUE: PA, lateral, oblique, and scaphoid views of the left wrist. FINDINGS: Ulnar variance measures +5 mm. No cystic or sclerotic changes are evident in the adjacent lunate. Lunotriquetral joint space is not widened. Scapholunate joint is also intact. There is a large fragmented ulnar styloid. Atherosclerotic ossifications are visible in the radial artery. XR/XR wrist LT min 3V IMPRESSION: Ulnar plus variance. Correlate for signs symptoms of ulnolunate impaction. 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 The ulnar styloid is enlarged and fragmented. Electronically signed by: Peter Schmidt MD 08/12/2025 01:36 PM EST RP Dictated By: Peter Schmidt MD Signed By: <Electronically signed by Peter Schmdit MD in OV> 08/12/25 1336 DD/ 132 TD/TT: 08/12/25 132 Nurse Plastics: Procedure Note Cristobal, Image - 08/12/[address] [address] XRay Report Signed with Addenda Patient: Kerri Srinivasan#: [id number] 198 : 1945cct:[id number] Age/Sex: 80 / FADM Date: 08/12/25 Loc: HO.ED Attending Dr: Ordering Physician: Archie Harris Date of Service: 08/12/25 Procedure(s): XR wrist LT min 3V Accession Number(s): [id number] cc: Archie Harris; Jade Richards Reason for Exam: left ADDENDUM ADDENDUM #1 Addendum: There is buckling of the dorsal cortex of the distal radius, age indeterminate insufficiency fracture is not ruled out. Correlate for focal pain. Electronically signed by: Peter Schmidt MD 08/12/2025 01:43 PM EST RP Addendum Dictated By: Peter Schmidt MD Addendum Signed By: <Electronically signed by Peter Sigala MD in OV> 08/12/25 1343 Addendum Cosigned By: DD/ /29/1324 TD/TT: 08/12/2504/29/1325 EXAMINATION: XR WRIST, LEFT CLINICAL INFORMATION: fall, left-upper extremity injury COMPARISON: None available. TECHNIQUE: PA, lateral, oblique, and scaphoid views of the left wrist. FINDINGS: Ulnar variance measures +5 mm. No cystic or sclerotic changes are evident in the adjacent lunate. Lunotriquetral joint space is not widened. Scapholunate joint is also intact. There is a large fragmented ulnar styloid. Atherosclerotic ossifications are visible in the radial artery. XR/XR wrist LT min 3V IMPRESSION: Ulnar plus variance. Correlate for signs symptoms of ulnolunate impaction. 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 The ulnar styloid is enlarged and fragmented. Electronically signed by: Peter Schmidt MD 08/12/2025 01:36 PM EST RP Dictated By: Peter Schmidt MD Signed By: <Electronically signed by Peter Schmidt MD in OV> 08/12/25 1336 DD/ 132 TD/TT: 08/12/25 1325 Nurse Plastics: [facility] External Provider IMG XR PROCEDURES Edited Result - Final * XR Hand 1-2 Views Left (08/12/2025 1:23 PM EST) Anatomical Region Laterality Modality Upper Extremities, Hand Left Radiogra phic Imaging 08/12/2025 1:23 PM EST Narrative 08/12/2025 1:45 PM EST [address] [address] XRay Report Signed Patient: Isidra Srinivasan MR#: [id number] 198 : 1945 Acct:[id number] Age/Sex: 80 / F ADM Date: 08/12/25 Loc: HO.ED Attending Dr: Ordering Physician: Archie Harris Date of Service: 08/12/25 Procedure(s): XR hand LT 2V Accession Number(s): [id number] cc: Archie Harris; Jade Richards Reason for Exam: fall EXAMINATION: XR HAND, LEFT CLINICAL INFORMATION: fall with left-sided injury COMPARISON: None available. TECHNIQUE: PA, lateral, and oblique views of the left hand. FINDINGS: There is diffuse osteopenia. Ulnar plus variance is again noted. On lateral, there is mild buckling of the dorsal distal radial cortex. XR/XR hand LT 2V IMPRESSION: Osteopenia. There is buckling of the dorsal cortex of the distal radius, age indeterminate insufficiency fracture is not ruled out. Correlate for focal pain. Ulnar plus variance. Ulnar styloid fracture, chronic nonunion. Electronically signed by: Peter Schmidt MD 08/12/2025 01:42 PM EST Dictated By: Peter Scmhidt MD Signed By: <Electronically signed by Peter Schmidt MD in OV> 08/12/25 1342 DD/ 1323 TD/TT: 08/12/25 1325 Nurse Plastics: Procedure Note Donotuseinterpreter, Image - 08/12/[address] [place] [address] XRay Report Signed Patient: Greg SrinivasanR#: [id number] 198 : 1945cct:[id number] Age/Sex: 80 / FADM Date: 08/12/25 Loc: HO.ED Attending Dr: Ordering Physician: Archie Harris Date of Service: 08/12/25 Procedure(s): XR hand LT 2V Accession Number(s): [id number] cc: Archie Harris; Jade Richards Reason for Exam: fall EXAMINATION: XR HAND, LEFT CLINICAL INFORMATION: fall with left-sided injury COMPARISON: None available. TECHNIQUE: PA, lateral, and oblique views of the left hand. FINDINGS: There is diffuse osteopenia. Ulnar plus variance is again noted. On lateral, there is mild buckling of the dorsal distal radial cortex. XR/XR hand LT 2V IMPRESSION: Osteopenia. There is buckling of the dorsal cortex of the distal radius, age indeterminate insufficiency fracture is not ruled out. Correlate for focal pain. Ulnar plus variance. Ulnar styloid fracture, chronic nonunion. Electronically signed by: Peter Schmidt MD 08/12/2025 01:42 PM EST Dictated By: Peter Schmidt MD Signed By: <Electronically signed by Peter Schmidt MD in OV> 08/12/25 1342 DD/ 1323 TD/TT: 08/12/25 1325 Nurse Plastics: [facility] External Provider IMG XR PROCEDURES Final Result * CT Chest w/o Contrast (08/12/2025 1:15 PM EST) Anatomical Region Laterality Modality Body, Chest Computed Tomogra phy 08/12/2025 1:15 PM EST Narrative 08/12/2025 2:18 PM EST [address] [address] [address] Scan Report Signed Patient: Isidra Srinivasan MR#: [id number] 198 : 1945 Acct:[id number] Age/Sex: 80 / F ADM Date: 08/12/25 Loc: HO.ED Attending Dr: Ordering Physician: Archie Harris Date of Service: 08/12/25 Procedure(s): CT chest wo IV con Accession Number(s): [id number] cc: Archie Harris; Jade Richards Report Number: [id number]: Total DLP = 276.00 mGy-cm Reason for Exam: Fall EXAMINATION: CT CHEST WITHOUT CONTRAST CLINICAL INFORMATION: Fall, trauma COMPARISON: MRI abdomen September 28, 2023 TECHNIQUE: Multidetector volumetric CT imaging of the chest was done. Axial MIP volume rendering provided. Sagittal and coronal reformatted images were obtained. This CT examination was performed using dose optimization techniques as appropriate, variously including the following: *Automated exposure control *Adjustment of mA and/or kV according to patient size (this includes techniques or standardized protocols for targeted exams where dose is matched to indication/reason for exam; i.e. extremities or head) *Use of iterative reconstruction technique FINDINGS: LUNGS: Mild dependent atelectasis is present in the lungs. MEDIASTINUM: The mediastinum is normal. CORONARY ARTERY CALCIFICATION: Present PLEURA: There is no pleural effusion. No pleural mass or thickening. AXILLA: No lymphadenopathy. UPPER ABDOMEN: Moderate to severe intrahepatic biliary duct dilation is stable to mildly increased. OSSEOUS STRUCTURES: There is focal 1 cm sclerotic area involving the anterior left fourth rib There is a deformity related to a healed chronic posterior left sixth rib fracture. There are more subtle changes above and below this level suggesting other healed left rib fractures. No definite acute fracture line are evident. CT/CT chest wo IV con IMPRESSION: There is an indeterminate 1 cm focal sclerotic region in the anterior left fourth rib. While this could be chronic posttraumatic, metastatic disease is not entirely ruled out.. There are chronic healed rib fractures on the left. No definite acute fracture is identified. Moderate to severe intrahepatic biliary duct dilation is stable to mildly increased. Fleischner guidelines were followed. Electronically signed by: Peter Schmidt MD 08/12/2025 02:15 PM [facility] Dictated By: Peter Schmidt MD Signed By: <Electronically signed by Peter Schmidt MD in OV> 08/12/25 1415 DD/ 1315 TD/TT: 08/12/25 1354 Nurse Plastics: Procedure Note Donotuseinterpreter, Image - 08/12/[address] [address] [address] Scan Report Signed Patient: Kerri Srinivasan#: [id number] 198 : 1945cct:[id number] Age/Sex: 80 / FADM Date: 08/12/25 Loc: HO.ED Attending Dr: Ordering Physician: Archie Harris Date of Service: 08/12/25 Procedure(s): CT chest wo IV con Accession Number(s): [id number] cc: Archie Harris; Jade Richards Report Number: [id number]: Total DLP = 276.00 mGy-cm Reason for Exam: Fall EXAMINATION: CT CHEST WITHOUT CONTRAST CLINICAL INFORMATION: Fall, trauma COMPARISON: MRI abdomen September 28, 2023 TECHNIQUE: Multidetector volumetric CT imaging of the chest was done. Axial MIP volume rendering provided. Sagittal and coronal reformatted images were obtained. This CT examination was performed using dose optimization techniques as appropriate, variously including the following: *Automated exposure control *Adjustment of mA and/or kV according to patient size (this includes techniques or standardized protocols for targeted exams where dose is matched to indication/reason for exam; i.e. extremities or head) *Use of iterative reconstruction technique FINDINGS: LUNGS: Mild dependent atelectasis is present in the lungs. MEDIASTINUM: The mediastinum is normal. CORONARY ARTERY CALCIFICATION: Present PLEURA: There is no pleural effusion. No pleural mass or thickening. AXILLA: No lymphadenopathy. UPPER ABDOMEN: Moderate to severe intrahepatic biliary duct dilation is stable to mildly increased. OSSEOUS STRUCTURES: There is focal 1 cm sclerotic area involving the anterior left fourth rib There is a deformity related to a healed chronic posterior left sixth rib fracture. There are more subtle changes above and below this level suggesting other healed left rib fractures. No definite acute fracture line are evident. CT/CT chest wo IV con IMPRESSION: There is an indeterminate 1 cm focal sclerotic region in the anterior left fourth rib. While this could be chronic posttraumatic, metastatic disease is not entirely ruled out.. There are chronic healed rib fractures on the left. No definite acute fracture is identified. Moderate to severe intrahepatic biliary duct dilation is stable to mildly increased. Fleischner guidelines were followed. Electronically signed by: Peter Schmidt MD 08/12/2025 02:15 PM EST Dictated By: Peter Schmidt MD Signed By: <Electronically signed by Peter Schmidt MD in OV> 08/12/25 1415 DD/ 1315 TD/TT: 08/12/25 1354 Nurse Plastics: [facility] External Provider IMG CT PROCEDURES Final Result * CT Abdomen Pelvis w/o Contrast (08/12/2025 1:15 PM EST) Anatomical Region Laterality Modality Body, Pelvis, Abdomen Computed T omography 08/12/2025 1:15 PM EST Narrative 08/12/2025 2:09 PM EST [place] [address] CT Scan Report Signed Patient: Isidra Srinivasan MR#: [id number] 198 : 1945 Acct:[id number] Age/Sex: 80 / F ADM Date: 08/12/25 Loc: HO.ED Attending Dr: Ordering Physician: Archie Harris Date of Service: 08/12/25 Procedure(s): CT abdomen pelvis wo IV con Accession Number(s): [id number] cc: Archie Harris; Jade Richards Report Number: [id number]: Total DLP = 833.00 mGy-cm Reason for Exam: Fall. hip fracture?rib fracture? EXAMINATION: CT ABDOMEN AND PELVIS WITHOUT CONTRAST CLINICAL INFORMATION: Status post fall. COMPARISON: March 17 2023. TECHNIQUE: Multidetector volumetric imaging was performed from the superior aspect of the liver through the pubic symphysis. Sagittal and coronal reformatted images were obtained on the technologist's workstation. This CT examination was performed using dose optimization techniques as appropriate, variously including the following: *Automated exposure control *Adjustment of mA and/or kV according to patient size (this includes techniques or standardized protocols for targeted exams where dose is matched to indication/reason for exam; i.e. extremities or head) *Use of iterative reconstruction technique DLP: 833.30 mGy-cm FINDINGS: Inadequate evaluation of the intra-abdominal solid organs and vascular structures due to lack of IV contrast. LUNG BASES: Pulmonary patchy groundglass. LIVER, GALLBLADDER, AND BILIARY TREE: No perihepatic fluid. Intrahepatic and extrahepatic biliary ductal dilatation with an abrupt cut off near the junction with the duodenum. PANCREAS: Fatty density. No peripancreatic fluid collection. No main pancreatic ductal dilatation. SPLEEN: No perisplenic fluid. ADRENAL GLANDS: No nodular lesion. KIDNEYS AND URETERS: No hydronephrosis or nephrolithiasis. No perinephric edema pattern or fluid collections. BLADDER: Fluid-filled. GASTROINTESTINAL TRACT: Abundant stool, right hemicolon and transverse colon. No intestinal obstruction pattern. No pneumatosis intestinalis.. Mesenteric edema pattern. Collapsed appearance of the distal ileal loops. I cannot clearly identify the appendix. No pneumoperitoneum. No ascites. No fluid collections in the peritoneal cavity. ABDOMINAL WALL: Small fat-containing umbilical hernia. Fatty replaced/atrophy of the abdominal rectus muscle. LYMPH NODES: No specific prominent mesenteric lymph nodes. VASCULAR: 6 mm calcification in the splenic hilum. Calcified plaques abdominal aorta wall and iliac arteries without gross aneurysm. Calcified plaque at the origin of the celiac trunk and superior mesenteric artery. Calcified plaque thoracic aorta and likely coronary arteries. PELVIC VISCERA: Calcifications in the myometrium/subserosal region. OSSEOUS STRUCTURES: Cortical disruption inferior pubic rami, bilaterally. Degenerative changes and traumatic deformities in the symphysis pubis.. No acute fracture or trauma-related listhesis. Multilevel thoracolumbar spondylosis. Metallic screws through the left femoral head neck and old traumatic deformity in the left subcapital/left femoral neck junction. 5 mm blastic lesion right hemisacrum, nonspecific. CT/CT abdomen pelvis wo IV con IMPRESSION: Inadequate evaluation demonstrated no intraabdominal pelvic injury or acute fracture. Persistent biliary ductal dilatation. 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 Old traumatic deformities, bony pelvis and left femur. Fleischner guidelines were followed. Electronically signed by: Thai Lizarraga MD 08/12/2025 02:06 PM [facility] Dictated By: Thai Nino MD Signed By: <Electronically signed by Thai Steele MD in OV> 08/12/25 1406 DD/ 1315 TD/TT: 08/12/25 1354 Nurse Plastics: Procedure Note Donotuseinterpreter, Image - 08/12/[address] [place] [address] [address] Scan Report Signed Patient: Kerri Srinivasan#: [id number] 198 : 1945cct:[id number] Age/Sex: 80 / FADM Date: 08/12/25 Loc: HO.ED Attending Dr: Ordering Physician: Archie Harris Date of Service: 08/12/25 Procedure(s): CT abdomen pelvis wo IV con Accession Number(s): [id number] cc: Archie Harris; Jade Richards Report Number: [id number]: Total DLP = 833.00 mGy-cm Reason for Exam: Fall. hip fracture?rib fracture? EXAMINATION: CT ABDOMEN AND PELVIS WITHOUT CONTRAST CLINICAL INFORMATION: Status post fall. COMPARISON: March 17 2023. TECHNIQUE: Multidetector volumetric imaging was performed from the superior aspect of the liver through the pubic symphysis. Sagittal and coronal reformatted images were obtained on the technologist's workstation. This CT examination was performed using dose optimization techniques as appropriate, variously including the following: *Automated exposure control *Adjustment of mA and/or kV according to patient size (this includes techniques or standardized protocols for targeted exams where dose is matched to indication/reason for exam; i.e. extremities or head) *Use of iterative reconstruction technique DLP: 833.30 mGy-cm FINDINGS: Inadequate evaluation of the intra-abdominal solid organs and vascular structures due to lack of IV contrast. LUNG BASES: Pulmonary patchy groundglass. LIVER, GALLBLADDER, AND BILIARY TREE: No perihepatic fluid. Intrahepatic and extrahepatic biliary ductal dilatation with an abrupt cut off near the junction with the duodenum. PANCREAS: Fatty density. No peripancreatic fluid collection. No main pancreatic ductal dilatation. SPLEEN: No perisplenic fluid. ADRENAL GLANDS: No nodular lesion. KIDNEYS AND URETERS: No hydronephrosis or nephrolithiasis. No perinephric edema pattern or fluid collections. BLADDER: Fluid-filled. GASTROINTESTINAL TRACT: Abundant stool, right hemicolon and transverse colon. No intestinal obstruction pattern. No pneumatosis intestinalis.. Mesenteric edema pattern. Collapsed appearance of the distal ileal loops. I cannot clearly identify the appendix. No pneumoperitoneum. No ascites. No fluid collections in the peritoneal cavity. ABDOMINAL WALL: Small fat-containing umbilical hernia. Fatty replaced/atrophy of the abdominal rectus muscle. LYMPH NODES: No specific prominent mesenteric lymph nodes. VASCULAR: 6 mm calcification in the splenic hilum. Calcified plaques abdominal aorta wall and iliac arteries without gross aneurysm. Calcified plaque at the origin of the celiac trunk and superior mesenteric artery. Calcified plaque thoracic aorta and likely coronary arteries. PELVIC VISCERA: Calcifications in the myometrium/subserosal region. OSSEOUS STRUCTURES: Cortical disruption inferior pubic rami, bilaterally. Degenerative changes and traumatic deformities in the symphysis pubis.. No acute fracture or trauma-related listhesis. Multilevel thoracolumbar spondylosis. Metallic screws through the left femoral head neck and old traumatic deformity in the left subcapital/left femoral neck junction. 5 mm blastic lesion right hemisacrum, nonspecific. CT/CT abdomen pelvis wo IV con IMPRESSION: Inadequate evaluation demonstrated no intraabdominal pelvic injury or acute fracture. Persistent biliary ductal dilatation. 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 Old traumatic deformities, bony pelvis and left femur. Fleischner guidelines were followed. Electronically signed by: Thai Lizarraga MD 08/12/2025 02:06 PM EST Dictated By: Thai Nino MD Signed By: <Electronically signed by Thai Steele MDin OV> 08/12/25 1406 DD/ 1315 TD/TT: 08/12/25 1354 Nurse Plastics: [facility] External Provider IMG CT PROCEDURES Final Result * CT Sinus Facial Bones w/o Contrast (08/12/2025 1:10 PM EST) Anatomical Region Laterality Modality Computed Tomogra phy 08/12/2025 1:10 PM EST Narrative 08/12/2025 2:19 PM EST [address] [address] [address] Scan Report Signed Patient: Isidra Srinivasan MR#: [id number] 198 : 1945 Acct:[id number] Age/Sex: 80 / F ADM Date: 08/12/25 Loc: HO.ED Attending Dr: Ordering Physician: Archie Harris Date of Service: 08/12/25 Procedure(s): CT facial bones wo IV con Accession Number(s): [id number] cc: Archie Harris; Jade Richards Report Number: [id number]: Total DLP = 0.00 mGy-cm Reason for Exam: Fall EXAMINATION: CT FACIAL BONES WITHOUT CONTRAST CLINICAL INFORMATION: Fall, facial trauma COMPARISON: CT head dated 05/12/2024. TECHNIQUE: Spiral CT imaging of the maxillofacial bones performed in axial plane without contrast. Multiplanar reformatted images were constructed from the axial data set. This CT examination was performed using dose optimization techniques as appropriate, variously including the following: *Automated exposure control *Adjustment of mA and/or kV according to patient size (this includes techniques or standardized protocols for targeted exams where dose is matched to indication/reason for exam; i.e. extremities or head) *Use of iterative reconstruction technique FINDINGS: CT MAXILLOFACIAL BONES: The mandible is intact without fracture. The TM joints are normally oriented. There are bilateral lens replacements. Globes and orbital contents otherwise appear normal. There are findings suspicious for a nondisplaced fracture of the left maxillary spine and left nasal bones. The nasal process, maxilla, orbits, zygomatic arches, pterygoid plates, and sphenoid bone are intact without fracture. There is mild right nasal septal deviation without spurring. There is no septal fracture. Paranasal sinuses demonstrate patchy mucosal thickening in the left sphenoid sinus. No paranasal sinus fractures. The mastoids and tympanic cavities are normally aerated. There are degenerative changes in the right greater than left TM joints. Imaged maxillofacial/neck soft tissues appear normal. There is mild left supraorbital scalp soft tissue swelling. CT/CT facial bones wo IV con IMPRESSION: 1. Suspect nondisplaced fractures of the left maxillary spine and left nasal bones. No additional maxillofacial fracture. 2. Mild soft tissue swelling of the left supraorbital scalp. Electronically signed by: Mingo Constantino MD 08/12/2025 02:16 PM [facility] Dictated By: Mingo oCnstantino MD Signed By: <Electronically signed by Mingo Constantino MD in OV> 08/12/25 1416 DD/ 1310 TD/TT: 08/12/25 1354 Nurse Plastics: Procedure Note Donotuseinterpreter, Image - 08/12/[address] [place] [address] [address] Scan Report Signed Patient: Kerri Srinivasan#: [id number] 198 : 1945cct:[id number] Age/Sex: 80 / FADM Date: 08/12/25 Loc: HO.ED Attending Dr: Ordering Physician: Archie Harris Date of Service: 08/12/25 Procedure(s): CT facial bones wo IV con Accession Number(s): [id number] cc: Archie Harris; Jade Richards Report Number: [id number]: Total DLP = 0.00 mGy-cm Reason for Exam: Fall EXAMINATION: CT FACIAL BONES WITHOUT CONTRAST CLINICAL INFORMATION: Fall, facial trauma COMPARISON: CT head dated 05/12/2024. TECHNIQUE: Spiral CT imaging of the maxillofacial bones performed in axial plane without contrast. Multiplanar reformatted images were constructed from the axial data set. This CT examination was performed using dose optimization techniques as appropriate, variously including the following: *Automated exposure control *Adjustment of mA and/or kV according to patient size (this includes techniques or standardized protocols for targeted exams where dose is matched to indication/reason for exam; i.e. extremities or head) *Use of iterative reconstruction technique FINDINGS: CT MAXILLOFACIAL BONES: The mandible is intact without fracture. The TM joints are normally oriented. There are bilateral lens replacements. Globes and orbital contents otherwise appear normal. There are findings suspicious for a nondisplaced fracture of the left maxillary spine and left nasal bones. The nasal process, maxilla, orbits, zygomatic arches, pterygoid plates, and sphenoid bone are intact without fracture. There is mild right nasal septal deviation without spurring. There is no septal fracture. Paranasal sinuses demonstrate patchy mucosal thickening in the left sphenoid sinus. No paranasal sinus fractures. The mastoids and tympanic cavities are normally aerated. There are degenerative changes in the right greater than left TM joints. Imaged maxillofacial/neck soft tissues appear normal. There is mild left supraorbital scalp soft tissue swelling. CT/CT facial bones wo IV con IMPRESSION: 1. Suspect nondisplaced fractures of the left maxillary spine and left nasal bones. No additional maxillofacial fracture. 2. Mild soft tissue swelling of the left supraorbital scalp. Electronically signed by: Mingo Constantino MD 08/12/2025 02:16 PM EST Dictated By: Mingo Constantino MD Signed By: <Electronically signed by Minog Constantino MD in OV> 08/12/25 1416 DD/ 1310 TD/TT: 08/12/25 1354 Nurse Plastics: [facility] External Provider IMG CT PROCEDURES Final Result * CT Head w/o Contrast (08/12/2025 1:10 PM EST) Anatomical Region Laterality Modality Head, Neck Computed Tomogra phy 08/12/2025 1:10 PM EST Narrative 08/12/2025 2:08 PM EST [place] [address] CT Scan Report Signed Patient: Isidra Srinivasan MR#: [id number] 198 : 1945 Acct:[id number] Age/Sex: 80 / F ADM Date: 08/12/25 Loc: HO.ED Attending Dr: Ordering Physician: Archie Harris Date of Service: 08/12/25 Procedure(s): CT head/brain wo IV con Accession Number(s): [id number] cc: Archie Harris; Jade Richards Report Number: [id number]: Total DLP = 612.00 mGy-cm Reason for Exam: Fall EXAMINATION: CT HEAD WITHOUT CONTRAST CLINICAL INFORMATION: Fall COMPARISON: CT head 05/12/2024 TECHNIQUE: Contiguous axial imaging was performed from the skull base to vertex without intravenous administration of contrast. This CT examination was performed using dose optimization techniques as appropriate, variously including the following: *Automated exposure control *Adjustment of mA and/or kV according to patient size (this includes techniques or standardized protocols for targeted exams where dose is matched to indication/reason for exam; i.e. extremities or head) *Use of iterative reconstruction technique FINDINGS: There is no evidence of acute intracranial hemorrhage or edematous large vessel territorial infarction. No abnormal mass effect or midline shift is seen. Clark to white matter differentiation is well preserved. No abnormal extra-axial fluid collections are identified. Commensurate prominence of the ventricles and sulci is compatible with generalized parenchymal volume loss. There is patchy periventricular and subcortical white matter hypoattenuation, most likely representing microangiopathic disease . Globes are intact. No acute calvarial fracture.. Paranasal sinuses and mastoid air cells are well-aerated. CT/CT head/brain wo IV con IMPRESSION: No CT evidence of acute intracranial hemorrhage or edematous territorial infarction.. Electronically signed by: Felix Alaniz MD 08/12/2025 02:05 PM [facility] Dictated By: Felix Alaniz MD Signed By: <Electronically signed by Felix Alaniz MD in OV> 08/12/25 1405 DD/ 1310 TD/TT: 08/12/25 1354 Nurse Plastics: Procedure Note Donotuseinterpreter, Image - 08/12/[address] [address] [address] Scan Report Signed Patient: Kerri Srinivasan#: [id number] : 1945cct:[id number] Age/Sex: 80 / FADM Date: 08/12/25 Loc: HO.ED Attending Dr: Ordering Physician: Archie Harris Date of Service: 08/12/25 Procedure(s): CT head/brain wo IV con Accession Number(s): [id number] cc: Archie Harris; Jade Richards Report Number: [id number]: Total DLP = 612.00 mGy-cm Reason for Exam: Fall EXAMINATION: CT HEAD WITHOUT CONTRAST CLINICAL INFORMATION: Fall COMPARISON: CT head 05/12/2024 TECHNIQUE: Contiguous axial imaging was performed from the skull base to vertex without intravenous administration of contrast. This CT examination was performed using dose optimization techniques as appropriate, variously including the following: *Automated exposure control *Adjustment of mA and/or kV according to patient size (this includes techniques or standardized protocols for targeted exams where dose is matched to indication/reason for exam; i.e. extremities or head) *Use of iterative reconstruction technique FINDINGS: There is no evidence of acute intracranial hemorrhage or edematous large vessel territorial infarction. No abnormal mass effect or midline shift is seen. Clark to white matter differentiation is well preserved. No abnormal extra-axial fluid collections are identified. Commensurate prominence of the ventricles and sulci is compatible with generalized parenchymal volume loss. There is patchy periventricular and subcortical white matter hypoattenuation, most likely representing microangiopathic disease . Globes are intact. No acute calvarial fracture.. Paranasal sinuses and mastoid air cells are well-aerated. CT/CT head/brain wo IV con IMPRESSION: No CT evidence of acute intracranial hemorrhage or edematous territorial infarction.. Electronically signed by: Felix Alaniz MD 08/12/2025 02:05 PM EST Dictated By: Felix Alaniz MD Signed By: <Electronically signed by Felix Alaniz MD in OV> 08/12/25 1405 DD/ 1310 TD/TT: 08/12/25 1354 Nurse Plastics: [facility] External Provider IMG CT PROCEDURES Final Result * CT Cervical Spine w/o Contrast (08/12/2025 1:10 PM EST) Anatomical Region Laterality Modality Spine, C-spine Computed Tomogra phy 08/12/2025 1:10 PM EST Narrative 08/12/2025 2:06 PM EST [address] [address] [address] Scan Report Signed Patient: Isidra Srinivasan MR#: [id number] 198 : 1945 Acct:[id number] Age/Sex: 80 / F ADM Date: 08/12/25 Loc: HO.ED Attending Dr: Ordering Physician: Archie Harris Date of Service: 08/12/25 Procedure(s): CT cervical spine wo IV con Accession Number(s): [id number] cc: Archie Harris; Jade Richards Report Number: [id number]: Total DLP = 250.00 mGy-cm Reason for Exam: fall EXAMINATION: CT CERVICAL SPINE WITHOUT CONTRAST CLINICAL INFORMATION: fall COMPARISON: None available. TECHNIQUE: Axial imaging was performed from the base of the skull through T2 without IV contrast. Coronal and sagittal reformatted images were generated from the original axial data set. ALARA: The examination used one or more of the following radiation dose reduction techniques: Automated exposure control, iterative reconstruction, and/or adjustment of mA and/or KV. FINDINGS: There is calcification of the cruciate ligament around dens most consistent with pyrophosphate deposition. There is no prevertebral soft tissue edema. There is moderate to severe facet degeneration with joint space narrowing, subchondral sclerosis, cystic change, and osteophytes most advanced between C2-C6. There is grade 1 anterolisthesis C4-5 and C5-6. No fracture is identified. CT/CT cervical spine wo IV con IMPRESSION: No acute bony abnormality. Multilevel degenerative disc disease and facet osteoarthritis. 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 Electronically signed by: Peter Schmidt MD 08/12/2025 02:03 PM [facility] Dictated By: Peter Schmidt MD Signed By: <Electronically signed by Peter Schmidt MD in OV> 08/12/25 1403 DD/ 1310 TD/TT: 08/12/25 1354 Nurse Plastics: Procedure Note Donotuseinterpreter, Image - 08/12/[address] [address] [address] Scan Report Signed Patient: Greg SrinivasanR#: [id number] [birth year] : 1945cct:[id number] Age/Sex: 80 / FADM Date: 08/12/25 Loc: HO.ED Attending Dr: Ordering Physician: Archie Harris Date of Service: 08/12/25 Procedure(s): CT cervical spine wo IV con Accession Number(s): [id number] cc: Archie Harris; Jade Richards Report Number: [id number]: Total DLP = 250.00 mGy-cm Reason for Exam: fall EXAMINATION: CT CERVICAL SPINE WITHOUT CONTRAST CLINICAL INFORMATION: fall COMPARISON: None available. TECHNIQUE: Axial imaging was performed from the base of the skull through T2 without IV contrast. Coronal and sagittal reformatted images were generated from the original axial data set. ALARA: The examination used one or more of the following radiation dose reduction techniques: Automated exposure control, iterative reconstruction, and/or adjustment of mA and/or KV. FINDINGS: There is calcification of the cruciate ligament around dens most consistent with pyrophosphate deposition. There is no prevertebral soft tissue edema. There is moderate to severe facet degeneration with joint space narrowing, subchondral sclerosis, cystic change, and osteophytes most advanced between C2-C6. There is grade 1 anterolisthesis C4-5 and C5-6. No fracture is identified. CT/CT cervical spine wo IV con IMPRESSION: No acute bony abnormality. Multilevel degenerative disc disease and facet osteoarthritis. 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 Electronically signed by: Peter Schmidt MD 08/12/2025 02:03 PM [facility] Dictated By: Peter Schmidt MD Signed By: <Electronically signed by Peter Schmidt MD in OV> 08/12/25 1403 DD/ 1310 TD/TT: 08/12/25 1354 Nurse Plastics: [facility] External Provider IMG CT PROCEDURES Final Result documented in this encounter Visit Diagnoses Not on filedocumented in this encounter Additional Health Concerns Assessment Noted Time PHQ-9 Depression Total Score: 9 02/15/20 23 10:23 AM EDT documented as of this encounter Care Teams Electronic Prepress Technician Relationship Specialty Start Date End Date Jade Richards MD [address] [place] [address] PCP - General Family Medicine 05/04/22 documented as of this encounter
--- OUTSIDE RECORDS SUMMARY | 2025-08-13 01:36 | XMS_ITS | Encounter Summary ---
Author Organization [employer] Address [address] [facility] [address] [place] [address] Care Team Providers Care Wet End Operator Name Role Phone Jade Richards MD Primary Care Provider [phone] Encounter Details Date Type Department Care Team ([facility] st Contact Info) Description 04/08/2023 Orders Only [facility] MED[facility] [address] [place] [address] Jade Richards MD [address] [place] [address] Pancreas cyst (Primary Dx) Social History Tobacco [...] documented as of this encounter Care Teams Wet End Operator Relationship Specialty Start Date End Date Jade Richards MD [address] [place] [address] PCP - General Family Medicine 05/04/22 documented as of this encounter
--- OUTSIDE RECORDS SUMMARY | 2025-08-13 01:36 | XMS_ITS | Encounter Summary ---
Author Organization [employer] Address [address] [facility] [address] [place] [address] Care Team Providers Care Forensic Examiner Name Role Phone Jade Richards MD Primary Care Provider [phone] Reason for Visit * Reason Onset Date Comments Letter For Housing 11/23/2022 Encounter Details Date Type Department Care Team ([facility] Contact Info) Description 11/23/2022 Telephone [facility] [address] [place] [address] Jade Richards MD [address] [place] [address] Letter For Housing Social History Tobacco Use [...] requested on 11/22/2022. Please contact daughter at [phone] * Telephone Encounter - Adam Patrick - 11/23/2022 10:53 AM EDT Tc from Pt requesting status on Letter that was requesting to remove rug from apartment floors. Stonemason Helper sees discussion regarding matter on 08/31/2023. Please contact pt at [phone] documented in this encounter Plan of Treatment Not on file documented as of this encounter Visit Diagnoses Not on filedocumented in this encounter Care Teams Forensic Examiner Relationship Specialty Start Date End Date Jade Richards MD [address] [place] [id number] PCP - General Family Medicine 05/04/22 documented as of this encounter
--- OUTSIDE RECORDS SUMMARY | 2025-08-13 01:36 | XMS_ITS | Data Portability ---
Author Organization [facility] [employer] [facility] Address [address] [place] [phone] Care Team Providers Care Hvac Operations Technician Name Role Phone Unavailable Referring Provider [phone] [facility] Referring Provider Assessment Encounter Date Assessment Date Assessment LastModified by Organization Details LastModified Time 10/20/2021 10/20/2021 Pat stated had same rash last March resolved with 10 pills of prednisone./co ntinue Benadryl 50 mg qhs- may aLSO TAKE 25 MG every 6 Hrs prn itch- Fever/ SOB/ Facial sts advised to go to the ER- F>u w/ pcp this week [email or web address] Not available 10/21/2021 12:45:56 02/28/2023 02/28/2023 I provided real -time medical direction via phone for this encounter, and was available for additional phone based assistance as needed. I have reviewed and agree with the Assessment and Plan as documented by the Fork Assembler. Patient given the opportunity to ask questions. [email or web address] Not available 02/28/2023 13:49:00 Plan of Treatment Reminders Order Date Submit Date Provider Last Modified By Organization Details Last Modified Time Details Appointments None recorded. Lab rapid strep group A, throat 2022 023 [email or web address] 0 [facility], [address] [place] [address], [id number] 3 13:47:11 Referral None recorded. Procedures None recorded. Surgeries None recorded. Imaging None recorded. Medication Orders Carafate 100 mg/mL oral suspension 2022 023 [facility], [address] [facility], [place], [place], [id number], 3 13:51:27 prednisone 20 mg tablet 2021 022 [email or web address] 0 [facility], [address] [place] [address], [place], [place], [phone], 12:46:02 prednisone 10 mg tablet 2021 022 [email or web address] Not available 18:25:22 Patient TargetsNo targets recorded. Patient InstructionsNo instructions recorded. Reason for Referral None Reported. Results Created Date Observation Date Name Description Value Unit Range Abnormal Flag Note LastModifiedBy Organization Detail LastModifiedTime 02/29/2002/28/2023 rapid strep group A, throa t Strep negati ve Not Available Main - [facility] ed [address] [place] [address], [place], [address] 02/28/2023 13:46:53 Result Notes None recorded. Medical [...] weight Heart rate Respiratory rate Oxygen saturation Body temperature Systolic And Diastolic Provider Name and Address Organization Details Last Updated DateTime 2 04106.8 2 g 92 /min 18 /min 98 % 98.3 [degF] 143/72 mm[Hg] Isabel Valverde MD [address] [place] [address],[address], [place], [place], [address] [place] [address] - [employer] 2 12:43:07 Date Recorded Respiratory rate Body temperature Oxygen saturation Heart rate Systolic And Diastolic Provider Name and Address Organization Details Last Updated DateTime 3 16 /min 98.5 [degF] 99 % 65 /min 130/70 mm[Hg] Not Available [employer] 3 13:38:53 Social History None recorded. Functional Status None recorded. Mental Status None recorded. Family History Nothing Reported. Medical History No medical history recorded. Gynecological HistoryNo gynecological history recorded. Obstetrics History GPAL:G 0 P 0 0 0 0 Past Encounters Encounter ID Performer Location Encounter Start Date Encounter Closed Date Diagnosis/Indication Diagnosis SNOMED-CT Code Diagnosis ICD10 Code Diagnosis IMO Codes Diagnosis Note [id number] Isabel Valverde MD Main - [facility] [address] [place] [phone] 10/20/2021 17:55:44 10/28/2021 16:19:16 Pruritic rash 54876216 L28.2 [id number] Isabel Valverde MD Main - [facility] [address] [place] [phone] 02/28/2023 13:38:51 03/01/2023 11:33:44 Dysphagia [id number] R13.10 Likely GERD aggravatio n-advised need to [...] Hernandez Member ID Guarantor Name 02/28/2023 1 [facility] - DOS PRIOR TO 2022 - DUAL ELIGIBLE (MEDICARE REPLACEMENT/ADV ANTAGE - HMO) Isidra Srinivasan [id number] Isidra Srinivasan 10/30/2023 1 [facility] [employer] - DOS ON OR AFTER 2022 - DUAL ELIGIBLE - PENITENTIARY OPTIONS AND ONE CARE (MEDICARE REPLACEMENT/ADV ANTAGE - HMO) Isidra Srinivasan [id number] Isidra Srinivasan Notes Date Note Type Note Provider Name and Address Organization Details Recorded Time 10/20/2021 text/html ROS as noted in the HPI per [facility]: Fork Assembler Visit SummaryPATIENT IS A 76 YEAR OLD [...] is localized to arms Isabel Valverde MD [address] [place] [address],[address], [place], [address], [employer] 10/21/2021 12:46:29 02/28/2023 text/html ROS as noted in the HPI HPI: Patient with history of Dementia and [...] .................... .................... .................... .................... .................... .................... . Fork Assembler Note From Harsha Jensen: Dispatched to the [...] sweats/ CP/SOB/n/v/d- black or bloody stool via portable canteen operator Isabel Valverde MD [address] [facility],[address], [place], [address], [employer] - [employer] 02/28/2023 14:16:16 OBGyn Episode No OBEpisode recorded.
--- OUTSIDE RECORDS SUMMARY | 2025-08-13 01:36 | XMS_ITS | Encounter Summary ---
Author Organization [employer] Address [address] [facility] [address]t [place] [address] Care Team Providers Care Equipment Driver Name Role Phone Jade Richards MD Primary Care Provider Encounter Details Date Type Department Care Team (Late st Contact Info) Description 08/26/2022 Orders Only [facility] [address] [place] [address] Luis F Hyde PharmD ERRONEOUS ENCOUNTER--DISREGARD (Primary [...] Primary documented in this encounter Care Teams Equipment Driver Relationship Specialty Start Date End Date Jaed Richards MD [address] [place] [address] PCP - General Family Medicine 05/04/22 documented as of this encounter
--- OUTSIDE RECORDS SUMMARY | 2025-08-13 01:36 | XMS_ITS | Encounter Summary ---
Author Organization [employer] Address [address] [facility] [address] [place] [address] Care Team Providers Care Solution Specialist Name Role Phone Jade Richards MD Primary Care Provider [phone] Encounter Details Date Type Department Care Team ([facility] st Contact Info) Description 06/28/2023 Abstract [facility] [address] [place], [place] [phone] Jade Richards MD [address] [place], [place] [phone] Social History Tobacco Use Types Packs/Day Years [...] documented as of this encounter Care Teams Solution Specialist Relationship Specialty Start Date End Date Jade Richards MD [address] [place] [address] PCP - General Family Medicine 05/04/22 documented as of this encounter
--- OUTSIDE RECORDS SUMMARY | 2025-08-13 01:37 | XMS_ITS | Clinical Summary ---
Author Organization [employer] Address [address] [facility] [address] [place] [address] Care Team Providers Care Padded Products Inspector Trimmer Name Role Phone Jade Richards MD Primary Care Provider [phone] Allergies No known active allergies Medications lidocaine [...] by MD. 30 patch 11 023 Active fozyroox-gttaudpdc-pcn AMETHasone (Polydex) 3.5-62372-5.1 ointment ophthalmic ointment APLICA 14 EN [place] [facility] 4 VECES AL JUSTINO, DESPUES EMPAQUE CALIENTE Y MASAJEAR. LLAME SI [place] SINTOMAS CONTINUAN O EMPEORAN 023 Active polyethylene glycol, PEG, 3350 (GaviLAX) 17 [...] AT BEDTIME 180 tablet 3 025 Active calcium citrate (Calcitrate) 950 (200 Ca) MG tabletIndications:Age- related osteoporosis without current pathological fracture TAKE 2 TABLETS BY MOUTH ONCE DAILY AT NOON 180 tablet 1 025 Active calcium citrate (Calcitrate) 950 (200 Ca) MG tabletIndications:Age- related osteoporosis without current pathological fracture Take 1 tablet (950 mg) by mouth Once per day. TAKE 2 TABLETS BY MOUTH ONCE DAILY AT NOON 90 tablet 3 025 2024 Discontinued Active Problems Problem Noted Date [...] EST): MR with possible mucous containing cyst [facility] declined to schedule endoscopic biopsy Plan to obtain Dr Acevedo's notes ([facility]) to coordinate/assess need for further followup Assessment & Plan (04/18/2023 10:00 AM EDT): MR with possible mucous containing cyst She should expect a call from [facility] to schedule endoscopic biopsy Assessment & Plan (03/19/2023 10:57 AM EDT): Seen [facility] [place] 03/17/23 Will order MR pancreas with [...] hours before bedtime Continue followup with [facility] Assessment & Plan (03/19/2023 10:58 AM EDT): PPI daily Lifestyle measures to include elevating head of bed, not eating 2 hours before bedtime Continue followup with [facility] GI Assessment & Plan (08/30/2022 6:20 PM EST): Continue followup with [facility] Acquired hypothyroidism 08/21/2015 Assessment [...] 7:12 AM EST): [facility] Dr Palacios at [facility] [place] Currently on drug holiday from Reclast, will either restart Reclast or start Prolia later in the year Continue Ca/Cit D supplement Assessment & Plan (08/30/2022 6:20 PM EST): Continue annual Reclast infusions per endo Overweight 08/21/2015 Pure hypercholesterolemia 08/21/2015 Thrombocytosis 08/21/2015 Encounters Date Type Department Care Team Description 08/12/2025 Orders Only [facility] External Provider, [facility] 08/06/2025 Refill [facility] [address] [place] [address] Jade Richards MD Age-related osteoporosis without current pathological fracture 06/25/2025 Orders Only [facility] External Provider, [facility] 06/23/2025 Refill [facility] [address] [place] [address] Jade Richards MD from Last 3 Months Immunizations Immunization Administration [...] season) 2025 Influenza Vaccine (#1) 2025 , 06/23/2021, 07/26/2019, Additional history exists Mammogram 03/12/2026 03/12/2025, 02/04, [...] Comments XR WRIST 3+ VIEWS LEFT Routine 5 1:24 PM EST XR HAND 1-2 VIEWS LEFT Routine 5 1:[address] CHEST WO CONTRAST Routine 08/12/2025 1:[address] ABDOMEN PELVIS WO CONTRAST Routine 08/12/2025 1:[address] SINUS FACIAL BONES WO CONTRAST Routine 08/12/2025 1:[address] HEAD WO CONTRAST Routine 08/12/2025 1 :[address] CERVICAL SPINE WO CONTRAST Routine 08/12/2025 1:10 PM EST BD DEXA AXIAL Routine 06/25/2025 10:42 AM EDT BI MAMMOGRAM SCREENING TOMOSYNTHESIS BILATERAL Routine 03/12/2025 8:50 AM EDT from Last 3 Months or Most Recently Relevant to Health Maintenance Results * XR Wrist 3+ Views Left (08/12/2025 1:24 PM EST) Anatomical Region Laterality Modality Upper Extremities, Wrist Left Radiogr aphic Imaging 08/12/2025 1:24 PM EST Narrative 08/12/2025 1:39 PM EST [address] [address] XRay Report Signed with Addenda Patient: Isidra Srinivasan MR#: [id number] 198 : 1945 Acct:[id number] Age/Sex: 80 / F ADM Date: 08/12/25 Loc: HO.ED Attending Dr: Ordering Physician: Archie Harris Date of Service: 08/12/25 Procedure(s): XR wrist LT min 3V Accession Number(s): [id number] cc: Archie Harris; Jade Richards Reason for Exam: left ADDENDUM ADDENDUM #1 Addendum: There is buckling of the dorsal cortex of the distal radius, age indeterminate insufficiency fracture is not ruled out. Correlate for focal pain. Electronically signed by: Peter Schmidt MD 08/12/2025 01:43 PM EST Addendum Dictated By: Peter Schmidt MD Addendum [...] in OV> 08/12/25 1336 DD/ 132 TD/TT: 08/12/251324 [place]: Procedure Note Donotuseinterpreter, Image - 08/12/[address] [address] XRay Report Signed with Addenda Patient: Kerri Srinivasan#: [id number] 198 : 1945cct:[id number] Age/Sex: 80 / FADM Date: 08/12/25 Loc: HO.ED Attending Dr: Ordering Physician: Archie Harris Date of Service: 08/12/25 Procedure(s): XR wrist LT min 3V Accession Number(s): [id number] cc: Archie Harris; Jade Richards Reason for [...] Schmidt MD in OV> 08/12/25 1336 DD/ 1324 TD/TT: 08/12/25 1325 [place]: [facility] External Provider IMG XR PROCEDURES Edited Result - Final * XR Hand 1-2 Views Left (08/12/2025 1:23 PM EST) Anatomical Region Laterality Modality Upper Extremities, Hand Left Radiogra phic Imaging 08/12/2025 1:23 PM EST Narrative 08/12/2025 1:45 PM EST [address] [address] XRay Report Signed Patient: Isidra Srinivasan MR#: [id number] 198 : 1945 Acct:[id number] Age/Sex: 80 / F ADM Date: 08/12/25 Loc: HO.ED Attending Dr: Ordering Physician: Archie Harris Date of Service: 08/12/25 Procedure(s): XR hand LT 2V Accession Number(s): [id number] cc: Archie Harris; Jade Richards Reason for [...] Peter Schmidt MD 08/12/2025 01:42 PM EST RP Dictated By: Peter Schmidt MD Signed By: <Electronically signed by Peter Schmidt MD in OV> 08/12/25 1342 DD/ 1323 TD/TT: 08/12/25 1325 [place]: Procedure Note Donotuseinterpreter, Image - 08/12/2025 [place] [address] XRay Report Signed Patient: Kerri Srinivasan#: [id number] 198 : 1945cct:[id number] Age/Sex: 80 / FADM Date: 08/12/25 Loc: HO.ED Attending Dr: Ordering Physician: Archie Harris Date of Service: 08/12/25 Procedure(s): XR hand LT 2V Accession Number(s): [id number] cc: Archie Harris; Jade Richards Reason for [...] Peter Schmidt MD 08/12/2025 01:42 PM EST RP Dictated By: Peter Schmidt MD Signed By: <Electronically signed by Peter Schmidt MD in OV> 08/12/25 1342 DD/ 1323 TD/TT: 08/12/25 1325 [place]: [facility] External Provider IMG XR PROCEDURES Final Result * CT Chest w/o Contrast (08/12/2025 1:15 PM EST) Anatomical Region Laterality Modality Body, Chest Computed Tomogra phy 08/12/2025 1:15 PM EST Narrative 08/12/2025 2:18 PM EST [place] [address] CT Scan Report Signed Patient: Isidra Srinivasan MR#: [id number] 198 : 1945 Acct:[id number] Age/Sex: 80 / F ADM Date: 08/12/25 Loc: HO.ED Attending Dr: Ordering Physician: Archie Harris Date of Service: 08/12/25 Procedure(s): CT chest wo IV con Accession Number(s): [id number] cc: Archie Harris; Jade Richards Report Number: [id number]: Total DLP = 276.00 mGy-cm Reason for [...] by: Peter Schmidt MD 08/12/2025 02:15 PM [facility] Dictated By: Peter Schmidt MD Signed By: <Electronically signed by Peter Schmitd MD in OV> 08/12/25 1415 DD/ 1315 TD/TT: 08/12/25 1354 [employer] [place]: Procedure Note Donotuseinterpreter, Image - 08/12/[address] [place] [address] [address] Scan Report Signed Patient: Kerri Srinivasan#: [id number] 198 : 3Acct:[id number] Age/Sex: 80 / FADM Date: 08/12/25 Loc: HO.ED Attending Dr: Ordering Physician: Archie Harris Date of Service: 08/12/25 Procedure(s): CT chest wo IV con Accession Number(s): [id number] cc: Archie Harris; Jade Richards Report Number: [id number]: Total DLP = 276.00 mGy-cm Reason for [...] 08/12/25 1415 DD/ 1315 TD/TT: 08/12/25 1354 [place]: [facility] External Provider IMG CT PROCEDURES Final Result * CT Abdomen Pelvis w/o Contrast (08/12/2025 1:15 PM EST) Anatomical Region Laterality Modality Body, Pelvis, Abdomen Computed T omography 08/12/2025 1:15 PM EST Narrative 08/12/2025 2:09 PM EST [address] [address] [address] Scan Report Signed Patient: Isidra Srinivasan MR#: [id number] 198 : 1945 Acct:[id number] Age/Sex: 80 / F ADM Date: 08/12/25 Loc: HO.ED Attending Dr: Ordering Physician: Archie Harris Date of Service: 08/12/25 Procedure(s): CT abdomen pelvis wo IV con Accession Number(s): [id number] cc: Archie Harris; Jade Richards Report Number: [id number]: Total DLP = 833.00 mGy-cm Reason for [...] by: Thai Lizarraga MD 08/12/2025 02:06 PM [facility] Dictated By: Thai Nino MD Signed By: <Electronically signed by Thai Steele MD in OV> 08/12/25 1406 DD/ 1315 TD/TT: 08/12/25 1354 [employer] [place]: Procedure Note Donotuseinterpreter, Image - 08/12/[address] [place] [address] [address] Scan Report Signed Patient: Kerri Srinivasan#: [id number] 198 : 1945cct:[id number] Age/Sex: 80 / FADM Date: 08/12/25 Loc: HO.ED Attending Dr: Ordering Physician: Archie Harris Date of Service: 08/12/25 Procedure(s): CT abdomen pelvis wo IV con Accession Number(s): [id number] cc: Archie Harris; Jade Richards Report Number: [id number]: Total DLP = 833.00 mGy-cm Reason for Exam: Fall. hip fracture?rib fracture? EXAMINATION: CT ABDOMEN AND PELVIS WITHOUT CONTRAST CLINICAL INFORMATION: Status post fall. COMPARISON: Karime 13 2023. TECHNIQUE: Multidetector volumetric imaging was performed [...] Thai Lizarraga MD 08/12/2025 02:06 PM EST RP Dictated By: Thai Nino MD Signed By: <Electronically signed by Thai Steele MDin OV> 08/12/25 1406 DD/ 1315 TD/TT: 08/12/25 1354 [place] [place]: [facility] External Provider IMG CT PROCEDURES Final Result * CT Sinus Facial Bones w/o Contrast (08/12/2025 1:10 PM EST) Anatomical Region Laterality Modality Computed Tomogra phy 08/12/2025 1:10 PM EST Narrative 08/12/2025 2:19 PM EST [place] [address] CT Scan Report Signed Patient: Isidra Srinivasan MR#: [id number] 198 : 1945 Acct:[id number] Age/Sex: 80 / F ADM Date: 08/12/25 Loc: HO.ED Attending Dr: Ordering Physician: Archie Harris Date of Service: 08/12/25 Procedure(s): CT facial bones wo IV con Accession Number(s): [id number] cc: Archie Harris; Jade Richards Report Number: [id number]: Total DLP = 0.00 mGy-cm Reason for [...] by: [place] Constantino MD 08/12/2025 02:16 PM [facility] Dictated By: [place] Constantino MD Signed By: <Electronically signed by [place] Constantino MD in OV> 08/12/25 1416 DD/ 1310 TD/TT: 08/12/25 1354 [employer] [place] [place]: Procedure Note Donotuseinterpreter, Image - 08/12/[address] [place] [address] [address] Scan Report Signed Patient: Kerri Srinivasan#: [id number] 198 : 1945cct:[id number] Age/Sex: 80 / FADM Date: 08/12/25 Loc: HO.ED Attending Dr: Ordering Physician: Archie Harris Date of Service: 08/12/25 Procedure(s): CT facial bones wo IV con Accession Number(s): [id number] cc: Archie Harris; Jade Richards Report Number: [id number]: Total DLP = 0.00 mGy-cm Reason for [...] Constantino MD Signed By: <Electronically signed by [place] Constantino MD in OV> 08/12/25 1416 DD/ 1310 TD/TT: 08/12/25 1354 [place]: [facility] External Provider IMG CT PROCEDURES Final Result * CT Cervical Spine w/o Contrast (08/12/2025 1:10 PM EST) Anatomical Region Laterality Modality Spine, C-spine Computed Tomogra phy 08/12/2025 1:10 PM EST Narrative 08/12/2025 2:06 PM EST [address] [address] [address] Scan Report Signed Patient: Isidra Srinivasan MR#: [id number] 198 : 1945 Acct:[id number] Age/Sex: 80 / F ADM Date: 08/12/25 Loc: HO.ED Attending Dr: Ordering Physician: Archie Harris Date of Service: 08/12/25 Procedure(s): CT cervical spine wo IV con Accession Number(s): [id number] cc: Archie Harris; Jade Richards Report Number: [id number]: Total DLP = 250.00 mGy-cm Reason for [...] by: Peter Schmidt MD 08/12/2025 02:03 PM EST Dictated By: Peter Schmidt MD Signed By: <Electronically signed by Peter Schmidt MD in OV> 08/12/25 1403 DD/ 1310 TD/TT: 08/12/25 1354 [employer] [place] [place]: Procedure Note Donotuseinterpreter, Image - 08/12/[address] [address] [address] Scan Report Signed Patient: Kerri Sriinvasan#: [id number] 198 : 3Acct:[id number] Age/Sex: 80 / FADM Date: 08/12/25 Loc: HO.ED Attending Dr: Ordering Physician: Archie Harris Date of Service: 08/12/25 Procedure(s): CT cervical spine wo IV con Accession Number(s): [id number] cc: Archie Harris; Jade Richards Report Number: [id number]: Total DLP = 250.00 mGy-cm Reason for [...] by: Peter Schmidt MD 08/12/2025 02:03 PM [facility] Dictated By: Peter Schmidt MD Signed By: <Electronically signed by Peter Schmidt MD in OV> 08/12/25 1403 DD/ 1310 TD/TT: 08/12/25 1354 [place]: [facility] External Provider IMG CT PROCEDURES Final Result * CT Head w/o Contrast (08/12/2025 1:10 PM EST) Anatomical Region Laterality Modality Head, Neck Computed Tomogra phy 08/12/2025 1:10 PM EST Narrative 08/12/2025 2:08 PM EST [address] [address] [address] Scan Report Signed Patient: Isidra Srinivasan MR#: [id number] 198 : 1945 Acct:[id number] Age/Sex: 80 / F ADM Date: 08/12/25 Loc: HO.ED Attending Dr: Ordering Physician: Archie Harris Date of Service: 08/12/25 Procedure(s): CT head/brain wo IV con Accession Number(s): [id number] cc: Archie Harris; Jade Richards Report Number: [id number]: Total DLP = 612.00 mGy-cm Reason for [...] by: Felix Alaniz MD 08/12/2025 02:05 PM [facility] Dictated By: Felix Alaniz MD Signed By: <Electronically signed by Felix Alaniz MD in OV> 08/12/25 1405 DD/ 1310 TD/TT: 08/12/25 1354 [place]: Procedure Note Donotuseinterpreter, Image - 08/12/[address] [address] [address] Scan Report Signed Patient: Kerri Srinivasan#: [id number] 198 : 1945cct:[id number] Age/Sex: 80 / FADM Date: 08/12/25 Loc: .ED Attending Dr: Ordering Physician: Archie Harris Date of Service: 08/12/25 Procedure(s): CT head/brain wo IV con Accession Number(s): [id number] cc: Archie Harris; Jade Richards Report Number: [id number]: Total DLP = 612.00 mGy-cm Reason for [...] 08/12/25 1405 DD/ 1310 TD/TT: 08/12/25 1354 [place]: [facility] External Provider IMG CT PROCEDURES Final Result * BD DEXA Axial (06/25/2025 10:42 AM EDT) Anatomical Region Laterality Modality Body Radiographic Naya ging 06/25/2025 10:4 2 AM EDT Narrative 06/25/2025 10:53 AM EDT [address] [place] [address] Mammography Report Signed Patient: Isidra Srinivasan MR#: [id number] 198 : 1945 Acct:[id number] Age/Sex: 79 / F ADM Date: 06/25/25 Loc: HO.MAMMO Attending Dr: Dat Palacios MD Ordering Physician: Dat Palacios MD Results: Date of Service: 06/25/25 Follow Up: Procedure(s): XR DEXA axial skeleton Accession Number(s): [id number] cc: Dat Palacios MD; Jade Richards Reason For Exam: M81.0 - Age-related osteoporosis without current pathological fracture EXAMINATION: DXA BONE DENSITY AXIAL HISTORY: M81.0 - Age-related osteoporosis without current pathological fracture TECHNIQUE: MasCupon Dual energy absorptiometry (DEXA) of the lumbar [...] of the [employer] [employer] [facility] Metabolic Bone Disease, a World Health Organization (WHO) Collaborating Center. Electronically signed by: Dat Toussaint MD 06/25/2025 10:50 AM EDT Dictated By: Dat Toussaint MD Signed By: <Electronically signed by Dat Toussaint MD in OV> 06/25/25 1050 DD/ 1042 TD/TT: 06/25/25 1045 [employer] [place] [place]: Procedure Note Donotuseinterpreter, Image - 06/25/2025 [facility] [address] [place], [place] [address] Mammography Report Signed Patient: Kerri Srinivasan#: [id number] 198 : 1945cct:[id number] Age/Sex: 79 / FADM Date: 06/25/25 Loc: AMIRA Attending Dr: Dat Palacios MD Ordering Physician: Dat Palaciosesults: Date of Service: 06/25/25Follow Up: Procedure(s): XR DEXA axial skeleton Accession Number(s): [id number] cc: Dat Palacois MD; Jade Richards Reason For Exam: M81.0 - Age-related osteoporosis without currentpathological fracture EXAMINATION: DXA BONE DENSITY AXIAL HISTORY: M81.0 - Age-related osteoporosis without current pathological fracture TECHNIQUE: MasCupon Dual energy absorptiometry (DEXA) of the lumbar [...] total) FRAX is a trademark of the [employer] for Metabolic Bone Disease, a World Health Organization (WHO) Collaborating Center. Electronically signed by: Dat Toussaint MD 06/25/2025 10:50 AM EDT Dictated By: Dat Toussaint MD Signed By: <Electronically signed by Dat Toussaint MD in OV> 06/25/25 1050 DD/ 1042 TD/TT: 06/25/25 1045 [place]: [facility] External Provider IMG DXA PROCEDURES Edited Result - Final * BI Mammogram Screening Tomosynthesis Bilateral (03/12/2025 8:50 AM EDT) Anatomical Region Laterality Modality Breast Bilateral Mammography 03/12/2025 8:50 AM EDT Narrative 04/03/2025 8:56 AM EDT [address] [place] [address] Mammography Report Signed Patient: Isidra Srinivasan MR#: [id number] 198 : 1945 Acct:[id number] Age/Sex: 79 / F ADM Date: 03/12/25 Loc: HO.MAMMO Attending Dr: Jade Richards MD Ordering Physician: Jade Richards Results: 1Negative Date of Service: 03/12/25 Follow Up: 1 Year From Orig inal Mammogram Procedure(s): MM tomosynthesis screening BI Accession Number(s): [id number] cc: Jade Richards EXAMINATION: MM SCREENING DIGITAL [...] 04/03/25 0854 DD/ 0850 TD/TT: 03/12/25 0905 [place]: Procedure Note Donotuseinterpreter, Image - 04/04/2025 [facility] [address] [place], [place] [address] Mammography Report Signed Patient: Kerri Srinivasan#: [id number] 198 : 1945cct:[id number] Age/Sex: 79 / FADM Date: 03/12/25 Loc: HO.MAMMO Attending Dr: Jade Richards MD Ordering Physician: Lida Richardsults: 1Negative Date of Service: 03/12/25Follow Up: 1 Year From Orig inal Mammogram Procedure(s): MM tomosynthesis screening BI Accession Number(s): [id number] cc: Jade Richards EXAMINATION: MM SCREENING DIGITAL [...] Merna Quinones DO 04/03/2025 08:54 AM EDT Dictated By: Merna Quinones DO Signed By: <Electronically signed by Merna Quinones DO in OV> 04/03/25 0854 DD/ 0850 TD/TT: 03/12/25 0905 [place]: Jade Richards MD IMG BI PROCEDURES Edited Resul t - Final from Last 3 Months or Most Recently Relevant to Health Maintenance Insurance [facility] [employer] (O D-SNP) RADHA MULLER [id number] [facility] [employer] (O D-SNP) Care Teams Padded Products Inspector Trimmer Relationship Specialty Start Date End Date Jade Richards MD [address] [place] [address] PCP - General Family Medicine 05/04/22
--- OUTSIDE RECORDS SUMMARY | 2025-08-13 01:37 | XMS_ITS | Encounter Summary ---
Author Organization [employer] Address [address] [place] [address] Care Team Providers Care Pt Escort Name Role Phone Jade Richards MD Primary Care Provider [phone] Reason for Visit * Reason Comments Med Refill Encounter Details Date Type Department Care Team ([facility] st Contact Info) Description 06/01/2024 Refill [facility] [address] [place], [place] [phone] Jade Richards MD [address], [place] [phone] Social History Tobacco Use Types Packs/Day Years [...] documented as of this encounter Care Teams Pt Escort Relationship Specialty Start Date End Date Jade Richards MD [address] [place] [address] PCP - General Family Medicine 05/04/22 documented as of this encounter
== END 2025-08-12 17:07 | disposition home or self-care (01) ==
PROVIDERS: Emergency Provider Emergency Medicine; PCP General Practice
DX: T71.191A Asphyxiation due to mechanical threat to breathing due to other causes, accidental, initial encounter (principal); S02.40DA Maxillary fracture, left side, initial encounter for closed fracture; S50.02XA Contusion of left elbow, initial encounter; W18.30XA Fall on same level, unspecified, initial encounter; Y93.L9 Activity, other outdoor activity; Y92.480 Sidewalk as the place of occurrence of the external cause; R51.9 Headache, unspecified; M79.602 Pain in left arm; M25.561 Pain in right knee; M25.562 Pain in left knee; M79.641 Pain in right hand; M79.642 Pain in left hand; Z79.82 Long term (current) use of aspirin; M81.0 Age-related osteoporosis without current pathological fracture; Z79.899 Other long term (current) drug therapy
CPT/HCPCS: 70450; 70486; 71250; 72125; 73110; 73120; 74176; 99283; 99284

== ENCOUNTER → 2025-08-12 12:40 | Outpatient (BNV) | payer OTHER, SELFPAY | PROVIDERS: PCP General Practice; Visit Provider Radiology Diagnostic Radiology | DX: S09.93XA Unspecified injury of face, initial encounter (principal); M51.369 Other intervertebral disc degeneration, lumbar region without mention of lumbar back pain or lower extremity pain; M47.816 Spondylosis without myelopathy or radiculopathy, lumbar region; S52.615K Nondisplaced fracture of left ulna styloid process, subsequent encounter for closed fracture with nonunion; M85.842 Other specified disorders of bone density and structure, left hand; Z04.3 Encounter for examination and observation following other accident; K83.8 Other specified diseases of biliary tract; K65.4 Sclerosing mesenteritis | CPT/HCPCS: 70450; 70486; 71250; 72125; 73110; 73120; 74176 ==